=== PATIENT | male | born 1935 | race Caucasian/White ===

== ENCOUNTER 2017-07-26 19:52 | Emergency (ER) | payer OTHER ==
[2017-07-26] MEDS ORDERED: HYDROCODONE/APAP 5/325 MG TAB ONE (21:14)
[2017-07-26] MEDS ORDERED: CEPHALEXIN 250 MG CAP ONE (21:14)
[2017-07-26] MEDS ORDERED: LIDOCAINE 1% W/EPI 1:100,000 MDV 50 ML VIAL ONE (21:15)
[2017-07-26] MEDS ORDERED: TETANUS & DIPHTHERIA TOX,ADULT 0.5 ML VIAL ONE (21:15)
--- NOTE | 2017-07-26 22:57 | EDPHYS ---
Physician Documentation [facility] Name: Cy Bill Age: 81 yrs Sex: Male : 1935 Arrival Date: 07/26/2017 Time: 20:15 Bed 13 Private MD: ED Physician Milton Salgado HPI: 07/26 23:06 This 81 yrs old Male presents to ER via EMS with complaints of Laceration To snw Arm. 23:06 The patient has a laceration related to: falling from a standing position, occurred snw outdoors, and pt struck left upper, posterior arm on ragged fence, sustained a large avulsion, laceration with skin tears and deep fascia lacerations. The laceration(s) is(are) located on the back of left arm. Onset: The symptoms/episode began/occurred suddenly, just prior to arrival. Associated signs and symptoms: The patient has no apparent associated signs or symptoms. The patient has experienced a previous episode. It is unknown whether or not the patient has recently seen a physician. Historical: - Allergies: 20:19 No Known Allergies; lp1 - Home Meds: 20:19 None [Active]; lp1 - PMHx: 20:19 BPH; lp1 - PSHx: 20:19 None; lp1 - Immunization history:: Last tetanus immunization: unknown. - Social history:: Smoking status: Patient/guardian denies using tobacco, the patient reports quitting approximately 32 years ago. ROS: 23:05 Constitutional: Negative for fever, chills, and weight loss, Eyes: Negative for injury, snw pain, redness, and discharge, ENT: Negative for injury, pain, and discharge, Neck: Negative for injury, pain, and swelling, Cardiovascular: Negative for chest pain, palpitations, and edema, Respiratory: Negative for shortness of breath, cough, wheezing, and pleuritic chest pain, Abdomen/GI: Negative for abdominal pain, nausea, vomiting, diarrhea, and constipation, Back: Negative for injury and pain, : Negative for injury, bleeding, discharge, and swelling, MS/Extremity: Negative for injury and deformity, Neuro: Negative for headache, weakness, numbness, tingling, and seizure. 23:05 Skin: Positive for laceration(s), of the back of left arm. Exam: 23:04 Constitutional: This is a well developed, well nourished patient who is awake, alert, snw and in no acute distress. Head/Face: Normocephalic, atraumatic. Eyes: Pupils equal round and reactive to light, extra-ocular motions intact. Lids and lashes normal. Conjunctiva and sclera are non-icteric and not injected. Cornea within normal limits. Periorbital areas with no swelling, redness, or edema. ENT: Nares patent. No nasal discharge, no septal abnormalities noted. Tympanic membranes are normal and external auditory canals are clear. Oropharynx with no redness, swelling, or masses, exudates, or evidence of obstruction, uvula midline. Mucous membranes moist. Neck: Trachea midline, no thyromegaly or masses palpated, and no cervical lymphadenopathy. Supple, full range of motion without nuchal rigidity, or vertebral point tenderness. No Meningismus. Chest/axilla: Normal chest wall appearance and motion. Nontender with no deformity. No lesions are appreciated. Cardiovascular: Regular rate and rhythm with a normal S1 and S2. No gallops, murmurs, or rubs. Normal PMI, no JVD. No pulse deficits. Respiratory: Lungs have equal breath sounds bilaterally, clear to auscultation and percussion. No rales, rhonchi or wheezes noted. No increased work of breathing, no retractions or nasal flaring. Abdomen/GI: Soft, non-tender, with normal bowel sounds. No distension or tympany. No guarding or rebound. No evidence of tenderness throughout. Back: No spinal tenderness. No costovertebral tenderness. Full range of motion. MS/ Extremity: Pulses equal, no cyanosis. Neurovascular intact. Full, normal range of motion. Neuro: Awake and alert, GCS 15, oriented to person, place, time, and situation. Cranial nerves II-XII grossly intact. Motor strength 5/5 in all extremities. Sensory grossly intact. Cerebellar exam normal. Normal gait. 23:04 Skin: Appearance: ecchymosis, that are moderate, of the back of left arm, injury, avulsion(s), A moderate sized laceration(s), the wound is approximately 15 cm(s), with a depth of 5 cm(s), of the back of left arm. Vital Signs: 20:19 BP 152 / 69; Pulse 71; Resp 18; Temp 98.2(O); Pulse Ox 96% on R/A; Weight 90.72 kg; lp1 Height 6 ft. 0 in. (182.88 cm); Pain 1/10; 21:07 BP 137 / 66; Pulse 67; Resp 18; Pulse Ox 95% on R/A; aa1 22:00 BP 128 / 58; Pulse 76; Resp 16; Pulse Ox 96% on R/A; aa1 23:00 BP 119 / 57; Pulse 76; Resp 18; Temp 98.3; Pulse Ox 95% on R/A; Pain 0/10; aa1 20:19 Body Mass Index 27.12 (90.72 kg, 182.88 cm) lp1 Igor Coma Score: 21:07 Eye Response: spontaneous(4). Verbal Response: oriented(5). Motor Response: obeys aa1 commands(6). Total: 15. 22:00 Eye Response: spontaneous(4). Verbal Response: oriented(5). Motor Response: obeys aa1 commands(6). Total: 15. 23:00 Eye Response: spontaneous(4). Verbal Response: oriented(5). Motor Response: obeys aa1 commands(6). Total: 15. Laceration: 23:02 Wound Repair of 15cm ( 5.9in ) full thickness laceration to back of left arm. snw Irregularly shaped.. Skin/tissue flap noted.. Hemostasis noted.. Distal neuro/vascular/tendon intact. Anesthesia: Local anesthetic administered with 10 mls of 1% lidocaine w/ Epi. Wound prep: Extensive cleansing with hibiclenz by me, Wound margin revised extensively, Wound explored. Skin closed with 20 4-0 Prolene using simple sutures and sterile technique. Dressed with tegaderm, gia. Patient tolerated well. MDM: 21:19 Patient medically screened. snw 23:02 Data reviewed: vital signs, nurses notes. Data interpreted: Pulse oximetry: on room air snw is 96 %. Interpretation: acceptable. Counseling: I had a detailed discussion with the patient and/or guardian regarding: the historical points, exam findings, and any diagnostic results supporting the discharge/admit diagnosis, the need for outpatient follow up, to return to the emergency department if symptoms worsen or persist or if there are any questions or concerns that arise at home. Special discussion: I discussed in detail with the patient the higher chance of wound infection based on his presenting history. Based on the history and exam findings, there is no indication for further emergent testing or inpatient evaluation. I discussed with the patient/guardian the need to see the primary care provider for further evaluation of the symptoms. 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 Exp: aa1 09/04/2019. Lot #: [id number]. } Route: IM; Site: right deltoid; 23:26 Follow up: Response: No adverse reaction aa1 21:10 Drug: KeFLEX 500 mg Route: PO; aa1 23:25 Follow up: Response: No adverse reaction aa1 21:10 Drug: Castile 5 mg-325 mg 1 tabs Route: PO; aa1 23:25 Follow up: Response: No adverse reaction; Pain is decreased aa1 21:50 Drug: Lidocaine-Epinephrine -1%: (1:100,000) 1 vials Volume: 20 ml; Route: Infiltration;aa1 Disposition: 07/27 00:19 Co-signature as Attending Physician, Milton Salgado MD. pkl Disposition: 07/26/17 22:56 Discharged to Home. Impression: Laceration without foreign body of upper arm, Contusion of upper arm. - Condition is Stable. - Discharge Instructions: Contusion, Laceration Care, Adult, Sutured Wound Care, Deep Skin Avulsion. - Prescriptions for Keflex 500 mg Oral Capsule - take 1 capsule by ORAL route every 8 hours for 10 days; 30 capsule. Tylenol- Codeine #3 300-30 mg Oral Tablet - take 2 tablets by ORAL route every 6 hours As needed; 15 tablet. - Medication Reconciliation Form, Thank You Letter, Antibiotic Education, Prescription Opioid Use form. - Follow up: Private Physician; When: 1 week; Reason: Wound Recheck, Recheck today's complaints, Re-evaluation by your physician. Follow up: Emergency Department; When: As needed; Reason: Worsening of condition. Signatures: Sneha Sanford RN RN aa1 Milton Salgado MD MD pkl Katelyn Aviles, PHP MYSQL DEVELOPER-C PHP MYSQL DEVELOPER-Csnw Usha Durham, RN RN lp1
--- NOTE | 2017-07-26 22:57 | ER ---
Nurse's Notes [facility] Name: Cy Bill Age: 81 yrs Sex: Male : 1935 Arrival Date: 07/26/2017 Time: 20:15 Bed 13 Private MD: Diagnosis: Laceration without foreign body of upper arm;Contusion of upper arm Presentation: 07/26 20:16 Presenting complaint: EMS states: Patient was walking in backyard, tripped and fell, lp1 left arm caught on chain link fence, evulsion noted to back of left arm; No active bleeding on arrival to ED; Denies hitting head, no LOC. Transition of care: patient was not received from another setting of care. Complicating Factors: There are no complicating factors for this patient. Onset of symptoms was July 26, 2017 at 19:30. Care prior to arrival: Injury dressed. 20:16 Method Of Arrival: EMS: [facility] lp1 20:16 Acuity: AMALIA 3 lp1 Historical: - Allergies: 20:19 No Known Allergies; lp1 - Home Meds: 20:19 None [Active]; lp1 - PMHx: 20:19 BPH; lp1 - PSHx: 20:19 None; lp1 - Immunization history:: Last tetanus immunization: unknown. - Social history:: Smoking status: Patient/guardian denies using tobacco, the patient reports quitting approximately 32 years ago. Screenin:20 Abuse screen: Denies threats or abuse. Denies injuries from another. Nutritional lp1 screening: No deficits noted. 20:20 Tuberculosis screening: No symptoms or risk factors identified. Fall Risk None aa1 identified. Assessment: 20:20 General: Appears in no apparent distress. comfortable, Behavior is calm, cooperative, aa1 appropriate for age. Pain: Complains of pain in left arm. Neuro: Level of Consciousness is awake, alert, obeys commands, Oriented to person, place, time, situation, Facial Operator are equal bilaterally Moves all extremities. Full function Gait is steady, Speech is normal. Respiratory: Airway is patent Respiratory effort is even, unlabored, Respiratory pattern is regular, symmetrical. GI: : EENT: No signs and/or symptoms were reported regarding the EENT system. Derm: Skin is thin, has skin tears on back of left upper arm Skin is pink, warm \T\ dry. Musculoskeletal: Circulation, motion, and sensation intact. Capillary refill < 3 seconds, Range of motion: intact in all extremities. Injury Description: Laceration sustained to back of left arm is jagged, 7.6 to 20 cm long, not bleeding. 21:00 Reassessment: Patient appears in no apparent distress at this time. Patient and/or aa1 family updated on plan of care and expected duration. Pain level reassessed. Patient is alert, oriented x 3, equal unlabored respirations, skin warm/dry/pink. Awaiting lac repair. 21:50 Reassessment: Patient appears in no apparent distress at this time. Patient and/or aa1 family updated on plan of care and expected duration. Pain level reassessed. Patient is alert, oriented x 3, equal unlabored respirations, skin warm/dry/pink. DELI CLERK at bedside for lac repair. 22:50 Reassessment: Patient appears in no apparent distress at this time. Patient and/or aa1 family updated on plan of care and expected duration. Pain level reassessed. Patient is alert, oriented x 3, equal unlabored respirations, skin warm/dry/pink. Lac repair complete. Pt pending discharge. 23:30 Reassessment: Patient appears in no apparent distress at this time. Patient is alert, aa1 oriented x 3, equal unlabored respirations, skin warm/dry/pink. Discussed d/c \T\ f/u instructions with pt \T\ family; denies questions or concerns at this time. Vital Signs: 20:19 BP 152 / 69; Pulse 71; Resp 18; Temp 98.2(O); Pulse Ox 96% on R/A; Weight 90.72 kg; lp1 Height 6 ft. 0 in. (182.88 cm); Pain 1/10; 21:07 BP 137 / 66; Pulse 67; Resp 18; Pulse Ox 95% on R/A; aa1 22:00 BP 128 / 58; Pulse 76; Resp 16; Pulse Ox 96% on R/A; aa1 23:00 BP 119 / 57; Pulse 76; Resp 18; Temp 98.3; Pulse Ox 95% on R/A; Pain 0/10; aa1 20:19 Body Mass Index 27.12 (90.72 kg, 182.88 cm) lp1 Oxford Coma Score: 21:07 Eye Response: spontaneous(4). Verbal Response: oriented(5). Motor Response: obeys aa1 commands(6). Total: 15. 22:00 Eye Response: spontaneous(4). Verbal Response: oriented(5). Motor Response: obeys aa1 commands(6). Total: 15. 23:00 Eye Response: spontaneous(4). Verbal Response: oriented(5). Motor Response: obeys aa1 commands(6). Total: 15. ED Course: 20:15 Patient arrived in ED. lp1 20:18 Triage completed. lp1 20:19 Arm band placed on right wrist. lp1 20:20 Patient has correct armband on for positive identification. Placed in gown. Bed in low aa1 position. Call light in reach. Side rails up X2. Pulse ox on. NIBP on. Warm blanket given. 20:39 Katelyn Aviles FNP-C is PHCP. snw 20:39 Milton Salgado MD is Attending Physician. snw 20:52 Sneha Sanford RN is Primary Nurse. aa1 22:00 Assist provider with laceration repair on back of left arm that was between 7.6 to 12.5 aa1 cm using sutures. Set up tray. Performed by Katelyn EUBANKS Dressed with Niurka, Neosporin, non-adherent dressing Patient tolerated well. 23:27 Patient did not have IV access during this emergency room visit. 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 Exp: aa1 09/04/2019. Lot #: [id number]. } Route: IM; Site: right deltoid; 23:26 Follow up: Response: No adverse reaction aa1 21:10 Drug: KeFLEX 500 mg Route: PO; aa1 23:25 Follow up: Response: No adverse reaction aa1 21:10 Drug: [place]elphi 5 mg-325 mg 1 tabs Route: PO; aa1 23:25 Follow up: Response: No adverse reaction; Pain is decreased aa1 21:50 Drug: Lidocaine-Epinephrine -1%: (1:100,000) 1 vials Volume: 20 ml; Route: Infiltration;aa1 Outcome: 22:56 Discharge ordered by . snw 23:27 Discharged to home with family. aa1 23:27 Condition: good 23:27 Discharge instructions given to patient, family, Instructed on discharge instructions, follow up and referral plans. medication usage, Demonstrated understanding of instructions, follow-up care, medications, Prescriptions given X 2. 23:27 Patient left the ED. aa1 Signatures: Sneha Sanford RN RN aa1 Katelyn Aviles, MATH TUTOR-C MATH TUTOR-Csnw Usha Durham RN RN lp1
[2017-07-26 23:34] VITALS: BP 119/57; TEMP 98.3; O2SAT 95
== END 2017-07-26 23:27 | disposition home or self-care (01) ==
LOC: ER 19:52
PROC: 0JQF0ZZ Repair Left Upper Arm Subcutaneous Tissue and Fascia, Open Approach (ICD-10-PCS; principal; 2017-07-26)
DX: S41.112A Laceration without foreign body of left upper arm, initial encounter (principal); S40.022A Contusion of left upper arm, initial encounter; W01.0XXA Fall on same level from slipping, tripping and stumbling without subsequent striking against object, initial encounter; Y93.9 Activity, unspecified; Y92.007 Garden or yard of unspecified non-institutional (private) residence as the place of occurrence of the external cause
CPT/HCPCS: 90714; 99284

== ENCOUNTER 2019-01-20 10:07 | Emergency (ER) | payer OTHER ==
[2019-01-20] MEDS ORDERED: TETANUS & DIPHTHERIA TOX,ADULT 0.5 ML VIAL ONE (10:41)
[2019-01-20] MEDS ORDERED: LIDOCAINE 1% MPF 5 ML VIAL ONE (10:41)
[2019-01-20] MEDS ORDERED: TRAMADOL HCL 50 MG TAB ONE (11:47)
--- NOTE | 2019-01-20 11:55 | RAD REPORT ---
EXAM DESCRIPTION: RAD - Hand Left 3 View - 01/20/2019 11:37 am CLINICAL HISTORY: PAIN COMPARISON: No comparisons FINDINGS: Soft tissue swelling/ laceration is seen along the dorsal aspect of the hand. No acute fra cture or dislocation evident. First carpometacarpal joint arthritic changes are present. Scapholunate articulation widening is present suggesting underlying tear.
--- NOTE | 2019-01-20 11:56 | RAD REPORT ---
EXAM DESCRIPTION: RAD - Femur Left - 01/20/2019 11:37 am CLINICAL HISTORY: PAIN COMPARISON: No comparisons FINDINGS: No acute fracture or dislocation is seen. Vascular calcifications are present.
--- NOTE | 2019-01-20 12:52 | ER ---
Nurse's Notes [facility] Name: Cy Bill Age: 83 yrs Sex: Male : 1935 Arrival Date: 01/20/2019 Time: 10:09 Bed 14 Private MD: Diagnosis: Laceration without foreign body of left hand-skin tear;Contusion of left lower leg-lateral thigh Presentation: 01/20 10:15 Presenting complaint: Patient states: "I fell off the boat today and hurt my left aa5 hand". Large skin tear noted to left hand. Pt also c/o pain to left leg. 10:15 Transition of care: patient was not received from another setting of care. Onset of aa5 symptoms was January 20, 2019. Risk Assessment: Do you want to hurt yourself or someone else? Patient reports no desire to harm self or others. Care prior to arrival: None. 10:15 Acuity: AMALIA 3 aa5 10:15 Method Of Arrival: Ambulatory aa5 10:22 Complicating Factors: open wound. Initial Sepsis Screen: Does the patient meet any 2 rb1 criteria? No. Patient's initial sepsis screen is negative. Does the patient have a suspected source of infection? Yes: Skin breakdown/wound. Historical: - Allergies: 10:22 Aspirin; rb1 - PMHx: 10:16 BPH; aa5 - PSHx: 10:22 None; rb1 - Immunization history:: Adult Immunizations up to date, Last tetanus immunization: unknown. - Ebola Screening: : No symptoms or risks identified at this time. - Social history:: Smoking status: Patient/guardian denies using tobacco. Screenin:22 Abuse screen: Denies threats or abuse. Nutritional screening: No deficits noted. rb1 Tuberculosis screening: No symptoms or risk factors identified. Fall Risk Fall in past 12 months (25 points). No secondary diagnosis (0 pts). No IV (0 pts). Ambulatory Aid- None/Bed Rest/Nurse Assist (0 pts). Gait- Normal/Bed Rest/Wheelchair (0 pts) Mental Status- Oriented to own ability (0 pts). Total Streeter Fall Scale indicates Low Risk Score (25-44 pts). Fall prevention measures have been instituted. Side Rails Up X 2 Placed close to Nursing Station 1:1 attendant Assigned to Pt. Frequent Obs/Assesments occuring Family Present and informed to notify staff if they need to leave bedside As available Patient and Family Educated on Fall Prevention Program and strategies. Assessment: 10:22 General: Appears in no apparent distress. comfortable, Behavior is calm, cooperative. rb1 Pain: Complains of pain in left hand Pain currently is 4 out of 10 on a pain scale. Neuro: Level of Consciousness is awake, alert, obeys commands, Oriented to person, place, time, situation. Cardiovascular: Capillary refill < 3 seconds is brisk in bilateral fingers. Respiratory: Airway is patent Respiratory effort is even, unlabored, Respiratory pattern is regular, symmetrical. GI: No signs and/or symptoms were reported involving the gastrointestinal system. : No signs and/or symptoms were reported regarding the genitourinary system. Derm: Wound noted left hand, left forearm. Musculoskeletal: Range of motion: intact in all extremities. Injury Description: Laceration is contaminated, jagged, minimal bleeding. 11:20 Reassessment: Patient appears in no apparent distress at this time. No changes from rb1 previously documented assessment. Family at patient bedside. 11:55 Reassessment: Patient appears in no apparent distress at this time. Patient and/or rb1 family updated on plan of care and expected duration. Pain level reassessed. Patient is alert, oriented x 3, equal unlabored respirations, skin warm/dry/pink. Pt. refused the Tramadol, he stated, "I'll wait for her to numb up my hand when she puts stitches in it.". 12:27 Reassessment: Provider at bedside suturing the wound on pt. left hand. rb1 13:00 Reassessment: Patient appears in no apparent distress at this time. Patient and/or rb1 family updated on plan of care and expected duration. Pain level reassessed. Patient is alert, oriented x 3, equal unlabored respirations, skin warm/dry/pink. Vital Signs: 10:15 BP 137 / 73; Pulse 81; Resp 16 S; Temp 98.1(O); Pulse Ox 98% on R/A; aa5 11:16 BP 135 / 57; Pulse 71; Resp 16; Pulse Ox 98% on R/A; dh3 12:09 BP 134 / 55; Pulse 61; Resp 16; Pulse Ox 99% on R/A; rb1 13:07 BP 135 / 59; Pulse 67; Resp 17; Temp 98.4(O); Pulse Ox 97% on R/A; Pain 4/10; rb1 ED Course: 10:09 Patient arrived in ED. as 10:14 Gwendolyn Burgess FNP-C is [facility]. kb 10:14 Qasim Ward MD is Attending Physician. kb 10:15 Arm band placed on Patient placed in an exam room, on a stretcher. aa5 10:19 Triage completed. aa5 10:22 Patient has correct armband on for positive identification. Placed in gown. Bed in low rb1 position. Call light in reach. Side rails up X 1. Pulse ox on. NIBP on. 10:35 Sharon Diaz, RN is Primary Nurse. rb1 11:48 Femur Left XRAY In Process Unspecified. EDMS 11:48 Hand Left 3 View XRAY In Process Unspecified. EDMS 13:09 No provider procedures requiring assistance completed. Patient did not have IV access rb1 during this emergency room visit. Administered Medications: 10:46 Drug: Tetanus-Diphtheria Toxoid Adult 0.5 ml {Finance Associate: [employer]. Exp: rb1 09/07/2020. Lot #: [id number]. } Route: IM; Site: right deltoid; 11:00 Follow up: Response: No adverse reaction rb1 13:00 Drug: traMADol 50 mg Route: PO; rb1 13:06 Follow up: Response: Medication administered at discharge. rb1 13:05 Drug: Doxycycline 100 mg Route: PO; rb1 13:06 Follow up: Response: No adverse reaction rb1 Outcome: 12:50 Discharge ordered by . kb 13:09 Discharged to home via wheelchair, with family. rb1 13:09 Condition: stable 13:09 Discharge instructions given to patient, Instructed on discharge instructions, follow up and referral plans. medication usage, Demonstrated understanding of instructions, follow-up care, medications, Prescriptions given X 2. 13:10 Patient left the ED. rb1 Signatures: Dispatcher [employer] EDMS Gwendolyn Burgess FNP-C FNP-Ckb Martinez, Amelia as Calderon, Audri RN RN aa5 Sharon Diaz, RN RN rb1 Elsie Rivera 3 Corrections: (The following items were deleted from the chart) 11:51 10:16 Allergies: No Known Allergies; aa5 rb1
--- NOTE | 2019-01-20 12:52 | EDPHYS ---
Physician Documentation [facility] Name: Cy Bill Age: 83 yrs Sex: Male : 1935 Arrival Date: 01/20/2019 Time: 10:09 Bed 14 Private MD: ED Physician Qasim Ward HPI: 01/20 10:21 This 83 yrs old Male presents to ER via Ambulatory with complaints of kb Laceration To Leg. 10:21 The patient has a laceration related to: falling from a standing position, occurred kb outdoors, and there are no complicating factors. The injury was accidental. The laceration(s) is(are) located on the dorsum of left hand and palmar aspect of left forearm. Onset: The symptoms/episode began/occurred just prior to arrival. Associated signs and symptoms: The patient has no apparent associated signs or symptoms. The patient has not experienced similar symptoms in the past. The patient has not recently seen a physician. Pt fell on a boat and sustained skin tears to left hand and left forearm. Full ROM of arm and hand. Daughter wants left hip x-rayed because he hit that as well. Pt reports he hit his femur, not his hip. Full ROM, ambulates with steady gait. . Historical: - Allergies: 10:22 Aspirin; rb1 - PMHx: 10:16 BPH; aa5 - PSHx: 10:22 None; rb1 - Immunization history:: Adult Immunizations up to date, Last tetanus immunization: unknown. - Ebola Screening: : No symptoms or risks identified at this time. - Social history:: Smoking status: Patient/guardian denies using tobacco. ROS: 10:25 Constitutional: Negative for fever, chills, and weight loss, ENT: Negative for injury, kb pain, and discharge, Neck: Negative for injury, pain, and swelling, Cardiovascular: Negative for chest pain, palpitations, and edema, Respiratory: Negative for shortness of breath, cough, wheezing, and pleuritic chest pain, Abdomen/GI: Negative for abdominal pain, nausea, vomiting, diarrhea, and constipation, Neuro: Negative for headache, weakness, numbness, tingling, and seizure. 10:25 MS/extremity: Positive for of the dorsum of left hand and palmar aspect of left forearm, skin tear, soreness to left femur. Exam: 10:30 Constitutional: This is a well developed, well nourished patient who is awake, alert, kb and in no acute distress. Head/Face: Normocephalic, atraumatic. Neck: Trachea midline, no thyromegaly or masses palpated, and no cervical lymphadenopathy. Supple, full range of motion without nuchal rigidity, or vertebral point tenderness. No Meningismus. Chest/axilla: Normal chest wall appearance and motion. Nontender with no deformity. No lesions are appreciated. Cardiovascular: Regular rate and rhythm with a normal S1 and S2. No gallops, murmurs, or rubs. Normal PMI, no JVD. No pulse deficits. Respiratory: Lungs have equal breath sounds bilaterally, clear to auscultation and percussion. No rales, rhonchi or wheezes noted. No increased work of breathing, no retractions or nasal flaring. Abdomen/GI: Soft, non-tender, with normal bowel sounds. No distension or tympany. No guarding or rebound. No evidence of tenderness throughout. Neuro: Awake and alert, GCS 15, oriented to person, place, time, and situation. Cranial nerves II-XII grossly intact. Motor strength 5/5 in all extremities. Sensory grossly intact. Cerebellar exam normal. Normal gait. 10:30 Skin: injury, large skin tear to top of hand, skin tear to forearm, all bleeding controlled. . 10:42 Musculoskeletal/extremity: Extremities: grossly normal except: noted in the lateral kb aspect of left thigh: contusion. Vital Signs: 10:15 BP 137 / 73; Pulse 81; Resp 16 S; Temp 98.1(O); Pulse Ox 98% on R/A; aa5 11:16 BP 135 / 57; Pulse 71; Resp 16; Pulse Ox 98% on R/A; dh3 12:09 BP 134 / 55; Pulse 61; Resp 16; Pulse Ox 99% on R/A; rb1 13:07 BP 135 / 59; Pulse 67; Resp 17; Temp 98.4(O); Pulse Ox 97% on R/A; Pain 4/10; rb1 Laceration: 12:46 Wound Repair of 8cm ( 3.1in ) subcutaneous laceration to dorsum of left hand. kb Irregularly shaped.. Skin/tissue flap noted.. Distal neuro/vascular/tendon intact. Anesthesia: Wound infiltrated with 5 mls of 1% lidocaine. Wound prep: Extensive cleansing, Wound irrigation. Skin closed with 6 6-0 Prolene using interrupted sutures and sterile technique. Dressed with non-adherent dressing. Patient tolerated well. MDM: 10:14 Patient medically screened. kb 10:24 Data reviewed: vital signs, nurses notes. Data interpreted: Pulse oximetry: on room air kb is 98 %. Interpretation: normal. 12:47 Counseling: I had a detailed discussion with the patient and/or guardian regarding: the kb historical points, exam findings, and any diagnostic results supporting the discharge/admit diagnosis, radiology results, the need for outpatient follow up, a family practitioner, to return to the emergency department if symptoms worsen or persist or if there are any questions or concerns that arise at home. ED course: Attempted to approximate skin tear due to extent. 6 sutures placed, along with steri-strips. . 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 Exp: rb1 09/07/2020. Lot #: [id number]. } Route: IM; Site: right deltoid; 11:00 Follow up: Response: No adverse reaction rb1 13:00 Drug: traMADol 50 mg Route: PO; rb1 13:06 Follow up: Response: Medication administered at discharge. rb1 13:05 Drug: Doxycycline 100 mg Route: PO; rb1 13:06 Follow up: Response: No adverse reaction rb1 Disposition: 01/20/19 12:50 Discharged to Home. Impression: Laceration without foreign body of left hand - skin tear, Contusion of left lower leg - lateral thigh. - Condition is Stable. - Discharge Instructions: Laceration Care, Adult, [facility]. - Prescriptions for Doxycycline Hyclate 100 mg Oral Tablet - take 1 tablet by ORAL route every 12 hours; 20 tablet. Tramadol 50 mg Oral Tablet - take 1 tablet by ORAL route every 8 hours as needed; 12 tablet. - Medication Reconciliation Form, Thank You Letter, Antibiotic Education, Prescription Opioid Use form. - Follow up: Emergency Department; When: As needed; Reason: Worsening of condition. Follow up: Private Physician; When: 2 - 3 days; Reason: Recheck today's complaints, Continuance of care, Re-evaluation by your physician. Signatures: Dispatcher [employer] EDMS Gwendolyn Burgess, Leida Hernandez RN RN aa5 Sharon Diaz, AIRAM RN rb1 Corrections: (The following items were deleted from the chart) 10:42 10:30 Constitutional: This is a well developed, well nourished patient who is awake, kb alert, and in no acute distress. Head/Face: Normocephalic, atraumatic. Neck: Trachea midline, no thyromegaly or masses palpated, and no cervical lymphadenopathy. Supple, full range of motion without nuchal rigidity, or vertebral point tenderness. No Meningismus. Chest/axilla: Normal chest wall appearance and motion. Nontender with no deformity. No lesions are appreciated. Cardiovascular: Regular rate and rhythm with a normal S1 and S2. No gallops, murmurs, or rubs. Normal PMI, no JVD. No pulse deficits. Respiratory: Lungs have equal breath sounds bilaterally, clear to auscultation and percussion. No rales, rhonchi or wheezes noted. No increased work of breathing, no retractions or nasal flaring. Abdomen/GI: Soft, non-tender, with normal bowel sounds. No distension or tympany. No guarding or rebound. No evidence of tenderness throughout. MS/ Extremity: Pulses equal, no cyanosis. Neurovascular intact. Full, normal range of motion. Neuro: Awake and alert, GCS 15, oriented to person, place, time, and situation. Cranial nerves II-XII grossly intact. Motor strength 5/5 in all extremities. Sensory grossly intact. Cerebellar exam normal. Normal gait. kb 11:51 10:16 Allergies: No Known Allergies; aa5 rb1 13:10 12:50 01/20/2019 12:50 Discharged to Home. Impression: Laceration without foreign body rb1 of left hand - skin tear; Contusion of left lower leg - lateral thigh. Condition is Stable. Forms are Medication Reconciliation Form, Thank You Letter, Antibiotic Education, Prescription Opioid Use. Follow up: Emergency Department; When: As needed; Reason: Worsening of condition. Follow up: Private Physician; When: 2 - 3 days; Reason: Recheck today's complaints, Continuance of care, Re-evaluation by your physician. kb
[2019-01-20] MEDS ORDERED: DOXYCYCLINE 100 MG CAP PO ONE (13:07)
[2019-01-20 13:19] VITALS: BP 135/59; TEMP 98.4; O2SAT 97
== END 2019-01-20 13:10 | disposition home or self-care (01) ==
LOC: ER 10:07
PROC: 0JQK0ZZ Repair Left Hand Subcutaneous Tissue and Fascia, Open Approach (ICD-10-PCS; principal; 2019-01-20)
DX: S70.12XA Contusion of left thigh, initial encounter (principal); W17.89XA Other fall from one level to another, initial encounter; Y93.89 Activity, other specified; Y92.9 Unspecified place or not applicable; Z23 Encounter for immunization; Z88.6 Allergy status to analgesic agent
CPT/HCPCS: 90471; 90714; 99284

== ENCOUNTER 2020-07-27 16:05 | Emergency (ER) | payer OTHER ==
[2020-07-27] MEDS ORDERED: LIDOCAINE 1% MPF 30 ML VIAL ONE (18:09)
[2020-07-27] MEDS ORDERED: TETANUS & DIPHTHERIA TOX,ADULT 0.5 ML VIAL ONE (18:17)
--- NOTE | 2020-07-27 18:41 | EDPHYS ---
Physician Documentation [facility] Name: Cy Bill Age: 84 yrs Sex: Male : 1935 Arrival Date: 07/27/2020 Time: 16:07 Bed 30 Private MD: ED Physician Fifi Mueller HPI: 07/27 18:34 This 84 yrs old Male presents to ER via Ambulatory with complaints of jr8 Laceration To Arm. 18:34 Pt reports hitting arm on a nail in a board. He also wants a tetanus shot. Bleeding jr8 controlled. . 18:38 Onset: The symptoms/episode began/occurred acutely, today. Associated signs and jr8 symptoms: The patient has no apparent associated signs or symptoms. The patient has not experienced similar symptoms in the past. The patient has not recently seen a physician. Historical: - Allergies: 16:30 Aspirin; ca1 - PMHx: 16:30 BPH; ca1 - PSHx: 16:30 None; ca1 - Immunization history:: Client reports having NOT received the Covid vaccine. Last tetanus immunization: unknown, Pneumococcal vaccine is not up to date, Flu vaccine is not up to date. - Social history:: Smoking status: Patient/guardian denies using tobacco, the patient reports quitting approximately 37 years ago. ROS: 18:35 Cardiovascular: Negative for chest pain, palpitations, and edema, Respiratory: Negative jr8 for shortness of breath, cough, wheezing, and pleuritic chest pain, Abdomen/GI: Negative for abdominal pain, nausea, vomiting, diarrhea, and constipation, Neuro: Negative for headache, weakness, numbness, tingling, and seizure. 18:35 MS/extremity: Positive for laceration, of the left arm. 18:35 Skin: Positive for laceration(s), of the left arm. 18:38 All other systems are negative. jr8 Exam: 18:35 Chest/axilla: Normal chest wall appearance and motion. Nontender with no deformity. jr8 No lesions are appreciated. Cardiovascular: Regular rate and rhythm with a normal S1 and S2. No gallops, murmurs, or rubs. Normal PMI, no JVD. No pulse deficits. Respiratory: Lungs have equal breath sounds bilaterally, clear to auscultation and percussion. No rales, rhonchi or wheezes noted. No increased work of breathing, no retractions or nasal flaring. Abdomen/GI: Soft, non-tender, with normal bowel sounds. No distension or tympany. No guarding or rebound. No evidence of tenderness throughout. Neuro: Awake and alert, GCS 15, oriented to person, place, time, and situation. Cranial nerves II-XII grossly intact. Motor strength 5/5 in all extremities. Sensory grossly intact. Cerebellar exam normal. Normal gait. 18:35 Musculoskeletal/extremity: Extremities: grossly normal except: noted in the Mid dorsal region of L forearm: laceration, ROM: no acute changes, Circulation is intact in all extremities. Sensation intact. Vital Signs: 16:27 BP 130 / 63; Pulse 77; Resp 16 S; Temp 98.2(TE); Pulse Ox 99% on R/A; Weight 96.16 kg ca1 (R); Height 6 ft. 0 in. (182.88 cm) (R); Pain 0/10; 18:50 BP 125 / 80; Pulse 75; Resp 19; Pulse Ox 98% ; rr5 16:27 Body Mass Index 28.75 (96.16 kg, 182.88 cm) ca1 Laceration: 18:36 Wound Repair of 5cm ( 2.0in ) subcutaneous laceration to left arm. Distal jr8 neuro/vascular/tendon intact. Anesthesia: Local anesthetic administered with 1% lidocaine. Wound prep: Extensive cleansing with hibiclenz, Wound irrigation with saline by wi, Copious irrigation. Skin closed with 4-0 Vicryl using interrupted sutures and sterile technique. Skin closed with 6 1-0 Prolene using simple sutures and sterile technique. Dressed with Bacitracin, tube gauze, non-adherent dressing. Patient tolerated well. MDM: 17:15 Patient medically screened. jr8 18:37 Data reviewed: vital signs, nurses notes, and as a result, I will discharge patient. jr8 Data interpreted: Pulse oximetry: on room air is 99 %. Interpretation: normal. Counseling: I had a detailed discussion with the patient and/or guardian regarding: the historical points, exam findings, and any diagnostic results supporting the discharge/admit diagnosis, the need for outpatient follow up, a family practitioner, to return to the emergency department if symptoms worsen or persist or if there are any questions or concerns that arise at home. 07/27 18:24 Order name: Prolene, Sutures; Complete Time: 18:41 rr5 07/27 18:24 Order name: Dressing - Wound; Complete Time: 18:41 rr5 07/27 18:24 Order name: Gloves, Sterile; Complete Time: 18:41 rr5 07/27 18:24 Order name: Setup Suture Tray; Complete Time: 18:41 rr5 Administered Medications: 18:15 Drug: Lidocaine (1 %) 10 ml Volume: 20 ml; Route: Infiltration; rr5 18:55 Follow up: Response: No adverse reaction rr5 18:40 Drug: Tetanus-Diphtheria Toxoid Adult 0.5 ml {[employer]: [employer]. Exp: rr5 08/11/2021. Lot #: [id number]. } Route: IM; Site: left deltoid; 18:55 Follow up: Response: No adverse reaction rr5 Disposition: 07/27/20 18:40 Discharged to Home. Impression: Laceration without foreign body of left forearm. - Condition is Stable. - Discharge Instructions: Laceration Care, Adult. - Medication Reconciliation Form, Thank You Letter, Antibiotic Education, Prescription Opioid Use form. - Follow up: Private Physician; When: 7 - 10 days; Reason: Wound Recheck, Recheck today's complaints, Continuance of care, Staple/Suture removal, Re-evaluation by your physician. - Problem is new. - Symptoms have improved. Addendum: 07/29/2020 18:36 Co-signature as Attending Physician, Fifi Mueller MD. m a2 Signatures: Norma Sosa RN RN iw Roge Lr PA PA 8 Fifi Mueller MD MD ma2 Tlyer Sutton RN RN rr5 Marina Bernard RN RN ca1 Corrections: (The following items were deleted from the chart) 07/27 18:39 18:35 Musculoskeletal/extremity: Extremities: grossly normal except: noted in the left jr8 arm: laceration, ROM: no acute changes, Circulation is intact in all extremities. Sensation intact. jr8 18:41 18:35 Musculoskeletal/extremity: Extremities: grossly normal except: noted in the left jr8 arm: laceration, ROM: no acute changes, Circulation is intact in all extremities. Sensation intact. 8 19:00 18:40 07/27/2020 18:40 Discharged to Home. Impression: Laceration without foreign body iw of left forearm. Condition is Stable. Forms are Medication Reconciliation Form, Thank You Letter, Antibiotic Education, Prescription Opioid Use. Follow up: Private Physician; When: 7 - 10 days; Reason: Wound Recheck, Recheck today's complaints, Continuance of care, Staple/Suture removal, Re-evaluation by your physician. Problem is new. Symptoms have improved. jr8
--- NOTE | 2020-07-27 18:41 | ER ---
Nurse's Notes [facility] Name: Cy Bill Age: 84 yrs Sex: Male : 1935 Arrival Date: 07/27/2020 Time: 16:07 Bed 30 Private MD: Diagnosis: Laceration without foreign body of left forearm Presentation: 07/27 16:27 Chief complaint: Patient states: lac on L forearm 30 mins [employer] WALL [employer]. Got caught on a nail ca1 head. Bleeding controlled. Coronavirus screen: Client denies travel out of the [place] in the last 14 days. At this time, the client does not indicate any symptoms associated with coronavirus-19. Ebola Screen: Patient negative for fever greater than or equal to 101.5 degrees Fahrenheit, and additional compatible Ebola Virus Disease symptoms Patient denies exposure to infectious person. Patient denies travel to an Ebola-affected area in the 21 days before illness onset. No symptoms or risks identified at this time. Complicating Factors: There are no complicating factors for this patient. Initial Sepsis Screen: Does the patient meet any 2 criteria? No. Patient's initial sepsis screen is negative. Does the patient have a suspected source of infection? No. Patient's initial sepsis screen is negative. Risk Assessment: Do you want to hurt yourself or someone else? Patient reports no desire to harm self or others. Onset of symptoms was July 27, 2020. 16:27 Method Of Arrival: Ambulatory ca1 16:27 Acuity: AMALIA 4 ca1 Historical: - Allergies: 16:30 Aspirin; ca1 - PMHx: 16:30 BPH; ca1 - PSHx: 16:30 None; ca1 - Immunization history:: Client reports having NOT received the Covid vaccine. Last tetanus immunization: unknown, Pneumococcal vaccine is not up to date, Flu vaccine is not up to date. - Social history:: Smoking status: Patient/guardian denies using tobacco, the patient reports quitting approximately 37 years ago. Screenin:35 Abuse screen: Denies threats or abuse. Denies injuries from another. Nutritional rr5 screening: No deficits noted. Tuberculosis screening: No symptoms or risk factors identified. Fall Risk None identified. Total Streeter Fall Scale indicates No Risk (0-24 pts). Assessment: 17:35 General: Appears in no apparent distress. comfortable, Behavior is calm, cooperative, rr5 appropriate for age. 17:35 Pain: Complains of pain in dorsal aspect of left forearm Quality of pain is described rr5 as aching, Pain began suddenly, Is intermittent. Neuro: Level of Consciousness is awake, alert, obeys commands, Oriented to person, place, time, situation. Cardiovascular: Capillary refill < 3 seconds Patient's skin is warm and dry. Respiratory: Airway is patent Respiratory effort is even, unlabored, Respiratory pattern is regular, symmetrical. GI: No signs and/or symptoms were reported involving the gastrointestinal system. : No signs and/or symptoms were reported regarding the genitourinary system. EENT: No signs and/or symptoms were reported regarding the EENT system. Derm: Skin temperature is warm Wound noted dorsal aspect of left forearm Wound is lacerated wound. Musculoskeletal: Capillary refill < 3 seconds. 17:35 Injury Description: Laceration sustained to dorsal aspect of left forearm is clean, 0.5 rr5 to 2.5 cm long. 18:51 Reassessment: Patient appears in no apparent distress at this time. Patient is alert, rr5 oriented x 3, equal unlabored respirations, skin warm/dry/pink. discharge instruction given and explained without complaints made Patient states feeling better. Patient states symptoms have improved. Vital Signs: 16:27 BP 130 / 63; Pulse 77; Resp 16 S; Temp 98.2(TE); Pulse Ox 99% on R/A; Weight 96.16 kg ca1 (R); Height 6 ft. 0 in. (182.88 cm) (R); Pain 0/10; 18:50 BP 125 / 80; Pulse 75; Resp 19; Pulse Ox 98% ; rr5 16:27 Body Mass Index 28.75 (96.16 kg, 182.88 cm) ca1 ED Course: 16:07 Patient arrived in ED. ds1 16:28 Triage completed. ca1 16:30 Arm band placed on right wrist. ca1 17:14 Tyler Sutton RN is Primary Nurse. rr5 17:14 Roge Lr PA is PHCP. jr8 17:14 Fifi Mueller MD is Attending Physician. jr8 17:35 Patient has correct armband on for positive identification. Bed in low position. Call rr5 light in reach. 18:40 Assist provider with laceration repair on left arm and dorsal aspect of left forearm rr5 that was 2.5 cm. or less using sutures. Set up tray. Performed by Roge VENTURA Dressed with 4X4s, Kerlix, Neosporin, Patient tolerated well. 18:40 Patient did not have IV access during this emergency room visit. 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 Exp: rr5 08/11/2021. Lot #: [id number]. } Route: IM; Site: left deltoid; 18:55 Follow up: Response: No adverse reaction rr5 Outcome: 18:40 Discharge ordered by . wilbur 18:54 Discharged to home ambulatory. rr5 18:54 Condition: stable rr5 18:54 Discharge instructions given to patient, Instructed on discharge instructions, follow up and referral plans. Demonstrated understanding of instructions, follow-up care. 19:00 Patient left the ED. iw Signatures: Alexia Nicole ds1 Norma Sosa RN RN Roge Gramajo PA PA jr8 Tyler Sutton RN RN rr5 Marina Bernard RN RN ca1
[2020-07-28 09:00] VITALS: BP 125/80; O2SAT 98
== END 2020-07-27 19:00 | disposition home or self-care (01) ==
LOC: ER 16:05
PROC: 0JQH0ZZ Repair Left Lower Arm Subcutaneous Tissue and Fascia, Open Approach (ICD-10-PCS; principal; 2020-07-27)
DX: S51.812A Laceration without foreign body of left forearm, initial encounter (principal); W45.0XXA Nail entering through skin, initial encounter; Y93.9 Activity, unspecified; Y92.9 Unspecified place or not applicable; Z23 Encounter for immunization; Z88.6 Allergy status to analgesic agent
CPT/HCPCS: 90471; 90714; 99283

== ENCOUNTER 2020-11-09 12:23 | Emergency (ER) | payer OTHER ==
--- NOTE | 2020-11-09 13:51 | RAD REPORT ---
EXAM DESCRIPTION: RAD - Chest Single View - 11/09/2020 1:46 pm CLINICAL HISTORY: SOB Chest pain. COMPARISON: Chest Pa And Lat (2 Views) dated 05/04/2017; Chest Single View dated 04/21/2017 FINDINGS: Portable technique limits examination quality. Emphysematous changes are present with mild interstitial pulmonary opacities, greater on the left. Th is may indicate infection/bronchitis. The heart is upper limit of normal in size. No displaced fractu res.
[2020-11-09 14:18] LABS: Absolute Lymphocytes (CBC) 0.7 K/uL (0.7-4.9); Basophils % 0.5 % (0-1.3); Lymphocytes % 8.4 % (15.3-44.8); MPV 8.1 fL (7.6-11.3); RBC Red Blood Cell Count 3.49 M/uL (4.33-5.43)
[2020-11-09 14:28] LABS: Protime INR 1.11
[2020-11-09 14:50] LABS: ALT/SGPT 26 U/L (12-78); AST/SGOT 21 U/L (15-37); Albumin 3.2 g/dL (3.4-5.0); Alkaline Phosphatase 57 U/L (45-117); BUN Blood Urea Nitrogen 35 mg/dL (7-18); Bicarbonate 27 mmol/L (21-32); Bilirubin Direct 0.5 mg/dL (0-0.2); Bilirubin Total 1.5 mg/dL (0.2-1.0); Glucose Level 104 mg/dL (74-106); Magnesium 2.4 mg/dL (1.8-2.4); NT PRO-BNP 1504 pg/mL (<450); Sodium Level 136 mmol/L (136-145); Troponin (Emerg Dept Use Only) < 0.02 ng/mL (0.0-0.045)
--- NOTE | 2020-11-09 15:28 | EDPHYS ---
Physician Documentation [facility] Name: Cy Bill Age: 84 yrs Sex: Male : 1935 Arrival Date: 11/09/2020 Time: 12:43 Bed Treatment Private MD: ED Physician Jorge Lorenzo HPI: 11/09 14:40 This 84 yrs old Male presents to ER via EMS with complaints of Breathing jr8 Difficulty. 14:40 The patient has shortness of breath at rest. Onset: The symptoms/episode began/occurred jr8 gradually, 3 day(s) ago. Duration: The symptoms are continuous. The patient's shortness of breath is aggravated by light activity. Associated signs and symptoms: The patient has no apparent associated signs or symptoms. Severity of symptoms: At their worst the symptoms were moderate in the emergency department the symptoms are unchanged. The patient has not experienced similar symptoms in the past. The patient has not recently seen a physician. Historical: - Allergies: 14:12 Aspirin; iw - PMHx: 14:12 BPH; iw ROS: 14:40 Eyes: Negative for injury, pain, redness, and discharge, ENT: Negative for injury, jr8 pain, and discharge, Neck: Negative for injury, pain, and swelling, Cardiovascular: Negative for chest pain, palpitations, and edema, Abdomen/GI: Negative for abdominal pain, nausea, vomiting, diarrhea, and constipation, Back: Negative for injury and pain, MS/Extremity: Negative for injury and deformity, Skin: Negative for injury, rash, and discoloration, Neuro: Negative for headache, weakness, numbness, tingling, and seizure. 14:40 Respiratory: Positive for shortness of breath, at rest. Exam: 14:40 Constitutional: This is a well developed, well nourished patient who is awake, alert, jr8 and in no acute distress. Eyes: Pupils equal round and reactive to light, extra-ocular motions intact. Lids and lashes normal. Conjunctiva and sclera are non-icteric and not injected. Cornea within normal limits. Periorbital areas with no swelling, redness, or edema. ENT: Nares patent. No nasal discharge, no septal abnormalities noted. Tympanic membranes are normal and external auditory canals are clear. Oropharynx with no redness, swelling, or masses, exudates, or evidence of obstruction, uvula midline. Mucous membranes moist. Neck: Trachea midline, no thyromegaly or masses palpated, and no cervical lymphadenopathy. Supple, full range of motion without nuchal rigidity, or vertebral point tenderness. No Meningismus. Respiratory: Lungs have equal breath sounds bilaterally, clear to auscultation and percussion. No rales, rhonchi or wheezes noted. No increased work of breathing, no retractions or nasal flaring. Abdomen/GI: Soft, non-tender, with normal bowel sounds. No distension or tympany. No guarding or rebound. No evidence of tenderness throughout. Back: No spinal tenderness. No costovertebral tenderness. Full range of motion. Skin: Warm, dry with normal turgor. Normal color with no rashes, no lesions, and no evidence of cellulitis. MS/ Extremity: Pulses equal, no cyanosis. Neurovascular intact. Full, normal range of motion. Neuro: Awake and alert, GCS 15, oriented to person, place, time, and situation. Cranial nerves II-XII grossly intact. Motor strength 5/5 in all extremities. Sensory grossly intact. 14:40 Cardiovascular: Rate: bradycardic, Rhythm: irregularly irregular, Pulses: Pulses are 2+ in right radial artery and left radial artery. Heart sounds: normal, normal S1and S2, no S3 or S4, no murmur, no rub, no gallop, Edema: is not appreciated, JVD: is not appreciated. Vital Signs: 12:44 BP 140 / 51; Pulse 60; Resp 16; Temp 99.6; Pulse Ox 95% on R/A; Weight 98.43 kg; Height dh3 6 ft. 0 in. (182.88 cm); Pain 3/10; 12:44 Body Mass Index 29.43 (98.43 kg, 182.88 cm) dh3 MDM: 12:55 [facility] 15:20 Data reviewed: vital signs, nurses notes, lab test result(s), EKG, radiologic studies, jr8 plain films. Data interpreted: Pulse oximetry: on room air is 95 %. Interpretation: normal. Counseling: I had a detailed discussion with the patient and/or guardian regarding: the historical points, exam findings, and any diagnostic results supporting the discharge/admit diagnosis, lab results, radiology results, the need for outpatient follow up, a rejected items clerk, a family practitioner, to return to the emergency department if symptoms worsen or persist or if there are any questions or concerns that arise at home. 15:26 ED course: Talked to Dr. Franklin about the atrial fib. Will start patient on 2.5 mg BID jr8 of eliquis. Will put on Abx for pulmonary infection. Albuterol for wheezing. If worse to come back. Return precautions given and son is booking appointment with mari . 11/09 12:54 Order name: Basic Metabolic Panel iw 11/09 12:54 Order name: CBC with Diff; Complete Time: 14:29 iw 11/09 12:54 Order name: LFT's; Complete Time: 14:56 iw 11/09 12:54 Order name: Magnesium; Complete Time: 14:56 iw 11/09 12:54 Order name: NT PRO-BNP; Complete Time: 14:56 iw 11/09 12:54 Order name: PT-INR; Complete Time: 14:46 iw 11/09 12:54 Order name: Troponin (emerg Dept Use Only); Complete Time: 14:56 iw 11/09 12:54 Order name: XRAY Chest (1 view); Complete Time: 13:53 iw 11/09 12:54 Order name: EKG; Complete Time: 13:00 iw 11/09 12:54 Order name: Cardiac monitoring; Complete Time: 13:25 iw 11/09 12:54 Order name: EKG - Nurse/Tech; Complete Time: 13:19 iw 11/09 12:54 Order name: IV Saline Lock; Complete Time: 13:19 iw 11/09 13:00 Order name: Basic Metabolic Panel; Complete Time: 14:56 EDMS 11/09 13:18 Order name: COVID-19 : Document "Date of Symptom Onset" if Symptomatic. jr8 11/09 12:54 Order name: Labs collected and sent; Complete Time: 13:19 iw 11/09 12:54 Order name: O2 Per Protocol; Complete Time: 13:19 iw 11/09 12:54 Order name: O2 Sat Monitoring; Complete Time: 13:19 iw Administered Medications: No medications were administered Disposition: 11/10 04:19 Co-signature as Attending Physician, Jorge Lorenzo MD. [email or web address] Disposition Summary: 11/09/20 15:27 Discharge Ordered Location: Home jr8 Problem: new jr8 Symptoms: are unchanged jr8 Condition: Stable jr8 Diagnosis - Pneumonia, unspecified organism jr8 - Unspecified atrial fibrillation jr8 Followup: jr8 - With: Fabián Franklin MD - When: 2 - 3 days - Reason: Recheck today's complaints, Continuance of care, Re-evaluation by your physician Discharge Instructions: - Discharge Summary Sheet jr8 - Atrial Fibrillation jr8 - Community-Acquired Pneumonia, Adult jr8 Forms: - Medication Reconciliation Form jr8 - Thank You Letter jr8 - Antibiotic Education jr8 - Prescription Opioid Use jr8 Prescriptions: - Eliquis 2.5 mg Oral tablet - take 1 tablet by ORAL route 2 times per day; 60 tablet; Refills: 0, Product jr8 Selection Permitted - Zithromax Z-[place] 250 mg Oral Tablet - take 1 tablet by ORAL route as directed for 5 days Day 1 - take two (2) tablets jr8 one time. Day 2, 3, 4 , 5 take one (1) tablet once daily.; 6 tablet; Refills: 0, Product Selection Permitted - albuterol sulfate 90 mcg/actuation Inhalation HFA aerosol inhaler - inhale 2 puff by INHALATION route every 6 hours; 1 Inhaler; Refills: 0, Product jr8 Selection Permitted Signatures: Dispatcher [employer] Norma Ramirez RN RN iw Roszak, Josh, PA PA jr8 Jorge Lorenzo MD MD [email or web address]
--- NOTE | 2020-11-09 15:28 | ER ---
Nurse's Notes [facility] Name: Cy Bill Age: 84 yrs Sex: Male : 1935 Arrival Date: 11/09/2020 Time: 12:43 Bed Treatment Private MD: Diagnosis: Pneumonia, unspecified organism;Unspecified atrial fibrillation Presentation: 11/09 12:51 Chief complaint: EMS states: pt c/o SOB and loss of appetite and feeling gassy. Ebola iw Screen: Patient negative for fever greater than or equal to 101.5 degrees Fahrenheit, and additional compatible Ebola Virus Disease symptoms Patient denies exposure to infectious person. Patient denies travel to an Ebola-affected area in the 21 days before illness onset. No symptoms or risks identified at this time. Initial Sepsis Screen: Does the patient meet any 2 criteria? No. Patient's initial sepsis screen is negative. Does the patient have a suspected source of infection? No. Patient's initial sepsis screen is negative. Risk Assessment: Do you want to hurt yourself or someone else? Patient reports no desire to harm self or others. Onset of symptoms was November 09, 2020. 12:51 Method Of Arrival: EMS: [facility] iw 12:51 Acuity: AMALIA 3 iw Historical: - Allergies: 14:12 Aspirin; iw - PMHx: 14:12 BPH; iw Screenin:45 Abuse screen: Denies threats or abuse. Denies injuries from another. Nutritional iw screening: No deficits noted. Tuberculosis screening: No symptoms or risk factors identified. Fall Risk IV access (20 points). Assessment: 13:42 General: Appears in no apparent distress. Behavior is calm, cooperative. Pain: Denies iw pain. Neuro: Level of Consciousness is awake, alert, obeys commands, Oriented to person, place, time, situation. 13:45 Cardiovascular: Denies chest pain, Rhythm is. Respiratory: Reports shortness of breath iw at rest on exertion Airway is patent Respiratory effort is even, unlabored, 14:12 Reassessment: Patient appears in no apparent distress at this time. Patient and/or iw family updated on plan of care and expected duration. Pain level reassessed. Patient is alert, oriented x 3, equal unlabored respirations, skin warm/dry/pink. pt placed in recliner for comfort. 14:18 Reassessment: Patient appears in no apparent distress at this time. recollect sent to lab. 15:00 Reassessment: Patient appears in no apparent distress at this time. Patient and/or iw family updated on plan of care and expected duration. Pain level reassessed. Patient is alert, oriented x 3, equal unlabored respirations, skin warm/dry/pink. Vital Signs: 12:44 BP 140 / 51; Pulse 60; Resp 16; Temp 99.6; Pulse Ox 95% on R/A; Weight 98.43 kg; Height 3 6 ft. 0 in. (182.88 cm); Pain 3/10; 12:44 Body Mass Index 29.43 (98.43 kg, 182.88 cm) 3 ED Course: 12:43 Patient arrived in ED. iw 12:53 Triage completed. iw 12:54 Roge Lr PA is [facility]. jr8 12:54 Jorge Lorenzo MD is Attending Physician. jr8 13:04 oNrma Sosa, RN is Primary Nurse. iw 13:05 Initial lab(s) drawn, by me, sent to lab. Inserted saline lock: 20 gauge in left [facility] antecubital area, using aseptic technique. Blood collected. 13:18 EKG done, by ED staff, reviewed by Roge VENTURA. 3 13:46 XRAY Chest (1 view) In Process Unspecified. EDMD 14:09 Lab(s) recollected, by me, sent to lab. [facility] 15:27 Fabián Franklin MD is Referral Physician. jr8 Administered Medications: No medications were administered Outcome: 15:27 Discharge ordered by . jr8 16:09 Patient left the ED. Signatures: Dispatcher [employer] EDMS Norma Sosa, RN RN Roge Lr PA PA jr8 Elsie Rivera 3
[2020-11-09 16:50] VITALS: BP 140/51; TEMP 99.6; O2SAT 95
--- NOTE | 2020-11-10 09:03 | EKG ---
Test Date: 2020-11-09 Test Time: 13:11:39 Trim Carpenter: RAMON MEASUREMENT RESULTS: Intervals: Rate: 57 MA: QRSD: 76 QT: 406 QTc: 395 Phelps: P: MA: QRS: 27 T: 75 INTERPRETIVE STATEMENTS: Atrial fibrillation with slow ventricular response Nonspecific ST abnormality Abnormal ECG Compared to ECG 04/21/2017 17:28:06 Sinus rhythm no longer present Sinus arrhythmia no longer present ST (T wave) deviation still present Electronically Signed On 11-10-20 09:02:00 CDT by Fabián Franklin
== END 2020-11-09 16:09 | disposition home or self-care (01) ==
LOC: ER 12:23
DX: J18.9 Pneumonia, unspecified organism (principal); I48.91 Unspecified atrial fibrillation
CPT/HCPCS: 36415; 71045; 80048; 80076; 83735; 83880; 84484; 85025; 85610; 93005; 99284

== ENCOUNTER 2021-03-09 12:01 | Observation (INO) | payer OTHER ==
[2021-03-09 13:16] LABS: Absolute Lymphocytes (CBC) 0.5 K/uL (0.7-4.9); Basophils % 0.3 % (0-1.3); Hematocrit 41.3 % (39.6-49.0); Lymphocytes % 2.4 % (15.3-44.8); MPV 8.8 fL (7.6-11.3)
[2021-03-09 13:19] LABS: Protime INR 1.22
[2021-03-09] MEDS ORDERED: NA CHLORIDE 0.9% 0 ML ONE (13:30)
[2021-03-09 13:35] LABS: ALT/SGPT 40 U/L (12-78); AST/SGOT 34 U/L (15-37); Albumin 2.7 g/dL (3.4-5.0); Alkaline Phosphatase 60 U/L (45-117); BUN Blood Urea Nitrogen 41 mg/dL (7-18); Bicarbonate 31 mmol/L (21-32); Bilirubin Direct 0.6 mg/dL (0-0.2); Bilirubin Total 1.6 mg/dL (0.2-1.0); Glucose Level 155 mg/dL (74-106); Magnesium 2.7 mg/dL (1.8-2.4); NT PRO-BNP 1332 pg/mL (<450); Potassium 3.5 mmol/L (3.5-5.1); Protein, Total 7.8 g/dL (6.4-8.2); Sodium Level 135 mmol/L (136-145); Troponin (Emerg Dept Use Only) < 0.02 ng/mL (0.0-0.045)
--- NOTE | 2021-03-09 13:57 | EDPHYS ---
Physician Documentation [facility] Name: Cy Bill Age: 85 yrs Sex: Male : 1935 Arrival Date: 03/09/2021 Time: 12:01 Bed 14 Private MD: ED Physician Wilton Dong HPI: 03/09 13:00 This 85 yrs old Male presents to ER via EMS with complaints of General radha Weakness. 13:00 This 85 yrs old Male presents to ER via EMS with complaints of General radha Weakness. 13:00 weak, covid positive , cant eat. Onset: The symptoms/episode began/occurred 1 week(s) radha ago. Severity of symptoms: At their worst the symptoms were mild in the emergency department the symptoms are unchanged. The patient has not experienced similar symptoms in the past. Historical: - Allergies: 12:47 Aspirin; iw - Home Meds: 12:49 albuterol sulfate 90 mcg/actuation Nebulizer HFAA twice a day [Active]; mirtazapine 15 iw mg Oral tab 1 tab once daily [Active]; finasteride 5 mg oral tab 1 tab once daily [Active]; potassium chloride 10 mEq Oral cpER 1 cap once daily [Active]; furosemide 20 mg Oral tab 1 tab once daily [Active]; tamsulosin 0.4 mg oral cap 1 cap once daily [Active]; hydrochlorothiazide 25 mg Oral tab 1 tab once daily [Active]; - PMHx: 12:18 BPH; sl2 12:47 Atrial fibrillation; iw - Immunization history:: Adult Immunizations up to date, Client reports having NOT received the Covid vaccine. - Social history:: Smoking status: unknown. ROS: 13:05 Constitutional: Negative for fever, chills, and weight loss, Eyes: Negative for injury, radha pain, redness, and discharge, ENT: Negative for injury, pain, and discharge, Neck: Negative for injury, pain, and swelling, Respiratory: Negative for shortness of breath, cough, wheezing, and pleuritic chest pain, Back: Negative for injury and pain, : Negative for injury, bleeding, discharge, and swelling, Skin: Negative for injury, rash, and discoloration, Neuro: Negative for headache, weakness, numbness, tingling, and seizure, Psych: Negative for depression, anxiety, suicide ideation, homicidal ideation, and hallucinations, Allergy/Immunology: Negative for hives, rash, and allergies, Endocrine: Negative for neck swelling, polydipsia, polyuria, polyphagia, and marked weight changes, Hematologic/Lymphatic: Negative for swollen nodes, abnormal bleeding, and unusual bruising. 13:05 Cardiovascular: Positive for palpitations. 13:05 Abdomen/GI: Positive for nausea and vomiting. 13:05 : Positive for 13:05 MS/extremity: Positive for swelling, of the right leg and left leg. Exam: 13:08 Constitutional: This is a well developed, well nourished patient who is awake, alert, radha and in no acute distress. Head/Face: Normocephalic, atraumatic. Eyes: Pupils equal round and reactive to light, extra-ocular motions intact. Lids and lashes normal. Conjunctiva and sclera are non-icteric and not injected. Cornea within normal limits. Periorbital areas with no swelling, redness, or edema. ENT: Nares patent. No nasal discharge, no septal abnormalities noted. Tympanic membranes are normal and external auditory canals are clear. Oropharynx with no redness, swelling, or masses, exudates, or evidence of obstruction, uvula midline. Mucous membranes moist. Neck: Trachea midline, no thyromegaly or masses palpated, and no cervical lymphadenopathy. Supple, full range of motion without nuchal rigidity, or vertebral point tenderness. No Meningismus. Chest/axilla: Normal chest wall appearance and motion. Nontender with no deformity. No lesions are appreciated. Respiratory: Lungs have equal breath sounds bilaterally, clear to auscultation and percussion. No rales, rhonchi or wheezes noted. No increased work of breathing, no retractions or nasal flaring. Abdomen/GI: Soft, non-tender, with normal bowel sounds. No distension or tympany. No guarding or rebound. No evidence of tenderness throughout. Back: No spinal tenderness. No costovertebral tenderness. Full range of motion. Male : Normal genitalia with no discharge or lesions. Skin: Warm, dry with normal turgor. Normal color with no rashes, no lesions, and no evidence of cellulitis. Neuro: Awake and alert, GCS 15, oriented to person, place, time, and situation. Cranial nerves II-XII grossly intact. Motor strength 5/5 in all extremities. Sensory grossly intact. Cerebellar exam normal. Normal gait. Psych: Awake, alert, with orientation to person, place and time. Behavior, mood, and affect are within normal limits. 13:08 Cardiovascular: Rate: normal, actual rate is 71 bpm, Rhythm: irregularly irregular, Pulses: Pulses are 4+ in bilateral radial, brachial, femoral, popliteal, posterior tibial and and dorsalis pedis arteries.. Heart sounds: normal, Edema: 3+ edema to level of left midcalf, left ankle, right midcalf and right ankle, JVD: is not appreciated. 13:08 ECG was reviewed by the Attending Physician. Vital Signs: 12:00 BP 153 / 56; Pulse 70; Resp 20; Temp 97.8; Pulse Ox 95% on R/A; sl2 12:21 BP 146 / 58; Pulse 71; Resp 18; Temp 97.8; Pulse Ox 95% on R/A; sl2 15:15 BP 153 / 63; Pulse 69; Resp 20; Temp 97.9; Pulse Ox 97% ; sl2 16:00 BP 133 / 56; Pulse 69; Resp 20; Pulse Ox 95% on R/A; sl2 18:00 BP 134 / 65; Pulse 71; Resp 18; Pulse Ox 95% on R/A; sl2 19:00 BP 134 / 45; Pulse 67; Resp 18; Temp 97.8(O); Pulse Ox 95% on R/A; sl2 19:59 BP 134 / 45; Pulse 54; Resp 18; Pulse Ox 95% on R/A; Pain 0/10; df1 MDM: 12:12 Patient medically screened. [facility] 13:05 Differential diagnosis: Nonspecific abd pain, viral gastroenteritis. Data reviewed: [facility] vital signs, nurses notes, lab test result(s), CBC, electrolytes, hepatic panel, EKG, radiologic studies, plain films. Data interpreted: pvc monitor: rate is 71 beats/min, rhythm is atrial fibrillation, Pulse oximetry: on room air is 95 %. Test interpretation: by ED physician or midlevel provider: ECG, plain radiologic studies. Counseling: I had a detailed discussion with the patient and/or guardian regarding: the historical points, exam findings, and any diagnostic results supporting the discharge/admit diagnosis, lab results, radiology results, the need for further work-up and treatment in the hospital. 11/13 12:14 Order name: Basic Metabolic Panel [facility] 03/09 12:14 Order name: CBC with Diff [facility] 03/09 12:14 Order name: LFT's [facility] 03/09 12:14 Order name: Magnesium [facility] 03/09 12:14 Order name: NT PRO-BNP; Complete Time: 13:45 [facility] 03/09 12:14 Order name: PT-INR; Complete Time: 13:45 [facility] 03/09 12:14 Order name: Troponin (emerg Dept Use Only); Complete Time: 13:45 [facility] 03/09 12:14 Order name: Basic Metabolic Panel; Complete Time: 13:45 [facility] 03/09 12:14 Order name: CBC with Automated Diff; Complete Time: 16:02 [facility] 03/09 12:14 Order name: Liver (Hepatic) Function; Complete Time: 13:45 [facility] 03/09 12:14 Order name: Magnesium; Complete Time: 13:45 [facility] 03/09 12:55 Order name: Blood Culture Adult (2) [facility] 03/09 12:55 Order name: Lactate; Complete Time: 16:02 [facility] 03/09 12:55 Order name: SARS-COV-2 RT PCR (Document "Date of Onset" if Symptomatic); Complete Time: [facility] 16:02 03/09 12:14 Order name: XRAY Chest (1 view); Complete Time: 15:13 [facility] 03/09 12:14 Order name: EKG; Complete Time: 12:15 [facility] 03/09 13:00 Order name: Ferritin; Complete Time: 16:02 [facility] 03/09 13:00 Order name: CRP; Complete Time: 16:02 [facility] 03/09 13:46 Order name: CT Chest Abdomen Pelvis W/O Contrast; Complete Time: 15:13 [facility] 03/09 15:13 Order name: CBC Smear Scan; Complete Time: 16:02 [facility] 03/09 17:37 Order name: Procalcitonin; Complete Time: 18:17 [facility] 03/09 20:35 Order name: Lactate Sepsis 2 HR Follow-up; Complete Time: 08:12 [facility] 03/10 05:59 Order name: CBC with Automated Diff; Complete Time: 08:12 [facility] 03/10 08:29 Order name: RAD [facility] 03/09 12:14 Order name: Cardiac monitoring; Complete Time: 12:22 [facility] 03/09 12:14 Order name: EKG - Nurse/Tech; Complete Time: 12:22 [facility] 03/09 12:14 Order name: IV Saline Lock; Complete Time: 14:19 [facility] 03/09 12:14 Order name: Labs collected and sent; Complete Time: 14:19 [facility] 03/09 12:14 Order name: O2 Per Protocol; Complete Time: 12:22 [facility] 03/09 12:14 Order name: O2 Sat Monitoring; Complete Time: 12:22 [facility] 03/09 15:37 Order name: Diet Regular; Complete Time: 15:37 iw EC:08 Rate is 68 beats/min. Rhythm is irregularly irregular. QRS [place] is Normal. [place] interval radha is normal. QRS interval is normal. QT interval is prolonged at 516 msec. No Q waves. T waves are Normal. No ST changes noted. Clinical impression: Atrial Fibrillation. Interpreted by me. Reviewed by me. Administered Medications: 14:19 Drug: Pepcid (famotidine) 20 mg Route: IVP; Site: left antecubital; iw 17:35 Follow up: Response: No adverse reaction sl2 15:18 Drug: NS 0.9% 1000 ml Route: IV; Rate: 125 ml/hr; Site: left antecubital; iw 15:18 Drug: Rocephin (cefTRIAXone) 1 grams Route: IV; Rate: per protocol; Site: left iw antecubital; 17:35 Follow up: Response: No adverse reaction; IV Status: Completed infusion; IV Intake: [id number] 15:41 Drug: Zithromax (azithromycin) 500 mg Route: IVPB; Infused Over: 1 hrs; Site: left iw antecubital; 17:35 Follow up: IV Status: Completed infusion; IV Intake: 250ml sl2 17:53 CANCELLED (Physician Discretion): NS 0.9% 1000 ml IV at 1 bolus Per protocol; 1000 mL iw bolus 18:15 Drug: NS 0.9% 1000 ml Route: IV; Rate: 1 bolus; Site: left antecubital; iw Disposition Summary: 03/09/21 13:56 Hospitalization Ordered Hospitalization Status: Inpatient Admission radha Provider: Lg Stewart cha Condition: Fair radha Problem: new radha Symptoms: have improved radha Bed/Room Type: Standard radha Location: [facility] ER HOLD(03/09/21 19:14) bb Room Assignment: ERHOLD-(03/09/21 19:14) bb Diagnosis - Weakness radha - Coronavirus infection, unspecified radha - Pneumonia due to SARS-associated coronavirus radha - Chronic atrial fibrillation radha - Elevated white blood cell count radha - Vomiting radha - Acute kidney failure, unspecified - on chronic kidney failure radha Forms: - Medication Reconciliation Form radha - SBAR form radha Signatures: Dispatcher [employer] EDWilton Hunt MD MD cha Ballard, Brenda RN RN Norma Villalobos RN RN Arlen Can Sophia, RN RN sl2 Corrections: (The following items were deleted from the chart) 16:23 13:56 Telemetry/MedSurg (Inpatient) radha eb 16:23 13:56 radha eb 17:53 16:03 NS 0.9% 1000 ml IV at 1 bolus Per protocol; 1000 mL bolus ordered. radha iw 19:05 16:23 [facility] ER HOLD eb iw 19:05 16:23 ERHOLD- eb iw 19:14 19:05 Intensive Care Unit iw bb 19:14 19:05 1- iw bb
--- NOTE | 2021-03-09 13:57 | ER ---
Nurse's Notes [facility] Name: Cy Bill Age: 85 yrs Sex: Male : 1935 Arrival Date: 03/09/2021 Time: 12:01 Bed 14 Private MD: Diagnosis: Weakness;Coronavirus infection, unspecified;Pneumonia due to SARS-associated coronavirus;Chronic atrial fibrillation;Elevated white blood cell count;Vomiting;Acute kidney failure, unspecified-on chronic kidney failure Presentation: 03/09 12:00 Chief complaint: EMS states: Presents to ED via [facility]. Patient was diagnosed sl2 with Covid 2 weeks ago, c/o not being able to eat or take his medications due to frequent productive cough and congestion, c/o weakness secondary to not being able to eat and bilateral pedal \\T\\ lower leg edema secondary to not being able to take his medications, denies fever. 12:00 Coronavirus screen: Vaccine status:. Ebola Screen: Patient negative for fever greater sl2 than or equal to 101.5 degrees Fahrenheit, and additional compatible Ebola Virus Disease symptoms. Initial Sepsis Screen: Does the patient meet any 2 criteria? No. Patient's initial sepsis screen is negative. Does the patient have a suspected source of infection? No. Patient's initial sepsis screen is negative. Risk Assessment: Do you want to hurt yourself or someone else? Patient reports no desire to harm self or others. Onset of symptoms is unknown. 12:00 Method Of Arrival: EMS: [facility] sl2 12:00 Acuity: AMALIA 2 sl2 Triage Assessment: 12:18 General: Appears uncomfortable, unkempt, Behavior is calm, cooperative, appropriate for sl2 age. Pain: Denies pain. Historical: - Allergies: 12:47 Aspirin; iw - Home Meds: 12:49 albuterol sulfate 90 mcg/actuation Nebulizer HFAA twice a day [Active]; mirtazapine 15 iw mg Oral tab 1 tab once daily [Active]; finasteride 5 mg oral tab 1 tab once daily [Active]; potassium chloride 10 mEq Oral cpER 1 cap once daily [Active]; furosemide 20 mg Oral tab 1 tab once daily [Active]; tamsulosin 0.4 mg oral cap 1 cap once daily [Active]; hydrochlorothiazide 25 mg Oral tab 1 tab once daily [Active]; - PMHx: 12:18 BPH; sl2 12:47 Atrial fibrillation; iw - Immunization history:: Adult Immunizations up to date, Client reports having NOT received the Covid vaccine. - Social history:: Smoking status: unknown. Screenin:35 Abuse screen: Denies threats or abuse. Nutritional screening: No deficits noted. sl2 Tuberculosis screening: No symptoms or risk factors identified. Fall Risk No fall in past 12 months (0 pts). Secondary diagnosis (15 points) No IV (0 pts). Ambulatory Aid- Crutches/Cane/Walker (15 pts). Gait- Impaired (20 pts.). Mental Status- Oriented to own ability (0 pts). Total Streeter Fall Scale indicates High Risk Score (45 or more points). Fall prevention measures have been instituted. Side Rails Up X 2 Placed Close to Nursing Station Frequent Obs/Assessments Occuring. Assessment: 12:35 General: Appears uncomfortable, unkempt, well developed, Behavior is calm, cooperative, sl2 appropriate for age, Reports poor appetite - unable to eat or take medications secondary to persistent cough, diagnosed with Covid 2 weeks ago. 12:35 Pain: Denies pain. Neuro: No deficits noted. Level of Consciousness is awake, alert, sl2 obeys commands, confused, Oriented to person, place. Cardiovascular: No deficits noted. Respiratory: Reports cough that is Airway is patent Trachea midline Respiratory effort is even, unlabored, Respiratory pattern is regular, Breath sounds are clear Breath sounds are diminished. GI: No deficits noted. No signs and/or symptoms were reported involving the gastrointestinal system. : No deficits noted. No signs and/or symptoms were reported regarding the genitourinary system. EENT: No deficits noted. Derm: No deficits noted. No signs and/or symptoms reported regarding the dermatologic system. Musculoskeletal: Swelling present in right ankle and right midcalf and left ankle and left midcalf and left leg and right leg. 12:53 Reassessment: Portable CXR completed at bedside. sl2 03/10 07:06 Reassessment: Change of shift nursing report received, it was reported that patient was df1 made NPO secondary to an episode persistent coughing last night - at that time patient was not able clear his secretions and his oxygen saturation fell to 88%. Patient was suctioned and subsequently place on O2 2 liters via NC. Report received that patient requested to walk to restroom, was offered a bedside commode, patient became non-compliant with commode use, became irate and attempted to get out of bed - staff tried to assist him to prevent him from falling, patient became physically aggressive and hit and kicked staff. Patient repeatedly removed monitoring leads for cardiac and O2 monitoring and IV lines, thus cardiac monitoring and IV fluids have been put on pause because of patients refusal. Patient demanding to go home - Pending orders from Dr Stewart to have O2 evaluation and swallow study completed to determine if patient can be safely discharged. 07:16 Reassessment: Respiratory therapist present at bedside for O2 evaluation - patient df1 currently 96% on room air at rest. 07:29 Reassessment: Respiratory therapist present at bedside for patient assessment - patient df1 now 93% on room air. 07:56 Reassessment: Per Dr Stewart patient has passed O2 evaluation to be discharged home, df1 however a bedside swallow study needs to be performed to assess patients ability to swallow liquids and clear his secretions. Per Dr Stewart, he has spoken to the Nursing Superviser Derek and notified him of patient status and need for swallow evaluation to clear patient for discharge. ED charge nurse Norma RN notified by this RN of same. Vital Signs: 03/09 12:00 BP 153 / 56; Pulse 70; Resp 20; Temp 97.8; Pulse Ox 95% on R/A; sl2 12:21 BP 146 / 58; Pulse 71; Resp 18; Temp 97.8; Pulse Ox 95% on R/A; sl2 15:15 BP 153 / 63; Pulse 69; Resp 20; Temp 97.9; Pulse Ox 97% ; sl2 16:00 BP 133 / 56; Pulse 69; Resp 20; Pulse Ox 95% on R/A; sl2 18:00 BP 134 / 65; Pulse 71; Resp 18; Pulse Ox 95% on R/A; sl2 19:00 BP 134 / 45; Pulse 67; Resp 18; Temp 97.8(O); Pulse Ox 95% on R/A; sl2 19:59 BP 134 / 45; Pulse 54; Resp 18; Pulse Ox 95% on R/A; Pain 0/10; df1 ED Course: 12:01 Patient arrived in ED. am2 12:12 Rula Jung, RN is Primary Nurse. sl2 12:12 Wilton Dong MD is Attending Physician. radha 12:18 Triage completed. sl2 12:18 Arm band placed on right wrist. sl2 12:20 EKG done, by ED staff, reviewed by Wilton Dong MD. 3 12:35 Patient has correct armband on for positive identification. Bed in low position. Call sl2 light in reach. 13:10 No provider procedures requiring assistance completed. sl2 13:10 Inserted saline lock: 20 gauge in left antecubital area, using aseptic technique. sl2 13:18 XRAY Chest (1 view) In Process Unspecified. EDMS 13:40 SARS-COV-2 RT PCR (Document "Date of Onset" if Symptomatic) Sent. 3 13:54 Lg Stewart DO is Hospitalizing Provider. [facility] 13:56 CT Chest Abdomen Pelvis W/O Contrast In Process Unspecified. EDMS Administered Medications: 14:19 Drug: Pepcid (famotidine) 20 mg Route: IVP; Site: left antecubital; iw 17:35 Follow up: Response: No adverse reaction sl2 15:18 Drug: NS 0.9% 1000 ml Route: IV; Rate: 125 ml/hr; Site: left antecubital; iw 15:18 Drug: Rocephin (cefTRIAXone) 1 grams Route: IV; Rate: per protocol; Site: left iw antecubital; 17:35 Follow up: Response: No adverse reaction; IV Status: Completed infusion; IV Intake: [id number] 15:41 Drug: Zithromax (azithromycin) 500 mg Route: IVPB; Infused Over: 1 hrs; Site: left iw antecubital; 17:35 Follow up: IV Status: Completed infusion; IV Intake: 250ml sl2 17:53 CANCELLED (Physician Discretion): NS 0.9% 1000 ml IV at 1 bolus Per protocol; 1000 mL iw bolus 18:15 Drug: NS 0.9% 1000 ml Route: IV; Rate: 1 bolus; Site: left antecubital; iw Intake: 17:35 IV: 250ml; Total: 250ml. sl2 17:35 IV: 10ml; Total: 260ml. sl2 Outcome: 13:56 Decision to Hospitalize by Provider. radha 03/10 09:43 Patient left the ED. eb Signatures: Dispatcher [employer] Wilton Rangel MD MD cha Williams, Irene, RN Krista Hadley Elsie Meléndez 3 Arlen Can Dawn df1 Rula Jung RN RN sl2
--- NOTE | 2021-03-09 13:58 | RAD REPORT ---
EXAM DESCRIPTION: RAD - Chest Single View - 03/09/2021 1:18 pm CLINICAL HISTORY: COUGH, COVID positive COMPARISON: November 09 TECHNIQUE: AP portable chest image was obtained 03/09/2021 1:18 pm . FINDINGS: Patient has a baseline fibrotic lung pattern accentuated by shallow inspiration. Interstit ial markings are slightly increased in each lung base. There is some minimal patchy airspace opacific ation in the right midlung field. Heart and vasculature are normal. No measurable pleural effusion an d no pneumothorax. No acute bony abnormality seen. No acute aortic findings suspected. IMPRESSION: Minimal patchy airspace opacities. Bibasilar increased interstitial opacification. Findings are not substantially different from comparison but could indicate very early COVID-19 pneum onia given the history provided.
[2021-03-09] MEDS ORDERED: CEFTRIAXONE 1000 MG/VIAL ONE (14:00)
[2021-03-09] MEDS ORDERED: AZITHROMYCIN 500 MG INJ IVPB ONE (14:00)
[2021-03-09] MEDS ORDERED: NA CHLORIDE 0.9% 100 ML ONE (14:01)
[2021-03-09] MEDS ORDERED: NA CHLORIDE 0.9% 1,000 ML ONE ×2 (14:01→18:21)
[2021-03-09] MEDS ORDERED: FAMOTIDINE 20 MG/2 ML VIAL IV ONE (14:01)
[2021-03-09] MEDS ORDERED: NA CHLORIDE 0.9% 250 ML ONE (14:01)
--- NOTE | 2021-03-09 14:26 | RAD REPORT ---
EXAM DESCRIPTION: CT - Chest Abd Pelvis Wo Con - 03/09/2021 1:57 pm CLINICAL HISTORY: Cough;Abdominal distention COMPARISON: Chest Single View dated 03/09/2021 TECHNIQUE: Axial 5 millimeter thick images of the chest, abdomen and pelvis were obtained without IV contrast. Oral contrast was administered. All CT scans are performed using dose optimization technique as appropriate and may include automated exposure control or mA/KV adjustment according to patient size. FINDINGS: Fibrotic stranding changes are present. Patchy airspace opacification is present in the po sterolateral right upper lobe abutting the fissure. There is minimal airspace opacification in the po sterior aspect of the mid right lower lobe. Posterior gutter opacification is most likely fibrotic ch loretta and a minimal amount of atelectasis. No pneumothorax or pleural effusion. No chest wall mass or abnormal axillary lymphadenopathy seen. Mediastinal and hilar regions show no mass or lymphadenopat hy. No significant cardiac finding. The liver, spleen and pancreas show no significant findings for non contrast imaging. Gallbladder an d biliary tree are normal. No hydronephrosis or suspicious renal mass. Isodense masses and pyelonephritis cannot be excluded on non contrast imaging. No adrenal abnormalities. No urinary bladder abnormalities. No dilated bowel loops or focal ball bowel wall thickening. Diverticulosis present without diverticul itis No free air, free fluid or inflammatory stranding. No mass or bulky lymphadenopathy. Small bila teral fat filled inguinal hernias are present larger on the left. No acute component identified. No significant bone or vascular finding. Degenerative changes are present with no pathologic change i dentified. IMPRESSION: Minimal pneumonia changes are present. Presentation is not classic for COVID-19 pneumoni a but would be consistent with that diagnosis. Underlying fibrotic lung change. No worrisome mass or lymphadenopathy. CT abdomen and pelvis imaging shows no significant or suspicious finding.
--- NOTE | 2021-03-09 15:00 | P.HP ---
Certification for Inpatient Patient admitted to: Observation With expected LOS: <2 Midnights Patient will require the following post-hospital care: None Practitioner: I am a practitioner with admitting privileges, knowledge of patient current condition, hospital course, and medical plan of care. Services: Services provided to patient in accordance with Admission requirements found in Title 42 Section 412.3 of the Code of Federal Regulations Patient History Date of Service: 03/09/21 Primary Care Provider: None Reason for admission: Shortness of breath, cough History of Present Illness: 85-year-old male with history of atrial fibrillation not on chronic anticoagulation therapy, hypertension, COPD, prior tobacco use, BPH, and insomnia. Patient presented to the emergency room with increased cough, congestion and shortness of breath. Patient has had poor appetite as well. Patient was diagnosed with COVID-19 2 weeks ago at an outpatient ER facility. He was treated with Regeneron at that time. Since that time he received steroid pack. He has noted increased shortness of breath, fatigue and poor appetite. He really did not want to come into the hospital but his children insisted. In the ER patient was evaluated. Room air saturations within normal range. White count 19, hemoglobin 13. Plate count 244. Sodium 135, potassium 3.5. BUN 41, creatinine 1.53 with a GFR 43. Glucose 145. Magnesium 2.7, total bilirubin 1.6. AST 80 normal. BMP 1300. INR 1.22. Chest x-ray showed patchy airspace opacities bilateral. CT scan showed bilateral pneumonia. Fibrotic changes noted to the lung. Abdominal CT unremarkable. Patient admitted for treatment. Patient admits noncompliant with follow-up. He has not followed with a doctor within quite some time. Allergies No Known Allergies Allergy (Verified 04/22/17 01:26) Home medications list reviewed: Yes Home Medications: Finasteride 5 mg PO DAILY 04/21/17 Tamsulosin [Flomax] 0.4 mg PO BEDTIME 04/21/17 hydroCHLOROthiazide [Hydrochlorothiazide] 25 mg PO DAILY 04/21/17 traMADol HCL [Ultram*] 50 mg PO TIDP PRN 04/21/17 Oseltamivir [Tamiflu] 75 mg PO BID #6 cap 04/24/17 levoFLOXacin [Levaquin] 500 mg PO DAILY #10 tab 04/24/17 - Past Medical/Surgical History Diabetic: No -: BPH -: Hypertension -: Atrial fibrillation -: Not on chronic anticoagulation therapy -: Insomnia -: GERD Past Surgical History: Reviewed- Non-Contributory Psychosocial/ Personal History: Patient lives at home alone - Family History Family History: Reviewed- Non-Contributory - Social History Smoking Status: Former smoker Alcohol use: No CD- Drugs: No Caffeine use: Yes Place of Residence: Home Review of Systems General: Weakness, Malaise, As per HPI Eyes: Unremarkable ENT: Unremarkable Respiratory: Cough, Shortness of Breath, SOB with Excertion, As per HPI Cardiovascular: Unremarkable Gastrointestinal: Unremarkable Genitourinary: Unremarkable Musculoskeletal: Unremarkable Integumentary: Unremarkable Neurological: Unremarkable Lymphatics: Unremarkable Physical Examination - Studies Laboratory Data (last 24 hrs) 03/09/21 13:00: PT 14.1 H, INR 1.22 03/09/21 13:00: WBC 19.90 H, Hgb 13.6, Hct 41.3, Plt Count 244 03/09/21 13:00: Sodium 135 L, Potassium 3.5, BUN 41 H, Creatinine 1.53 H, Glucose 155 H, Magnesium 2.7 H, Total Bilirubin 1.6 H, AST 34, ALT 40, Alkaline Phosphatase 60 Assessment and Plan - Plan COVID: Pending Chest x-ray: COMPARISON: November 09 TECHNIQUE: AP portable chest image was obtained 03/09/2021 1:18 pm . FINDINGS: Patient has a baseline fibrotic lung pattern accentuated by shallow inspiration. Interstitial markings are slightly increased in each lung base. There is some minimal patchy airspace opacification in the right midlung field. Heart and vasculature are normal. No measurable pleural effusion and no pneumothorax. No acute bony abnormality seen. No acute aortic findings suspected. IMPRESSION: Minimal patchy airspace opacities. Bibasilar increased interstitial opacification. Findings are not substantially different from comparison but could indicate very early COVID-19 pneumonia given the history provided. CT scan: COMPARISON: Chest Single View dated 03/09/2021 TECHNIQUE: Axial 5 millimeter thick images of the chest, abdomen and pelvis were obtained without IV contrast. Oral contrast was administered. All CT scans are performed using dose optimization technique as appropriate and may include automated exposure control or mA/KV adjustment according to patient size. FINDINGS: Fibrotic stranding changes are present. Patchy airspace opacification is present in the posterolateral right upper lobe abutting the fissure. There is minimal airspace opacification in the posterior aspect of the mid right lower lobe. Posterior gutter opacification is most likely fibrotic change and a minimal amount of atelectasis. No pneumothorax or pleural effusion. No chest wall mass or abnormal axillary lymphadenopathy seen. Mediastinal and hilar regions show no mass or lymphadenopathy. No significant cardiac finding. The liver, spleen and pancreas show no significant findings for non contrast imaging. Gallbladder and biliary tree are normal. No hydronephrosis or suspicious renal mass. Isodense masses and pyelonephritis cannot be excluded on non contrast imaging. No adrenal abnormalities. No urinary bladder abnormalities. No dilated bowel loops or focal ball bowel wall thickening. Diverticulosis present without diverticulitis No free air, free fluid or inflammatory stranding. No mass or bulky lymphadenopathy. Small bilateral fat filled inguinal hernias are present larger on the left. No acute component identified. No significant bone or vascular finding. Degenerative changes are present with no pathologic change identified. IMPRESSION: Minimal pneumonia changes are present. Presentation is not classic for COVID-19 pneumonia but would be consistent with that diagnosis. Underlying fibrotic lung change. No worrisome mass or lymphadenopathy. CT abdomen and pelvis imaging shows no significant or suspicious finding. Physical Exam: GENERAL: The patient is a well-developed, well-nourished, in no apparent distress. Alert and oriented x3. VITAL SIGNS: Reviewed HEENT: Head is normocephalic and atraumatic. Extraocular muscles are intact. Pupils are equal, round, and reactive to light and accommodation. Nares appeared normal. Mouth is dry. Mucous membranes are moist. NECK: Supple. No carotid bruits. No lymphadenopathy or thyromegaly. LUNGS: Clear to auscultation. No crackles or wheezes are heard. HEART: Regular rate and rhythm, no appreciable gallops, rubs, murmurs or extra heart sounds ABDOMEN: Soft, nontender, and nondistended. Positive bowel sounds. No hepatosplenomegaly was noted. EXTREMITIES: No edema. NEUROLOGIC: The patient is oriented to person, place and time. Strength and sensation are grossly intact. Face is symmetric. SKIN: Normal color, turgor and temperature. No ulcerations or rashes noted. Impression: Weakness, fatigue secondary to bilateral Covid pneumonia, unvaccinated, treated with Regeneron 2 weeks ago Acute on chronic renal disease stage III with dehydration Atrial fibrillation rate controlled Hypertension BPH GERD COPD Plan: Weakness, fatigue secondary to bilateral Covid pneumonia, unvaccinated, treated with Regeneron 2 weeks ago: Patient Will be admitted for further evaluation and treatment. Patient received Regeneron 2 weeks ago when he was diagnosed at an outpatient ER facility. Patient remains on room air. Maintain oxygen above 90%. Will start IV Solu-Medrol, zinc, vitamin C, thiamine, folic acid and cough medication. We will also start Rocephin and Zithromax due to elevated white count. Monitor ferritin and CRP. We will also provide IV fluids. We will continue to monitor closely. Encourage incentive spirometer. Encourage oral intake. Anticipate improvement over the next 24 hours. Acute on chronic renal disease stage III with dehydration: Continue IV fluids. Will monitor electrolytes closely. Atrial fibrillation rate controlled: We will start metoprolol for rate control. Xarelto will be started during this hospital stay. I will recommended no anticoagulation therapy at discharge as patient is high risk for fall and bleeding plus patient with poor compliance. Hypertension: Continue metoprolol BPH: Continue Flomax and finasteride GERD: We will start Pepcid COPD: We will provide COPD medication at this time Code Status: Patient is DNR DVT prophylaxis: Xarelto Advanced Care Planning-30 minutes: Patient desires to go home at discharge. Discharge Plan: Home Plan to discharge in: 48 Hours - Advance Directives Does patient have a Living Will: No Does patient have a Durable POA for Healthcare: No - Code Status/Comfort Care Code Status Assessed: Yes (Patient is DNR) Time Spent Managing Pts Care (In Minutes): 55
[2021-03-09 15:13] LABS: Blood Morphology Comment NOT SEEN (NOT SEEN); Platelet Estimate ADEQ; White Blood Cell Scan OK (OK)
[2021-03-09 15:14] LABS: Toxic Granulation PRESENT
[2021-03-09 15:44] LABS: Ferritin 964.7 ng/mL (26-388)
[2021-03-09] MEDS ORDERED: ONDANSETRON 4 MG/2 ML VIAL IV PRN (16:22)
[2021-03-09] MEDS ORDERED: ACETAMINOPHEN 500 MG TAB PO PRN (16:22)
[2021-03-09] MEDS ORDERED: D5 0.9 NS 1,000 ML IV SCH (16:22)
[2021-03-09] MEDS ORDERED: GUAIFENESIN/CODEINE 5ML UCUP PO PRN (16:22)
[2021-03-09] MEDS ORDERED: MIRTAZAPINE 15 MG TAB PO PRN (16:22)
[2021-03-09 17:20] VITALS: BMI 27.6
[2021-03-09] MEDS ORDERED: METOPROLOL TAR 25 MG TAB PO SCH (18:00)
[2021-03-09] MEDS ORDERED: METOPROLOL TAR 25 MG TAB ONE (18:12)
[2021-03-09] MEDS ORDERED: METHYLPREDNISOLONE 40 MG INJ ONE (18:12)
[2021-03-09] MEDS ORDERED: D5 0.9 NS 1,000 ML IV ONE (18:12)
[2021-03-09] MEDS ORDERED: RIVAROXABAN 15 MG TABLET PO SCH (18:30)
[2021-03-09] MEDS: METHYLPREDNISOLONE 40 MG INJ IV SCH (18:49)
[2021-03-09] MEDS ORDERED: FAMOTIDINE 20 MG TAB PO SCH (21:00)
[2021-03-09] MEDS ORDERED: ASCORBIC ACID 500 MG TABLET PO SCH (21:00)
[2021-03-09] MEDS ORDERED: TAMSULOSIN 0.4 MG SR CAP PO SCH ×2 (21:00)
[2021-03-09] MEDS ORDERED: FINASTERIDE 5 MG TAB PO SCH (21:00)
[2021-03-09] MEDS ORDERED: ENSURE HIGH PROTEIN 237 ML CAN PO SCH (21:00)
[2021-03-09] MEDS ORDERED: TAMSULOSIN 0.4 MG SR CAP ONE (21:26)
[2021-03-09] MEDS ORDERED: ASCORBIC ACID 500 MG TABLET ONE (21:26)
[2021-03-09] MEDS ORDERED: FAMOTIDINE 20 MG TAB ONE (21:26)
[2021-03-09] MEDS ORDERED: FINASTERIDE 5 MG TAB ONE (21:51)
[2021-03-10] MEDS: METHYLPREDNISOLONE 40 MG INJ IV SCH (01:00)
[2021-03-10] MEDS ORDERED: METHYLPREDNISOLONE 40 MG INJ ONE (01:10)
[2021-03-10 04:44] VITALS: BP 136/52
[2021-03-10 05:56] LABS: Absolute Lymphocytes (CBC) 0.3 K/uL (0.7-4.9); Basophils % 0.3 % (0-1.3); Hematocrit 31.5 % (39.6-49.0); Lymphocytes % 2.1 % (15.3-44.8); MPV 10.2 fL (7.6-11.3); RBC Red Blood Cell Count 3.37 M/uL (4.33-5.43)
--- NOTE | 2021-03-10 06:14 | P.PN ---
Subjective Date of Service: 03/10/21 Primary Care Provider: None Chief Complaint: Shortness of breath, cough Subjective: Other (Patient ate food yesterday as per respiratory. Nurses last night reported patient with increased congestion and cough. They kept him n.p.o. for safety. Patient wanting to leave this morning.) Physical Examination - Vital Signs Blood Pressure: 136/52 Pulse: 60 Respirations: 18 Pulse Ox (%): 96 - Studies Laboratory Data (last 24 hrs) 03/09/21 13:00: PT 14.1 H, INR 1.22 03/09/21 13:00: WBC 19.90 H, Hgb 13.6, Hct 41.3, Plt Count 244 03/09/21 13:00: Sodium 135 L, Potassium 3.5, BUN 41 H, Creatinine 1.53 H, Glu cose 155 H, Magnesium 2.7 H, Total Bilirubin 1.6 H, AST 34, ALT 40, Alkaline Phosphatase 60 Assessment & Plan Discharge Plan: Home Plan to discharge in: 24 Hours Physician Review Additional Text: COVID: Negative Chest x-ray: COMPARISON: November 09 TECHNIQUE: AP portable chest image was obtained 03/09/2021 1:18 pm . FINDINGS: Patient has a baseline fibrotic lung pattern accentuated by shallow inspiration. Interstitial markings are slightly increased in each lung base. There is some minimal patchy airspace opacification in the right midlung field. Heart and vasculature are normal. No measurable pleural effusion and no pneumothorax. No acute bony abnormality seen. No acute aortic findings suspected. IMPRESSION: Minimal patchy airspace opacities. Bibasilar increased interstitial opacification. Findings are not substantially different from comparison but could indicate very early COVID-19 pneumonia given the history provided. CT scan: COMPARISON: Chest Single View dated 03/09/2021 TECHNIQUE: Axial 5 millimeter thick images of the chest, abdomen and pelvis were obtained without IV contrast. Oral contrast was administered. All CT scans are performed using dose optimization technique as appropriate and may include automated exposure control or mA/KV adjustment according to patient size. FINDINGS: Fibrotic stranding changes are present. Patchy airspace opacification is present in the posterolateral right upper lobe abutting the fissure. There is minimal airspace opacification in the posterior aspect of the mid right lower lobe. Posterior gutter opacification is most likely fibrotic change and a minimal amount of atelectasis. No pneumothorax or pleural effusion. No chest wall mass or abnormal axillary lymphadenopathy seen. Mediastinal and hilar regions show no mass or lymphadenopathy. No significant cardiac finding. The liver, spleen and pancreas show no significant findings for non contrast imaging. Gallbladder and biliary tree are normal. No hydronephrosis or suspicious renal mass. Isodense masses and pyelonephritis cannot be excluded on non contrast imaging. No adrenal abnormalities. No urinary bladder abnormalities. No dilated bowel loops or focal ball bowel wall thickening. Diverticulosis present without diverticulitis No free air, free fluid or inflammatory stranding. No mass or bulky lymphadenopathy. Small bilateral fat filled inguinal hernias are present larger on the left. No acute component identified. No significant bone or vascular finding. Degenerative changes are present with no pathologic change identified. IMPRESSION: Minimal pneumonia changes are present. Presentation is not classic for COVID-19 pneumonia but would be consistent with that diagnosis. Underlying fibrotic lung change. No worrisome mass or lymphadenopathy. CT abdomen and pelvis imaging shows no significant or suspicious finding. Physical Exam: GENERAL: Patient alert, cooperative. Patient wanting to leave. Patient understands clearly. VITAL SIGNS: Reviewed HEENT: Neck supple. LUNGS: No significant respiratory distress noted. Respiratory to assess oxygen status. HEART: Regular rate and rhythm, no appreciable gallops, rubs, murmurs or extra heart sounds ABDOMEN: Soft, nontender, and nondistended. Positive bowel sounds. No hepatosplenomegaly was noted. EXTREMITIES: No edema. NEUROLOGIC: Patient alert, cooperative. Patient very ornery. SKIN: Normal color, turgor and temperature. No ulcerations or rashes noted. Impression: Weakness, fatigue secondary to bilateral Covid pneumonia, unvaccinated, treated with Regeneron 2 weeks ago Acute on chronic renal disease stage III with dehydration Atrial fibrillation rate controlled Hypertension BPH GERD COPD Insomnia History of noncompliance with follow-up and medication Plan: Weakness, fatigue secondary to bilateral Covid pneumonia, unvaccinated, treated with Regeneron 2 weeks ago: Patient desires to leave. Will have nurses assess swallowing. Patient was eating yesterday without difficulty. Nurses last night were worried and kept the patient n.p.o. We will also have respiratory assess oxygen status. If able to swallow appropriately and off oxygen will consider discharge today with oral prednisone, vitamin C, vitamins D, thiamine and zinc. Patient will also require Augmentin at discharge. Patient received Regeneron 2 weeks ago at ER outpatient facility. Encourage incentive spirometer. Plan of care discussed with daughter who plans to take the patient home today. Advanced directives addressed yesterday. Patient is DO NOT RESUSCITATE. Patient with history of noncompliance with follow-up with doctors and medications. Compliance was addressed in detail. Acute on chronic renal disease stage III with dehydration: Patient received IV fluids. Anticipate improvement. Atrial fibrillation rate controlled: Patient has been noncompliant with medication. Recommend to continue metoprolol 12.5 mg 1 pill twice daily. Patient will not require anticoagulation therapy as an outpatient due to risk of fall, bleeding and poor compliance. Patient may benefit with aspirin only. Hypertension: Continue metoprolol BPH: Continue Flomax and finasteride GERD: Recommend to continue Pepcid COPD: Will provide COPD medication at discharge History of noncompliance with follow-up and medication: Encourage compliance with medication and follow-up Insomnia: Patient may continue with Remeron at discharge Code Status: Patient is DNR DVT prophylaxis: Xarelto Advanced Care Planning-30 minutes: Patient wants to go home today. Time Spent Managing Pts Care (In Minutes): 55
--- NOTE | 2021-03-10 07:37 | P.DS ---
Admission Date: 03/09/21 Discharge Date: 03/10/21 Primary Care Provider: None Disposition: ROUTINE DISCHARGE Discharge Condition: GOOD Reason for Admission: Shortness of breath, cough Consultations: none Procedures: COVID: Negative Chest x-ray: COMPARISON: November 09 TECHNIQUE: AP portable chest image was obtained 03/09/2021 1:18 pm . FINDINGS: Patient has a baseline fibrotic lung pattern accentuated by shallow inspiration. Interstitial markings are slightly increased in each lung base. There is some minimal patchy airspace opacification in the right midlung field. Heart and vasculature are normal. No measurable pleural effusion and no pneumothorax. No acute bony abnormality seen. No acute aortic findings suspected. IMPRESSION: Minimal patchy airspace opacities. Bibasilar increased interstitial opacification. Findings are not substantially different from comparison but could indicate very early COVID-19 pneumonia given the history provided. CT scan: COMPARISON: Chest Single View dated 03/09/2021 TECHNIQUE: Axial 5 millimeter thick images of the chest, abdomen and pelvis were obtained without IV contrast. Oral contrast was administered. All CT scans are performed using dose optimization technique as appropriate and may include automated exposure control or mA/KV adjustment according to patient size. FINDINGS: Fibrotic stranding changes are present. Patchy airspace opacification is present in the posterolateral right upper lobe abutting the fissure. There is minimal airspace opacification in the posterior aspect of the mid right lower lobe. Posterior gutter opacification is most likely fibrotic change and a minimal amount of atelectasis. No pneumothorax or pleural effusion. No chest wall mass or abnormal axillary lymphadenopathy seen. Mediastinal and hilar regions show no mass or lymphadenopathy. No significant cardiac finding. The liver, spleen and pancreas show no significant findings for non contrast imaging. Gallbladder and biliary tree are normal. No hydronephrosis or suspicious renal mass. Isodense masses and pyelonephritis cannot be excluded on non contrast imaging. No adrenal abnormalities. No urinary bladder abnormalities. No dilated bowel loops or focal ball bowel wall thickening. Diverticulosis present without diverticulitis No free air, free fluid or inflammatory stranding. No mass or bulky lymphadenopathy. Small bilateral fat filled inguinal hernias are present larger on the left. No acute component identified. No significant bone or vascular finding. Degenerative changes are present with no pathologic change identified. IMPRESSION: Minimal pneumonia changes are present. Presentation is not classic for COVID-19 pneumonia but would be consistent with that diagnosis. Underlying fibrotic lung change. No worrisome mass or lymphadenopathy. CT abdomen and pelvis imaging shows no significant or suspicious finding. Medical Problem List: Weakness, fatigue secondary to bilateral Covid pneumonia, unvaccinated, treated with Regeneron 2 weeks ago Acute on chronic renal disease stage III with dehydration Atrial fibrillation rate controlled Hypertension BPH GERD COPD Insomnia History of noncompliance with follow-up and medication Brief History of Present Illness: 85-year-old male with history of atrial fibrillation not on chronic anticoagulation therapy, hypertension, COPD, prior tobacco use, BPH, and insomnia. Patient presented to the emergency room with increased cough, congestion and shortness of breath. Patient has had poor appetite as well. Patient was diagnosed with COVID-19 2 weeks ago at an outpatient ER facility. He was treated with Regeneron at that time. Since that time he received steroid pack. He has noted increased shortness of breath, fatigue and poor appetite. He really did not want to come into the hospital but his children insisted. In the ER patient was evaluated. Room air saturations within normal range. White count 19, hemoglobin 13. Plate count 244. Sodium 135, potassium 3.5. BUN 41, creatinine 1.53 with a GFR 43. Glucose 145. Magnesium 2.7, total bilirubin 1.6. AST 80 normal. BMP 1300. INR 1.22. Chest x-ray showed patchy airspace opacities bilateral. CT scan showed bilateral pneumonia. Fibrotic changes noted to the lung. Abdominal CT unremarkable. Patient admitted for treatment. Patient admits noncompliant with follow-up. He has not followed with a doctor within quite some time. Hospital Course: Patient presented with weakness, fatigue secondary to bilateral Covid pneumonia. Patient is unvaccinated. Patient treated around 2 to 3 weeks ago with Regeneron at outpatient ER facility. Patient was having some shortness of breath. Patient was evaluated in the emergency room. CT scan revealed minimal pneumonia changes bilateral with fibrotic lung changes. Patient was admitted for treatment. Patient received IV antibiotic therapy, IV steroids and supplementation. Patient was on room air. Patient did not want to come into the hospital. He was brought in by family. Patient has done well during the course of his stay. There was some question of aspiration but patient was able to eat. Appetite somewhat improved. Patient has history of noncompliance with follow-up and medications. At discharge patient without significant respiratory distress. Patient wanting to leave the hospital. Plan of care discussed in detail with daughter who plans to take care of the patient. Advanced directives also addressed with patient. Patient is DO NOT RESUSCITATE. At discharge room air saturations within normal range and reviewed with respiratory therapist. At discharge patient able to clear secretions appropriately as per respiratory therapist. At discharge patient will continue with Augmentin 500 mg 1 pill twice daily for 7 days. The patient will also continue with prednisone 20 mg 1 pill twice daily for 7 days then 1 pill once daily for 7 days. The patient will continue with vitamin supplementation including vitamin C 500 mg 1 pill twice daily, vitamin D 1000 units twice daily, zinc 220 mg daily, and thiamine 100 mg daily. Recommend to continue incentive spirometer. Recommend to continue proning or lying on his side. Aspiration precaution in place. Encourage oral intake. Recommend Ensure 1 can twice daily. Patient should continue with Covid 19 recommendations including social distancing, handwashing, and mask use. Education on COVID-19 isolation for at least 10 days will be provided. Recommend to follow-up with PCP within 1 week. Patient with underlying COPD with prior tobacco history. At discharge will recommend to start COPD medication. At discharge patient will continue with Symbicort 2 puffs twice daily and albuterol 2 puffs 3 times a day as needed for shortness of breath. Patient with acute on chronic renal disease stage III with dehydration. Patient received IV fluids with improvement. Recommend to recheck labBMP within 1 week. Encourage oral intake. Patient with atrial fibrillation rate controlled. Patient has been noncompliant in the past. At discharge will recommend to continue metoprolol 12.5 mg 1 pill twice daily. At discharge will recommend to also continue with aspirin 81 mg daily. No chronic anticoagulation therapy is recommended due to his risk for fall, bleeding and poor compliance. Recommend follow-up with cardiology to further monitor and address. Patient with hypertension. Patient previously on Lasix and hydrochlorothiazide. Both medications were discontinued. Patient now on metoprolol. At discharge patient may continue with metoprolol 12.5 mg 1 pill twice daily. Recommend to maintain blood pressure less than 130/80. Further adjustment can be done by his PCP. Patient with BPH. At discharge patient will continue with Flomax 0.4 mg daily and finasteride 5 mg daily. Patient with GERD. At discharge patient may continue with Pepcid 20 mg daily. GERD education provided. Aspiration precaution in place. Patient with insomnia. At discharge patient will continue with Remeron 15 mg at bedtime. Patient with history of noncompliance with follow-up and medication. Compliance addressed in detail. Vital Signs/Physical Exam: Temp Pulse Resp BP Pulse Ox 60 18 136/52 L 96 03/10/21 07:29 03/10/21 07:29 03/10/21 07:29 03/10/21 07:29 General: Alert, Cooperative, Other (No respiratory distress noted. Patient is oriented to place and time) HEENT: Atraumatic Neck: Supple Respiratory: Other (No respiratory distress noted. Clear anteriorly) Cardiovascular: Irregular heart rate/rhythm (Atrial fibrillation rate controlled) Gastrointestinal: Normal bowel sounds, No tenderness, No masses, No rebound, No guarding Musculoskeletal: No erythema, No tenderness, No warmth Integumentary: No tenderness/swelling, No erythema, No warmth, No cyanosis Neurological: Normal speech, Normal strength at 5/5 x4 extr, Normal tone, Other (Patient alert, cooperative.) Laboratory Data at Discharge: WBC 13.20 K/uL (4.3-10.9) H D 03/10/21 05:25 Hgb 10.5 g/dL (13.6-17.9) L D 03/10/21 05:25 Hct 31.5 % (39.6-49.0) L D 03/10/21 05:25 Plt Count 236 K/uL (152-406) 03/10/21 05:25 PT 14.1 SECONDS (9.5-12.5) H 03/09/21 13:00 INR 1.22 03/09/21 13:00 Sodium 135 mmol/L (136-145) L 03/09/21 13:00 Potassium 3.5 mmol/L (3.5-5.1) 03/09/21 13:00 BUN 41 mg/dL (7-18) H 03/09/21 13:00 Creatinine 1.53 mg/dL (0.55-1.3) H 03/09/21 13:00 Glucose 155 mg/dL (74-106) H 03/09/21 13:00 Magnesium 2.7 mg/dL (1.8-2.4) H 03/09/21 13:00 Total Bilirubin 1.6 mg/dL (0.2-1.0) H 03/09/21 13:00 AST 34 U/L (15-37) 03/09/21 13:00 ALT 40 U/L (12-78) 03/09/21 13:00 Alkaline Phosphatase 60 U/L (45-117) 03/09/21 13:00 Home Medications: Albuterol Sulfate [Proair Respiclick] 90 mcg IH BID 03/09/21 Mirtazapine [Remeron*] 15 mg PO BEDTIME 03/09/21 Albuterol Inhaler [Ventolin Inhaler*] 2 puff IH Q6H PRN #1 hfa.aer.ad 03/10/21 Amoxicillin/Potassium Clav [Augmentin 500-125 Tablet] 1 each PO BID #14 tablet 03/10/21 Ascorbic Acid [Vitamin C*] 500 mg PO BID #60 tablet 03/10/21 Aspirin [Aspirin EC 81 MG] 81 mg PO DAILY #90 tablet. 03/10/21 Budesonide/Formoterol Fumarate [Symbicort 160-4.5 Mcg Inhaler] 2 puff IH BID #1 hfa.aer.ad 03/10/21 Cholecalciferol (Vitamin D3) [Vitamin D 1000 Iu Tab*] 2,000 unit PO DAILY #60 tab 03/10/21 Ensure High Protein 237 ml PO TID #60 can 03/10/21 Famotidine [Pepcid*] 20 mg PO BEDTIME #30 tab 03/10/21 Finasteride 5 mg PO DAILY #30 03/10/21 Folic Acid 1 mg PO DAILY #90 tablet 03/10/21 Metoprolol Tartrate [Lopressor*] 12.5 mg PO BID 6AM 6PM #60 tab 03/10/21 Tamsulosin [Flomax*] 0.4 mg PO BEDTIME #30 cap 03/10/21 Thiamine HCl [Vitamin B-1*] 100 mg PO DAILY #90 tablet 03/10/21 Zinc Sulfate [Zinc Sulfate*] 220 mg PO DAILY #30 cap 03/10/21 predniSONE [Prednisone*] 20 mg PO SEECOM #21 tab 03/10/21 New Medications: Aspirin [Aspirin EC 81 MG] 81 mg PO DAILY #90 tablet. Amoxicillin/Potassium Clav [Augmentin 500-125 Tablet] 1 each PO BID #14 tablet Ensure High Protein 237 ml PO TID #60 can Finasteride 5 mg PO DAILY #30 Tamsulosin [Flomax*] 0.4 mg PO BEDTIME #30 cap Folic Acid 1 mg PO DAILY #90 tablet Metoprolol Tartrate [Lopressor*] 12.5 mg PO BID 6AM 6PM #60 tab Famotidine [Pepcid*] 20 mg PO BEDTIME #30 tab predniSONE [Prednisone*] 20 mg PO SEECOM #21 tab Budesonide/Formoterol Fumarate [Symbicort 160-4.5 Mcg Inhaler] 2 puff IH BID #1 hfa.aer.ad Albuterol Inhaler [Ventolin Inhaler*] 2 puff IH Q6H PRN #1 hfa.aer.ad PRN Reason: Shortness Of Breath Thiamine HCl [Vitamin B-1*] 100 mg PO DAILY #90 tablet Ascorbic Acid [Vitamin C*] 500 mg PO BID #60 tablet Cholecalciferol (Vitamin D3) [Vitamin D 1000 Iu Tab*] 2,000 unit PO DAILY #60 tab Zinc Sulfate [Zinc Sulfate*] 220 mg PO DAILY #30 cap Physician Discharge Instructions: Patient presented with weakness, fatigue secondary to bilateral Covid pneumonia. Patient is unvaccinated. Patient treated around 2 to 3 weeks ago with Winifred thomas at outpatient ER facility. Patient was having some shortness of breath. Patient was evaluated in the emergency room. CT scan revealed minimal pneumonia changes bilateral with fibrotic lung changes. Patient was admitted for treatment. Patient received IV antibiotic therapy, IV steroids and supplementation. Patient was on room air. Patient did not want to come into the hospital. He was brought in by family. Patient has done well during the course of his stay. There was some question of aspiration but patient was able to eat. Appetite somewhat improved. Patient has history of noncompliance with follow-up and medications. At discharge patient without significant respiratory distress. Patient wanting to leave the hospital. Plan of care discussed in detail with daughter who plans to take care of the patient. Advanced directives also addressed with patient. Patient is DO NOT RESUSCITATE. At discharge room air saturations within normal range and reviewed with respiratory therapist. At discharge patient able to clear secretions appropriately as per respiratory therapist. At discharge patient will continue with Augmentin 500 mg 1 pill twice daily for 7 days. The patient will also continue with prednisone 20 mg 1 pill twice daily for 7 days then 1 pill once daily for 7 days. The patient will continue with vitamin supplementation including vitamin C 500 mg 1 pill twice daily, vitamin D 1000 units twice daily, zinc 220 mg daily, and thiamine 100 mg daily. Recommend to continue incentive spirometer. Recommend to continue proning or lying on his side. Aspiration precaution in place. Encourage oral intake. Recommend Ensure 1 can twice daily. Patient should continue with Covid 19 recommendations including social distancing, handwashing, and mask use. Education on COVID-19 isolation for at least 10 days will be provided. Recommend to follow-up with PCP within 1 week. Patient with underlying COPD with prior tobacco history. At discharge will rec ommend to start COPD medication. At discharge patient will continue with Symbicort 2 puffs twice daily and albuterol 2 puffs 3 times a day as needed for shortness of breath. Patient with acute on chronic renal disease stage III with dehydration. Patient received IV fluids with improvement. Recommend to recheck labBMP within 1 week. Encourage oral intake. Patient with atrial fibrillation rate controlled. Patient has been noncompliant in the past. At discharge will recommend to continue metoprolol 12.5 mg 1 pill twice daily. At discharge will recommend to also continue with aspirin 81 mg daily. No chronic anticoagulation therapy is recommended due to his risk for fall, bleeding and poor compliance. Recommend follow-up with cardiology to further monitor and address. Patient with hypertension. Patient previously on Lasix and hydrochlorothiazide. Both medications were discontinued. Patient now on metoprolol. At discharge patient may continue with metoprolol 12.5 mg 1 pill twice daily. Recommend to maintain blood pressure less than 130/80. Further adjustment can be done by his PCP. Patient with BPH. At discharge patient will continue with Flomax 0.4 mg daily and finasteride 5 mg daily. Patient with GERD. At discharge patient may continue with Pepcid 20 mg daily. GERD education provided. Aspiration precaution in place. Patient with insomnia. At discharge patient will continue with Remeron 15 mg at bedtime. Patient with history of noncompliance with follow-up and medication. Compliance addressed in detail. Diet: AHA Activity: Fall precautions Followup: NONE,NONE [Primary Care Provider] - Time spent managing pt's care (in minutes): 55
[2021-03-10] MEDS ORDERED: INFLUENZA VACCINE (for 6+ mo) 0.5 ML DOSE IMVAC ONE (08:00)
[2021-03-10] MEDS ORDERED: PNEUMOCOCCAL VACCINE 0.5 ML IMVAC ONE (08:00)
[2021-03-10 08:21] VITALS: O2SAT 93
--- NOTE | 2021-03-10 08:29 | RAD REPORT ---
EXAM DESCRIPTION: RAD - Chest Single View - 03/10/2021 5:14 am CLINICAL HISTORY: follow up COVID COMPARISON: Chest Single View dated 03/09/2021; Chest Single View dated 11/09/2020; Chest Pa And Lat (2 Views) dated 05/04/2017; Chest Single View dated 04/21/2017; Chest Abd Pelvis Wo Con dated FINDINGS: Lines: None. Lungs: Mild scattered bilateral ill-defined airspace disease which is somewhat increased in the right upper lobe. Pleural: No significant pleural effusions or pneumothorax. Cardiac: The heart size is within normal limits. Bones: No acute fractures. Other: IMPRESSION: Bilateral airspace disease with increasing right upper lobe opacities concerning for wor sening multifocal pneumonia.
[2021-03-10] MEDS ORDERED: VITAMIN D 1000 UNIT TAB PO SCH (09:00)
[2021-03-10] MEDS ORDERED: FOLIC ACID 1 MG TABLET PO SCH (09:00)
[2021-03-10] MEDS ORDERED: THIAMINE HCL 100 MG TABLET PO SCH (09:00)
[2021-03-10] MEDS ORDERED: ZINC SULFATE 220 MG CAP PO SCH (09:00)
[2021-03-10 10:03] VITALS: TEMP 97.8
[2021-03-10] MEDS ORDERED: CEFTRIAXONE 1,000 MG in NA CHLORIDE 0.9% 50 ML IVPB SCH (13:00)
[2021-03-10] MEDS ORDERED: AZITHROMYCIN IV 500 MG in NA CHLORIDE 0.9% 250 ML IVPB ONE (14:00)
== END 2021-03-10 09:42 | disposition home or self-care (01) ==
LOC: ER 12:01 → ERHOLD 14:38
PROVIDERS: ADMIT Family Medicine; ATTEND Family Medicine
DX: U07.1 COVID-19 (principal); J12.82 Pneumonia due to coronavirus disease 2019; E86.0 Dehydration; I12.9 Hypertensive chronic kidney disease with stage 1 through stage 4 chronic kidney disease, or unspecified chronic kidney disease; N18.30 Chronic kidney disease, stage 3 unspecified; I48.91 Unspecified atrial fibrillation; J44.9 Chronic obstructive pulmonary disease, unspecified; N40.0 Benign prostatic hyperplasia without lower urinary tract symptoms; K21.9 Gastro-esophageal reflux disease without esophagitis; G47.00 Insomnia, unspecified; Z66 Do not resuscitate; Z91.19 Patient's noncompliance with other medical treatment and regimen; Z88.6 Allergy status to analgesic agent; Z87.891 Personal history of nicotine dependence
CPT/HCPCS: 96365; 93005; 87040; 85025 ×2; 80048; 36415; 83735; 87205; 85610; 80076; 83605 ×2; 84484; 82728; 84145; 83880; 86140; 71250; 74176; 71045 ×2; 96375; 99284; U0003; J0456; J7042; J7050; J7030 ×2; J2920 ×2; G0378 ×3

== ENCOUNTER 2021-08-20 10:13 | Inpatient (IN) | payer OTHER ==
--- OUTSIDE RECORDS SUMMARY | 2021-08-20 10:17 | XMS REPORT | Continuity of Care Document ---
:1935 Author Organization [facility] t Address [address] [place] [address] Care Team Providers Name Role Phone PCP, DOES NOT HAVE A Primary Care Physician Unavailable Boyd ALEGRIA, A Attending Clinician Unavailable Cherelle Sosa DO Attending Clinician Conor DIETRICH Attending Clinician Brittany VILLARREAL Attending Clinician BRITTANY Attending Clinician Unavailable Brittany VILLARREAL Admitting Clinician BRITTANY Admitting Clinician Unavailable Payers Payer Name Policy Type Policy Number Effective Date Expiration Date S ource Problems Condition Condition Condition Status Onset Resolution Last Treating Co mments Source Name Details Category Date Date Treatment Clinician Date Acute on Acute on Disease Active Unive rs chronic chronic 2-15 ity of diastolic diastolic 00:00: Anil mccarthy CHF CHF 00 Medical (congestiv (congestiv Br anch e heart e heart failure), failure), NYHA class NYHA class 3 3 Chronic Chronic Disease Active Univers atrial atrial 2-15 [place] of fibr[place] Essential Essential Disease Active Uni vers hypertensi hypertensi 2-15 it y of on on 00:00: [address] Branch Elevated Elevated Disease Active Unive rs troponin troponin 2-14 ity of 00:00: [address] Branch Allergies, Adverse Reactions, Alerts Allergy Allergy Status Severity Reaction(s) Onset Inactive Treating Comm ents Source Name Type Date Date Clinician NO KNOWN Drug Active Univers ALLERGIE Class ity of S [facility] Social History Social Habit Start Date Stop Date Quantity Comments Source Exposure to Not sure [facility] SARS-CoV-2 (event) Medica l Branch Sex Assigned At [birth year] [facility] 00:00:00 00:00:00 Medical Branch Smoking Status Start Date Stop Date Source Unknown if ever smoked [facility] Medications Ordered Filled Start Stop Current Ordering Indication Dosage Frequency Signature Comments Components Source Medication Medication Date Date Medication? Clinician (SIG) Name Name furosemide 2021- Yes [id number] 40mg Take 1 Univers 40 mg 2-25 -28 tablet by ity of tablet 00:00: 04:59 mouth [place] 00 :00 daily for Medical 30 days. Branch furosemide 2021- Yes [id number] 40mg Take 1 Univers 40 mg 2-25 -28 tablet by ity of tablet 00:00: 04:59 mouth [place] 00 :00 daily for Medical 30 days. Branch aspirin 81 2021- Yes [id number] 81mg Take 1 Univers mg chewable 2-19 -22 tablet by it y of tablet 00:00: 04:59 mouth [place] 00 :00 daily for Medical 30 days. Branch aspirin 81 2021- Yes [id number] 81mg Take 1 Univers mg chewable 2-19 -22 tablet by it y of tablet 00:00: 04:59 mouth [place] 00 :00 daily for Medical 30 days. Branch icosapent Yes 4{capsu Take 4 Uni vers ethyL 2-18 le} capsules ity of (VASCEPA) 1 18:29: [place] gram 04 daily. Medical capsule Branch ascorbic Yes 500mg Take 500 Univ ers acid, 2-18 mg by ity of vitamin C, 18:29: [place] (VITAMIN C) 04 (two) Medical 500 mg times Branch tablet daily. finasteride Yes 5mg Take 5 mg U nivers 5 mg tablet 2-18 by mouth ity of 18:29: daily. [place] 04 Medical Branch melatonin Yes 10{caps Take 10 Un carolyne 10 mg Cap 2-18 ule} capsules ity of 18:29: by mouth 04 at Medical bedtime. Branch Cholecalcif Yes 1{capsu Take 1 U nivers cuauhtemoc, 2-18 le} capsule by ity of Vitamin D3, 18:29: mouth [place] (VITAMIN 04 daily. Medical D3) 25 mcg Branch (1,000 unit) capsule tamsulosin Yes .4mg Take 0.4 Uni vers 0.4 mg 24 2-18 mg by ity of hr capsule 18:29: mouth [place] 04 daily. Medical Branch KCL 10 mEq Yes 10meq Take 10 Uni vers tablet 2-18 mEq by ity of 18:29: mouth [place] 04 daily. Medical Branch MIRTAZAPINE Yes 15mg Take 15 mg Univers ORAL 2-18 by mouth ity of 18:29: daily. Medical Branch icosapent Yes 4{capsu Take 4 Uni vers ethyL 2-18 le} capsules ity of (VASCEPA) 1 18:29: [place] gram 04 daily. Medical capsule Branch ascorbic Yes 500mg Take 500 Univ ers acid, 2-18 mg by ity of vitamin C, 18:29: [place] (VITAMIN C) 04 (two) Medical 500 mg times Branch tablet daily. finasteride Yes 5mg Take 5 mg U nivers 5 mg tablet 2-18 by mouth ity of 18:29: daily. [place] Medical Branch melatonin Yes 10{caps Take 10 Un carolyne 10 mg Cap 2-18 ule} capsules ity of 18:29: by mouth 04 at Medical bedtime. Branch Cholecalcif Yes 1{capsu Take 1 U nivers cuauhtemoc, 2-18 le} capsule by ity of Vitamin D3, 18:29: mouth (VITAMIN 04 daily. Medical D3) 25 mcg Branch (1,000 unit) capsule tamsulosin Yes .4mg Take 0.4 Uni vers 0.4 mg 24 2-18 mg by ity of hr capsule 18:29: mouth [place] 04 daily. Medical Branch KCL 10 mEq Yes 10meq Take 10 Uni vers tablet 2-18 mEq by ity of 18:29: mouth [place] 04 daily. Medical Branch MIRTAZAPINE Yes 15mg Take 15 mg Univers ORAL 2-18 by mouth ity of 18:29: daily. [place] [address] Medical Branch furosemide 2021-0 2- No 40mg Take 40 mg Univers 20 mg 2-18 02-18 by mouth ity of tablet 16:37: 00:00 daily. [place] 40 :00 Medical Branch KCL Yes 40meq 40 mEq, Univers (KLOR-CON -18 Oral, ity of M20) tablet 15:00: DAILY, [place] 40 mEq 00 First dose Medical on Thu Branch 06/14/21 at 0900, Until Discontinu ed, Routine magnesium 2021- Yes [id number] 400mg Take 400 Univers oxide 420 -18 03-21 mg by ity of mg Tab 00:00: 04:59 mouth [place] 00 :00 daily for Medical 30 days. Branch apixaban 5 2021- Yes 1358 5mg Take 1 Univ ers mg tablet 06-14- tablet by ity of 00:00: 04:59 mouth 2 [place] 00 :00 (two) Medical times Branch daily for 30 days. Indication s: atrial fibrillati on calcium 2021- Yes [id number] 500mg Take 1 Un carolyne carbonate 06-14- tablet by ity of 500 mg 00:00: 04:59 mouth 2 [place] calcium 00 :00 (two) Medical (1,250 mg) times Branch tablet daily with meals for 30 days. magnesium 2021- Yes [id number] 400mg Take 400 Univers oxide 420 -18 03-21 mg by ity of mg Tab 00:00: 04:59 mouth [place] 00 :00 daily for Medical 30 days. Branch apixaban 5 2021- Yes 1358 5mg Take 1 Univ ers mg tablet 06-14- tablet by ity of 00:00: 04:59 mouth 2 [place] 00 :00 (two) Medical times Branch daily for 30 days. Indication s: atrial fibrillati on calcium 2021- Yes [id number] 500mg Take 1 Un carolyne carbonate 2-18 -21 tablet by ity of 500 mg 00:00: 04:59 mouth 2 [place] calcium 00 :00 (two) Medical (1,250 mg) times Branch tablet daily with meals for 30 days. furosemide 2021- Yes [id number] 40mg Take 1 Univers 40 mg 06-14- tablet by ity of tablet 00:00: 05:59 mouth [place] 00 :00 every Medical morning Branch and evening for 7 days. furosemide 2021-0 2021- Yes [id number] 40mg Take 1 Univers 40 mg 06-14 tablet by ity of tablet 00:00: 05:59 mouth [place] 00 :00 every Medical morning Branch and evening for 7 days. SERTraline 2021- No 25mg 25 mg, Univ ers (ZOLOFT) 06-13 Oral, ity of tablet 25 17:30: 16:44 ONCE, 1 [place] mg 00 :00 dose, On Medical [place] Branch 06/13/21 at 1130, Routine clonazePAM 2021-0 Yes .5mg 0.5 mg, Univ ers (KLONOPIN) 17 Oral, ity of tablet 0.5 16:19: BIDPRN, [place] mg 52 Starting Medical on [place] Branch 06/13/21 at 1019, Until Discontinu ed, Routine, Pain (scale 4-6) furosemide 2021-0 Yes 40mg 40 mg, Unive rs (LASIX) 06-13 Slow IV ity of injection 15:30: Push, [place] 40 mg 00 Q12H, Medical First dose Branch (after last modificati on) on [place] 06/13/21 at 0930, Until Discontinu ed, Routine magnesium 2021-0 Yes 400mg 400 mg, Univ ers oxide 17 Oral, BID, ity of (MAG-OX 14:00: First dose [place] 400) tablet 00 on [facility] Medica l 400 mg 06/13/21 at Branch 0800, Until Discontinu ed, Routine KCL 0 2021- No 40meq 40 mEq, Univers (KLOR-CON 06-13 Oral, ity of M20) tablet 12:30: 12:17 ONCE, 1 [place] 40 mEq 00 :00 dose, On Medical [place] Branch 06/13/21 at 0630, Routine aspirin 2021-0 Yes 81mg 81 mg, Univers chewable -16 Oral, ity of tablet 81 15:00: DAILY, [place] mg 00 First dose Medical on Thu Branch 06/12/21 at 0900, Until Discontinu ed, Routine apixaban 2021-0 Yes 5mg 5 mg, Univers (ELIQUIS) 2-16 Oral, BID, ity of tablet 5 mg 14:15: First dose Thu06/12/21 at Branch 0815, Until Discontinu ed, Routine
Indicatio ns: Non-Valvul ar Atrial Fibrillati on calcium 0 Yes 500mg 500 mg, Univer s carbonate 2-16 Oral, BID ity o f (OSCAL-500) 04:15: MEALS, [place] tablet 500 00 First dose Med ical mg on Thu [place] 06/11/21 at 2215, Until Discontinu ed, Routine melatonin 0 Yes 9mg 9 mg, Univers (MELATIN) 2-16 Oral, QHS, ity of tablet 9 mg 03:00: First dose on Thu [facility] 06/11/21 at Branch 2100, Until Discontinu ed ascorbic 0 Yes 500mg 500 mg, Unive rs acid 2-16 Oral, BID, ity of (vitamin C) 02:00: First dose (VITAMIN C) on [facility] l tablet 500 06/11/21 at [facility] mg 2000, Until Discontinu ed, Routine tamsulosin 0 Yes .4mg 0.4 mg, Univ ers (FLOMAX) 2-15 Oral, ity of capsule 0.4 15:00: DAILY, [place] mg 00 First dose Medical on Thu [place] 06/11/21 at 0900, Until Discontinu ed, Routine mirtazapine 0 Yes 15mg 15 mg, Univ ers (REMERON) 2-15 Oral, ity of tablet 15 15:00: DAILY, [place] mg 00 First dose Medical on Thu [place] 06/11/21 at 0900, Until Discontinu ed finasteride 0 Yes 5mg 5 mg, [facility] 2-15 Oral, ity of tablet 5 mg 15:00: DAILY, [place] 00 First dose Medical on Thu [place] 06/11/21 at 0900, Until Discontinu ed, Routine cholecalcif 0 Yes 1000U 1,000 [facility] ers cuauhtemoc 2-15 Units, ity of (vitamin 15:00: Oral, [place] D3) tablet 00 DAILY, Medical 1,000 Units First dose Br anch on Thu06/11/21 at 0900, Until Discontinu ed furosemide 0 2022- No 40mg 40 mg, Univ ers (LASIX) 06-11 Slow IV ity of injection 15:00: 15:26 Push, [place] 40 mg 00 :24 DAILY, Medical First dose Branch on Thu06/11/21 at 0900, Until Discontinu ed, Routine enoxaparin No 40mg 40 mg, [facility] ers (LOVENOX) 06-11 Subcutaneo ity of injection 15:00: 14:05 us, DAILY, [place] 40 mg 00 :30 First dose Medical on Thu06/11/21 at 0900, Until Discontinu ed, Routine KCL No 40meq 40 mEq, Univers (KLOR-CON 06-11 Oral, ity of M20) tablet 10:30: 09:30 ONCE, 1 [place] 40 mEq 00 :00 dose, On Medical Thu06/11/21 at 0430, Routine potassium No 10meq 10 mEq, IV Univers chloride in 06-11 Piggyback, i ty of water 10 10:00: 11:55 Q1H, 2 [place] mEq/100 mL 00 :00 doses, Medical RTU 10 mEq First dose Bra nch on Thu06/11/21 at 0400, Last dose on Thu06/11/21 at 0500, Administer over 60 Minutes, 100 mL ipratropium Yes 3mL 3 mL, [facility] rs -albuteroL 2-15 Inhalation ity of (DUONEB) 09:50: , QIDPRN, [place] 0.5 mg-3 51 Starting Medical mg(2.5 mg on Thu base)/3 mL 06/11/21 at nebulizer 0350, solution 3 Until mL Discontinu ed, Routine, Wheezing, Shortness of Breath, Bronchospa sm, Chest tightness ondansetron 0 Yes 4mg 4 mg, Slow Univers (ZOFRAN 2-15 IV Push, ity of (PF)) 04:11: Q6HPRN, [place] injection 4 30 Starting Medi harjeet mg on Thu Branch 06/10/21 at 2211, Until Discontinu ed, Routine, Nausea and Vomiting (N/V) acetaminoph 2022-0 Yes 650mg 650 mg, Un carolyne en 06-11 Oral, ity of (TYLENOL) 04:11: Q6HPRN, [place] tablet 650 17 Starting Medic al mg on [facility] Branch 06/10/21 at 2211, Until Discontinu ed, Routine, Pain (scale 1-3) KCL 2021- No 40meq 40 mEq, Univers (KLOR-CON 06-11 Oral, ity of M20) tablet 00:30: 23:26 ONCE, 1 [place] 40 mEq 00 :00 dose, On Medical [facility] Branch 06/10/21 at 1830, NAE magnesium 2021- No 2g 2 g, IV Univ ers sulfate in 06-11 Piggyback, it y of water 2 00:15: 00:26 ONCE, 1 [place] gram/50 mL 00 :00 dose, On Medic al (4 %) [facility] infusion 2 06/10/21 at g 1815, Routine aspirin 2021- No 324mg 324 mg, Unive rs chewable 06-11 Oral, ity of tablet 324 00:15: 23:27 ONCE, 1 Aditya as mg 00 :00 dose, On Medical [facility] 06/10/21 at 1815, Routine Vital Signs Vital Name Observation Time Observation Value Comments Source Body temperature 2021-06-14 22:56:00 36 Becky [facility] Respiratory rate 2021-06-14 22:56:00 18 /min [facility] Oxygen saturation in 2021-06-14 22:56:00 94 /min [facility] Arterial blood by [facility] Pulse oximetry Branch Systolic blood 2021-06-14 22:56:00 126 mm[Hg] Lionel sity of pressure [facility] Diastolic blood 2021-06-14 22:56:00 57 mm[Hg] [facility] of pressure [facility] Heart rate 2021-06-14 22:56:00 62 /min [facility] Body weight 2021-06-14 10:08:00 87.907 kg [facility] BMI 2021-06-14 10:08:00 26.28 kg/m2 [facility] Body height 2021-06-11 14:20:00 182.9 cm [facility] Procedures Procedure Date / Time Performing Clinician Source Performed BASIC METABOLIC PANEL 2021-06-14 11:48:00 Edwar Gomez [facility] (NA, K, CL, CO2, GLUCOSE, Medica l Branch BUN, CREATININE, CA) CBC WITH DIFF 2021-06-14 11:48:00 [facility]MIN[facility] PRO-BNP 2021-06-14 11:48:[address] [facility] XR CHEST 1 VW 2021-06-13 12:21:00 Fam [facility] MAGNESIUM 2021-06-13 10:31:00 [facility] [place] [facility] HEPATIC FUNCTION PANEL 2021-06-13 10:31:00 Fam [facility] ([id number]) (ALB,T.PRO,BILI [facility] T,BU/BC,ALT,AST,ALK PHOS) BASIC METABOLIC PANEL 2021-06-13 10:31:00 [facility] (NA, K, CL, CO2, GLUCOSE, Medica l Branch BUN, CREATININE, CA) CBC WITH DIFF 2021-06-13 10:31:00 [facility] N-TERMINAL PRO-BNP 2021-06-13 10:31:[address] [facility] HB ECG ROUTINE & RHYTHM 2021-06-12 11:27:19 Marlen Fisher [facility] TROPONIN I 2021-06-12 10:06:00 Marlen Fisher [facility] BASIC METABOLIC PANEL 2021-06-12 10:06:00 Ely Casas [facility] (NA, K, CL, CO2, GLUCOSE, Medica l Branch BUN, CREATININE, CA) CBC WITH DIFF 2021-06-12 10:06:00 Ely Casas [facility] N-TERMINAL PRO-BNP 2021-06-12 10:06:00 Ely Casas [facility] DUPLEX VENOUS LEGS 2021-06-11 18:44:00 Marlen Fisher [facility] BILATERAL - BY VASCULAR Medical Branch LAB TRANSTHORACIC ECHO (TTE) 2021-06-11 15:07:00 aMrcus [place] [facility] COMPLETE Medical Branch MAGNESIUM 2021-06-11 14:14:00 Brittany [facility] TROPONIN I 2021-06-11 14:14:00 Marcus [facility] BASIC METABOLIC PANEL 2021-06-11 14:14[facility] ([facility], K, CL, CO2, GLUCOSE, Medica l Branch BUN, CREATININE, CA) CBC WITH DIFF 2021-06-11 08:38:00 Marcus [facility] TROPONIN I 2021-06-11 08:37:00 Marcus [facility] BASIC METABOLIC PANEL 2021-06-11 08:37:00 [facility] (NA, K, CL, CO2, GLUCOSE, Medica l Branch BUN, CREATININE, CA) XR CHEST 1 VW 2021-06-10 22:17:46 Tosha Sosa [facility] HB ECG ROUTINE & RHYTHM 2021-06-10 22:07:12 [facility] Branch MAGNESIUM 2021-06-10 22:05:00 Tosha Sosa [facility] TROPONIN I 2021-06-10 22:05:00 Tosha Sosa [facility] COMP. METABOLIC PANEL 2021-06-10 22:05:00 Tosha Sosa [facility] ([id number]) [facility] Branch CBC WITH DIFF 2021-06-10 22:05:00 Tosha Sosa [facility] N-TERMINAL PRO-BNP 2021-06-10 22:05:00 Tosha Sosa [facility] COVID-19 (ID NOW RAPID 2021-06-10 22:05:00 [facility] Medical Branch LAB ONLY COVID 2021-06-10 22:05:00 Tosha Sosa [facility] INTERPRETATION Medical Branch NOTICE OF PRIVACY 2021-06-10 21:33:24 Doctor Unasscheryl, [facility] PRACTICES [facility] [facility] CONSENT/REFUSAL FOR 2021-06-10 21:33:00 Doctor Unasscheryl [facility] DIAGNOSIS AND TREATMENT [facility] HOSPITAL ADMISSION MISC - 2021-06-10 06:01:00 Doctor Unasscheryl, [facility] MEDICARE PATIENTS RIGHTS [facility] [place] IMPORTANT MESSAGE Encounters Start End Encounter Admission Attending Care Care Encounter Source Date/Time Date/Time Type Type Clinicians Facility Department ID 2021-06-17 2021-06-17 Transition ARIANNE Nix [id number] Univers 00:00:00 00:00:00 of Care Rivas Trudy LAURA [id number] ity of PITAABBY [id number] [facility] [id number] [facility] 403 Branch 2021-06-10 2021-06-14 Hospital Tosha Sosa [facility] [id number] Univers 15:40:00 18:20:00 Encounter Barry Perdomo [id number] ity of Kiara Moreno [id number] [facility] [id number] [facility] 081 Branch 2021-06-10 2021-06-14 Inpatient X BRITTANY [facility] JOCELIN [id number] Univers 15:40:00 18:20:00 KIARA [facility] Results Test Description Test Time Test Comments Results Result Comments Source BASIC METABOLIC PANEL (NA, K, CL, CO2, GLUCOSE, BUN, 2021-05 13:53:53 CREATININE, CA) Test Item Value Reference Range Interpretation Comme nts NA (test code = 0163185784) 134 mmol/L 135-145 L K (test code = 6183546079) 3.5 mmol/L 3.5-5.0 CL (test code = 1669665531) 95 mmol/L 98-108 L CO2 TOTAL (test code = 6256532871) 37 mmol/L 23-31 H AGAP (test code = 6893545120) 2-16 BUN (test code = 8588822208) 14 mg/dL 7-23 GLUCOSE (test code = 9421900737) 106 mg/dL 70-110 CREATININE (test code = 1.10 mg/dL 0.60-1.25 3077899744) CALCIUM (test code = 5006767391) 8.6 mg/dL 8.6-10.6 eGFR (test code = 1895928835) mL/min/1.73m2 JAYE (test code = JAYE) Association of Glomerular Filtration Rate (GFR) and Staging of Kidney Disease* + +-------- + ------+| GFR (mL/min/1.73 m2) ?| With Kidney Damage ?| ?Without Kidney Damage+ +-- + +| ?>90 ?| ?Stage one ?| ? Normal ?+ +------- + -------+| ?60-89 ?| ?Stage two ?| ? Decreased GFR ? + +-------- + ------+| ?30-59 ?| ?Stage three ?| ? Stage three ? + +-------- + ------+| ?15-29 ?| ?Stage four ? | ? Stage four ?+ +------- + -------+| ?<15 (or dialysis) ? ?| ?Stage five ? | ? Stage five ?+ +------- + -------+ *Each stage assumes the associated GFR level has been in effect for at least three months. ?Stages 1 to 5, with or without kidney disease, indicate chronic kidney disease. Notes: Determination of stages one and two (with eGFR >59mL/min/1.73 m2) requires estimation of kidney damage for at least three months as defined by structural or functional abnormalities of the kidney, manifested by either:Pathological abnormalities or Markers of kidney damage (including abnormalities in the composition of the blood or urine or abnormalities in imaging tests). Lab Interpretation (test code = Abnormal 91841-4) [id number] 13:03:52 Test Item Value Reference Range Interpretation Comments NT-proBNP (test code 3200 pg/mL See_Comment H [Autom ated = 3688221247) message] The system which generated this result transmitted reference range : <=450. The reference range was not used to interpret this result as normal/abnormal . JAYE (test code = JAYE) Biotin has been reported to cause a negative bias, interpret results relative to patient's use of biotin. Lab Interpretation Abnormal (test code = 03417-7) [facility] WITH [id number] 12:09:26 Test Item Value Reference Range Interpretation Comments WBC (test code = See_Comment [Automated 6690-2) message] The sy stem which generated this result transmitted reference range : 4.20 - 10.70 10*3/?L. The reference range was not used to interpret this result as normal/abnormal . RBC (test code = See_Comment L [Automated 789-8) message] The sy stem which generated this result transmitted reference range : 4.26 - 5.52 10*6/?L. The reference range was not used to interpret this result as normal/abnormal . HGB (test code = 10.3 g/dL 12.2-16.4 L 718-7) HCT (test code = 31.5 % 38.4-49.3 L 4544-3) MCV (test code = 97.8 fL 81.7-95.6 H 787-2) MCH (test code = 32.0 pg 26.1-32.7 785-6) MCHC (test code = 32.7 g/dL 31.2-35.0 786-4) RDW-SD (test code = 48.3 fL 38.5-51.6 36607-5) RDW-CV (test code = 13.5 % 12.1-15.4 788-0) PLT (test code = See_Comment [Automated 777-3) message] The sy stem which generated this result transmitted reference range : 150 - 328 10*3/ ?L. The reference r loretta was not used to interpret this result as normal/abnormal . MPV (test code = 10.1 fL 9.8-13.0 56057-1) NRBC/100 WBC (test See_Comment [Automat ed code = 1423896766) message] The system which generated this result transmitted reference range : 0.0 - 10.0 /100 WBCs. The refer ence range was not u sed to interpret th is result as normal/abnormal . NRBC x10^3 (test code <0.01 See_Comment [Auto mated = 3272377261) message] The s ystem which generated this result transmitted reference range : 10*3/?L. The reference range was not used to interpret this result as normal/abnormal . GRAN MAT (NEUT) % 62.1 % (test code = 770-8) IMM GRAN % (test code 0.60 % = 3455413098) LYMPH % (test code = 20.9 % 736-9) MONO % (test code = 12.1 % 5905-5) EOS % (test code = 3.9 % 713-8) BASO % (test code = 0.4 % 706-2) GRAN MAT x10^3(ANC) 3.39 10*3/uL 1.99-6.95 (test code = 8539926804) IMM GRAN x10^3 (test 0.03 10*3/uL 0.00-0.06 code = 4274540585) LYMPH x10^3 (test code 1.14 10*3/uL 1.09-3.23 = 731-0) MONO x10^3 (test code 0.66 10*3/uL 0.36-1.02 = 742-7) EOS x10^3 (test code = 0.21 10*3/uL 0.06-0.53 711-2) BASO x10^3 (test code <0.03 0.01-0.09 = 704-7) Lab Interpretation Abnormal (test code = 74555-6) [facility] (ALB,T.PRO,BILI T,BU/BC,ALT,AST,ALK PHOS)2021-06-13 12:48:00 Test Item Value Reference Range Interpretation Comments TOTAL BILI (test code = 7894154968) 1.5 mg/dL 0.1-1.1 H BILI UNCON (test code = 5399513737) 0.7 mg/dL 0.1-1.1 BILI CONJ (test code = 8191688378) 0.0 mg/dL 0.0-0.3 T PROTEIN (test code = 5447004353) 5.8 g/dL 6.3-8.2 L ALBUMIN (test code = 7502585628) 3.1 g/dL 3.5-5.0 L ALK PHOS (test code = 4039629209) 108 U/L 34-122 ALTv (test code = 1742-6) 20 U/L 5-50 AST(SGOT) (test code = 3165595317) 35 U/L 13-40 Lab Interpretation (test code = Abnormal 51300-7) [facility] 12:47:40 Test Item Value Reference Range Interpretation Comments MAGNESIUM (test code = 6574602427) 1.9 mg/dL 1.7-2.4 Lab Interpretation (test code = Normal 01884-3) [facility] [id number] 11:14:43 Test Item Value Reference Range Interpretation Comments NT-proBNP (test code 3140 pg/mL See_Comment H [Autom ated = 1328103721) message] The system which generated this result transmitted reference range : <=450. The reference range was not used to interpret this result as normal/abnormal . JAYE (test code = JAYE) Biotin has been reported to cause a negative bias, interpret results relative to patient's use of biotin. Lab Interpretation Abnormal (test code = 92194-6) [facility] [place] [facility] METABOLIC PANEL (NA, K, CL, CO2, GLUCOSE, BUN, CREATININE, CA)2021-06-13 11:13:22 Test Item Value Reference Range Interpretation Comments NA (test code = 135 mmol/L 135-145 0712896106) K (test code = 3.4 mmol/L 3.5-5.0 L 6952583446) CL (test code = 100 mmol/L 98-108 5061625028) CO2 TOTAL (test code = 35 mmol/L 23-31 H 4112747791) AGAP (test code = <1 2-16 L 8455617142) BUN (test code = 15 mg/dL 7-23 3724463508) GLUCOSE (test code = 96 mg/dL 70-110 4039180559) CREATININE (test code = 1.09 mg/dL 0.60-1.25 5276672814) CALCIUM (test code = 8.7 mg/dL 8.6-10.6 3998618365) eGFR (test code = mL/min/1.73m2 1400638291) JAYE (test code = JAYE) Association of Glomerular Filtration Rate (GFR) and Staging of Kidney Disease* + --+ --+ ------+| GFR (mL/min/1.73 m2) ?| With Kidney Damage ?| ?Without Kidney Damage+ --------+ --------+ +| ?>90 ?| ?Stage one ?| ? Normal ?+ ---+ ---+ -------+| ?60-89 ?| ?Stage two ?| ? Decreased GFR ? + --+ --+ ------+| ?30-59 ?| ?Stage three ?| ? Stage three ? + --+ --+ ------+| ?15-29 ?| ?Stage four ? | ? Stage four ?+ ---+ ---+ -------+| ?<15 (or dialysis) ? ?| ?Stage five ? | ? Stage five ?+ ---+ ---+ -------+ *Each stage assumes the associated GFR level has been in effect for at least three months. ?Stages 1 to 5, with or without kidney disease, indicate chronic kidney disease. Notes: Determination of stages one and two (with eGFR >59mL/min/1.73 m2) requires estimation of kidney damage for at least three months as defined by structural or functional abnormalities of the kidney, manifested by either:Pathological abnormalities or Markers of kidney damage (including abnormalities in the composition of the blood or urine or abnormalities in imaging tests). Lab Interpretation Abnormal (test code = 53805-8) [facility] WITH [id number] 10:55:57 Test Item Value Reference Range Interpretation Comments WBC (test code = See_Comment [Automated 7942-2) message] The sy stem which generated this result transmitted reference range : 4.20 - 10.70 10*3/?L. The reference range was not used to interpret this result as normal/abnormal . RBC (test code = See_Comment L [Automated 628-8) message] The sy stem which generated this result transmitted reference range : 4.26 - 5.52 10*6/?L. The reference range was not used to interpret this result as normal/abnormal . HGB (test code = 9.9 g/dL 12.2-16.4 L 718-7) HCT (test code = 30.7 % 38.4-49.3 L 4544-3) MCV (test code = 99.0 fL 81.7-95.6 H 787-2) MCH (test code = 31.9 pg 26.1-32.7 785-6) MCHC (test code = 32.2 g/dL 31.2-35.0 786-4) RDW-SD (test code = 48.9 fL 38.5-51.6 22557-7) RDW-CV (test code = 13.6 % 12.1-15.4 788-0) PLT (test code = See_Comment [Automated 777-3) message] The sy stem which generated this result transmitted reference range : 150 - 328 10*3/ ?L. The reference r loretta was not used to interpret this result as normal/abnormal . MPV (test code = 10.5 fL 9.8-13.0 99311-4) NRBC/100 WBC (test See_Comment [Automat ed code = 8687046819) message] The system which generated this result transmitted reference range : 0.0 - 10.0 /100 WBCs. The refer ence range was not u sed to interpret th is result as normal/abnormal . NRBC x10^3 (test code <0.01 See_Comment [Auto mated = 9517424949) message] The s ystem which generated this result transmitted reference range : 10*3/?L. The reference range was not used to interpret this result as normal/abnormal . GRAN MAT (NEUT) % 59.7 % (test code = 770-8) IMM GRAN % (test code 0.40 % = 3163048346) LYMPH % (test code = 23.0 % 736-9) MONO % (test code = 10.8 % 5905-5) EOS % (test code = 5.3 % 713-8) BASO % (test code = 0.8 % 706-2) GRAN MAT x10^3(ANC) 3.14 10*3/uL 1.99-6.95 (test code = 4988960968) IMM GRAN x10^3 (test <0.03 0.00-0.06 code = 8126077022) LYMPH x10^3 (test code 1.21 10*3/uL 1.09-3.23 = 731-0) MONO x10^3 (test code 0.57 10*3/uL 0.36-1.02 = 742-7) EOS x10^3 (test code = 0.28 10*3/uL 0.06-0.53 711-2) BASO x10^3 (test code 0.04 10*3/uL 0.01-0.09 = 704-7) Lab Interpretation Abnormal (test code = 34253-4) [id number] 16:03:20 Test Item Value Reference Interpretation Comments Range TROPONIN I (test 0.040 ng/mL See_Comment H [Automated code = 5653341366) message] The system which generated this result transmitted reference range : <=0.034. The reference range was not used to interpret this result as normal/abnormal . JAYE (test code = Reference (Normal) JAYE) Range (defined by the 99th percentile reference limit): <= 0.034 ng/mL Note: Cardiac troponin begins to rise 3-4 hours after the onset of ischemia. Repeat in 4-6 hours if the sample was drawn within 3-4 hours of the onset of the symptom and found normal. Diagnosis of myocardial injury is made with acute changes in cTn concentrations with at least one serial sample above the 99th percentile upper reference limit (URL), taken together with the patient's clinical presentation. Biotin has been reported to cause a negative bias, interpret results relative to patient's use of biotin. Lab Interpretation Abnormal (test code = 37348-8) [facility] [id number] 11:35:29 Test Item Value Reference Range Interpretation Comments NT-proBNP (test code 3700 pg/mL See_Comment H [Autom ated = 3774602118) message] The system which generated this result transmitted reference range : <=450. The reference range was not used to interpret this result as normal/abnormal . JAYE (test code = JAYE) Biotin has been reported to cause a negative bias, interpret results relative to patient's use of biotin. Lab Interpretation Abnormal (test code = 66478-5) [facility] (NA, K, CL, CO2, GLUCOSE, BUN, CREATININE, CA)2021-06-12 11:27:44 Test Item Value Reference Range Interpretation Comments NA (test code = 134 mmol/L 135-145 L 6190518118) K (test code = 3.2 mmol/L 3.5-5.0 L 7665912581) CL (test code = 98 mmol/L 98-108 7143207867) CO2 TOTAL (test code = 35 mmol/L 23-31 H 2062868348) AGAP (test code = 2-16 L 5219595455) BUN (test code = 16 mg/dL 7-23 5563622882) GLUCOSE (test code = 102 mg/dL 70-110 6866765255) CREATININE (test code = 1.10 mg/dL 0.60-1.25 7528319905) CALCIUM (test code = 8.4 mg/dL 8.6-10.6 L 6785787328) eGFR (test code = mL/min/1.73m2 6116842405) JAYE (test code = JAYE) Association of Glomerular Filtration Rate (GFR) and Staging of Kidney Disease* + --+ --+ ------+| GFR (mL/min/1.73 m2) ?| With Kidney Damage ?| ?Without Kidney Damage+ --------+ --------+ +| ?>90 ?| ?Stage one ?| ? Normal ?+ ---+ ---+ -------+| ?60-89 ?| ?Stage two ?| ? Decreased GFR ? + --+ --+ ------+| ?30-59 ?| ?Stage three ?| ? Stage three ? + --+ --+ ------+| ?15-29 ?| ?Stage four ? | ? Stage four ?+ ---+ ---+ -------+| ?<15 (or dialysis) ? ?| ?Stage five ? | ? Stage five ?+ ---+ ---+ -------+ *Each stage assumes the associated GFR level has been in effect for at least three months. ?Stages 1 to 5, with or without kidney disease, indicate chronic kidney disease. Notes: Determination of stages one and two (with eGFR >59mL/min/1.73 m2) requires estimation of kidney damage for at least three months as defined by structural or functional abnormalities of the kidney, manifested by either:Pathological abnormalities or Markers of kidney damage (including abnormalities in the composition of the blood or urine or abnormalities in imaging tests). Lab Interpretation Abnormal (test code = 91810-0) [facility] WITH [id number] 11:13:43 Test Item Value Reference Range Interpretation Comments WBC (test code = See_Comment [Automated 6690-2) message] The sy stem which generated this result transmitted reference range : 4.20 - 10.70 10*3/?L. The reference range was not used to interpret this result as normal/abnormal . RBC (test code = See_Comment L [Automated 789-8) message] The sy stem which generated this result transmitted reference range : 4.26 - 5.52 10*6/?L. The reference range was not used to interpret this result as normal/abnormal . HGB (test code = 9.5 g/dL 12.2-16.4 L 718-7) HCT (test code = 29.0 % 38.4-49.3 L 4544-3) MCV (test code = 98.0 fL 81.7-95.6 H 787-2) MCH (test code = 32.1 pg 26.1-32.7 785-6) MCHC (test code = 32.8 g/dL 31.2-35.0 786-4) RDW-SD (test code = 49.6 fL 38.5-51.6 25452-8) RDW-CV (test code = 13.9 % 12.1-15.4 788-0) PLT (test code = See_Comment [Automated 777-3) message] The sy stem which generated this result transmitted reference range : 150 - 328 10*3/ ?L. The reference r loretta was not used to interpret this result as normal/abnormal . MPV (test code = 10.8 fL 9.8-13.0 44358-2) NRBC/100 WBC (test See_Comment [Automat ed code = 3431089590) message] The system which generated this result transmitted reference range : 0.0 - 10.0 /100 WBCs. The refer ence range was not u sed to interpret th is result as normal/abnormal . NRBC x10^3 (test code <0.01 See_Comment [Auto mated = 1748903922) message] The s ystem which generated this result transmitted reference range : 10*3/?L. The reference range was not used to interpret this result as normal/abnormal . GRAN MAT (NEUT) % 63.4 % (test code = 770-8) IMM GRAN % (test code 0.50 % = 3799615659) LYMPH % (test code = 19.7 % 736-9) MONO % (test code = 11.5 % 5905-5) EOS % (test code = 4.4 % 713-8) BASO % (test code = 0.5 % 706-2) GRAN MAT x10^3(ANC) 3.47 10*3/uL 1.99-6.95 (test code = 6101780345) IMM GRAN x10^3 (test 0.03 10*3/uL 0.00-0.06 code = 5528786671) LYMPH x10^3 (test code 1.08 10*3/uL 1.09-3.23 L = 731-0) MONO x10^3 (test code 0.63 10*3/uL 0.36-1.02 = 742-7) EOS x10^3 (test code = 0.24 10*3/uL 0.06-0.53 711-2) BASO x10^3 (test code 0.03 10*3/uL 0.01-0.09 = 704-7) Lab Interpretation Abnormal (test code = 07871-9) [facility] 19:02:50 Test Item Value Reference Range Interpretation Comments LVOT diameter (test code 2.15 cm = 1839462181) IVS (test code = 1.35 cm 0146528758) Interventricular Septum 1.35 cm Diastolic Thickness by 2D (test code = 5950061) LVIDD (test code = 4.80 cm 1617548812) LVPWD (test code = 1.35 cm 1575350653) PW (test code = 1.35 cm 0.6-1.7 0839053018) EF(Teich) (test code = 63.90 % 1280389087) LVIDS (test code = 3.10 cm 8664953763) FS (test code = 35 % 4227895475) EF - 2D (test code = 63.90 % 96126174) LA size (test code = 4.7 cm 1791262899) Ao root annulus (test 3.3 cm code = 4372628891) Ao root diam (test code = 3.30 cm 1177787719) Aortic root (test code = 3.3 cm 4832559609) TR Peak Jose (test code = 385.0 cm/s 9602068210) Triscuspid Valve mmHg Regurgitation Peak Gradient (test code = 9894834183) LAV(MOD-sp4) (test code = 62.30 mL 0170035648) E wave decelartion time 0.20 s (test code = 2573570628) MV stenosis pressure 1/2 58.0 ms time (test code = 3967399856) MV Peak E Jose (test code 137.9 cm/s = 2100159420) MV Peak A Jose (test code 47.9 cm/s = 2299556770) E/A ratio (test code = ratio 2424406456) MR max PG (test code = 104.70 mm[Hg] 7894983426) MR max jose (test code = 511.50 cm/s 3379691460) Mr max jose (test code = 511.5 m/s 7427545154) MV Prop V (test code = 57.60 cm/s 6964029852) MV E/e' septal (test code 14.2 cm/s = 1003034265) Tapse (test code = 2.07 cm 7660438045) LVOT stroke volume (test 84.20 cm3 code = 4143495301) LVOT peak jose (test code 98.6 cm/s = 1894720742) LVOT mn grad (test code = mmHg 9062160852) AV LVOT peak gradient mmHg (test code = 1199253273) LVOT peak VTI (test code 23.1 cm = 7452064765) LV V1 mean (test code = 69.30 cm/s 1856581248) Aortic valve mean 221.4 cm/s velocity (test code = 5086921126) Ao peak jose (test code = 308.2 cm/s 8064787111) Ao VTI (test code = 66.9 cm 5709785054) AV area by cont VTI (test 1.3 cm2 code = 6865209606) AV area peak jose (test 1.2 cm2 code = 5283681571) Ao max PG (test code = 38.00 mm[Hg] 8956290806) AV peak gradient (test mmHg code = 6479684594) AV valve area (test code 1.26 cm2 = 0987836088) AV mean gradient (test mmHg code = 6600498659) AV regurgitation pressure 527.4 ms 1/2 time (test code = 0650492525) AI dec slope (test code = 221.40 cm/s2 0403556225) AI max jose (test code = 398.70 cm/s 7232138551) AI max PG (test code = 63.60 mm[Hg] 2267036435) LA Volume Index (BP) 43.3 mL/m2 (test code = 3803190498) LA volume (BP) (test code 91.7 mL = 3769012679) LAV(MOD-sp2) (test code = 120.20 mL 1204949543) Radiology Study observation (narrative) (test code = 00513-2) JAYE (test code = JAYE) ?Left?Ventricle: Normal systolic function with a visually estimated EF of greater than 65%. ?Tricuspid?Valve: Right ventricular systolic pressure is greater than 60 mmHg. ?Right?Ventricle: Right ventricle is mildly dilated. Normal systolic function. ?IVC/SVC: The estimated right atrial pressure is elevated (~15 mmHg). VitalsHeight Weight BSA (Calculated - sq m) BP Pulse 6' (1.829 m) 197 lb (89.4 kg) 2.13 sq meters 132/57 64 [facility]20[facility] 15:39:04 Test Item Value Reference Range Interpretation Comments MAGNESIUM (test code = 9537781406) 2.1 mg/dL 1.7-2.4 Lab Interpretation (test code = Normal 01174-6) [facility] (NA, K, CL, CO2, GLUCOSE, BUN, CREATININE, CA)2021-06-11 15:38:03 Test Item Value Reference Range Interpretation Comments NA (test code = 136 mmol/L 135-145 7714688078) K (test code = 3.8 mmol/L 3.5-5.0 1782093973) CL (test code = 100 mmol/L 98-108 1754126677) CO2 TOTAL (test code = 32 mmol/L 23-31 H 5778026004) AGAP (test code = 2-16 4466543009) BUN (test code = 18 mg/dL 7-23 2755405009) GLUCOSE (test code = 118 mg/dL 70-110 H 7181899573) CREATININE (test code = 1.06 mg/dL 0.60-1.25 5037453046) CALCIUM (test code = 8.4 mg/dL 8.6-10.6 L 0643460316) eGFR (test code = mL/min/1.73m2 0379689588) JAYE (test code = JAYE) Association of Glomerular Filtration Rate (GFR) and Staging of Kidney Disease* + --+ --+ ------+| GFR (mL/min/1.73 m2) ?| With Kidney Damage ?| ?Without Kidney Damage+ --------+ --------+ +| ?>90 ?| ?Stage one ?| ? Normal ?+ ---+ ---+ -------+| ?60-89 ?| ?Stage two ?| ? Decreased GFR ? + --+ --+ ------+| ?30-59 ?| ?Stage three ?| ? Stage three ? + --+ --+ ------+| ?15-29 ?| ?Stage four ? | ? Stage four ?+ ---+ ---+ -------+| ?<15 (or dialysis) ? ?| ?Stage five ? | ? Stage five ?+ ---+ ---+ -------+ *Each stage assumes the associated GFR level has been in effect for at least three months. ?Stages 1 to 5, with or without kidney disease, indicate chronic kidney disease. Notes: Determination of stages one and two (with eGFR >59mL/min/1.73 m2) requires estimation of kidney damage for at least three months as defined by structural or functional abnormalities of the kidney, manifested by either:Pathological abnormalities or Markers of kidney damage (including abnormalities in the composition of the blood or urine or abnormalities in imaging tests). Lab Interpretation Abnormal (test code = 91452-8) [facility] CenterNICHOLAS [id number] 15:27:03 Test Item Value Reference Interpretation Comments Range TROPONIN I (test 0.071 ng/mL See_Comment H [Automated code = 4218933786) message] The system which generated this result transmitted reference range : <=0.034. The reference range was not used to interpret this result as normal/abnormal . JAYE (test code = Reference (Normal) JAYE) Range (defined by the 99th percentile reference limit): <= 0.034 ng/mL Note: Cardiac troponin begins to rise 3-4 hours after the onset of ischemia. Repeat in 4-6 hours if the sample was drawn within 3-4 hours of the onset of the symptom and found normal. Diagnosis of myocardial injury is made with acute changes in cTn concentrations with at least one serial sample above the 99th percentile upper reference limit (URL), taken together with the patient's clinical presentation. Biotin has been reported to cause a negative bias, interpret results relative to patient's use of biotin. Lab Interpretation Abnormal (test code = 10567-6) [id number]:25:15 Test Item Value Reference Interpretation Comments Range TROPONIN I (test 0.079 ng/mL See_Comment H [Automated code = 7153934802) message] The system which generated this result transmitted reference range : <=0.034. The reference range was not used to interpret this result as normal/abnormal . JAYE (test code = Reference (Normal) JAYE) Range (defined by the 99th percentile reference limit): <= 0.034 ng/mL Note: Cardiac troponin begins to rise 3-4 hours after the onset of ischemia. Repeat in 4-6 hours if the sample was drawn within 3-4 hours of the onset of the symptom and found normal. Diagnosis of myocardial injury is made with acute changes in cTn concentrations with at least one serial sample above the 99th percentile upper reference limit (URL), taken together with the patient's clinical presentation. Biotin has been reported to cause a negative bias, interpret results relative to patient's use of biotin. Lab Interpretation Abnormal (test code = 66096-0) [facility] (NA, K, CL, CO2, GLUCOSE, BUN, CREATININE, CA)2021-06-11 09:15:32 Test Item Value Reference Range Interpretation Comments NA (test code = 134 mmol/L 135-145 L 8896117203) K (test code = 2.9 mmol/L 3.5-5.0 LL 5927369813) CL (test code = 98 mmol/L 98-108 8680386207) CO2 TOTAL (test code = 34 mmol/L 23-31 H 6146120927) AGAP (test code = 2-16 4618370231) BUN (test code = 19 mg/dL 7-23 2008601392) GLUCOSE (test code = 106 mg/dL 70-110 9580544161) CREATININE (test code = 1.10 mg/dL 0.60-1.25 2408957267) CALCIUM (test code = 8.3 mg/dL 8.6-10.6 L 1298729702) eGFR (test code = mL/min/1.73m2 3770071151) JAYE (test code = JAYE) Association of Glomerular Filtration Rate (GFR) and Staging of Kidney Disease* + --+ --+ ------+| GFR (mL/min/1.73 m2) ?| With Kidney Damage ?| ?Without Kidney Damage+ --------+ --------+ +| ?>90 ?| ?Stage one ?| ? Normal ?+ ---+ ---+ -------+| ?60-89 ?| ?Stage two ?| ? Decreased GFR ? + --+ --+ ------+| ?30-59 ?| ?Stage three ?| ? Stage three ? + --+ --+ ------+| ?15-29 ?| ?Stage four ? | ? Stage four ?+ ---+ ---+ -------+| ?<15 (or dialysis) ? ?| ?Stage five ? | ? Stage five ?+ ---+ ---+ -------+ *Each stage assumes the associated GFR level has been in effect for at least three months. ?Stages 1 to 5, with or without kidney disease, indicate chronic kidney disease. Notes: Determination of stages one and two (with eGFR >59mL/min/1.73 m2) requires estimation of kidney damage for at least three months as defined by structural or functional abnormalities of the kidney, manifested by either:Pathological abnormalities or Markers of kidney damage (including abnormalities in the composition of the blood or urine or abnormalities in imaging tests). Lab Interpretation Abnormal (test code = 84581-5) [facility] with [id number] 08:47:50 Test Item Value Reference Range Interpretation Comments WBC (test code = See_Comment [Automated 6690-2) message] The sy stem which generated this result transmitted reference range : 4.20 - 10.70 10*3/?L. The reference range was not used to interpret this result as normal/abnormal . RBC (test code = See_Comment L [Automated 789-8) message] The sy stem which generated this result transmitted reference range : 4.26 - 5.52 10*6/?L. The reference range was not used to interpret this result as normal/abnormal . HGB (test code = 10.2 g/dL 12.2-16.4 L 718-7) HCT (test code = 30.9 % 38.4-49.3 L 4544-3) MCV (test code = 96.9 fL 81.7-95.6 H 787-2) MCH (test code = 32.0 pg 26.1-32.7 785-6) MCHC (test code = 33.0 g/dL 31.2-35.0 786-4) RDW-SD (test code = 49.8 fL 38.5-51.6 78186-4) RDW-CV (test code = 14.0 % 12.1-15.4 788-0) PLT (test code = See_Comment [Automated 777-3) message] The sy stem which generated this result transmitted reference range : 150 - 328 10*3/ ?L. The reference r loretta was not used to interpret this result as normal/abnormal . MPV (test code = 10.5 fL 9.8-13.0 19981-4) NRBC/100 WBC (test See_Comment [Automat ed code = 9377866667) message] The system which generated this result transmitted reference range : 0.0 - 10.0 /100 WBCs. The refer ence range was not u sed to interpret th is result as normal/abnormal . NRBC x10^3 (test code <0.01 See_Comment [Auto mated = 0988148711) message] The s ystem which generated this result transmitted reference range : 10*3/?L. The reference range was not used to interpret this result as normal/abnormal . GRAN MAT (NEUT) % 57.8 % (test code = 770-8) IMM GRAN % (test code 0.20 % = 3294572291) LYMPH % (test code = 25.0 % 736-9) MONO % (test code = 12.5 % 5905-5) EOS % (test code = 3.9 % 713-8) BASO % (test code = 0.6 % 706-2) GRAN MAT x10^3(ANC) 3.15 10*3/uL 1.99-6.95 (test code = 9314005706) IMM GRAN x10^3 (test <0.03 0.00-0.06 code = 1992052186) LYMPH x10^3 (test code 1.36 10*3/uL 1.09-3.23 = 731-0) MONO x10^3 (test code 0.68 10*3/uL 0.36-1.02 = 742-7) EOS x10^3 (test code = 0.21 10*3/uL 0.06-0.53 711-2) BASO x10^3 (test code 0.03 10*3/uL 0.01-0.09 = 704-7) Lab Interpretation Abnormal (test code = 09706-9) [facility] [id number] 22:54:32 Test Item Value Reference Interpretation Comments Range TROPONIN I (test 0.101 ng/mL See_Comment H [Automated code = 4422187571) message] The system which generated this result transmitted reference range : <=0.034. The reference range was not used to interpret this result as normal/abnormal . JAYE (test code = Reference (Normal) JAYE) Range (defined by the 99th percentile reference limit): <= 0.034 ng/mL Note: Cardiac troponin begins to rise 3-4 hours after the onset of ischemia. Repeat in 4-6 hours if the sample was drawn within 3-4 hours of the onset of the symptom and found normal. Diagnosis of myocardial injury is made with acute changes in cTn concentrations with at least one serial sample above the 99th percentile upper reference limit (URL), taken together with the patient's clinical presentation. Biotin has been reported to cause a negative bias, interpret results relative to patient's use of biotin. Lab Interpretation Abnormal (test code = 28434-1) [facility] [id number] 22:51:31 Test Item Value Reference Range Interpretation Comments NT-proBNP (test code 4460 pg/mL See_Comment H [Autom ated = 9605077436) message] The system which generated this result transmitted reference range : <=450. The reference range was not used to interpret this result as normal/abnormal . JAYE (test code = JAYE) Biotin has been reported to cause a negative bias, interpret results relative to patient's use of biotin. Lab Interpretation Abnormal (test code = 71862-9) [facility] (71928)2021-06-10 22:43:31 Test Item Value Reference Range Interpretation Comments NA (test code = 135 mmol/L 135-145 2473527563) K (test code = 3.0 mmol/L 3.5-5.0 L 4548406308) CL (test code = 96 mmol/L 98-108 L 4816894397) CO2 TOTAL (test code = 33 mmol/L 23-31 H 7283786729) AGAP (test code = 2-16 8522686155) BUN (test code = 20 mg/dL 7-23 8571391256) GLUCOSE (test code = 154 mg/dL 70-110 H 6782992519) CREATININE (test code = 1.14 mg/dL 0.60-1.25 3138409733) TOTAL BILI (test code = 3.7 mg/dL 0.1-1.1 H 7945002375) CALCIUM (test code = 8.7 mg/dL 8.6-10.6 2866894789) T PROTEIN (test code = 7.1 g/dL 6.3-8.2 2991890317) ALBUMIN (test code = 3.9 g/dL 3.5-5.0 8465793064) ALK PHOS (test code = 160 U/L 34-122 H 8609562076) ALTv (test code = 31 U/L 5-50 1742-6) AST(SGOT) (test code = 35 U/L 13-40 5415858911) eGFR (test code = mL/min/1.73m2 0073332551) JAYE (test code = JAYE) Association of Glomerular Filtration Rate (GFR) and Staging of Kidney Disease* + --+ --+ ------+| GFR (mL/min/1.73 m2) ?| With Kidney Damage ?| ?Without Kidney Damage+ --------+ --------+ +| ?>90 ?| ?Stage one ?| ? Normal ?+ ---+ ---+ -------+| ?60-89 ?| ?Stage two ?| ? Decreased GFR ? + --+ --+ ------+| ?30-59 ?| ?Stage three ?| ? Stage three ? + --+ --+ ------+| ?15-29 ?| ?Stage four ? | ? Stage four ?+ ---+ ---+ -------+| ?<15 (or dialysis) ? ?| ?Stage five ? | ? Stage five ?+ ---+ ---+ -------+ *Each stage assumes the associated GFR level has been in effect for at least three months. ?Stages 1 to 5, with or without kidney disease, indicate chronic kidney disease. Notes: Determination of stages one and two (with eGFR >59mL/min/1.73 m2) requires estimation of kidney damage for at least three months as defined by structural or functional abnormalities of the kidney, manifested by either:Pathological abnormalities or Markers of kidney damage (including abnormalities in the composition of the blood or urine or abnormalities in imaging tests). Lab Interpretation Abnormal (test code = 69001-1) [facility] 22:43:31 Test Item Value Reference Range Interpretation Comments MAGNESIUM (test code = 9035884451) 1.6 mg/dL 1.7-2.4 L Lab Interpretation (test code = Abnormal 18460-7) [facility] [id number] 22:29:29 Test Item Value Reference Range Interpretation Comments WBC (test code = See_Comment [Automated 9690-2) message] The sy stem which generated this result transmitted reference range : 4.20 - 10.70 10*3/?L. The reference range was not used to interpret this result as normal/abnormal . RBC (test code = See_Comment L [Automated 619-8) message] The sy stem which generated this result transmitted reference range : 4.26 - 5.52 10*6/?L. The reference range was not used to interpret this result as normal/abnormal . HGB (test code = 11.8 g/dL 12.2-16.4 L 718-7) HCT (test code = 35.6 % 38.4-49.3 L 4544-3) MCV (test code = 96.5 fL 81.7-95.6 H 787-2) MCH (test code = 32.0 pg 26.1-32.7 785-6) MCHC (test code = 33.1 g/dL 31.2-35.0 786-4) RDW-SD (test code = 49.0 fL 38.5-51.6 18898-7) RDW-CV (test code = 13.9 % 12.1-15.4 788-0) PLT (test code = See_Comment [Automated 777-3) message] The sy stem which generated this result transmitted reference range : 150 - 328 10*3/ ?L. The reference r loretta was not used to interpret this result as normal/abnormal . MPV (test code = 10.5 fL 9.8-13.0 21033-2) NRBC/100 WBC (test See_Comment [Automat ed code = [id number]) message] The system which generated this result transmitted reference range : 0.0 - 10.0 /100 WBCs. The refer ence range was not u sed to interpret th is result as normal/abnormal . NRBC x10^3 (test code <0.01 See_Comment [Auto mated = [id number]) message] The s ystem which generated this result transmitted reference range : 10*3/?L. The reference range was not used to interpret this result as normal/abnormal . GRAN MAT (NEUT) % 63.2 % (test code = 770-8) IMM GRAN % (test code 0.30 % = 2798143041) LYMPH % (test code = 24.2 % 736-9) MONO % (test code = 9.8 % 5905-5) EOS % (test code = 1.9 % 713-8) BASO % (test code = 0.6 % 706-2) GRAN MAT x10^3(ANC) 3.94 10*3/uL 1.99-6.95 (test code = 9708733084) IMM GRAN x10^3 (test <0.03 0.00-0.06 code = 7644338007) LYMPH x10^3 (test code 1.51 10*3/uL 1.09-3.23 = 731-0) MONO x10^3 (test code 0.61 10*3/uL 0.36-1.02 = 742-7) EOS x10^3 (test code = 0.12 10*3/uL 0.06-0.53 711-2) BASO x10^3 (test code 0.04 10*3/uL 0.01-0.09 = 704-7) Lab Interpretation Abnormal (test code = 93740-4) [facility]"
[2021-08-20] MEDS ORDERED: FUROSEMIDE 40 MG/4 ML VIAL ONE (10:32)
[2021-08-20] MEDS ORDERED: LEVALBUTEROL 1.25 MG/3 ML NEB ONE (10:32)
[2021-08-20 10:49] LABS: Absolute Lymphocytes (CBC) 0.8 K/uL (0.7-4.9); Hematocrit 32.1 % (39.6-49.0); Lymphocytes % 13.5 % (15.3-44.8); MPV 8.5 fL (7.6-11.3)
[2021-08-20 10:52] LABS: Protime INR 1.12
[2021-08-20 11:08] LABS: AST/SGOT 17 U/L (15-37); Albumin 3.2 g/dL (3.4-5.0); Alkaline Phosphatase 56 U/L (45-117); BUN Blood Urea Nitrogen 23 mg/dL (7-18); Bicarbonate 29 mmol/L (21-32); Bilirubin Total 2.2 mg/dL (0.2-1.0); Glucose Level 98 mg/dL (74-106); Magnesium 2.4 mg/dL (1.8-2.4); NT PRO-BNP 4165 pg/mL (<450); Protein, Total 7.1 g/dL (6.4-8.2); Sodium Level 139 mmol/L (136-145); Troponin High Sensitivity 11.6 pg/mL (<58.9)
--- NOTE | 2021-08-20 11:08 | RAD REPORT ---
EXAM DESCRIPTION: RAD - Chest Single View - 08/20/2021 10:41 am CLINICAL HISTORY: Chest pain COMPARISON: Portable 03/10/2021 TECHNIQUE: AP portable chest image was obtained 08/20/2021 10:41 am . FINDINGS: Lung volumes are low. Small bilateral pleural effusions are present. Chronic interstitial pattern is present. This is not clearly different from comparison studies the low lung volume the bas toño pattern could mask early edema or infiltrate. Heart and vasculature are normal. No pneumothorax. No acute bony abnormality seen. No acute aortic f indings suspected. IMPRESSION: Limited low lung volume examination showing small bilateral pleural effusions. Prominent interstitial markings seen at each lung base believed to be the affects of chronic lung dis ease and atelectasis. Severity of chronic baseline pattern could mask early edema or infiltrate.
[2021-08-20 11:10] LABS: ALT/SGPT < 10 U/L (12-78)
--- NOTE | 2021-08-20 12:54 | ER ---
Nurse's Notes [facility] Name: Cy Bill Age: 85 yrs Sex: Male : 1935 Arrival Date: 08/20/2021 Time: 10:18 Bed 15 Private MD: Diagnosis: Acute on chronic systolic (congestive) heart failure;Chest pain, unspecified Presentation: 08/20 10:19 Chief complaint: EMS states: SOB for the past couple of days that became worse this vg1 morning; pt is on 4 L NC at home and was 97%. Pt c/o Chest pain and appears to have ALMA leg swelling. Ebola Screen: Patient denies exposure to infectious person. Patient denies travel to an Ebola-affected area in the 21 days before illness onset. Initial Sepsis Screen: Does the patient meet any 2 criteria? RR > 20 per min. Does the patient have a suspected source of infection? No. Patient's initial sepsis screen is negative. Risk Assessment: Do you want to hurt yourself or someone else? Patient reports no desire to harm self or others. Onset of symptoms was August 18, 2021. 10:19 Method Of Arrival: EMS: [facility] vg1 10:19 Acuity: AMALIA 3 vg1 10:28 Coronavirus screen: Vaccine status: Patient reports being unvaccinated. Client denies 9 travel out of the [place] in the last 14 days. Triage Assessment: 10:21 General: Appears in no apparent distress. uncomfortable, Behavior is calm, cooperative. vg1 Pain: Complains of pain in chest Pain currently is 8 out of 10 on a pain scale. Respiratory: Reports shortness of breath at rest on exertion cough that is productive, Airway is patent Respiratory effort is even, labored, Respiratory pattern is tachypnea Onset: The symptoms/episode began/occurred x 2 days ago, the patient has moderate shortness of breath. Historical: - Allergies: 12:16 No Known Allergies; jg9 - Home Meds: 10:24 Aspirin Oral [Active]; tamsulosin 0.4 mg Oral cap 1 cap once daily [Active]; furosemide vg1 40 mg oral tab [Active]; finasteride 5 mg Oral tab 1 tab once daily [Active]; Vitamin D Oral [Active]; potassium chloride 10 mEq Oral cpER 1 cap once daily [Active]; magnesium oxide 420 mg Oral tab [Active]; apixaban 5 mg oral tab [Active]; mirtazapine 15 mg Oral tab 1 tab once daily [Active]; Melatonin Oral [Active]; - PMHx: 10:21 Atrial fibrillation; BPH; vg1 - Social history:: Smoking status: Patient/guardian denies using tobacco, the patient reports quitting approximately 38 years ago. Screenin:03 Abuse screen: Denies threats or abuse. Denies injuries from another. Nutritional jg9 screening: No deficits noted. Tuberculosis screening: No symptoms or risk factors identified. Fall Risk None identified. Assessment: 10:30 Cardiovascular: Rhythm is atrial fibrillation. Respiratory: Airway is patent Breath jg9 sounds are clear bilaterally. 10:30 Musculoskeletal: Swelling present in right foot, left foot, right leg and left leg 3+ jg9 pitting edema. Vital Signs: 10:19 BP 138 / 65; Pulse 77; Resp 22; Temp 98.5(O); Pulse Ox 99% on 4 lpm NC; Weight 98.43 vg1 kg; Height 6 ft. 0 in. (182.88 cm); Pain 8/10; 10:30 BP 146 / 62; Pulse 86; Resp 22 S; Pulse Ox 100% on 4 lpm NC; jg9 11:30 BP 123 / 48; Pulse 61; Resp 17; Pulse Ox 99% on 4 lpm NC; jg9 12:00 BP 107 / 44; Pulse 59; Resp 15 S; Pulse Ox 100% on 4 lpm NC; jg9 13:00 BP 125 / 45; Pulse 60; Resp 18 S; Pulse Ox 100% on 4 lpm NC; jg9 14:30 BP 113 / 51; Pulse 58; Resp 17 S; Pulse Ox 99% on 4 lpm NC; jg9 10:19 Body Mass Index 29.43 (98.43 kg, 182.88 cm) vg1 ED Course: 10:18 Patient arrived in ED. ww 10:20 Neo Gomez NP is PHCP. pm1 10:20 Jeferson Yuen MD is Attending Physician. pm1 10:21 Triage completed. vg1 10:21 Arm band placed on. vg1 10:26 Lisa Jett RN is Primary Nurse. jg9 10:30 Inserted saline lock: 18 gauge in left antecubital area, using aseptic technique. Blood jg9 collected. 10:43 XRAY Chest (1 view) In Process Unspecified. EDMS 12:14 Patient has correct armband on for positive identification. Bed in low position. Call jg9 light in reach. 12:53 Jeferson Yuen MD is Hospitalizing Provider. pm1 12:53 Hospitalizing Provider role handed off by Jefersno Yuen MD pm1 12:53 Tyler Yuen MD is Hospitalizing Provider. pm1 12:56 Evonne Casarez MD is Hospitalizing Provider. pm1 15:26 No provider procedures requiring assistance completed. jg9 15:37 Patient admitted, IV remains in place. jg9 Administered Medications: 10:45 Drug: Lasix (furosemide) 40 mg Route: IVP; Site: left antecubital; jg9 14:53 Follow up: Response: No adverse reaction jg9 10:45 Drug: Xopenex (levalbuterol) 2.5 mg Route: Inhalation; jg9 11:30 Follow up: Response: No adverse reaction; Wheezing diminished jg9 Output: 11:30 Urine: 200ml (Voided); Total: 200ml. jg9 13:20 Urine: 600ml (Voided); Total: 800ml. jg9 14:49 Urine: 400ml (Voided); Total: 1200ml. jg9 Outcome: 12:53 Decision to Hospitalize by Provider. pm1 15:36 Admitted to Med/surg accompanied by tech, via wheelchair, room 213, Report called to jg9 Tammy Bowden RN 15:37 Condition: stable jg9 15:38 Patient left the ED. jg9 Signatures: Dispatcher [employer] EDMS Neo Gomez, YEMI SHIFT MGR pm1 Christi Blackwell RN RN vg1 Lisa Jett RN RN jg9 Karen Montgomery, RN RN ww Corrections: (The following items were deleted from the chart) 10:27 10:21 Allergies: Aspirin; vg1 vg1
--- NOTE | 2021-08-20 12:54 | EDPHYS ---
Physician Documentation [facility] Name: Cy Bill Age: 85 yrs Sex: Male : 1935 Arrival Date: 08/20/2021 Time: 10:18 Bed 15 Private MD: ED Physician Jeferson Yuen HPI: 08/20 10:22 This 85 yrs old Male presents to ER via EMS with complaints of Shortness Of Breath. pm1 10:22 The patient has shortness of breath at rest. pm1 10:22 Onset: The symptoms/episode began/occurred 2 day(s) ago. Duration: The symptoms are pm1 continuous. The patient's shortness of breath is aggravated by exertion, is alleviated by application of supplemental oxygen, by EMS. Patient is using a concentrator at home as needed. Associated signs and symptoms: Pertinent positives: chest pain, Pertinent negatives: non-productive cough, productive cough, fever. Severity of symptoms: in the emergency department the symptoms are worse. The patient has not experienced similar symptoms in the past. The patient has been recently seen by a physician: Dr. Mejia. Has scheduled echo and cardiac cath planned for Thursday with Dr. Mejia. Historical: - Allergies: 12:16 No Known Allergies; jg9 - Home Meds: 10:24 Aspirin Oral [Active]; tamsulosin 0.4 mg Oral cap 1 cap once daily [Active]; furosemide vg1 40 mg oral tab [Active]; finasteride 5 mg Oral tab 1 tab once daily [Active]; Vitamin D Oral [Active]; potassium chloride 10 mEq Oral cpER 1 cap once daily [Active]; magnesium oxide 420 mg Oral tab [Active]; apixaban 5 mg oral tab [Active]; mirtazapine 15 mg Oral tab 1 tab once daily [Active]; Melatonin Oral [Active]; - PMHx: 10:21 Atrial fibrillation; BPH; vg1 - Social history:: Smoking status: Patient/guardian denies using tobacco, the patient reports quitting approximately 38 years ago. ROS: 10:22 Constitutional: Negative for fever, chills, and weight loss. pm1 10:22 Abdomen/GI: Negative for abdominal pain, nausea, vomiting, diarrhea, and constipation, Back: Negative for injury and pain, MS/Extremity: Negative for injury and deformity, Skin: Negative for injury, rash, and discoloration, Neuro: Negative for headache, weakness, numbness, tingling, and seizure. 10:22 Cardiovascular: Positive for chest pain, edema. 10:22 Respiratory: Positive for shortness of breath, wheezing, Negative for cough. 10:22 All other systems are negative. Exam: 10:22 Constitutional: This is a well developed, well nourished patient who is awake, alert, pm1 and in no acute distress. Head/Face: Normocephalic, atraumatic. 10:22 Back: No spinal tenderness. No costovertebral tenderness. Full range of motion. Skin: Warm, dry with normal turgor. Normal color with no rashes, no lesions, and no evidence of cellulitis. MS/ Extremity: Pulses equal, no cyanosis. Neurovascular intact. Full, normal range of motion. 10:22 Eyes: Exam is negative for acute changes, Periorbital structures: appear normal, Extraocular movements: intact throughout, Sclera: no acute changes, icterus, is not appreciated. 10:22 ENT: Exam is negative for acute changes, Mouth: no acute changes, Lips: normal, moist, Oral mucosa: normal, pink and intact, moist. 10:22 Chest/axilla: Exam negative for acute changes, Inspection: normal, Palpation: is normal, no crepitus, no tenderness. 10:22 Cardiovascular: Rate: normal, Rhythm: irregular, Pulses: no pulse deficits are appreciated, Edema: 1+ edema to level of left lower thigh, 2+ edema to level of left midcalf and right midcalf. 10:22 Respiratory: mild respiratory distress is noted, Breath sounds: wheezing: is heard diffusely. 10:22 Abdomen/GI: Inspection: abdomen appears normal, Palpation: abdomen is soft and non-tender, in all quadrants. 10:22 Neuro: Exam negative for acute changes, Orientation: is normal, Mentation: is normal, Motor: is normal, moves all fours. Vital Signs: 10:19 BP 138 / 65; Pulse 77; Resp 22; Temp 98.5(O); Pulse Ox 99% on 4 lpm NC; Weight 98.43 vg1 kg; Height 6 ft. 0 in. (182.88 cm); Pain 8/10; 10:30 BP 146 / 62; Pulse 86; Resp 22 S; Pulse Ox 100% on 4 lpm NC; jg9 11:30 BP 123 / 48; Pulse 61; Resp 17; Pulse Ox 99% on 4 lpm NC; jg9 12:00 BP 107 / 44; Pulse 59; Resp 15 S; Pulse Ox 100% on 4 lpm NC; jg9 13:00 BP 125 / 45; Pulse 60; Resp 18 S; Pulse Ox 100% on 4 lpm NC; jg9 14:30 BP 113 / 51; Pulse 58; Resp 17 S; Pulse Ox 99% on 4 lpm NC; jg9 10:19 Body Mass Index 29.43 (98.43 kg, 182.88 cm) vg1 MDM: 10:21 Patient medically screened. pm1 12:51 Data reviewed: vital signs. Data interpreted: Pulse oximetry: on room air is 100 %. pm1 Interpretation: normal. 12:52 Physician consultation: Jayesh Mejia MD was called at 12:52, was contacted at 12:52, pm1 regarding consult, patient's condition, would like admission per Dr. Tyler Yuen MD. 13:18 Physician consultation: Evonne Casarez MD was called at 13:18, was contacted at 13:18, pm1 regarding admission, and will see patient in ED. 08/20 10:22 Order name: Basic Metabolic Panel; Complete Time: 11:24 pm08/20 10:22 Order name: CBC with Diff; Complete Time: 11:24 pm1 08/20 10:22 Order name: LFT's; Complete Time: 11:24 pm08/20 10:22 Order name: Magnesium; Complete Time: 11:24 pm08/20 10:22 Order name: NT PRO-BNP; Complete Time: 11:24 pm08/20 10:22 Order name: PT-INR; Complete Time: 11:24 pm08/20 10:22 Order name: Troponin HS; Complete Time: 11:24 pm08/20 10:22 Order name: XRAY Chest (1 view); Complete Time: 11:24 pm08/20 11:46 Order name: COVID-19 SARS RT PCR (Document "Date of Onset" if Symptomatic); Complete bd Time: 13:14 08/20 14:10 Order name: CBC with Automated Diff EDTN 08/20 14:10 Order name: CBC with Automated Diff EDTN 08/20 14:10 Order name: Comprehensive Metabolic Panel [facility]TN 08/20 14:10 Order name: Comprehensive Metabolic Panel [facility] 08/20 10:22 Order name: EKG; Complete Time: 10:22 pm1 08/20 10:22 Order name: Cardiac monitoring; Complete Time: 10:26 pm1 08/20 10:22 Order name: EKG - Nurse/Tech; Complete Time: 11:02 pm08/20 10:22 Order name: IV Saline Lock; Complete Time: 10: pm08/20 10:22 Order name: Labs collected and sent; Complete Time: 10: pm08/20 10:22 Order name: O2 Per Protocol; Complete Time: 10: pm08/20 10:22 Order name: O2 Sat Monitoring; Complete Time: 10: pm08/20 14:10 Order name: CONS Physician Consult EDTN Administered Medications: 10:45 Drug: Lasix (furosemide) 40 mg Route: IVP; Site: left antecubital; jg9 14:53 Follow up: Response: No adverse reaction jg9 10:45 Drug: Xopenex (levalbuterol) 2.5 mg Route: Inhalation; jg9 11:30 Follow up: Response: No adverse reaction; Wheezing diminished jg9 Disposition: 18:26 Co-signature as Attending Physician, Jeferson Yuen MD. rn Disposition Summary: 08/20/21 12:53 Hospitalization Ordered Hospitalization Status: Observation pm1 Location: Telemetry/[facility] (observation) pm1 Condition: Stable pm1 Problem: new pm1 Symptoms: have improved pm1 Bed/Room Type: Standard pm1 Provider: Evonne Casarez(08/20/21 12:56) pm1 [facility](08/20/21 15:04) bd Diagnosis - Acute on chronic systolic (congestive) heart failure pm1 - Chest pain, unspecified pm1 Forms: - Medication Reconciliation Form pm1 - SBAR form pm1 Signatures: Dispatcher [employer] [facility] Alannah Will Roman, MD MD rn Marinas, Patrick, YEMI MARRIAGE THERAPIST pm1 Christi Blackwell RN RN vg1 Lisa Jett RN RN jg9 Corrections: (The following items were deleted from the chart) 10:27 10:21 Allergies: Aspirin; vg1 vg1 12:56 12:53 Tyler Yuen pm1 pm1 15:04 12:53 pm1 bd
[2021-08-20] MEDS ORDERED: ALBUTEROL 2.5 MG/3 ML NEB SOL NEB PRN (14:03)
[2021-08-20] MEDS ORDERED: ONDANSETRON 4 MG/2 ML VIAL IV PRN (14:03)
[2021-08-20] MEDS ORDERED: MORPHINE 2 MG/ML SYR IV PRN (14:03)
[2021-08-20] MEDS ORDERED: ACETAMINOPHEN 500 MG TAB PO PRN (14:03)
--- NOTE | 2021-08-20 14:03 | P.HP ---
Certification for Inpatient With expected LOS: >2 Midnights Patient will require the following post-hospital care: None Practitioner: I am a practitioner with admitting privileges, knowledge of patient current condition, hospital course, and medical plan of care. Services: Services provided to patient in accordance with Admission requirements found in Title 42 Section 412.3 of the Code of Federal Regulations Patient History Date of Service: 08/20/21 Reason for admission: Shortness of breath History of Present Illness: 85-year-old male with past medical history of hypertension, COPD, atrial fibrillation on chronic anticoagulation with Eliquis, CHF but unsure of EF , recently started on chronic diuretics with lasix , followed with Dr Ann, Scheduled for elective cardiac cath next week; presented because of worsening shortness of breath. Patient admits to associated cough but denies any PND or orthopnea. He admits to chronic lower extremity swelling. He denies any fever or sputum production. On arrival in the ED patient was satting 83% on RA but improved with restart of home 02 2 L nasal cannula. He uses intermittent concentrator at home O2. Chest x-ray shows low lung volumes with interstitial findings worrisome for pulmonary edema versus chronic lung disease. Patient was started on IV diuretics with improvement in his symptoms. He also did receive duo nebs. Patient has been admitted for presumed CHF exacerbation. EKG shows no ST segment changes. BNP was noted elevated at greater than 4000. Initial set of cardiac enzymes were negative Allergies No Known Allergies Allergy (Verified 04/22/17 01:26) Home Medications: Albuterol Sulfate [Proair Respiclick] 90 mcg IH BID 03/09/21 Mirtazapine [Remeron*] 15 mg PO BEDTIME 03/09/21 Albuterol Inhaler [Ventolin Inhaler*] 2 puff IH Q6H PRN #1 hfa.aer.ad 03/10/21 Amoxicillin/Potassium Clav [Augmentin 500-125 Tablet] 1 each PO BID #14 tablet 03/10/21 Ascorbic Acid [Vitamin C*] 500 mg PO BID #60 tablet 03/10/21 Aspirin [Aspirin EC 81 MG] 81 mg PO DAILY #90 tablet. 03/10/21 Budesonide/Formoterol Fumarate [Symbicort 160-4.5 Mcg Inhaler] 2 puff IH BID #1 hfa.aer.ad 03/10/21 Cholecalciferol (Vitamin D3) [Vitamin D 1000 Iu Tab*] 2,000 unit PO DAILY #60 tab 03/10/21 Ensure High Protein 237 ml PO TID #60 can 03/10/21 Famotidine [Pepcid*] 20 mg PO BEDTIME #30 tab 03/10/21 Finasteride 5 mg PO DAILY #30 03/10/21 Folic Acid 1 mg PO DAILY #90 tablet 03/10/21 Metoprolol Tartrate [Lopressor*] 12.5 mg PO BID 6AM 6PM #60 tab 03/10/21 Tamsulosin [Flomax*] 0.4 mg PO BEDTIME #30 cap 03/10/21 Thiamine HCl [Vitamin B-1*] 100 mg PO DAILY #90 tablet 03/10/21 Zinc Sulfate [Zinc Sulfate*] 220 mg PO DAILY #30 cap 03/10/21 predniSONE [Prednisone*] 20 mg PO SEECOM #21 tab 03/10/21 - Past Medical/Surgical History Diabetic: No -: BPH -: Hypertension -: Atrial fibrillation -: Not on chronic anticoagulation therapy -: Insomnia -: GERD Psychosocial/ Personal History: Patient lives at home alone - Social History Smoking Status: Former smoker Alcohol use: No CD- Drugs: No Caffeine use: Yes Place of Residence: Home Review of Systems 10-point ROS is otherwise unremarkable Physical Examination - Physical Exam General: Alert, In no apparent distress, Oriented x3, Cooperative HEENT: Atraumatic, Normocephalic, PERRLA Neck: Supple, 2+ carotid pulse no bruit, JVD not distended Respiratory: Diminished, Crackles/rales, Expiratory wheezes Cardiovascular: Regular rate/rhythm, Normal S1 S2 Gastrointestinal: Normal bowel sounds, Soft and benign, Non-distended, No ascites Musculoskeletal: No clubbing, No swelling Neurological: Normal speech, Normal strength at 5/5 x4 extr, Sensation intact, Cranial nerves 3-12 intact - Studies Laboratory Data (last 24 hrs) 08/20/21 10:30: PT 12.4, INR 1.12 08/20/21 10:30: WBC 5.7, Hgb 10.9 L, Hct 32.1 L, Plt Count 200 08/20/21 10:30: Sodium 139, Potassium 4.0, BUN 23 H, Creatinine 1.23, Glucose 98, Magnesium 2.4, Total Bilirubin 2.2 H, AST 17, ALT < 10 L, Alkaline Phosphatase 56 Assessment and Plan - Advance Directives Does patient have a Living Will: No Does patient have a Durable POA for Healthcare: No - Code Status/Comfort Care Code Status: Do Not Attempt Resuscitat Physician Review: Patient Assessed, Agree with Above Assessment and Plan Physician Review Additional Text: Pression Presumed diastolic CHF with acute CHF exacerbation COPD with mild exacerbation History of coronary artery diseasefollow-up plan for cardiac cath as outpatient Atrial fibrillationon Eliquis Hypertension BPH Plan Will admit patient to inpatient status we will start IV diuretics Lasix 40 mg every 12 Continue Eliquis Serial set of cardiac enzymes Obtain repeat echocardiogram to assess EF Admit to telemetry GI prophylaxis with PPI Continue duo nebs every 6 as needed with although wheezing might be due to CHF Advance directiveDNR as per son Time Spent Managing Pts Care (In Minutes): 65
[2021-08-20] MEDS ORDERED: FUROSEMIDE 40 MG/4 ML VIAL IV SCH (15:00)
[2021-08-20] MEDS: FUROSEMIDE 40 MG/4 ML VIAL IV SCH (16:04)
[2021-08-20] MEDS ORDERED: PNEUMOCOCCAL VACCINE 0.5 ML IMVAC ONE (18:00)
[2021-08-20] MEDS: IPRATROPIUM BROM 0.5MG/2.5ML NEB SCH (20:15)
[2021-08-20] MEDS: APIXABAN 5 MG TABLET PO SCH (21:16)
[2021-08-21] MEDS: IPRATROPIUM BROM 0.5MG/2.5ML NEB SCH ×4 (02:00→19:35)
[2021-08-21 05:58] LABS: Hematocrit 29.5 % (39.6-49.0); Lymphocytes % 17.7 % (15.3-44.8); MPV 8.6 fL (7.6-11.3); RBC Red Blood Cell Count 3.07 M/uL (4.33-5.43)
[2021-08-21 06:25] LABS: BUN Blood Urea Nitrogen 21 mg/dL (7-18); Bicarbonate 31 mmol/L (21-32); Glucose Level 90 mg/dL (74-106); Potassium 3.6 mmol/L (3.5-5.1); Sodium Level 139 mmol/L (136-145)
[2021-08-21 06:26] LABS: ALT/SGPT < 10 U/L (12-78); AST/SGOT 18 U/L (15-37); Albumin 2.8 g/dL (3.4-5.0); Alkaline Phosphatase 51 U/L (45-117); Bilirubin Total 1.7 mg/dL (0.2-1.0); Protein, Total 6.4 g/dL (6.4-8.2)
[2021-08-21] MEDS: ASPIRIN EC 81 MG TAB PO SCH (09:00)
[2021-08-21] MEDS: APIXABAN 5 MG TABLET PO SCH ×2 (09:04→20:33)
[2021-08-21] MEDS: FUROSEMIDE 40 MG/4 ML VIAL IV SCH ×4 (09:04→18:09)
--- NOTE | 2021-08-21 09:42 | P.PN ---
Subjective Date of Service: 08/21/21 Chief Complaint: Shortness of breath Subjective: No new changes, No C/O voiced Physical Examination - Vital Signs Temperature: 97.8 F Blood Pressure: 134/57 Pulse: 57 Respirations: 16 Pulse Ox (%): 97 - Studies Laboratory Data (last 24 hrs) 08/20/21 10:30: PT 12.4, INR 1.12 08/20/21 10:30: WBC 5.7, Hgb 10.9 L, Hct 32.1 L, Plt Count 200 08/20/21 10:30: Sodium 139, Potassium 4.0, BUN 23 H, Creatinine 1.23, Glucose 98, Magnesium 2.4, Total Bilirubin 2.2 H, AST 17, ALT < 10 L, Alkaline Phosphatase 56 Assessment And Plan Physician Review: Patient Assessed, Agree with Above Assessment and Plan Physician Review Additional Text: Physical Exam General: Alert, In no apparent distress, Oriented x3,on NC 02 HEENT: Atraumatic, Normocephalic, PERRLA Neck: Supple, 2+ carotid pulse no bruit, JVD not distended Respiratory: Diminished, Crackles/rales, Expiratory wheezes Cardiovascular: Regular rate/rhythm, Normal S1 S2 Gastrointestinal: Normal bowel sounds, Soft and benign, Non-distended, No ascites Musculoskeletal: No clubbing, No swelling Neurological: Normal speech, Normal strength at 5/5 x4 extr, Sensation intact, Cranial nerves 3-12 intact Assessment and Plan Presumed systolic CHF with acute CHF exacerbation COPD with mild exacerbation History of coronary artery diseasefollow-up plan for cardiac cath as outpatient Atrial fibrillationon Eliquis Hypertension BPH Plan Patient seen, still dyspneic Continue IV steroids and diuretics -Add pulmonary consult Cardiology discussed withDr. Franklin- will obtain records from office of patient previous echocardiogram -Will hold off cardiac cath for now until patient respiratory status more optimized We will increase diuretics to Lasix 40 mg every 8 Continue Eliquis Serial set of cardiac enzymes negative Continue duo nebs GI prophylaxis with PPI Advance directiveDNR
--- NOTE | 2021-08-21 13:18 | ECHO ---
HEIGHT: 6 ft 0 in WEIGHT: 197 lb 12.8 oz DATE OF STUDY: 08/21/[address]: Fabián Franklin MD 2-DIMENSIONAL: YES M.MODE: YES DOPPLER: YES COLOR FLOW: YES TDS: NO PORTABLE: YES DEFINITY: NO BUBBLE STUDY: NO DIAGNOSIS: CONGESTIVE HEART FAILURE CARDIAC HISTORY: CATHERIZATION: SURGERY: PROSTHETIC VALVE: PACEMAKER: MEASUREMENTS (cm) DIASTOLIC (NORMALS) SYSTOLIC (NORMALS) IVSd 0.7 (0.6-1.2) LA Diam 4.3 (1.9-4.0) LVEF 68% LVIDd 4.9 (3.5-5.7) LVIDs 3.1 (2.0-3.5) %FS 38% LVPWd 0.7 (0.6-1.2) Ao Diam 3.1 (2.0-3.7) 2 DIMENSIONAL ASSESSMENT: RIGHT ATRIUM: NORMAL LEFT ATRIUM: DILATED RIGHT VENTRICLE: NORMAL LEFT VENTRICLE: NORMAL TRICUSPID VALVE: NORMAL MITRAL VALVE: NORMAL PULMONIC VALVE: NORMAL AORTIC VALVE: SCLEROSIS PERICARDIAL EFFUSION: NONE AORTIC ROOT: NORMAL LEFT VENTRICULAR WALL MOTION: DIASOTLIC DYSFUNCTION. DOPPLER/COLOR FLOW: MILD-MODERATE AORTIC AND TRICUSPID REGURGITATION. NORMAL RIGHT VENTRICULAR SYSTOLIC PRESSURE. COMMENTS: DECREASED LEFT VENTRICULAR COMPLIANCE - NORMAL EJECTION FRACTION. AORTIC SCLEROSIS. MILD-MODERATE AORTIC AND TRICUSPID REGURGITATION. TECHNOLOGIST: SYLVESTER TINAJERO
[2021-08-21] MEDS: ENSURE ENLIVE 237 ML CAN PO SCH (20:32)
[2021-08-21] MEDS ORDERED: MELATONIN 5 MG TABLET PO SCH (21:00)
[2021-08-21] MEDS ORDERED: MIRTAZAPINE 15 MG TAB PO SCH (21:00)
[2021-08-22] MEDS: FUROSEMIDE 40 MG/4 ML VIAL IV SCH ×2 (00:28→09:11)
--- NOTE | 2021-08-22 00:45 | CON ---
Date of Consultation: 08/21/2021 Reason For Consultation: Congestive heart failure. History Of Present Illness: Mr. Bill is an 85-year-old male who has a history of atrial fibrilla tion and benign prostatic hypertrophy. There is a plan to do a heart catheterization on him by Dr. Marge cardenas on Thursday. He does take Eliquis, Lasix, an inhaler as well as aspirin and potassium. He is a Do Not Resuscitate. He has a history of chronic diastolic congestive heart failure and came in with exacerbation. He denied palpitations or syncope. Denied any fever or chills. Denied any nausea, v omiting, or diaphoresis. He denied any chest pain. He did have pedal edema, PND, and orthopnea. Allergies: NONE. Review of Systems: Negative. Social History: Negative. Family History: Negative. Medications: Listed earlier. Past Medical History: Listed earlier. Physical Examination: General: He appeared to be in mild respiratory distress. Vital Signs: He was in atrial fibrillation at a rate of 63. Afebrile. HEENT: Negative. Neck: Supple with no bruit. Chest: Revealed rales at both bases. Cardiac: Exam revealed irregularly irregular rhythm and rate. No murmurs, gallops, or rubs. Abdomen: Benign. Extremities: Revealed trace edema. Impression And Plan: 1.Chronic atrial fibrillation, on Eliquis. 2.Benign prostatic hypertrophy. 3.[id number] diastolic congestive heart failure. 4.Possible chronic obstructive pulmonary disease. The patient needs to be diuresed. We need to treat his possible chronic obstructive pulmonary diseas e as well. He will need to continue his medical regimen. Hopefully, send him home and have him hold his Eliquis starting Thursday and Thursday and perform the catheterization as an outpatient by Dr. Joy mcdonald as planned. JOSLYN/ALANA Voice ID: [id number] Report ID: [id number]
[2021-08-22 01:06] VITALS: O2SAT 94
[2021-08-22] MEDS: IPRATROPIUM BROM 0.5MG/2.5ML NEB SCH ×3 (01:35→13:40)
[2021-08-22 05:07] VITALS: BMI 27.6
--- NOTE | 2021-08-22 08:16 | P.CNS ---
Date of Consult: 08/22/21 Chief Complaint: Shortness of breath History of Present Illness: Patient is 85 years of age metabolic syndrome hypertension COPD scented to this hospital with worsening dyspnea he seems to have improved history of lower extremity edema patient has home O2 smoking a long time ago Allergies No Known Allergies Allergy (Verified 04/22/17 01:26) Home Medications: Mirtazapine [Remeron*] 15 mg PO BEDTIME 03/09/21 Aspirin [Aspirin EC 81 MG] 81 mg PO DAILY #90 tablet. 03/10/21 Finasteride 5 mg PO DAILY #30 03/10/21 Tamsulosin [Flomax*] 0.4 mg PO BEDTIME #30 cap 03/10/21 Apixaban [Eliquis] 1 tab PO BID 08/20/21 Cholecalciferol (Vitamin D3) [Vitamin D 1000 Iu Tab*] 1,000 unit PO BID 08/20/21 Furosemide 1 tab PO DAILY 08/20/21 Magnesium Oxide 1 tab PO DAILY 08/20/21 Melatonin 1 cap PO BEDTIME 08/20/21 Potassium Chloride 1 tab PO DAILY 08/20/21 - Past Medical/Surgical History Diabetic: No -: BPH -: Hypertension -: Atrial fibrillation -: Not on chronic anticoagulation therapy -: Insomnia -: GERD Psychosocial/ Personal History: Patient lives at home alone - Social History Smoking Status: Unknown if ever smoked Alcohol use: No CD- Drugs: No Caffeine use: Yes Place of Residence: Home Review of Systems 10-point ROS is otherwise unremarkable Physical Examination Temp Pulse Resp BP Pulse Ox 97.2 F 62 19 112/57 L 94 08/22/21 04:00 08/22/21 04:00 08/22/21 04:00 08/22/21 04:00 08/22/21 04:00 General: Alert, In no apparent distress, Oriented x3 Respiratory: Clear to auscultation bilaterally Cardiovascular: No edema, Irregular heart rate/rhythm Gastrointestinal: Normal bowel sounds, Soft and benign - Problems (1) Congestive heart failure Current Visit: Yes Status: Acute Plan: Patient is 85 years of age admitted with progressive dyspnea signs and symptoms are consistent with congestive heart failure presumed diastolic dysfunction quit smoking a long time ago doubt underlying COPD patient has home oxygen labs reviewed changed to p.o. spironolactone add Lasix as needed discharge planning Qualifiers: Heart failure type: diastolic
[2021-08-22] MEDS ORDERED: FINASTERIDE 5 MG TAB PO SCH (09:00)
[2021-08-22] MEDS: APIXABAN 5 MG TABLET PO SCH (09:10)
[2021-08-22] MEDS: ASPIRIN EC 81 MG TAB PO SCH (09:10)
[2021-08-22] MEDS: ENSURE ENLIVE 237 ML CAN PO SCH (09:11)
[2021-08-22 10:58] VITALS: BP 121/74; TEMP 98
[2021-08-22] MEDS ORDERED: PNEUMOCOCCAL VACCINE 0.5 ML IMVAC ONE (12:00)
--- NOTE | 2021-08-22 14:00 | PN ---
Date of Progress Note: 08/22/2021 Mr. Bill has been admitted with COPD exacerbation, diastolic congestive heart failure exacerbatio n, chronic atrial fibrillation, on Eliquis. He has improved drastically. Echocardiogram showed decr eased left ventricular compliance with a normal ejection fraction. He is not having any complaint to day. We will plan for an outpatient heart catheterization on Thursday, which has been already set up leandor Mejia. He will hold his Eliquis 2 days before that. From my standpoint, he can go home whene alee it is okay with admitting physician. JOSLYN/ALANA Voice ID: [id number] Report ID: [id number]
--- NOTE | 2021-08-22 14:13 | P.DS ---
Admission Date: 08/20/21 Discharge Date: 08/22/21 Discharge Condition: FAIR Reason for Admission: Shortness of breath Brief History of Present Illness: 85-year-old male with past medical history of hypertension, COPD, atrial fibrillation on chronic anticoagulation with Eliquis, CHF but unsure of EF , recently started on chronic diuretics with lasix , followed with Dr Ann, Scheduled for elective cardiac cath next week; presented because of worsening shortness of breath. Patient admits to associated cough but denies any PND or orthopnea. He admits to chronic lower extremity swelling. He denies any fever or sputum production. On arrival in the ED patient was satting 83% on RA but improved with restart of home 02 2 L nasal cannula. He uses intermittent concentrator at home O2. Chest x-ray shows low lung volumes with interstitial findings worrisome for pulmonary edema versus chronic lung disease. Patient was started on IV diuretics with improvement in his symptoms. He also did receive duo nebs. Patient has been admitted for presumed CHF exacerbation. EKG shows no ST segment changes. BNP was noted elevated at greater than 4000. Initial set of cardiac enzymes were negative Hospital Course: Hospital course patient with history of chronic atrial fibrillation on anticoagulation, systolic CHF, scheduled for cardiac cath next week presented because of worsening shortness of breath. Although initial evaluation of suspicion was for CHF and combined COPD exacerbation. Patient was started on high-dose diuretic with 40 IV every 8 Lasix. He produces great urine output. His shortness of breath significantly improved. He was evaluated by cardiology and felt to be stable to have his regular scheduled cardiac cath next week electively. He was also evaluated by pulmonary. Need for tobacco cessation was advised. Patient is tolerating room air well now. Will be discharged home today to hold his Eliquis 2 days prior to cardiac medical lab assistant for scheduled cardiac cath on Thursday. Vital Signs/Physical Exam: Temp Pulse Resp BP Pulse Ox 98.0 F 76 16 121/74 92 08/22/21 08:00 08/22/21 08:00 08/22/21 08:00 08/22/21 08:00 08/22/21 08:00 General: Alert, In no apparent distress, Oriented x3 HEENT: Atraumatic, Normocephalic, PERRLA Neck: Supple, 2+ carotid pulse no bruit, No Thyromegaly Respiratory: Clear to auscultation bilaterally, Normal air movement Cardiovascular: Normal pulses, Regular rate/rhythm, Normal S1 S2 Gastrointestinal: Normal bowel sounds, Soft and benign, Non-distended Musculoskeletal: No clubbing, Swelling (improving to trace LE ) Neurological: Normal speech, Normal tone, Sensation intact Laboratory Data at Discharge: WBC 5.6 K/uL (4.3-10.9) 08/21/21 05:26 Hgb 10.0 g/dL (13.6-17.9) L 08/21/21 05:26 Hct 29.5 % (39.6-49.0) L 08/21/21 05:26 Plt Count 179 K/uL (152-406) 08/21/21 05:26 PT 12.4 SECONDS (9.5-12.5) 08/20/21 10:30 INR 1.12 08/20/21 10:30 Sodium 139 mmol/L (136-145) 08/21/21 05:26 Potassium 3.6 mmol/L (3.5-5.1) 08/21/21 05:26 BUN 21 mg/dL (7-18) H 08/21/21 05:26 Creatinine 1.22 mg/dL (0.55-1.3) 08/21/21 05:26 Glucose 90 mg/dL (74-106) 08/21/21 05:26 Magnesium 2.4 mg/dL (1.8-2.4) 08/20/21 10:30 Total Bilirubin 1.7 mg/dL (0.2-1.0) H 08/21/21 05:26 AST 18 U/L (15-37) 08/21/21 05:26 ALT < 10 U/L (12-78) L 08/21/21 05:26 Alkaline Phosphatase 51 U/L (45-117) 08/21/21 05:26 Home Medications: Mirtazapine [Remeron*] 15 mg PO BEDTIME 03/09/21 Aspirin [Aspirin EC 81 MG] 81 mg PO DAILY #90 tablet. 03/10/21 Finasteride 5 mg PO DAILY #30 03/10/21 Tamsulosin [Flomax*] 0.4 mg PO BEDTIME #30 cap 03/10/21 Apixaban [Eliquis] 1 tab PO BID 08/20/21 Cholecalciferol (Vitamin D3) [Vitamin D 1000 Iu Tab*] 1,000 unit PO BID 08/20/21 Magnesium Oxide 1 tab PO DAILY 08/20/21 Melatonin 1 cap PO BEDTIME 08/20/21 Potassium Chloride 1 tab PO DAILY 08/20/21 Albuterol Neb [Proventil 0.083% Neb Soln] 2.5 mg NEB [id number] PRN amp 08/22/21 Apixaban [Eliquis] 5 mg PO BID tablet 08/22/21 Furosemide 1 tab PO BID #60 08/22/21 New Medications: Furosemide 1 tab PO BID #60 Physician Discharge Instructions: Hold Eliquis on thursday and thursday and go for cardiac cath on Thursday Diet: Low sodium Activity: Ad viridiana Followup: Jayesh Mejia MD [ACTIVE - CAN ADMIT] - 2-3 Days Time spent managing pt's care (in minutes): 35
== END 2021-08-22 15:30 | disposition home or self-care (01) | DRG 291 ==
LOC: ER 10:13 → ERHOLD 14:05 → 2ND 15:05
PROVIDERS: ADMIT Internal Medicine; ATTEND Internal Medicine
DX: I11.0 Hypertensive heart disease with heart failure (principal); I50.33 Acute on chronic diastolic (congestive) heart failure; I48.20 Chronic atrial fibrillation, unspecified; J44.1 Chronic obstructive pulmonary disease with (acute) exacerbation; N40.0 Benign prostatic hyperplasia without lower urinary tract symptoms; I25.10 Atherosclerotic heart disease of native coronary artery without angina pectoris; K21.9 Gastro-esophageal reflux disease without esophagitis; Z79.01 Long term (current) use of anticoagulants; Z66 Do not resuscitate; Z79.82 Long term (current) use of aspirin; Z20.822 Contact with and (suspected) exposure to COVID-19; Z99.81 Dependence on supplemental oxygen
CPT/HCPCS: 36415; 71045; 80048; 80053; 80076; 83735; 83880; 84484; 85025; 85610; 93005; 93306; 94640; 96374; 97116; 97161; 99285; J1940; U0003

== ENCOUNTER 2021-08-26 11:44 | Day surgery (SDC) | payer OTHER ==
[2021-08-26] MEDS ORDERED: NA CHLORIDE 0.9% 500 ML ONE (12:33)
[2021-08-26] MEDS ORDERED: LIDOCAINE 1% 20 ML MDV ONE (14:36)
[2021-08-26] MEDS ORDERED: MIDAZOLAM HCL 2 MG/2 ML INJ ONE (14:36)
[2021-08-26] MEDS ORDERED: HEPA 1000U/500MLS 2,000 UNIT/1,000 ML BAG IV ONE (14:36)
[2021-08-26] MEDS ORDERED: FENTANYL CITR 100 MCG/2 ML ONE (14:36)
[2021-08-26] MEDS ORDERED: HEPARIN 5000 UNIT/ML 1 ML VIAL ONE (14:37)
[2021-08-26] MEDS ORDERED: HEPARIN 10,000 UNIT/10 ML VIAL IV ONE (14:38)
[2021-08-26] MEDS ORDERED: NITROGLYCERIN 100 MCG/ML SYR (for cath lab use only) IV ONE (14:38)
[2021-08-26] MEDS ORDERED: ATROPINE SULF 1 MG/10 ML SYR IV ONE (14:38)
[2021-08-26] MEDS ORDERED: NA CHLORIDE 0.9% 100 ML IV ONE (14:44)
[2021-08-26] MEDS ORDERED: ASPIRIN 325 MG TAB ONE (15:31)
[2021-08-26] MEDS ORDERED: CLOPIDOGREL 75 MG TABLET ONE (15:31)
[2021-08-26 19:14] VITALS: BP 124/54; O2SAT 100
--- NOTE | 2021-08-27 03:46 | OP ---
Date of Procedure: 08/26/2021 Surgeon: AIMEE BRIONES Procedure Performed: 1.Selective coronary angiogram. 2.Left heart catheterization. 3.Right heart catheterization. 4.Percutaneous coronary intervention of the proximal right coronary artery stenosis using a 2.75 x 3 2 mm Synergy drug-eluting stent. Access: 1.Radial artery 6-[place] closed with TR band. 2.Right IJ 7-[place] closed with manual pressure. Indications: Unstable angina. Total Sedation Time: 85 minutes. Used fentanyl and Versed in incremental doses to achieve that. Complications: None. Bleeding: Less than 10 mL. Description Of Procedure: After risks, benefits, and alternatives were explained, the patient agreed to the procedure and signed a formal consent. The patient was brought into cardiac catheterization laboratory, prepped and draped in usual sterile fashion. Then, I accessed the right radial artery us ing pediatric micropuncture kit. We placed 6-[place] slender sheath and then accessed right IJ using ultrasound guidance and micropuncture kit to place 7-Cam[place]onian [place] sheath. Subsequently, I took a 7-[place] balloon-tipped [place] catheter through the right IJ into the RA, RV, PA, and wedge recorder wa veform and pressure and took PA sat and then removed the [place]. Then took a 5-[place]onian [place] 4.0 cathet er into the aortic root, engaged left main, right coronary artery, took standard views, and then gave systemic heparin to assure us the level above 250. Then, I took a 6-[place] JR4 guide into the aorti c root, engaged the RCA, and took a short run-through throughout the RCA and the lesion was pre-dilat ed and then placed 2.75 x 32 mm Synergy drug-eluting stent with good results and then removed the wir e and the catheter and then I exchanged for a 6-[place] XB 3.5 guide, engaged left main, and tried wit h the run-through to cross the mid LAD stenosis. However, this appears to be a near subtotal occlusi on that is chronic, that is heavily calcified, could not pass a wire through. At this point, decided to abort this and plan for planned atherectomy and staged PCI of the LAD. I then removed the sheath s and a TR band used for the radial access with good hemostasis and minimal pressure of the right IJ with good hemostasis. Findings: 1.Left main is large with diffuse 10% to 20% stenosis. 2.LAD, proximal luminal irregularities, and then mid after diagonal 2 takeoff is 99% subtotal occlus ion, heavily calcified, and could not pass a wire through it, diagonal 1 branch is small vessel with proximal 50% and then diagonal 2 branch is a small branch with 70% proximal disease. 3.Left circumflex is very large and dominant and proximal 30% and mid 20%. OMs are normal. 4.RCA, nondominant, but good size vessel. Ostial 80% and proximal 90%, status post successful PCI a s above. Right Heart Catheterization: RA pressure was 4. RV pressure was 44/4, mean of 5. PA pressure was 4 3/90, mean of 30. Pulmonary wedge pressure was 10 and LVEDP was 70 mmHg. 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 Plan: 1.Continue aspirin, Plavix, and high-dose statin. 2.Staged PCI with atherectomy of mid LAD at [place]. SR/MODL Voice ID: [id number] Report ID: [id number]
== END 2021-08-26 20:31 | disposition home or self-care (01) ==
LOC: CCL 11:44
PROVIDERS: ATTEND Internal Medicine
DX: I25.110 Atherosclerotic heart disease of native coronary artery with unstable angina pectoris (principal); I27.20 Pulmonary hypertension, unspecified; I50.33 Acute on chronic diastolic (congestive) heart failure; I48.20 Chronic atrial fibrillation, unspecified; N40.0 Benign prostatic hyperplasia without lower urinary tract symptoms; Z66 Do not resuscitate; Z79.01 Long term (current) use of anticoagulants; Z79.82 Long term (current) use of aspirin; Z79.899 Other long term (current) drug therapy
CPT/HCPCS: 85347 ×2; 93460; C1893; Q9967; C1725; C9600; J1644 ×2; J2250; J3010; J7040

== ENCOUNTER 2021-11-30 14:21 | Inpatient (IN) | payer OTHER ==
--- OUTSIDE RECORDS SUMMARY | 2021-11-30 14:28 | XMS REPORT | Continuity of Care Document ---
:1935 Author Organization [facility] t Address [address] [place] [address] Care Team Providers Name Role Phone [facility] Primary Care Physician Unavailable CATRINA NEWMAN Attending Clinician Unavailable Catrina Newman DO Attending Clinician Doctor Unassigned, [place] Attending Clinician Unavailable Jayesh Mejia Attending Clinician Unavailable Boyd ALEGRIA, Rivas Yates Attending Clinician Unavailable Tosha Sosa DO Attending Clinician Barry Perdomo MD Attending Clinician Kiara Soto DO Attending Clinician KIARA SOTO Attending Clinician Unavailable Jayesh Mejia Admitting Clinician Unavailable Kiara Soto DO Admitting Clinician KIARA SOTO Admitting Clinician Unavailable Payers Payer Name Policy Type Policy Number Effective Date Expiration Date [facility] [id number] 2013 00:00:00 Problems Condition Condition Condition Status Onset Resolution Last Treating Co mments Source Name Details Category Date Date Treatment Clinician Date Acute on Acute on Disease Active Unive rs chronic chronic 2-15 [place] CHF 00 Medical (congestiv (congestiv Br anch e heart e heart failure), failure), NYHA class NYHA class 3 3 Chronic Chronic Disease Active Univers atrial atrial 2-15 [place] of fibr[place] 00 [place] Essential Essential Disease Active Uni vers hypertensi hypertensi 2-15 it y of on on 00:00: [place] 00 Medical Branch Elevated Elevated Disease Active Unive rs troponin troponin 2-14 ity of 00:00: Medical Branch Allergies, Adverse Reactions, Alerts Allergy Allergy Status Severity Reaction(s) Onset Inactive Treating Comm ents Source Name Type Date Date Clinician No Known DA Active U [facility] Allergie 5-04 Clear s 00:00: [place] 00 [facility] NO KNOWN Drug Active Univers ALLERGIE Class ity of S [place] [facility] [place] Social History Social Habit Start Date Stop Date Quantity Comments Source Exposure to 2021-10-30 2021-11-09 Not sure [facility] SARS-CoV-2 (event) 00:00:00 18:57:00 [facility] Sex Assigned At [address] [facility] [place] 00:00:00 00:00:00 Medical Branch Smoking Status Start Date Stop Date Source Tobacco smoking consumption [facility] Medical unknown Branch Medications Ordered Filled Start Stop Current Ordering Indication Dosage Frequency Signature Comments Components Source Medication Medication Date Date Medication? Clinician (SIG) Name Name furosemide 2021- No [id number] 40mg Take 1 Univers 40 mg 2-25 -28 tablet by ity of tablet 00:00: 04:59 mouth [place] 00 :00 daily for Medical 30 days. Branch furosemide 2021- No [id number] 40mg Take 1 Univers 40 mg 2-25 -28 tablet by ity of tablet 00:00: 04:59 mouth [place] 00 :00 daily for Medical 30 days. Branch aspirin 81 2021- No [id number] 81mg Take 1 Univers mg chewable 2-19 -22 tablet by it y of tablet 00:00: 04:59 mouth [place] 00 :00 daily for Medical 30 days. Branch aspirin 81 2021- No [id number] 81mg Take 1 Univers mg chewable 2-19 03-22 tablet by it y of tablet 00:00: [...] mouth ity of 18:29: daily. Medical Branch melatonin Yes 10{caps Take 10 Un carolyne 10 mg Cap 2-18 ule} capsules ity of 18:29: by mouth [place] 04 at Medical bedtime. Branch Cholecalcif Yes [...] 500 mg times Branch tablet daily. finasteride 2022-0 Yes 5mg Take 5 mg U nivers 5 mg tablet 2-18 by mouth ity of 18:29: daily. [place] [address] Medical Branch melatonin Yes 10{caps Take 10 [...] 2-18 by mouth ity of 18:29: daily. [place] [address] Medical Branch icosapent Yes 4{capsu Take 4 [...] 2-18 by mouth ity of 18:29: daily. [place] [address] Medical Branch melatonin Yes 10{caps Take 10 Un carolyne 10 mg Cap 2-18 ule} capsules ity of 18:29: by mouth at Medical bedtime. Branch Cholecalcif Yes 1{capsu [...] 2-18 by mouth ity of 18:29: daily. [place] [address] Medical Branch icosapent Yes 4{capsu Take 4 [...] 2-18 by mouth ity of 18:29: daily. [place] [address] Medical Branch melatonin Yes 10{caps Take 10 Un carolyne 10 mg Cap 2-18 ule} capsules ity of 18:29: by mouth [place] 04 at Medical bedtime. Branch Cholecalcif Yes [...] 2-18 by mouth ity of 18:29: daily. [place] [address] Medical Branch furosemide No 40mg Take 40 mg Univers 20 mg 2-18 02-18 by mouth ity of tablet 16:37: 00:00 daily. [place] 40 :00 Medical Branch KCL Yes 40meq 40 mEq, Univers (KLOR-CON 2-18 Oral, ity of M20) tablet 15:00: DAILY, [place] 40 mEq 00 First dose Medical on Fri Branch 06/14/21 at 0900, Until Discontinu ed, Routine magnesium 2021-2021- No [id number] 400mg Take 400 Univers oxide 420 2-18 03-21 mg by ity of mg Tab 00:00: 04:59 mouth [place] 00 :00 daily for Medical 30 days. Branch apixaban 5 2021- No [id number] 5mg Take 1 Univ ers mg tablet 06-14- tablet by ity of 00:00: 04:59 mouth 2 [place] 00 :00 (two) Medical times Branch daily for 30 days. Indication s: atrial fibrillati on calcium 2021- No [id number] 500mg Take 1 Un carolyne carbonate 06-14- tablet by ity of 500 mg 00:00: 04:59 mouth 2 [place] calcium 00 :00 (two) Medical (1,250 mg) times Branch tablet daily with meals for 30 days. magnesium 2021-2021- No [id number] 400mg Take 400 Univers oxide 420 2-18 03-21 mg by ity of mg Tab 00:00: 04:59 mouth [place] 00 :00 daily for Medical 30 days. Branch apixaban 5 2021- No [id number] 5mg Take 1 Univ ers mg tablet 06-14- tablet by ity of 00:00: 04:59 mouth 2 [place] 00 :00 (two) Medical times Branch daily for 30 days. Indication s: atrial fibrillati on calcium 2021- No [id number] 500mg Take 1 Un carolyne carbonate 06-14- tablet by ity of 500 mg 00:00: 04:59 mouth 2 [place] calcium 00 :00 (two) Medical (1,250 mg) times Branch tablet daily with meals for 30 days. furosemide 2021-2021- No [id number] 40mg Take 1 Univers 40 mg -14 06- tablet by ity of tablet 00:00: 05:59 mouth [place] 00 :00 every Medical morning Branch and evening for 7 days. furosemide 2021-0 2021- No [id number] 40mg Take 1 Univers 40 mg -14 06- tablet by ity of tablet 00:00: 05:59 mouth [place] 00 :00 every Medical morning Branch and evening for 7 days. SERTraline 0 2021- No 25mg 25 mg, Univ ers (ZOLOFT) 06-13 Oral, ity of tablet 25 17:30: 16:44 ONCE, 1 [place] mg 00 :00 dose, On Medical [place] Branch 06/13/21 at 1130, Routine clonazePAM 2021-0 Yes .5mg 0.5 mg, Univ ers (KLONOPIN) 06-13 Oral, ity of tablet 0.5 16:19: BIDPRN, [place] mg 52 Starting Medical on [place] Branch 06/13/21 at 1019, Until Discontinu ed, Routine, Pain (scale 4-6) furosemide 2021-0 Yes 40mg 40 mg, Unive rs (LASIX) 06-13 Slow IV ity of injection 15:30: Push, [place] 40 mg 00 Q12H, Medical First dose Branch (after last modificati on) on [facility] 06/13/21 at 0930, Until Discontinu ed, Routine magnesium 0 Yes 400mg 400 mg, Univ ers oxide 06-13 Oral, BID, ity of (MAG-OX 14:00: First dose [place] 400) tablet 00 on [facility] Medica l 400 mg 06/13/21 at Branch 0800, Until Discontinu ed, Routine KCL 2021-0 2021- No 40meq 40 mEq, Univers (KLOR-CON 06-13 Oral, ity of M20) tablet 12:30: 12:17 ONCE, 1 [place] 40 mEq 00 :00 dose, On Medical [facility] Branch 06/13/21 at 0630, Routine aspirin 2021-0 Yes 81mg 81 mg, Univers chewable 2-16 Oral, ity of tablet 81 15:00: DAILY, [place] mg 00 First dose Medical on Thu Branch 06/12/21 at 0900, Until Discontinu ed, Routine apixaban 2021-0 Yes 5mg 5 mg, Univers (ELIQUIS) 2-16 Oral, BID, ity of tablet 5 mg 14:15: First dose [place] 00 on Thu Medical 06/12/21 at Branch 0815, Until Discontinu ed, Routine
Indicatio ns: Non-Valvul ar Atrial Fibrillati on calcium 2021-0 Yes 500mg 500 mg, Univer s carbonate 2-16 Oral, BID ity o f (OSCAL-500) 04:15: MEALS, [place] tablet 500 00 First dose Med ical mg on [facility] 06/11/21 at 2215, Until Discontinu ed, Routine melatonin 0 Yes 9mg 9 mg, Univers (MELATIN) 2-16 Oral, QHS, ity of tablet 9 mg 03:00: First dose [place] 00 on [facility] 06/11/21 at Branch 2100, Until Discontinu ed ascorbic 0 Yes 500mg 500 mg, Unive rs acid 2-16 Oral, BID, ity of (vitamin C) 02:00: First dose [place] (VITAMIN C) 00 on [facility] l tablet 500 06/11/21 at [facility] mg 2000, Until Discontinu ed, Routine tamsulosin 0 Yes .4mg 0.4 mg, Univ ers (FLOMAX) 2-15 Oral, ity of capsule 0.4 15:00: DAILY, [place] mg 00 First dose Medical on [facility] 06/11/21 at 0900, Until Discontinu ed, Routine mirtazapine Yes 15mg 15 mg, Univ ers (REMERON) 2-15 Oral, ity of tablet 15 15:00: DAILY, [place] mg 00 First dose Medical on [facility] 06/11/21 at 0900, Until Discontinu ed finasteride Yes 5mg 5 mg, Unive rs (PROSCAR) 2-15 Oral, ity of tablet 5 mg 15:00: DAILY, [place] 00 First dose Medical on [facility] 06/11/21 at 0900, Until Discontinu ed, Routine cholecalcif 0 Yes 1000U 1,000 Univ ers cuauhtemoc 2-15 Units, ity of (vitamin 15:00: Oral, [place] D3) tablet 00 DAILY, Medical 1,000 Units First dose Br anch on 06/11/21 at 0900, Until Discontinu ed furosemide 0 2021- No 40mg 40 mg, Univ ers (LASIX) 2-15 02-17 Slow IV ity of injection 15:00: 15:26 Push, [place] 40 mg 00 :24 DAILY, Medical First dose Branch on Thu06/11/21 at 0900, Until Discontinu ed, Routine enoxaparin No 40mg 40 mg, Univ ers (LOVENOX) 06-11 Subcutaneo ity of injection 15:00: 14:05 us, DAILY, [place] 40 mg 00 :30 First dose Medical on 06/11/21 at 0900, Until Discontinu ed, Routine KCL No 40meq 40 mEq, Univers (KLOR-CON 06-11 Oral, ity of M20) tablet 10:30: 09:30 ONCE, 1 [place] 40 mEq 00 :00 dose, On Medical [facility] 06/11/21 at 0430, Routine potassium No 10meq 10 mEq, IV Univers chloride in 06-11 Piggyback, i ty of water 10 10:00: 11:55 Q1H, 2 [place] mEq/100 mL 00 :00 doses, Medical RTU 10 mEq First dose Bra nch on Thu06/11/21 at 0400, Last dose on Thu06/11/21 at 0500, Administer over 60 Minutes, 100 mL ipratropium Yes 3mL 3 mL, [facility] rs -albuteroL 2-15 Inhalation ity of (DUONEB) 09:50: , QIDPRNAdityaa s 0.5 mg-3 51 Starting Medical mg(2.5 mg on [place])/3 mL 06/11/21 at nebulizer 0350, solution 3 Until mL Discontinu ed, Routine, Wheezing, Shortness of Breath, Bronchospa sm, Chest tightness ondansetron Yes 4mg 4 mg, Slow Univers (ZOFRAN 2-15 IV Push, ity of (PF)) 04:11: Q6HPRKathryn Mims injection 4 30 Starting Medi harjeet mg on Thu06/10/21 at 2211, Until Discontinu ed, Routine, Nausea and Vomiting (N/V) acetaminoph 0 Yes 650mg 650 mg, Un carolyne en 2-15 Oral, ity of (TYLENOL) 04:11: Q6HPRKathryn Mims tablet 650 17 Starting Medic al mg on Thu06/10/21 at 2211, Until Discontinu ed, Routine, Pain (scale 1-3) KCL No 40meq 40 mEq, Univers (KLOR-CON 06-11 Oral, ity of M20) tablet 00:30: 23:26 ONCE, 1 [place] 40 mEq 00 :00 dose, On Medical [facility] Branch 06/10/21 at 1830, NAE magnesium No 2g 2 g, IV Univ ers sulfate in 06-11 Piggyback, it y of water 2 00:15: 00:26 ONCE, 1 [place] gram/50 mL 00 :00 dose, On Medic al (4 %) [facility] Branch infusion 2 06/10/21 at g 1815, Routine aspirin No 324mg 324 mg, Unive rs chewable 06-11 Oral, ity of tablet 324 00:15: 23:27 ONCE, 1 Aditya as mg 00 :00 dose, On [facility] 06/10/21 at 1815, Routine Vital Signs Vital Name Observation Time Observation Value Comments Source Systolic blood 2021-11-10 01:53:00 120 mm[Hg] Univer sity of pressure [facility] Diastolic blood 2021-11-10 01:53:00 60 mm[Hg] Unive rsity of pressure [facility] Heart rate 2021-11-10 01:53:00 60 /min [facility] Respiratory rate 2021-11-10 01:53:00 16 /min [facility] Oxygen saturation in 2021-11-10 01:53:00 96 /min [facility] Arterial blood by [facility] Pulse oximetry Branch Body temperature 2021-11-10 00:03:51 36.5 Becky [facility] Body height 2021-11-09 23:59:00 182.9 cm [facility] Body weight 2021-11-09 23:59:00 81.194 kg [facility] BMI 2021-11-09 23:59:00 24.28 kg/m2 [facility] Body temperature 2021-06-14 22:56:00 36 Becky [facility] Respiratory rate 2021-06-14 22:56:00 18 /min [facility] Oxygen saturation in 2021-06-14 22:56:00 94 /min [facility] Arterial blood by [facility] Pulse oximetry Branch Systolic blood 2021-06-14 22:56:00 126 mm[Hg] [facility] Diastolic blood 2021-06-14 22:56:00 57 mm[Hg] [facility] Heart rate 2021-06-14 22:56:00 62 /min [facility] Body weight 2021-06-14 10:08:00 87.907 kg [facility] BMI 2021-06-14 10:08:00 26.28 kg/m2 [facility] Body height 2021-06-11 14:20:00 182.9 cm [facility] Procedures Procedure Date / Time Performing Clinician Source Performed NOTICE OF PRIVACY 2021-11-09 23:50:19 Doctor Unassigned, [facility] PRACTICES [place] [facility] [place] CONSENT/REFUSAL FOR 2021-11-09 23:49:42 Doctor Unassigned, [facility] DIAGNOSIS AND TREATMENT [place] Medical [facility] [id number] 2021-09-04 00:00:00 MAHENDRAA [facility] BASIC METABOLIC PANEL 2021-06-14 11:48:00 Edwar Gomez [facility] (NA, K, CL, CO2, GLUCOSE, Medica l Branch BUN, CREATININE, CA) CBC WITH DIFF 2021-06-14 11:48:00 Edwar Gomez [facility] N-TERMINAL PRO-BNP 2021-06-14 11:48:00 Edwar Gomez [facility] XR CHEST 1 VW 2021-06-13 12:21:00 Long Otto [facility] MAGNESIUM 2021-06-13 10:31:00 Fam [facility] HEPATIC FUNCTION PANEL 2021-06-13 10:31:00 Long Otto [facility] ([id number]) (ALB,T.PRO,BILI Medical Branch T,BU/BC,ALT,AST,ALK PHOS) BASIC METABOLIC PANEL 2021-06-13 10:31:00 Edwar Gomez [facility] (NA, K, CL, CO2, GLUCOSE, Medica l Branch BUN, CREATININE, CA) CBC WITH DIFF 2021-06-13 10:31:00 Edwar Gomez [facility] N-TERMINAL PRO-BNP 2021-06-13 10:31:00 Edwar Gomez [facility] HB ECG ROUTINE & RHYTHM 2021-06-12 11:27:19 Marlen Fisher [facility] TROPONIN I 2021-06-12 10:06:00 Marlen Fisher [facility] BASIC METABOLIC PANEL 2021-06-12 10:06:00 Ely Casas [facility] (NA, K, CL, CO2, GLUCOSE, Medica l Branch BUN, CREATININE, CA) CBC WITH DIFF 2021-06-12 10:06:00 Ely Casas [facility] N-TERMINAL PRO-BNP 2021-06-12 10:06:00 Ely Casas [facility] DUPLEX VENOUS LEGS 2021-06-11 18:44:00 Marlen Fisher [facility] BILATERAL - BY VASCULAR [facility] LAB TRANSTHORACIC ECHO (TTE) 2021-06-11 15:07:00 [facility] MAGNESIUM 2021-06-11 14:14:00 Josh [facility] TROPONIN I 2021-06-11 14:14:00 Marcus [facility] BASIC METABOLIC PANEL 2021-06-11 14:14[facility] ([facility], K, CL, CO2, GLUCOSE, Medica l Branch BUN, CREATININE, CA) CBC WITH DIFF 2021-06-11 08:38:00 Marcus [facility] TROPONIN I 2021-06-11 08:37:00 Marcus [facility] BASIC METABOLIC PANEL 2021-06-11 08:37[facility] (NA, K, CL, CO2, GLUCOSE, Medica l Branch BUN, CREATININE, CA) XR CHEST 1 VW 2021-06-10 22:17:46 Tosha Sosa [facility] HB ECG ROUTINE & RHYTHM 2021-06-10 22:07:12 [facility] Branch MAGNESIUM 2021-06-10 22:05:00 Tosha Sosa [facility] TROPONIN I 2021-06-10 22:05:00 Tosha Sosa [facility] COMP. METABOLIC PANEL 2021-06-10 22:05:00 Tosha Sosa [facility] ([id number]) [facility] CBC WITH DIFF 2021-06-10 22:05:00 Tosha Sosa [facility] N-TERMINAL PRO-BNP 2021-06-10 22:05:00 Tosha Sosa [facility] COVID-19 (ID NOW RAPID 2021-06-10 22:05:00 [facility] Medical Branch LAB ONLY COVID 2021-06-10 22:05:00 Tos[facility] Sosa [facility] INTERPRETATION [facility] NOTICE OF PRIVACY 2021-06-10 21:33:24 Doctor Fernando, [facility] PRACTICES [place] [facility] CONSENT/REFUSAL FOR 2021-06-10 21:33:00 Doctor Fernando, [facility] DIAGNOSIS AND TREATMENT [place] [facility] HOSPITAL ADMISSION MISC - 2021-06-10 06:01:00 Doctor Fernando, [facility] MEDICARE PATIENTS RIGHTS [place] [facility] IMPORTANT MESSAGE Encounters Start End Encounter Admission Attending Care Care Encounter Source Date/Time Date/Time Type Type Clinicians Facility Department ID 2021-11-09 2021-11-09 Emergency X SINGER AZGERALDINE ERT [id number] Univers 19:05:00 20:57:00 CATRINA mcnally [facility] 2021-11-09 2021-11-09 Emergency Singer AZGERALDINE [id number] Univers 19:05:00 20:57:00 Catrina STARK [id number] i ty [facility]OABRAZO [facility] [id number] [facility] [id number] [facility] 084 Branch 2021-11-09 2021-11-09 Orders Doctor GRECIA [id number] Univers 00:00:00 00:00:00 Only Unassigned, KAREN [id number] ity of [place] [facility] [id number] Aditya as [id number] [facility] 009 Branch 2021-09-04 2021-09-04 Inpatient EL Raslan, HCACL INTE.02 [id number] [facility] 11:17:00 15:54:00 Jayesh 21 [facility] 2021-09-04 2021-09-04 Inpatient EL Raslan, HCACL INTE.02 [id number] [facility] 11:17:00 15:54:00 Jayesh [id number] [facility] 2021-08-29 2021-08-29 Outpatient CLEMENCIA Mejia, [facility]ACL 3DAY [id number] [facility] 08:00:00 23:00:00 Jayesh 59 [facility] 2021-08-28 2021-08-28 Outpatient CLEMENCIA Mejia, HCACL [facility] [id number] [facility] 10:09:00 10:09:00 Jayesh [id number] [facility] 2021-08-28 2021-08-28 Outpatient CLEMENCIA Mejia, [facility]ACL OUTD [id number] [facility] 10:09:00 10:09:00 Jayseh 09 [facility] 2021-06-17 2021-06-17 Transition ARIANNE Nix [id number] Univers 00:00:00 00:00:00 of Care Rivas LUARA [id number] ity of [place] [id number] [facility] [id number] [facility] 403 Branch 2021-06-10 2021-06-14 Hospital Tosha Sosa [facility] [id number] Univers 15:40:00 18:20:00 Encounter Barry Perdomo [id number] ity of [place] 4.2.7.2.686 [facility] [id number] [place] [address] Branch 2021-06-10 2021-06-14 Inpatient Nikhil SOTO [facility] [id number] Univers 15:40:00 18:20:00 KIARA mcnally [facility] Results Test Description Test Time Test Comments Results Result Comments Source ACT-ISTAT 2021-09-04 10:18:00 Test Item Value Reference Range Interpretation Comme nts ACT-ISTAT (test code = ACTI) 249 SEC 74-137 H Performed by certified 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 Vania t performance dep ends on theamount of vi michelle (antigen) in th e sample.This vania t has not been FDA cleare d or approved; the t est hasbeen authori zed by FDA under an Em ergency Use Authorizati on(EUA) for use by labo ratories certified under the CLIA thatmeet the requirements to perform moderate, high or waivedcomplexit y tests. - XR CHEST 1 [id number] 00:00:00 [facility] : 1935 Sex: M FAX: Jayesh Adam MD [phone] [place]: St: ADM Name: MARLENY CARLTON [facility] : 1935 Age/S: 85/M [address] [place] [address] Blvd Unit #: [id number] Loc: [place] [address] Phys: Jayesh Mejia MD Acct: [id number] Dis Date: Status: ADM IN PHONE #: [phone] Exam Date: 09/04/20211128 FAX #: [phone] Reason: WATCHMAN EXAMS: CPT CODE: [id number] XR CHEST 1 V 55527 PROCEDURE INFORMATION: Exam: XR Chest Exam date and time: 09/04/2021 10:30 AM Age: 85 years old Clinical indication: Screening exam; Other screening; Additional info: Watchman TECHNIQUE: Imaging protocol: XR of the chest.Views: 1 view. COMPARISON: CR XR CHEST 1V 08/28/2021 9:38 AM FINDINGS: Lungs: Patchy reticular opacityabout both lung bases with prominence of the interstitium about the remainder of the lungs similar to prior study. Small bilateral pleural effusions similar to prior study. No pneumothorax bilaterally.Pleural spaces: See "Lungs" finding. Heart/Mediastinum: Cardiac and mediastinal structures are stable. Bones/joints: Degenerative changes are seen about the thoracic spine. IMPRESSION: Patchy reticular opacity about both lung bases with prominence of the interstitium about the remainder of the lungs similar to prior study. Small bilateral pleural effusions similar to prior study. at 1146 Reported and signed by: Jay Rojas M.D. CC: Jayesh Mejia MD Technologist: Tosha Amin RT(R) Trnscrd Date/Time/By: 09/04/2021(1146) : By: [email or web address] Orig Print D/T: S: 09/04/2021 (9810) PAGE 1 Signed [id number] 14:41:00 Test Item Value Reference Range Interpretation Comments ACT-ISTAT (test code 273 SEC 74-137 H Perform ed by certified = ACTI) meat grading machine operator at [facility] [id number] 14:41:00 Test Item Value Reference Range Interpretation Comments ACT-ISTAT (test code 285 SEC 74-137 H Perform ed by certified = ACTI) meat grading machine operator at [facility] [id number] 14:41:00 Test Item Value Reference Range Interpretation Comments ACT-ISTAT (test code 279 SEC 74-137 H Perform ed by certified = ACTI) meat grading machine operator at [facility] BASIC METABOLIC [id number] 09:53:00 Test Item Value Reference Range Interpretation Comments SODIUM (test code = NA) 144 mEq/L 134-147 N POTASSIUM (test code = 3.2 mEq/L 3.4-5.0 L K) CHLORIDE (test code = 105 mEq/L 100-108 N CL) CARBON DIOXIDE (test 31 mEq/l 21-33 N code = CO2) ANION GAP (test code = 11 0-20 N GAP) GLUCOSE (test code = 103 mg/dL 70-110 N GLU) BLOOD UREA NITROGEN 22 mg/dL 7-18 H (test code = BUN) GLOMERULAR FILTRATION 44.3 70-80 L Units of measure = RATE (test code = GFR) ml/mi n/1.73 m2 CREATININE (test code = 1.5 mg/dL 0.6-1.3 H CREAT) CALCIUM (test code = 8.8 mg/dL 8.0-10.5 N CA) PROTHROMBIN [id number] 09:50:00 Test Item Value Reference Range Interpretation Comments PROTHROMBIN TIME 13.4 SECONDS 9.3-12.9 H PATIENT (test code = PTP) INTERNATIONAL NORMAL 1.2 0.8-1.2 N TARGET INR BY RATIO (test code = INDICATIO N Indication INR) INR1. Prophylax is of venous thrombos is 2.0 - 3.0 (orthoped ic surgery), Proph ylaxis of venous throm bosis (other than hig h-risk surgery), Treat ment of Deep Vein Thrombosis/Pulm onary Embolism, Preve ntion of systemic emb olism - Tissue heart va lves, Acute Myocardia l Infarction (to prevent systemic emboli sm), Valvular heart disease, Atrial Fibrillation, Bileaflet mecha nical valve in aortic position.2. Mec hanical prosthetic valv es (high risk), 2. 5 - 3.5 Presence of Lup us Anticoagulant o r Antiphospholipi d Antibodies, Pre vention of systemic emb olism - Acute Myocardia l Infarction (to prevent recurrent infar ct). CBC W/AUTO [id number] 09:34:00 Test Item Value Reference Range Interpretation Comments WHITE BLOOD CELL (test code = 7.0 x10 3/uL 4.5-11.0 N WBC) RED BLOOD CELL (test code = 3.46 x10 6/uL 4.00-5.60 L RBC) HEMOGLOBIN (test code = HGB) 10.8 g/dL 12.5-16.9 L HEMATOCRIT (test code = HCT) 34.0 % 37.5-50.7 L MEAN CELL VOLUME (test code = 98.3 fL 81.0-99.0 N MCV) MEAN CELL HGB (test code = MCH) 31.2 pg 27.0-33.0 N MEAN CELL HGB CONCETRATION 31.8 g/dL 33.0-37.0 L (test code = MCHC) RED CELL DISTRIBUTION WIDTH CV 13.7 % 11.5-14.5 N (test code = RDW) RED CELL DISTRIBUTION WIDTH SD 49.9 fL 37.0-54.0 N (test code = RDW-SD) PLATELET COUNT (test code = 225 x10 3/uL 150-400 N PLT) MEAN PLATELET VOLUME (test code 10.5 fL 7.0-9.0 H = MPV) NEUTROPHIL % (test code = NT%) 69.9 % 56.0-77.0 N IMMATURE GRANULOCYTE % (test 0.3 % 0.0-2.0 N code = IG%) LYMPHOCYTE % (test code = LY%) 12.8 % 14.0-32.0 L MONOCYTE % (test code = MO%) 10.6 % 4.8-9.0 H EOSINOPHIL % (test code = EO%) 6.0 % 0.3-3.7 H BASOPHIL % (test code = BA%) 0.4 % 0.0-2.0 N NUCLEATED RBC % (test code = 0.0 % 0-0 N NRBC%) NEUTROPHIL # (test code = NT#) 4.90 x10 3/uL 2.0-7.6 N IMMATURE GRANULOCYTE # (test 0.02 x10 3/uL 0.00-0.03 N code = IG#) LYMPHOCYTE # (test code = LY#) 0.90 x10 3/uL 1.0-3.8 L MONOCYTE # (test code = MO#) 0.74 x10 3/uL 0.1-0.8 N EOSINOPHIL # (test code = EO#) 0.42 x10 3/uL 0.0-0.2 H BASOPHIL # (test code = BA#) 0.03 x10 3/uL 0.0-0.2 N NUCLEATED RBC # (test code = 0.00 x10 3/uL 0.0-0.1 N NRBC#) MANUAL DIFF REQUIRED (test code NO = MDIFF) - XR CHEST 1 [id number] 00:00:00 [facility] : 1935 Sex: M FAX: Jayesh Adam MD [phone] [place]: [address]: REG Name: MARLENY CARLTON [facility] : 1935 Age/S: 85/M [address] [place] [address] Bl Unit #: [id number] Loc: [place] [address] Phys: Jayesh Mejia MD Acct: [id number] Dis Date: Status: REG SD PHONE #: [phone] Exam Date: 08/28/2021 09 FAX #: [phone] Reason: PRE PROCEDURE EXAMS: CPT CODE: [id number] XR CHEST 1 V 89070 PROCEDURE INFORMATION: Exam: XR Chest Exam date and time: 08/28/2021 9:38 AM Age: 85 years old Clinical indication: Other: Pre procedure TECHNIQUE: Imaging protocol: XR of the chest. Views: 1 view. COMPARISON: No relevant prior studies available. FINDINGS: There is no abnormal radiopaque foreign body. The cardiac silhouette is normal. There is no pneumothorax visible. There are prominent bilateral interstitial lung markings. There are opacities in the left upper lung. IMPRESSION: 1. There are prominent bilateral interstitial lung markings. This may be due to pulmonary edema or atypical pneumonitis. 2. There are opacit ies in the left upper lung. This is concerning for pneumonia. at 1052 Reported and signed by: Rishi Almaraz M.D. CC: Jayesh Mejia MD Technologist: Carol De Dios RT(R) Trnscrd Date/Time/By: 08/28/2021 (105) : By: [email or web address] Orig Print D/T: S: 08/28/2021 (1052) PAGE 1 Signed ReportBASIC METABOLIC PANEL (NA, K, CL, CO2, GLUCOSE, BUN, CREATININE, CA)2021-06-14 13:53:53 Test Item Value Reference Range Interpretation Comments NA (test code = 134 mmol/L 135-145 L 1916731691) K (test code = 3.5 mmol/L 3.5-5.0 0331935276) CL (test code = 95 mmol/L 98-108 L 1100215247) CO2 TOTAL (test code = 37 mmol/L 23-31 H 5563600350) AGAP (test code = 2-16 4768146308) BUN (test code = 14 mg/dL 7-23 2843454787) GLUCOSE (test code = 106 mg/dL 70-110 1528514989) CREATININE (test code = 1.10 mg/dL 0.60-1.25 7279119267) CALCIUM (test code = 8.6 mg/dL 8.6-10.6 5485537937) eGFR (test code = mL/min/1.73m2 4762872864) JAYE (test code = JAYE) Association of [...] tests). Lab Interpretation Abnormal (test code = 53437-6) [id number] 13:03:52 Test Item Value Reference Range Interpretation Comments NT-proBNP (test code 3200 pg/mL See_Comment H [Autom ated = 5322529959) message] The system which generated this result transmitted reference range : <=450. The reference range was not used to interpret this result as normal/abnormal . JAYE (test code = JAYE) Biotin has been reported to cause a negative bias, interpret results relative to patient's use of biotin. Lab Interpretation Abnormal (test code = 73130-3) [facility] WITH [id number] 12:09:26 Test Item Value Reference Range Interpretation [...] RDW-SD (test code = 48.3 fL 38.5-51.6 61414-0) RDW-CV (test code = 13.5 % 12.1-15.4 788-0) PLT (test code = See_Comment [Automated 777-3) message] The sy stem which generated this result transmitted reference range : 150 - 328 10*3/ ?L. The reference r loretta was not used to interpret this result as normal/abnormal . MPV (test code = 10.1 fL 9.8-13.0 19728-3) NRBC/100 WBC (test See_Comment [Automat ed code = 2097065264) message] The system which generated this result transmitted reference range : 0.0 - 10.0 /100 WBCs. The refer ence range was not u sed to interpret th is result as normal/abnormal . NRBC x10^3 (test code <0.01 See_Comment [Auto mated = 2448338034) message] The s ystem which generated this result transmitted reference range : 10*3/?L. The reference range was not used to interpret this result as normal/abnormal . GRAN MAT (NEUT) % 62.1 % (test code = 770-8) IMM GRAN % (test code 0.60 % = 4275937428) LYMPH % (test code = 20.9 % 736-9) MONO % (test code = 12.1 % 5905-5) EOS % (test code = 3.9 % 713-8) BASO % (test code = 0.4 % 706-2) GRAN MAT x10^3(ANC) 3.39 10*3/uL 1.99-6.95 (test code = 2890880333) IMM GRAN x10^3 (test 0.03 10*3/uL 0.00-0.06 code = 3526547032) LYMPH x10^3 (test code 1.14 10*3/uL 1.09-3.23 = 731-0) MONO x10^3 (test code 0.66 10*3/uL 0.36-1.02 = 742-7) EOS x10^3 (test code = 0.21 10*3/uL 0.06-0.53 711-2) BASO x10^3 (test code <0.03 0.01-0.09 = 704-7) Lab Interpretation Abnormal (test code = 63670-5) [facility]23[facility] (ALB,T.PRO,BILI T,BU/BC,ALT,AST,ALK PHOS)2021-06-13 12:48:00 Test Item Value Reference Range Interpretation Comments TOTAL BILI (test code = 3805523254) 1.5 mg/dL 0.1-1.1 H BILI UNCON (test code = 6566286953) 0.7 mg/dL 0.1-1.1 BILI CONJ (test code = 7904625803) 0.0 mg/dL 0.0-0.3 T PROTEIN (test code = 0654931187) 5.8 g/dL 6.3-8.2 L ALBUMIN (test code = 4564796093) 3.1 g/dL 3.5-5.0 L ALK PHOS (test code = 8218035867) 108 U/L 34-122 ALTv (test code = 1742-6) 20 U/L 5-50 AST(SGOT) (test code = 6391677625) 35 U/L 13-40 Lab Interpretation (test code = Abnormal 34110-0) [facility] 12:47:40 Test Item Value Reference Range Interpretation Comments MAGNESIUM (test code = 0071351952) 1.9 mg/dL 1.7-2.4 Lab Interpretation (test code = Normal 82264-1) [facility] [id number] 11:14:43 Test Item Value Reference Range Interpretation Comments NT-proBNP (test code 3140 pg/mL See_Comment H [Autom ated = 4744981120) message] The system which generated this result transmitted reference range : <=450. The reference range was not used to interpret this result as normal/abnormal . JAYE (test code = JAYE) Biotin has been reported to cause a negative bias, interpret results relative to patient's use of biotin. Lab Interpretation Abnormal (test code = 97786-9) [facility] METABOLIC PANEL (NA, K, CL, CO2, GLUCOSE, BUN, CREATININE, CA)2021-06-13 11:13:22 Test Item Value Reference Range Interpretation Comments NA (test code = 135 mmol/L 135-145 8608107661) K (test code = 3.4 mmol/L 3.5-5.0 L 6081308138) CL (test code = 100 mmol/L 98-108 6081183858) CO2 TOTAL (test code = 35 mmol/L 23-31 H 9014121370) AGAP (test code = <1 2-16 L 6956426395) BUN (test code = 15 mg/dL 7-23 3877057196) GLUCOSE (test code = 96 mg/dL 70-110 8577705658) CREATININE (test code = 1.09 mg/dL 0.60-1.25 1274272868) CALCIUM (test code = 8.7 mg/dL 8.6-10.6 9155305392) eGFR (test code = mL/min/1.73m2 2465725343) JAYE (test code = JAYE) Association of [...] tests). Lab Interpretation Abnormal (test code = 99517-5) [facility] WITH [id number] 10:55:57 Test Item Value Reference Range Interpretation Comments WBC (test code = See_Comment [Automated 7013-2) message] The sy stem which generated this result transmitted reference range : 4.20 - 10.70 10*3/?L. The reference range was not used to interpret this result as normal/abnormal . RBC (test code = See_Comment L [Automated 793-6) message] The sy stem which generated this [...] RDW-SD (test code = 48.9 fL 38.5-51.6 22026-9) RDW-CV (test code = 13.6 % 12.1-15.4 788-0) PLT (test code = See_Comment [Automated 777-3) message] The sy stem which generated this result transmitted reference range : 150 - 328 10*3/ ?L. The reference r loretta was not used to interpret this result as normal/abnormal . MPV (test code = 10.5 fL 9.8-13.0 88478-3) NRBC/100 WBC (test See_Comment [Automat ed code = 7703589950) message] The system which generated this result transmitted reference range : 0.0 - 10.0 /100 WBCs. The refer ence range was not u sed to interpret th is result as normal/abnormal . NRBC x10^3 (test code <0.01 See_Comment [Auto mated = 5242289211) message] The s ystem which generated this result transmitted reference range : 10*3/?L. The reference range was not used to interpret this result as normal/abnormal . GRAN MAT (NEUT) % 59.7 % (test code = 770-8) IMM GRAN % (test code 0.40 % = 4113149399) LYMPH % (test code = 23.0 % 736-9) MONO % (test code = 10.8 % 5905-5) EOS % (test code = 5.3 % 713-8) BASO % (test code = 0.8 % 706-2) GRAN MAT x10^3(ANC) 3.14 10*3/uL 1.99-6.95 (test code = 3784422121) IMM GRAN x10^3 (test <0.03 0.00-0.06 code = 1587427113) LYMPH x10^3 (test code 1.21 10*3/uL 1.09-3.23 = 731-0) MONO x10^3 (test code 0.57 10*3/uL 0.36-1.02 = 742-7) EOS x10^3 (test code = 0.28 10*3/uL 0.06-0.53 711-2) BASO x10^3 (test code 0.04 10*3/uL 0.01-0.09 = 704-7) Lab Interpretation Abnormal (test code = 96778-9) [facility] Center[facility] [id number] 16:03:20 Test Item Value Reference Interpretation Comments Range TROPONIN I (test 0.040 ng/mL See_Comment H [Automated code = 6322461266) message] The system which generated this result [...] biotin. Lab Interpretation Abnormal (test code = 52763-5) [facility] [id number] 11:35:29 Test Item Value Reference Range Interpretation Comments NT-proBNP (test code 3700 pg/mL See_Comment H [Autom ated = 0272378111) message] The system which generated this result transmitted reference range : <=450. The reference range was not used to interpret this result as normal/abnormal . JAYE (test code = JAYE) Biotin has been reported to cause a negative bias, interpret results relative to patient's use of biotin. Lab Interpretation Abnormal (test code = 60960-7) [facility] METABOLIC PANEL (NA, K, CL, CO2, GLUCOSE, BUN, CREATININE, CA)2021-06-12 11:27:44 Test Item Value Reference Range Interpretation Comments NA (test code = 134 mmol/L 135-145 L 4700074180) K (test code = 3.2 mmol/L 3.5-5.0 L 0516494304) CL (test code = 98 mmol/L 98-108 1339402455) CO2 TOTAL (test code = 35 mmol/L 23-31 H 1008137017) AGAP (test code = 2-16 L 4924268800) BUN (test code = 16 mg/dL 7-23 2194157759) GLUCOSE (test code = 102 mg/dL 70-110 3107125516) CREATININE (test code = 1.10 mg/dL 0.60-1.25 7303684702) CALCIUM (test code = 8.4 mg/dL 8.6-10.6 L 6333180130) eGFR (test code = mL/min/1.73m2 7374507299) JAYE (test code = JAYE) Association of [...] tests). Lab Interpretation Abnormal (test code = 83009-4) [facility] WITH [id number] 11:13:43 Test Item Value Reference Range Interpretation [...] RDW-SD (test code = 49.6 fL 38.5-51.6 94124-4) RDW-CV (test code = 13.9 % 12.1-15.4 788-0) PLT (test code = See_Comment [Automated 777-3) message] The sy stem which generated this result transmitted reference range : 150 - 328 10*3/ ?L. The reference r loretta was not used to interpret this result as normal/abnormal . MPV (test code = 10.8 fL 9.8-13.0 92260-1) NRBC/100 WBC (test See_Comment [Automat ed code = 7749098749) message] The system which generated this result transmitted reference range : 0.0 - 10.0 /100 WBCs. The refer ence range was not u sed to interpret th is result as normal/abnormal . NRBC x10^3 (test code <0.01 See_Comment [Auto mated = 4615405154) message] The s ystem which generated this result transmitted reference range : 10*3/?L. The reference range was not used to interpret this result as normal/abnormal . GRAN MAT (NEUT) % 63.4 % (test code = 770-8) IMM GRAN % (test code 0.50 % = 3654045419) LYMPH % (test code = 19.7 % 736-9) MONO % (test code = 11.5 % 5905-5) EOS % (test code = 4.4 % 713-8) BASO % (test code = 0.5 % 706-2) GRAN MAT x10^3(ANC) 3.47 10*3/uL 1.99-6.95 (test code = 6845027361) IMM GRAN x10^3 (test 0.03 10*3/uL 0.00-0.06 code = 3234808153) LYMPH x10^3 (test code 1.08 10*3/uL 1.09-3.23 L = 731-0) MONO x10^3 (test code 0.63 10*3/uL 0.36-1.02 = 742-7) EOS x10^3 (test code = 0.24 10*3/uL 0.06-0.53 711-2) BASO x10^3 (test code 0.03 10*3/uL 0.01-0.09 = 704-7) Lab Interpretation Abnormal (test code = 49618-0) [facility]2021-[facility]-11 19:02:50 Test Item Value Reference Range Interpretation Comments LVOT diameter (test code 2.15 cm = 8587093319) IVS (test code = 1.35 cm 7308573755) Interventricular Septum 1.35 cm Diastolic Thickness by 2D (test code = 7647677) LVIDD (test code = 4.80 cm 3317019080) LVPWD (test code = 1.35 cm 9470346875) PW (test code = 1.35 cm 0.6-1.0 5567015307) EF(Teich) (test code = 63.90 % 6193884550) LVIDS (test code = 3.10 cm 3288809187) FS (test code = 35 % 1040708427) EF - 2D (test code = 63.90 % 64709079) LA size (test code = 4.7 cm 5818404865) Ao root annulus (test 3.3 cm code = 7563486057) Ao root diam (test code = 3.30 cm 5883408471) Aortic root (test code = 3.3 cm 4965796620) TR Peak Jose (test code = 385.0 cm/s 5041636619) Triscuspid Valve mmHg Regurgitation Peak Gradient (test code = 6238243855) LAV(MOD-sp4) (test code = 62.30 mL 4387191642) E wave decelartion time 0.20 s (test code = 5316782770) MV stenosis pressure 1/2 58.0 ms time (test code = 0343314299) MV Peak E Jose (test code 137.9 cm/s = 6471222766) MV Peak A Jose (test code 47.9 cm/s = 7434823636) E/A ratio (test code = ratio 0642614354) MR max PG (test code = 104.70 mm[Hg] 3717379701) MR max jose (test code = 511.50 cm/s 9037431187) Mr max jose (test code = 511.5 m/s 4203945505) MV Prop V (test code = 57.60 cm/s 0363090940) MV E/e' septal (test code 14.2 cm/s = 0361850493) Tapse (test code = 2.07 cm 7981702135) LVOT stroke volume (test 84.20 cm3 code = 2600273992) LVOT peak jose (test code 98.6 cm/s = 8238106994) LVOT mn grad (test code = mmHg 6951973241) AV LVOT peak gradient mmHg (test code = 4279449410) LVOT peak VTI (test code 23.1 cm = 3574033224) LV V1 mean (test code = 69.30 cm/s 7247316301) Aortic valve mean 221.4 cm/s velocity (test code = 5470923391) Ao peak jose (test code = 308.2 cm/s 9205458096) Ao VTI (test code = 66.9 cm 3385288663) AV area by cont VTI (test 1.3 cm2 code = 4766563491) AV area peak jose (test 1.2 cm2 code = 8814665667) Ao max PG (test code = 38.00 mm[Hg] 3933773618) AV peak gradient (test mmHg code = 7986185692) AV valve area (test code 1.26 cm2 = 7854224176) AV mean gradient (test mmHg code = 6024497463) AV regurgitation pressure 527.4 ms 1/2 time (test code = 4836923133) AI dec slope (test code = 221.40 cm/s2 9810590790) AI max jose (test code = 398.70 cm/s 7280432299) AI max PG (test code = 63.60 mm[Hg] 2470291230) LA Volume Index (BP) 43.3 mL/m2 (test code = 5399040539) LA volume (BP) (test code 91.7 mL = 2888890488) LAV(MOD-sp2) (test code = 120.20 mL 3896783435) Radiology Study observation (narrative) (test code = 35645-0) JAYE (test code = JAYE) ?Left?Ventricle: Normal [...] (89.4 kg) 2.13 sq meters 132/57 64 [facility]2022-[facility]-15 15:39:04 Test Item Value Reference Range Interpretation Comments MAGNESIUM (test code = 5404648751) 2.1 mg/dL 1.7-2.4 Lab Interpretation (test code = Normal 41452-7) [facility] (NA, K, CL, CO2, GLUCOSE, BUN, CREATININE, CA)2021-06-11 15:38:03 Test Item Value Reference Range Interpretation Comments NA (test code = 136 mmol/L 135-145 2423327994) K (test code = 3.8 mmol/L 3.5-5.0 2123365261) CL (test code = 100 mmol/L 98-108 4289052624) CO2 TOTAL (test code = 32 mmol/L 23-31 H 7751278911) AGAP (test code = 2-16 5228086996) BUN (test code = 18 mg/dL 7-23 4103169276) GLUCOSE (test code = 118 mg/dL 70-110 H 0376863883) CREATININE (test code = 1.06 mg/dL 0.60-1.25 1489289483) CALCIUM (test code = 8.4 mg/dL 8.6-10.6 L 3484997645) eGFR (test code = mL/min/1.73m2 3831446464) JAYE (test code = JAYE) Association of [...] tests). Lab Interpretation Abnormal (test code = 89583-6) [facility] CenterNICHOLAS [id number] 15:27:03 Test Item Value Reference Interpretation Comments Range TROPONIN I (test 0.071 ng/mL See_Comment H [Automated code = 1253104205) message] The system which generated this result [...] biotin. Lab Interpretation Abnormal (test code = 43530-5) [facility] [id number] 09:25:15 Test Item Value Reference Interpretation Comments Range TROPONIN I (test 0.079 ng/mL See_Comment H [Automated code = 7256364462) message] The system which generated this result [...] biotin. Lab Interpretation Abnormal (test code = 37819-0) [facility] Metabolic Panel (NA, K, CL, CO2, GLUCOSE, BUN, CREATININE, CA)2021-06-11 09:15:32 Test Item Value Reference Range Interpretation Comments NA (test code = 134 mmol/L 135-145 L 6361947953) K (test code = 2.9 mmol/L 3.5-5.0 LL 8848902995) CL (test code = 98 mmol/L 98-108 8379388643) CO2 TOTAL (test code = 34 mmol/L 23-31 H 2555254562) AGAP (test code = 2-16 1952126088) BUN (test code = 19 mg/dL 7-23 7619847469) GLUCOSE (test code = 106 mg/dL 70-110 5595790469) CREATININE (test code = 1.10 mg/dL 0.60-1.25 6172974261) CALCIUM (test code = 8.3 mg/dL 8.6-10.6 L 1576996600) eGFR (test code = mL/min/1.73m2 6997779571) JAYE (test code = JAYE) Association of [...] tests). Lab Interpretation Abnormal (test code = 86931-4) [facility] with [id number] 08:47:50 Test Item Value Reference Range Interpretation [...] RDW-SD (test code = 49.8 fL 38.5-51.6 16788-0) RDW-CV (test code = 14.0 % 12.1-15.4 788-0) PLT (test code = See_Comment [Automated 777-3) message] The sy stem which generated this result transmitted reference range : 150 - 328 10*3/ ?L. The reference r loretta was not used to interpret this result as normal/abnormal . MPV (test code = 10.5 fL 9.8-13.0 12126-7) NRBC/100 WBC (test See_Comment [Automat ed code = 5910264915) message] The system which generated this result transmitted reference range : 0.0 - 10.0 /100 WBCs. The refer ence range was not u sed to interpret th is result as normal/abnormal . NRBC x10^3 (test code <0.01 See_Comment [Auto mated = 6887105881) message] The s ystem which generated this result transmitted reference range : 10*3/?L. The reference range was not used to interpret this result as normal/abnormal . GRAN MAT (NEUT) % 57.8 % (test code = 770-8) IMM GRAN % (test code 0.20 % = 7849363109) LYMPH % (test code = 25.0 % 736-9) MONO % (test code = 12.5 % 5905-5) EOS % (test code = 3.9 % 713-8) BASO % (test code = 0.6 % 706-2) GRAN MAT x10^3(ANC) 3.15 10*3/uL 1.99-6.95 (test code = 5266243444) IMM GRAN x10^3 (test <0.03 0.00-0.06 code = 6165680359) LYMPH x10^3 (test code 1.36 10*3/uL 1.09-3.23 = 731-0) MONO x10^3 (test code 0.68 10*3/uL 0.36-1.02 = 742-7) EOS x10^3 (test code = 0.21 10*3/uL 0.06-0.53 711-2) BASO x10^3 (test code 0.03 10*3/uL 0.01-0.09 = 704-7) Lab Interpretation Abnormal (test code = 56086-2) [facility] [id number] 22:54:32 Test Item Value Reference Interpretation Comments Range TROPONIN I (test 0.101 ng/mL See_Comment H [Automated code = 4096853458) message] The system which generated this result [...] biotin. Lab Interpretation Abnormal (test code = 83196-0) [facility] [id number] 22:51:31 Test Item Value Reference Range Interpretation Comments NT-proBNP (test code 4460 pg/mL See_Comment H [Autom ated = 2785233460) message] The system which generated this result transmitted reference range : <=450. The reference range was not used to interpret this result as normal/abnormal . JAYE (test code = JAYE) Biotin has been reported to cause a negative bias, interpret results relative to patient's use of biotin. Lab Interpretation Abnormal (test code = 27224-4) [facility] Center[facility] MET[facility]OLIC PAN[facility] (32179)2021-06-10 22:43:31 Test Item Value Reference Range Interpretation Comments NA (test code = 135 mmol/L 135-145 0694050614) K (test code = 3.0 mmol/L 3.5-5.0 L 3713198397) CL (test code = 96 mmol/L 98-108 L 9749697012) CO2 TOTAL (test code = 33 mmol/L 23-31 H 6879277945) AGAP (test code = 2-16 1864111521) BUN (test code = 20 mg/dL 7-23 7250996939) GLUCOSE (test code = 154 mg/dL 70-110 H 1011411070) CREATININE (test code = 1.14 mg/dL 0.60-1.25 3631789364) TOTAL BILI (test code = 3.7 mg/dL 0.1-1.1 H 1671172955) CALCIUM (test code = 8.7 mg/dL 8.6-10.6 2779407478) T PROTEIN (test code = 7.1 g/dL 6.3-8.2 9785789167) ALBUMIN (test code = 3.9 g/dL 3.5-5.0 5617678398) ALK PHOS (test code = 160 U/L 34-122 H 1667539551) ALTv (test code = 31 U/L 5-50 1742-6) AST(SGOT) (test code = 35 U/L 13-40 8154016885) eGFR (test code = mL/min/1.73m2 6223224960) JAYE (test code = JAYE) Association of [...] tests). Lab Interpretation Abnormal (test code = 70854-4) [facility]14 22:43:31 Test Item Value Reference Range Interpretation Comments MAGNESIUM (test code = 1033658599) 1.6 mg/dL 1.7-2.4 L Lab Interpretation (test code = Abnormal 05650-2) [facility] WITH [id number] 22:29:29 Test Item Value Reference Range Interpretation Comments WBC (test code = See_Comment [Automated 7576-2) message] The sy stem which generated this result transmitted reference range : 4.20 - 10.70 10*3/?L. The reference range was not used to interpret this result as normal/abnormal . RBC (test code = See_Comment L [Automated 379-8) message] The sy stem which generated this [...] RDW-SD (test code = 49.0 fL 38.5-51.6 51103-3) RDW-CV (test code = 13.9 % 12.1-15.4 788-0) PLT (test code = See_Comment [Automated 777-3) message] The sy stem which generated this result transmitted reference range : 150 - 328 10*3/ ?L. The reference r loretta was not used to interpret this result as normal/abnormal . MPV (test code = 10.5 fL 9.8-13.0 46631-4) NRBC/100 WBC (test See_Comment [Automat ed code = 3123693868) message] The system which generated this result transmitted reference range : 0.0 - 10.0 /100 WBCs. The refer ence range was not u sed to interpret th is result as normal/abnormal . NRBC x10^3 (test code <0.01 See_Comment [Auto mated = [id number]) message] The s ystem which generated this result transmitted reference range : 10*3/?L. The reference range was not used to interpret this result as normal/abnormal . GRAN MAT (NEUT) % 63.2 % (test code = 770-8) IMM GRAN % (test code 0.30 % = [id number]) LYMPH % (test code = 24.2 % 736-9) MONO % (test code = 9.8 % 5905-5) EOS % (test code = 1.9 % 713-8) BASO % (test code = 0.6 % 706-2) GRAN MAT x10^3(ANC) 3.94 10*3/uL 1.99-6.95 (test code = [id number]) IMM GRAN x10^3 (test <0.03 0.00-0.06 code = [id number]) LYMPH x10^3 (test code 1.51 10*3/uL 1.09-3.23 = 731-0) MONO x10^3 (test code 0.61 10*3/uL 0.36-1.02 = 742-7) EOS x10^3 (test code = 0.12 10*3/uL 0.06-0.53 711-2) BASO x10^3 (test code 0.04 10*3/uL 0.01-0.09 = 704-7) Lab Interpretation Abnormal (test code = 85580-3) [facility]
[2021-11-30] MEDS ORDERED: ACETAMINOPHEN 500 MG TAB ONE (14:38)
[2021-11-30 14:55] LABS: Absolute Lymphocytes (CBC) 0.1 K/uL (0.7-4.9); Hematocrit 28.3 % (39.6-49.0); Lymphocytes % 1.3 % (15.3-44.8); MCV 94.6 fL (80-100); MPV 8.5 fL (7.6-11.3)
[2021-11-30 15:07] LABS: Protime INR 1.2
[2021-11-30 15:43] LABS: Albumin 2.9 g/dL (3.4-5.0); Bilirubin Total 2.6 mg/dL (0.2-1.0); Potassium 3.5 mmol/L (3.5-5.1); Protein, Total 6.5 g/dL (6.4-8.2)
--- NOTE | 2021-11-30 15:47 | RAD REPORT ---
EXAM DESCRIPTION: RAD - Chest Single View - 11/30/2021 3:14 pm CLINICAL HISTORY: FEVER Chest pain. COMPARISON: Chest Single View dated 08/20/2021; Chest Single View dated 03/10/2021; Chest Single View dated 03/09/2021; Chest Single View dated 11/09/2020 FINDINGS: Portable technique limits examination quality. Mild infiltrate pattern is suspected in both lung bases with small pleural effusions. The heart is mi ldly prominent size. No displaced fractures. IMPRESSION: Underinflated lungs with mild bibasilar lung infiltrate/ atelectasis.
--- NOTE | 2021-11-30 16:40 | RAD REPORT ---
EXAM DESCRIPTION: CT - Abdomen Pelvis Wo Contrast - 11/30/2021 4:27 pm CLINICAL HISTORY: Abdominal pain. abd pain COMPARISON: No comparisons TECHNIQUE: CT imaging of the abdomen and pelvis was performed without contrast. Solid organ, bowel a nd vascular assessment is limited due to lack of IV and oral contrast. All CT scans are performed using dose optimization technique as appropriate and may include automated exposure control or mA/KV adjustment according to patient size. FINDINGS: Small pleural effusions with mild bibasilar lung opacities present. The liver, spleen, pancreas, adrenal glands and kidneys are within normal limits for a limited non-co ntrast examination.Distended gallbladder noted. No bowel obstruction, free air, free fluid or abscess. Moderate stool is present throughout colon. Si gmoid diverticulosis coli without diverticulitis. The appendix is normal. Prostate gland is mildly pr ominent and projects into the bladder base. Mild lumbar degenerative changes. IMPRESSION: Nonspecific gallbladder distension. Moderate stool throughout the colon with mild sigmoid diverticulosis coli present. Small bilateral pleural effusions. A limited non-contrast examination was performed as detailed.
[2021-11-30] MEDS ORDERED: CEFTRIAXONE 1000 MG/VIAL ONE (17:02)
[2021-11-30] MEDS ORDERED: NA CHLORIDE 0.9% 50 ML ONE (17:02)
[2021-11-30] MEDS ORDERED: LIDOCAINE VISCOUS 2% SOLN 15 ML UDC ONE (17:03)
[2021-11-30 17:11] LABS: Blood Morphology Comment NOT SEEN (NOT SEEN); Platelet Estimate ADEQ; White Blood Cell Scan OK (OK)
--- NOTE | 2021-11-30 17:18 | RAD REPORT ---
EXAM DESCRIPTION: US - Abdomen Exam Limited - 11/30/2021 4:42 pm CLINICAL HISTORY: ABD PAIN COMPARISON: No comparisons FINDINGS: The gallbladder demonstrates gallbladder sludge. Mild bilateral is thickened to 5 mm with mild pericholecystic fluid. The common bile duct is normal measuring 5 mm. The liver demonstrates no findings of intrahepatic biliary dilatation. IMPRESSION: Gallbladder sludge is present. Distention the gallbladder with gallbladder wall thicken ing and mild pericholecystic fluid could indicate early cholecystitis.
[2021-11-30] MEDS ORDERED: Mastisol Adhesive Liq ONE (17:37)
--- NOTE | 2021-11-30 19:31 | ER ---
Nurse's Notes [facility] Name: Cy Bill Age: 86 yrs Sex: Male : 1935 Arrival Date: 11/30/2021 Time: 14:23 Bed 5 Private MD: Diagnosis: Acute cholecystitis;Abnormal results of liver function studies;Severe sepsis without septic shock;Pneumonia, unspecified organism Presentation: 11/30 14:24 Chief complaint: EMS states: weakness and fever today, +cough, , daughter states pt iw fell and she was able to catch him, skin tear elbow , pt also reports vomiting once and having abd pain, pt uses home O2. Coronavirus screen: Client presents with at least one sign or symptom that may indicate coronavirus-19. Ebola Screen: Patient negative for fever greater than or equal to 101.5 degrees Fahrenheit, and additional compatible Ebola Virus Disease symptoms Patient denies exposure to infectious person. Patient denies travel to an Ebola-affected area in the 21 days before illness onset. No symptoms or risks identified at this time. Initial Sepsis Screen: Does the patient meet any 2 criteria? Temp <36.0*C (96.8*F)) or > 38.3*C (100.9*F). HR > 90 bpm. Does the patient have a suspected source of infection? Yes: Productive cough/pneumonia Acute abdominal pain. Risk Assessment: Do you want to hurt yourself or someone else? Patient reports no desire to harm self or others. Onset of symptoms was November 30, 2021. 14:24 Method Of Arrival: EMS: [facility] iw 14:24 Acuity: AMALIA 2 iw Historical: - Allergies: 14:28 No Known Allergies; iw - Home Meds: 14:28 albuterol sulfate 90 mcg/actuation Inhl HFAA twice a day [Active]; apixaban 5 mg Oral iw tab [Active]; Aspirin Oral [Active]; finasteride 5 mg Oral tab 1 tab once daily [Active]; furosemide 40 mg Oral tab [Active]; hydrochlorothiazide 25 mg Oral tab 1 tab once daily [Active]; magnesium oxide 420 mg Oral tab [Active]; Melatonin Oral [Active]; mirtazapine 15 mg Oral tab 1 tab once daily [Active]; potassium chloride 10 mEq Oral cpER 1 cap once daily [Active]; tamsulosin 0.4 mg Oral cap 1 cap once daily [Active]; Vitamin D Oral [Active]; - PMHx: 14:27 Atrial fibrillation; BPH; iw - Immunization history:: Adult Immunizations unknown. - Social history:: Smoking status: unknown. Screenin:30 Abuse screen: Denies threats or abuse. Denies injuries from another. Nutritional jl7 screening: No deficits noted. Tuberculosis screening: No symptoms or risk factors identified. Fall Risk Fall in past 12 months (25 points). No secondary diagnosis (0 pts). IV access (20 points). Gait- Weak (10 pts.). Mental Status- Overestimates/Forgets Limitations (15 pts.). Total Streeter Fall Scale indicates High Risk Score (45 or more points). Fall prevention measures have been instituted. Side Rails Up X 2 Placed Close to Nursing Station Frequent Obs/Assessments Occuring Family Present and informed to notify staff if the need to leave the bedside As available patient and family educated on Fall Prevention Program and Strategies. Assessment: 14:30 General: Appears in no apparent distress. uncomfortable, Behavior is calm, cooperative, jl7 appropriate for age. Pain: Denies pain. Neuro: Level of Consciousness is awake, alert, obeys commands, Oriented to person, place, time. Cardiovascular: Patient's skin is warm and dry. Respiratory: Airway is patent Respiratory effort is even, unlabored, Respiratory pattern is regular, symmetrical. GI: Abdomen is flat, non-distended, Pt reports RUQ abdominal pain that subsided once he vomited Patient currently denies diarrhea, nausea. :. Derm: Skin has skin tears on Left upper arm and elbow Skin is pink, warm \\T\\ dry. 15:30 Reassessment: Patient appears in no apparent distress at this time. No changes from jl7 previously documented assessment. Patient and/or family updated on plan of care and expected duration. Pain level reassessed. Patient is alert, oriented x 3, equal unlabored respirations, skin warm/dry/pink. 16:30 Reassessment: Patient appears in no apparent distress at this time. No changes from jl7 previously documented assessment. Patient and/or family updated on plan of care and expected duration. Pain level reassessed. Patient is alert, oriented x 3, equal unlabored respirations, skin warm/dry/pink. 17:30 Reassessment: Patient appears in no apparent distress at this time. No changes from jl7 previously documented assessment. Patient and/or family updated on plan of care and expected duration. Pain level reassessed. Patient is alert, oriented x 3, equal unlabored respirations, skin warm/dry/pink. 18:27 Reassessment: Patient appears in no apparent distress at this time. No changes from jl7 previously documented assessment. Patient and/or family updated on plan of care and expected duration. Pain level reassessed. Patient is alert, oriented x 3, equal unlabored respirations, skin warm/dry/pink. 19:53 Reassessment: Patient appears in no apparent distress at this time. Tasha busch6 (Daughter) [phone]. Pain: Denies pain. 20:25 General: Reports "i am comfortable". tw5 Vital Signs: 14:24 BP 112 / 46; Pulse 100; Resp 20 S; Temp 103.1(O); Pulse Ox 95% on 4 lpm NC; iw 15:15 BP 112 / 50; Pulse 69; Resp 20; Pulse Ox 96% ; jl7 16:00 BP 103 / 50; Pulse 83; Resp 15; Pulse Ox 95% ; jl7 16:58 BP 104 / 49; Pulse 81; Resp 26; Temp 99.4; Pulse Ox 95% ; mb7 19:06 BP 95 / 42; Pulse 67; Resp 14; Pulse Ox 99% on 3 lpm NC; jl7 19:52 BP 98 / 47; Pulse 67; Resp 17 S; Pulse Ox 99% on 2 lpm NC; as6 20:29 BP 89 / 40; Pulse 75; Resp 13; Pulse Ox 100% ; tw5 20:31 BP 91 / 53; Pulse 62; tw5 20:35 Temp 98.4(O); tw5 20:29 provider notifed of drop in bp tw5 ED Course: 14:23 Patient arrived in ED. iw 14:26 Gwendolyn Burgess FNP-C is [facility]. kb 14:26 Wilton Dong MD is Attending Physician. kb 14:27 Triage completed. iw 14:28 Hermilo Nunez, AIRAM is Primary Nurse. jl7 14:29 Arm band placed on. iw 14:49 Bed in low position. Call light in reach. Side rails up X 1. Door closed. Noise mb7 minimized. 14:49 Inserted saline lock: 20 gauge in right forearm, using aseptic technique. Blood mb7 collected. 14:49 Lactate Sent. mb7 14:49 Ptt, Activated Sent. mb7 14:49 CMP Sent. mb7 14:49 CBC with Diff Sent. mb7 14:49 Protime (+inr) Sent. mb7 14:50 Client placed on continuous cardiac and pulse oximetry monitoring. NIBP monitoring jl7 applied. 15:00 Initial lab(s) drawn, by ED staff, sent to lab. EKG done, by ED staff, reviewed by jl7 Gwendolyn Burgess SHREDDED FILLER CUTTER OPERATOR-C COVID swab sent to lab. Flu and/or RSV swab sent to lab. 15:02 Flu Sent. mb7 15:02 COVID-19 SARS RT PCR (Document "Date of Onset" if Symptomatic) Sent. mb7 15:16 Chest Single View XRAY In Process Unspecified. EDMS 16:29 Abdomen In Process Unspecified. EDMS 16:44 US Abdomen Limited In Process Unspecified. EDMS 17:23 Blood Culture Adult (2) Sent. mb7 18:35 Wound care: to skin tear located on left bicep and left elbow was debrided using jl7 Betadine scrub, irrigated with normal saline, dressed with mastoid with steri-strips. 19:04 Primary Nurse role handed off by Hermilo Nunez RN as6 19:04 Raudel Howard, AIRAM is Primary Nurse. as6 19:29 Tyler Yuen MD is Hospitalizing Provider. kb 19:53 No provider procedures requiring assistance completed. Patient admitted, IV remains in as6 place. Administered Medications: 14:37 Drug: Acetaminophen 1000 mg Route: PO; jl7 16:00 Follow up: Response: No adverse reaction; Temperature is decreased jl7 17:00 Drug: Rocephin (cefTRIAXone) 1 grams Route: IV; Rate: calculated rate; Site: right jl7 forearm; 17:05 Follow up: Response: No adverse reaction; IV Status: Completed infusion jl7 19:13 CANCELLED (Duplicate Order): NS 0.9% 500 ml IV at bolus once kb 19:52 Drug: NS 0.9% 1000 ml Route: IV; Rate: 1000 ml; Site: right forearm; as6 20:25 Drug: Zosyn (piperacillin-tazobactam) 3.375 grams Route: IVPB; Infused Over: 60 mins; tw5 Site: right forearm; Medication: 19:53 VIS not applicable for this client. as6 Outcome: 19:30 Decision to Hospitalize by Provider. kb 19:54 Admitted to ER Hold. Please see [facility] [place] for further documentation. as6 19:54 Condition: stable 19:54 Instructed on the need for admit. 21:38 Admitted to ICU accompanied by nurse, via stretcher, with oxygen, Report called to tw5 renny 21:39 Patient left the ED. tw5 Signatures: Dispatcher [employer] EDMS Gwendolyn Burgess, SHREDDED FILLER CUTTER OPERATOR-C SHREDDED FILLER CUTTER OPERATOR-Ckb Norma Sosa, RN RN iw Hermilo Nunez RN RN jl7 Laverne Montgomery tw5 Raudel Howard RN RN as6 Cristina Sanchez mb7 Corrections: (The following items were deleted from the chart) 14:27 14:24 Chief complaint: EMS states: weakness and fever today, +cough, , daughter states iw pt fell and she was able to catch him, skin tear elbow , pt also reports vomiting once and having abd pain iw 14:28 14:24 Chief complaint: EMS states: weakness and fever today, +cough, , daughter states iw pt fell and she was able to catch him, skin tear elbow , pt also reports vomiting once and having abd pain, pt has hx of COPD and uses home O2 iw
--- NOTE | 2021-11-30 19:31 | EDPHYS ---
Physician Documentation [facility] Name: Cy Bill Age: 86 yrs Sex: Male : 1935 Arrival Date: 11/30/2021 Time: 14:23 Bed 5 Private MD: ED Physician Wilton Dong HPI: 11/30 23:13 This 86 yrs old Male presents to ER via EMS with complaints of Fever, General Weakness, kb Cough. 23:13 The patient presents with generalized weakness. Onset: The symptoms/episode kb began/occurred today. Context: occurred at home, occurred while the patient was standing. Modifying factors: The symptoms are alleviated by nothing, the symptoms are aggravated by nothing. Associated signs and symptoms: Pertinent positives: abdominal pain, chest pain, nausea, vomiting. Severity of symptoms: At their worst the symptoms were moderate in the emergency department the symptoms have improved. Patient's baseline: Neuro: alert and fully oriented, Motor: no deficits, Ambulation: walks without assistance, Speech: normal. The patient has not experienced similar symptoms in the past. The patient has not recently seen a physician. Patient reports he had some chest pain and abdominal pain this morning that resolved after vomiting 1 time. States he has had a cough for few days. States at home he felt weak and fell but daughter was near him and caught him so he did not hit the ground or sustain any injuries. Daughter called 911 patient was brought in. EMS reports fever.. Historical: - Allergies: 14:28 No Known Allergies; iw - Home Meds: 14:28 albuterol sulfate 90 mcg/actuation Inhl HFAA twice a day [Active]; apixaban 5 mg Oral iw tab [Active]; Aspirin Oral [Active]; finasteride 5 mg Oral tab 1 tab once daily [Active]; furosemide 40 mg Oral tab [Active]; hydrochlorothiazide 25 mg Oral tab 1 tab once daily [Active]; magnesium oxide 420 mg Oral tab [Active]; Melatonin Oral [Active]; mirtazapine 15 mg Oral tab 1 tab once daily [Active]; potassium chloride 10 mEq Oral cpER 1 cap once daily [Active]; tamsulosin 0.4 mg Oral cap 1 cap once daily [Active]; Vitamin D Oral [Active]; - PMHx: 14:27 Atrial fibrillation; BPH; iw - Immunization history:: Adult Immunizations unknown. - Social history:: Smoking status: unknown. ROS: 23:13 ENT: Negative for injury, pain, and discharge. kb 23:13 Constitutional: Positive for fever. 23:13 Cardiovascular: Positive for chest pain. 23:13 Respiratory: Positive for cough. 23:13 Abdomen/GI: Positive for abdominal pain, nausea and vomiting. 23:13 Neuro: Positive for weakness. 23:13 All other systems are negative. Exam: 16:40 ECG was reviewed by the Attending Physician. kb 23:13 Constitutional: This is a well developed, well nourished patient who is awake, alert, kb and in no acute distress. Head/Face: Normocephalic, atraumatic. ENT: Moist Mucous membranes Cardiovascular: Regular rate and rhythm with a normal S1 and S2. No gallops, murmurs, or rubs. No pulse deficits. Respiratory: Respirations even and unlabored. No increased work of breathing. Talking in full sentences Abdomen/GI: Soft, non-tender. No distention Skin: Warm, dry with normal turgor. Normal color. MS/ Extremity: Pulses equal, no cyanosis. Neurovascular intact. Full, normal range of motion. Neuro: Awake and alert, GCS 15, oriented to person, place, time, and situation. Moves all extremities. Normal gait. Psych: Awake, alert, with orientation to person, place and time. Behavior, mood, and affect are within normal limits. Vital Signs: 14:24 BP 112 / 46; Pulse 100; Resp 20 S; Temp 103.1(O); Pulse Ox 95% on 4 lpm NC; iw 15:15 BP 112 / 50; Pulse 69; Resp 20; Pulse Ox 96% ; jl7 16:00 BP 103 / 50; Pulse 83; Resp 15; Pulse Ox 95% ; jl7 16:58 BP 104 / 49; Pulse 81; Resp 26; Temp 99.4; Pulse Ox 95% ; mb7 19:06 BP 95 / 42; Pulse 67; Resp 14; Pulse Ox 99% on 3 lpm NC; jl7 19:52 BP 98 / 47; Pulse 67; Resp 17 S; Pulse Ox 99% on 2 lpm NC; as6 20:29 BP 89 / 40; Pulse 75; Resp 13; Pulse Ox 100% ; tw5 20:31 BP 91 / 53; Pulse 62; tw5 20:35 Temp 98.4(O); tw5 20:29 provider notifed of drop in bp tw5 MDM: 14:26 Patient medically screened. kb 15:23 ED course: Severe sepsis criteria met [id number]. Source (A): pneumonia; SIRS criteria (B): kb HR, temp; End organ dysfunction (C): elevated bilirubin, lactate. Sepsis reevaluation complete.. 18:10 Data reviewed: vital signs, nurses notes. Data interpreted: Pulse oximetry: on room air kb is 95 %. Interpretation: normal. Physician consultation: Sung Love MD was called at 17:48, message left, awaiting callback. 18:57 Physician consultation: Sung Love MD was contacted at 18:58, regarding consult, kb patient's condition, and will see patient in inpatient room. 19:52 ED course: Severe sepsis with septic shock criteria met at 1952. MAP <65mmHg x2. Pt kb will be given 1000ml of IVF instead of the 30ml/kg due to concern for fluid overload.. 19:55 ED course: Sepsis reevaluation complete. kb 23:16 Counseling: I had a detailed discussion with the patient and/or guardian regarding: the kb historical points, exam findings, and any diagnostic results supporting the discharge/admit diagnosis, lab results, radiology results, the need for further work-up and treatment in the hospital. 11/30 14:27 Order name: Blood Culture Adult (2) kb 11/30 14:27 Order name: CBC with Diff; Complete Time: 17:30 kb 11/30 14:27 Order name: CMP; Complete Time: 18:16 kb 11/30 14:27 Order name: Lactate; Complete Time: 15:34 kb 11/30 14:27 Order name: Protime (+inr); Complete Time: 15:34 kb 11/30 14:27 Order name: Ptt, Activated; Complete Time: 15:34 kb 11/30 14:27 Order name: Chest Single View XRAY; Complete Time: 15:55 kb 11/30 14:27 Order name: COVID-19 SARS RT PCR (Document "Date of Onset" if Symptomatic); Complete kb Time: 16:01 11/30 14:27 Order name: Flu; Complete Time: 15:34 kb 11/30 14:59 Order name: Glucose, Ancillary Testing; Complete Time: 15:00 EDMS 11/30 17:12 Order name: CBC Smear Scan; Complete Time: 17:30 EDMS 11/30 18:03 Order name: BNP; Complete Time: 18:53 kb 11/30 18:05 Order name: Lactate Sepsis 2 HR Follow-up; Complete Time: 18:09 EDMS 11/30 14:27 Order name: Accucheck; Complete Time: 14:37 kb 11/30 14:27 Order name: Cardiac monitoring; Complete Time: 14:37 kb 11/30 14:27 Order name: EKG - Nurse/Tech; Complete Time: 14:46 kb 11/30 14:27 Order name: IV Saline Lock - Large Bore; Complete Time: 14:37 kb 11/30 14:27 Order name: Labs collected and sent; Complete Time: 14:46 kb 11/30 14:27 Order name: O2 Per Protocol; Complete Time: 14:37 kb 11/30 14:27 Order name: O2 Sat Monitoring; Complete Time: 14:37 kb 11/30 15:57 Order name: US Abdomen Limited; Complete Time: 17:30 kb 11/30 16:07 Order name: Abdomen ; Complete Time: 16:42 EDMS EC:40 Rate is 86 beats/min. Rhythm is irregularly irregular. QRS [place] is Normal. QRS interval kb is normal at 72 msec. QT interval is normal at 414 msec. Administered Medications: 14:37 Drug: Acetaminophen 1000 mg Route: PO; jl7 16:00 Follow up: Response: No adverse reaction; Temperature is decreased jl7 17:00 Drug: Rocephin (cefTRIAXone) 1 grams Route: IV; Rate: calculated rate; Site: right jl7 forearm; 17:05 Follow up: Response: No adverse reaction; IV Status: Completed infusion jl7 19:13 CANCELLED (Duplicate Order): NS 0.9% 500 ml IV at bolus once kb 19:52 Drug: NS 0.9% 1000 ml Route: IV; Rate: 1000 ml; Site: right forearm; as6 20:25 Drug: Zosyn (piperacillin-tazobactam) 3.375 grams Route: IVPB; Infused Over: 60 mins; tw5 Site: right forearm; Disposition Summary: 11/30/21 19:30 Hospitalization Ordered Hospitalization Status: Inpatient Admission kb Provider: Yuen, Tyler kb Condition: Stable kb Problem: new kb Symptoms: are unchanged kb Bed/Room Type: Standard kb Location: Intensive Care Unit(11/30/21 21:11) cg Room Assignment: 3-(11/30/21 21:11) cg Diagnosis - Acute cholecystitis kb - Abnormal results of liver function studies kb - Severe sepsis without septic shock kb - Pneumonia, unspecified organism kb Forms: - Medication Reconciliation Form kb - SBAR form kb Signatures: Dispatcher [employer] EDMS Gwendolyn Burgess, LEAD ATHLETE-C LEAD ATHLETE-CkNorma Andrews, RN RN iw Lakshmi Blackwell, RN RN Hermilo Heredia RN RN jl7 Laverne Montgomery tw5 Raudel Howard RN RN as6 Corrections: (The following items were deleted from the chart) 16:07 15:59 Abdomen Pelvis W Con+CT.RAD.BRZ ordered. EDMS EDMS 18:11 18:05 PROBNP+C.LAB.BRZ ordered. EDMS EDMS 18:15 18:12 NT PRO-BNP ordered. EDMS EDMS 19:13 19:13 NS 0.9% 500 ml IV at bolus once ordered. kb kb 21:11 19:30 Telemetry/MedSurg (Inpatient) kb cg 21:11 19:30 kb cg
[2021-11-30] MEDS ORDERED: NA CHLORIDE 0.9% 1,000 ML ONE (19:54)
[2021-11-30] MEDS ORDERED: NA CHLORIDE 0.9% 100 ML ONE (20:27)
[2021-11-30] MEDS ORDERED: PIPERACIL/TAZO 3.375 GM VIAL IV ONE (20:27)
--- NOTE | 2021-11-30 20:54 | P.HP ---
Certification for Inpatient Patient admitted to: Inpatient With expected LOS: >2 Midnights Patient will require the following post-hospital care: None Practitioner: I am a practitioner with admitting privileges, knowledge of patient current condition, hospital course, and medical plan of care. Services: Services provided to patient in accordance with Admission requirements found in Title 42 Section 412.3 of the Code of Federal Regulations Patient History Date of Service: 11/30/21 Reason for admission: Cholecystitis, Severe Sepsis History of Present Illness: Patient is an 86-year-old male with chronic A. fib on Eliquis, chronic diastolic CHF, and hypertension who presented to the ED via EMS with weakness and fever. Patient's daughter reports that patient started to fall secondary to weakness, but she caught him. She also reports that he has been vomiting and experiencing abdominal pain. Patient does report some RUQ abdominal pain. Initial vital signs with temp of 103.1F, HR 100, and 99% on 4L (patient requires 2L baseline). His labs were significant for Cr 1.67, tbili 2.6, AST 500, ALT 196, alk phos 453, lactic acid 2.7, BNP 3128. COVID and flu negative. Chest x-ray showed underinflated lungs with mild basilar lung infiltrate/atelectasis. Abdominal ultrasound showed gallbladder sludge, distention in the gallbladder with thickening and mild pericholecystic fluid. Abdominal CT showed nonspecific gallbladder distention, moderate stool throughout the colon with mild sigmoid diverticulosis coli present, and small bilateral pleural effusions. He was initially given rocephin for suspected pneumonia then given a dose of zosyn for cholecystitis. 2 hour repeat lactic acid came back at 1.2. General surgery and GI were notified and have agreed to consult. General surgery planning for intraoperative cholangiogram tomorrow. Patient meets criteria for severe sepsis but he does have CHF (with bilateral pleural effusions present) so he was only given 1L fluid bolus. His blood pressure slowly trended down throughout his ER stay, sustaining 90s/40s though that was before receiving any fluids. He is awake, alert, and answering questions appropriately. Patient is admitted for further evaluation and treatment. Allergies No Known Allergies Allergy (Verified 04/22/17 01:26) Home medications list reviewed: Yes Home Medications: Mirtazapine [Remeron*] 15 mg PO BEDTIME 03/09/21 Aspirin [Aspirin EC 81 MG] 81 mg PO DAILY #90 tablet. 03/10/21 Finasteride 5 mg PO DAILY #30 03/10/21 Tamsulosin [Flomax*] 0.4 mg PO BEDTIME #30 cap 03/10/21 Apixaban [Eliquis] 1 tab PO BID 08/20/21 Cholecalciferol (Vitamin D3) [Vitamin D 1000 Iu Tab*] 1,000 unit PO BID 08/20/21 Magnesium Oxide 1 tab PO DAILY 08/20/21 Melatonin 1 cap PO BEDTIME 08/20/21 Potassium Chloride 1 tab PO DAILY 08/20/21 Albuterol Neb [Proventil 0.083% Neb Soln] 2.5 mg NEB [id number] PRN amp 08/22/21 Apixaban [Eliquis] 5 mg PO BID tablet 08/22/21 Furosemide [Lasix] 40 mg PO BID #60 tablet 08/22/21 - Past Medical/Surgical History Diabetic: No -: BPH -: Hypertension -: Atrial fibrillation -: Hypertension -: Diastolic CHF -: Cardiac cath with 2 stents Psychosocial/ Personal History: Patient is a . - Family History Family History: Reviewed- Non-Contributory - Social History Smoking Status: Former smoker Alcohol use: No CD- Drugs: No Caffeine use: Yes Place of Residence: Home Review of Systems General: Fever, Weakness Respiratory: Cough Gastrointestinal: Nausea, Vomiting, Abdominal Pain Physical Examination - Physical Exam General: Alert, In no apparent distress HEENT: Atraumatic, PERRLA, EOMI, Sclerae nonicteric Neck: Supple, 2+ carotid pulse no bruit, No LAD, Without JVD or thyroid abnormality Respiratory: Crackles/rales Cardiovascular: Edema, Irregular heart rate/rhythm Gastrointestinal: Normal bowel sounds, Non-distended, No rebound, No guarding, Tenderness Musculoskeletal: No tenderness Integumentary: No rashes Neurological: Normal speech, Normal strength at 5/5 x4 extr, Normal tone, Normal affect - Studies Laboratory Data (last 24 hrs) 11/30/21 15:11: Sodium 135 L, Potassium 3.5, BUN 30 H, Creatinine 1.67 H, Glucose 115 H, Total Bilirubin 2.6 H, AST 500 H*, ALT 196 H, Alkaline Phosphatase 453 H 11/30/21 14:42: PT 13.2 H, INR 1.20, APTT 26.8 11/30/21 14:42: WBC 7.4, Hgb 9.7 L, Hct 28.3 L, Plt Count 218 Microbiology Data (last 24 hrs): 11/30/21 14:51 Nasopharnyx Influenza Type A Antigen Screen - Final 11/30/21 14:51 Nasopharnyx Influenza Type B Antigen Screen - Final Assessment and Plan - Problems (Diagnosis) (1) Acute cholecystitis without calculus Current Visit: Yes Status: Acute (2) Severe sepsis Current Visit: Yes Status: Acute (3) Atrial fibrillation Current Visit: Yes Status: Chronic Qualifiers: Atrial fibrillation type: paroxysmal Qualified Code(s): I48.0 - Paroxysmal atrial fibrillation (4) Congestive heart failure Current Visit: Yes Status: Chronic Qualifiers: Heart failure type: diastolic Heart failure chronicity: acute on chronic Qualified Code(s): I50.33 - Acute on chronic diastolic (congestive) heart failure - Plan Acute cholecystitis: Continue IV zosyn. Acute cholangitis is in differential given fever and elevated LFTs. Jaundice is not appreciated at this time. No gallstones noted on abdominal US or CT. CBD measuring appropriate size. General surgery planning for intraoperative cholangiogram tomorrow. Patient is NPO. Chronic afib: Patient is prescribed eliquis daily. He states that he doesn't think he has taken it for about a week because he had a nose bleed that took 3-4 hours to stop. Rate is controlled. Severe Sepsis: borderline septic shock. Monitor BP closely. 1L fluid bolus given in ED. 30ml/kg sepsis fluids not given as patient has history of CHF and with bilateral pleural effusions present. Albumin ordered x 1. Discussed possibility of vasopressor therapy via central line with patient if hypotension worsens and he states that he WOULD want that. He is otherwise DNR/DNI. Chronic diastolic CHF: Last echo with EF of 68%. Patient declined chavez catheter in ED. He received 1L fluid. Monitor intake and output closely. He takes lasix daily. Will continue if BP improves. Bilateral pleural effusions present. Code status: DNR DVT prophylaxis: Eliquis Discharge Plan: Home Plan to discharge in: Greater than 2 days - Advance Directives Does patient have a Living Will: No Does patient have a Durable POA for Healthcare: Yes - Code Status/Comfort Care Code Status Assessed: Yes (Full) Critical Care: No Time Spent Managing Pts Care (In Minutes): 50
[2021-11-30] MEDS ORDERED: ACETAMINOPHEN 325 MG TABLET PO PRN (22:10)
[2021-11-30] MEDS ORDERED: ALBUMIN HUMAN 25% 100 ML IV ONE (22:10)
[2021-12-01] MEDS ORDERED: NA CHLORIDE 0.9% 500 ML IV ONE (01:53)
[2021-12-01 04:22] LABS: Urine Blood Negative (Negative); Urine Clarity Clear (Clear); Urine Color Yellow (Yellow); Urine Glucose Negative (Negative); Urine Protein Negative (Negative)
[2021-12-01] MEDS: PIPER TAZO 3.375 GM in NA CHLORIDE 0.9% 100 ML IV SCH ×3 (04:24→20:07)
[2021-12-01 04:45] LABS: Urine Bilirubin 1+ (Negative)
[2021-12-01 05:26] LABS: Absolute Lymphocytes (CBC) 0.4 K/uL (0.7-4.9); Hematocrit 25.4 % (39.6-49.0); Lymphocytes % 3.6 % (15.3-44.8); MCV 95.3 fL (80-100); MPV 8.6 fL (7.6-11.3); RBC Red Blood Cell Count 2.67 M/uL (4.33-5.43)
[2021-12-01 05:45] LABS: Albumin 2.9 g/dL (3.4-5.0); Bilirubin Total 3.7 mg/dL (0.2-1.0); CKMB Creatine Kinase MB 1.4 ng/mL (1.0-3.6); Magnesium 2.4 mg/dL (1.8-2.4); Phosphorus 4.7 mg/dL (2.5-4.9); Potassium 3.6 mmol/L (3.5-5.1); Protein, Total 6.2 g/dL (6.4-8.2)
[2021-12-01 05:47] LABS: Troponin High Sensitivity 77.5 pg/mL (<58.9)
--- NOTE | 2021-12-01 05:53 | P.PN ---
Date of Service: 12/01/21 Subjective: Reports feeling better than yesterday Pain much improved Denies dizziness/lightheadedness, while laying in bed Alert/oriented ROS: 10 point ROS as noted above, otherwise negative Physical exam GEN: Alert, oriented, NAD HEENT: mild sclera icterus CV: Irregularly irregular rhythm, trace b/l pedal edema Pulm: Nonlabored respirations on 2L NC, diminished at bases bilaterally ABD: Soft, mild tenderness in RUQ, nondistended Neuro: Normal speech, normal affect Problem List Acute cholecystitis vs cholangitis Severe sepsis chronic afib chronic diastolic CHF RUQ Pain, mild jaundice, elevated Tbili, elevated LFTs, sludge on imaging, no obvious stone / bile duct distention; concern for acute cholangitis Continue Iv zosyn, f/u cultures did not receive full sepsis bolus due to h/o diastolic CHF, on chronic o2, with mild b/l pleural effusions, avoid overload start IVF @ 75ml/hr this morning monitor i/o, pt refused chavez GI and General surgery were consulted in ED patient may need MRCP/ERCP, possible intra-op cholangiogram BP is borderline, with MAPS 60-65. Son brought in paperwork that notes he is chronically around 100/50s. Pt without lethargy/somnolence. does appear fatigued pain improved currently not requiring pressors strict I/Os Code: DNR VTE: SCDs for possible surgery Dispo: possibly home, ~4 days; may need SNF Time Spent Managing Pts Care (In Minutes): 35
[2021-12-01] MEDS: ENOXAPARIN 40 MG/0.4 ML SQ SCH (08:07)
[2021-12-01] MEDS ORDERED: NA CHLORIDE 0.9% 250 ML IV ONE (08:11)
[2021-12-01] MEDS: Ringers Lactate 1,000 ML IV SCH ×2 (09:33→22:36)
[2021-12-01] MEDS: Levofloxacin500mg IV 500 MG/100 ML BAG IV SCH (11:31)
--- NOTE | 2021-12-01 14:48 | CON ---
Date of Consultation: 12/01/2021 Reason For Consultation: Acute cholecystitis with midepigastric pain with nausea, vomiting. History Of Present Illness: The patient is an 86-year-old white male with history of chronic atrial fibrillation on Eliquis, status post Watchman procedure with diastolic congestive heart failure, hype rtension. The patient presented to the hospital due to midepigastric pain, nausea, vomiting with diz ziness. Son present states the patient never goes to hospital or see physicians, is very hard to get him to come but actually he decided to come after the severity of his pain, nausea, and vomiting. T he patient states that he ate breakfast. The patient yesterday ate sausage and grits and then subseq uent to that, he started having nausea, vomiting, and some midepigastric pain, became dizzy as well. Son states that he has been having cold intolerance and chills over the past week. CT scan reveals nonspecific gallbladder wall thickening and some moderate stool throughout the colon and sigmoid dive rticulosis with small bilateral pleural effusions. Ultrasound revealed sludge in gallbladder with ga llbladder distention, mild gallbladder wall thickening, and mild pericholecystic fluid. The patient' s liver chemistries are elevated consistent with cholecystitis as well. The patient denies any melen a, hematochezia, hematemesis, coffee-ground emesis, hematuria, dysuria, polydipsia, chest pain, short ness of breath. He has had dizziness. Past Medical History: Significant for atrial fibrillation on Eliquis, chronic diastolic congestive h eart failure, hypertension, benign prostatic hypertrophy. He has had cardiac cath with [address] Allergies: NKDA. Home Medicines: Remeron, aspirin, finasteride, Flomax, Eliquis, vitamin D3, magnesium oxide, melaton in, potassium, Proventil, Eliquis, Lasix. Social History: The patient is a with 3 children. Son present at bedside. No tobacco. No alcohol. Family History: Father at 75. Mother at 93. Does not know other causes of . The mariano lyn states he was born in [place]. Review of Systems: The patient has midepigastric pain, nausea, vomiting, breakfast with dizziness. He has sellers d cold intolerance and chills over the past week. He denies any hematemesis, coffee-ground emesis, m wan, hematochezia, hematuria, dysuria, polydipsia, hemoptysis, epistaxis, or other bleeding. He sellers s had some presyncope, but has not passed out with loss of consciousness, though he felt like falling down he reports. The patient states he has lost significant weight, 30 pounds with COVID and by son 's report 100 pounds over the past few years altogether. Physical Examination: Vital Signs: The patient is 6 feet 4 inches, 174 pounds, BMI 23.4 kg/m2. He has a temperature of 96 .8 degrees Fahrenheit, pulse 51, respirations 14, blood pressure 103/43, O2 saturation 99% to 100%. General: He is an elderly male, lying in bed, in no acute distress. Somewhat chills and he has had some mild midepigastric pain he reports. HEENT: Normocephalic, atraumatic. Pupils equal, round, and reactive to light. Slightly icteric. M ild jaundice. Slightly icteric conjunctivae. Pupils are equal, round, and reactive to light. Extra ocular movements are intact. Oropharynx is clear. Neck: Supple. No masses. Respirations: Clear to auscultation bilaterally. Cardiac: Regular rate and rhythm. Gastrointestinal: Positive bowel sounds. They are hypoactive. Soft, nondistended. Pain in the mid epigastric and left upper quadrant greater than right upper quadrant with a positive Zheng sign. Extremities: No clubbing, cyanosis with some trace edema in the lower extremities. Neuro: The patient is alert and oriented x3. Able to move all extremities well. Data: The patient has a white count up from yesterday, 7.4 yesterday, today is 12.5; hemoglobin 9.0, down from 9.7 yesterday; hematocrit 25.4; MCV of 95; platelet count 151; polys of 90%; lymphocytes 4 %; monocytes 6%. PT of 13.2, INR of 1.2, PTT of 26.8. Sodium 136, potassium 3.6, chloride 102, bica rb 27, BUN of 32, creatinine of 1.79, glucose 97, calcium 8.5, phosphorus 4.7, magnesium 2.4, total b ilirubin 3.7, AST of 370, ALT of 202, alkaline phosphatase 359, creatine kinase 134, CK of 1.4. Trop onin I of 77.5, down from 94.2 yesterday. B-type natriuretic peptide of 3128. Total protein 6.2, al bumin 2.9. UA: Trace ketones, 1+ bilirubin, otherwise negative. COVID-[address] abdomen and pelvis revealed distended gallbladder, moderate amount of stool throughout colon. Ultra sound revealed sludge in gallbladder, distended gallbladder, gallbladder wall thickening, and mild pe richolecystic fluid. Common bile duct is normal at 5 mm. Impression: 1.Acute cholecystitis with elevated liver chemistries. CT scan revealed a distended gallbladder. U ltrasound revealed distended gallbladder, but also gallbladder sludge, gallbladder wall thickening __ , pericholecystic fluid, and normal 5 mm common bile duct. The patient states pain began aft er eating breakfast yesterday of egg, sausage, and grits with nausea, vomiting, epigastric pain, dizz iness, and mild jaundice it appears. 2.The patient also had cold intolerance and chills over the past week. 3.The patient has a recent history of COVID-19 pneumonia, lost 30 pounds with diet, but has lost shravan roximately 100 pounds over the past 4-5 years. Recommendations: 1.Continue IV fluids, IV antibiotics. We would add Levaquin to Zosyn in this patient with possible biliary tract infection and gallbladder infection. 2.Keep the patient n.p.o. 3.Agree with surgical consultation. 4.Monitor labs. FEDERICO/ALANA Voice ID: [id number] Report ID: [id number]
--- NOTE | 2021-12-01 17:48 | P.CNS ---
Date of Consult: 12/01/21 PC: This 86-year-old male presented to the emergency room after having an episode of weakness at the house. HPC: Patient apparently was feeling weak, and was not feeling well at home. Was brought to the emergency room. He is describes his pain as being severe last night in his upper part of his abdomen. Today he states the pain has lessened to a greater degree, but just is thirsty at the moment. PSHx: Cardiac cath with stents x2 PMHx: Coronary artery disease, atrial fibrillation, CHF Social Hx: No known allergies Sys R: Says he has been fatigued for the last couple of days. Mild shortness of breath. Has not noticed any heart racing. Just has not felt well. O/E: Awake alert stable at the moment HEENT: Not clinically jaundiced Chest: Chest movement equal bilaterally Abd: Abdomen is soft, no positive Zheng sign [place]: Intact Data: Elevated white cell count, bilirubin has slightly elevated today Impression: Patient presented with sepsis, possible cholangitis. Has been started on IV antibiotics with some clinical improvement. Plan: I had intended on taking the patient to the operating room today for a lap aman with an IOC. Patient clinically is improved despite the fact he has an elevation of his bilirubin today. He still is, I believe, behind on fluids. We will continue with IV fluids today. Make n.p.o. tonight. And depending on his clinical condition decide tomorrow whether a surgery is indicated. However responding well to nonsurgical management. May require an MRCP if does not go to surgery. Labs have been ordered for the a.m.
[2021-12-02] MEDS: PIPER TAZO 3.375 GM in NA CHLORIDE 0.9% 100 ML IV SCH ×3 (05:04→20:15)
[2021-12-02 05:09] LABS: Absolute Lymphocytes (CBC) 0.5 K/uL (0.7-4.9); Lymphocytes % 7.8 % (15.3-44.8); MCV 92.4 fL (80-100); MPV 8.7 fL (7.6-11.3)
[2021-12-02 05:32] LABS: Albumin 2.4 g/dL (3.4-5.0); Bilirubin Total 2.7 mg/dL (0.2-1.0); Magnesium 2.5 mg/dL (1.8-2.4); Potassium 3.5 mmol/L (3.5-5.1); Protein, Total 5.7 g/dL (6.4-8.2)
[2021-12-02] MEDS ORDERED: POTASSIUM CL SA 10 MEQ TAB PO ONE (09:00)
[2021-12-02] MEDS: ENOXAPARIN 40 MG/0.4 ML SQ SCH (09:28)
[2021-12-02] MEDS: Levofloxacin500mg IV 500 MG/100 ML BAG IV SCH (11:02)
[2021-12-02] MEDS: ONDANSETRON 4 MG/2 ML VIAL IV PRN ×2 (11:20→20:17)
--- NOTE | 2021-12-02 13:48 | EKG ---
Test Date: 2021-11-30 Test Time: 14:46:07 Maintenance Job Titles: CHRISTOPH MEASUREMENT RESULTS: Intervals: Rate: 86 ME: QRSD: 72 QT: 346 QTc: 414 [place]: P: ME: QRS: 19 T: -89 INTERPRETIVE STATEMENTS: Atrial fibrillation ST & T wave abnormality, consider inferior ischemia or digitalis effect Abnormal ECG Compared to ECG 08/20/2021 10:46:07 Possible ischemia now present Right-axis deviation no longer present ST (T wave) deviation still present Electronically Signed On 12-02-21 13:44:31 CDT by Jayesh Mejia
--- NOTE | 2021-12-02 17:45 | P.PN ---
Date of Service: 12/02/21 S: Patient states he feels little better, no abdominal pain today. O: Labs are slightly improved, abdomen is softer, white cell count has improved. Bilirubin has gone from 3.7 down to 2.7 A: Clinically the patient appears to be improving P: Continue current therapy, will follow along with serial exams and lab work. Discussed this with patient and family. They are comfortable without it for the moment.
[2021-12-02] MEDS: TAMSULOSIN 0.4 MG SR CAP PO SCH (20:17)
[2021-12-02] MEDS: MIRTAZAPINE 15 MG TAB PO SCH (20:17)
[2021-12-02] MEDS: FENTANYL CITR 100 MCG/2 ML IV PRN (20:18)
--- NOTE | 2021-12-02 22:22 | P.PN ---
Date of Service: 12/02/21 Subjective: feeling slightly better reports feeling some dizziness denies difficulty urinating no acute events overnight ROS: 10 point ROS as noted above, otherwise negative Physical exam GEN: Alert, oriented, NAD HEENT: normal conjunctiva, sclera anicteric CV: Irregularly irregular rhythm, 1+ pitting edema to knees bilaterally Pulm: Nonlabored respirations on 2L NC, diminished at bases bilaterally ABD: Soft, mild tenderness in RUQ, nondistended Neuro: Normal speech, normal affect Problem List Acute cholecystitis vs cholangitis Severe sepsis chronic afib chronic diastolic CHF RUQ Pain, mild jaundice, elevated Tbili, elevated LFTs, sludge on imaging, no obvious stone / bile duct distention; concern for acute cholangitis Continue IV zosyn, f/u cultures - Blood: GNR+ did not receive full sepsis bolus due to h/o diastolic CHF, on chronic o2, with mild b/l pleural effusions, avoid overload started IVF @ 75ml/hr 8/, with increased edema in lower extremities, BP stable/normal, resume CLD, dc IVF monitor i/o, pt refused chavez GI and General surgery were consulted in ED no MRCP given renal function, discussed with surgery, continue current treatment, repeat labs in AM BP was borderline on admission, with MAPS 60-65. Son brought in paperwork that notes he is chronically around 100/50s. Pt without lethargy/somnolence. does appear fatigued, some dizziness this morning pain improved strict I/Os Code: DNR VTE: SCDs for possible surgery Dispo: possibly home vs SNF, ~2-3 days Time Spent Managing Pts Care (In Minutes): 35
[2021-12-03] MEDS: PIPER TAZO 3.375 GM in NA CHLORIDE 0.9% 100 ML IV SCH ×2 (04:28→11:55)
[2021-12-03 05:03] LABS: Absolute Lymphocytes (CBC) 0.6 K/uL (0.7-4.9); Hematocrit 25.6 % (39.6-49.0); Lymphocytes % 11.8 % (15.3-44.8); MCV 95.9 fL (80-100); MPV 9.2 fL (7.6-11.3); RBC Red Blood Cell Count 2.67 M/uL (4.33-5.43)
[2021-12-03 05:22] LABS: Albumin 2.4 g/dL (3.4-5.0); Bilirubin Total 1.5 mg/dL (0.2-1.0); Magnesium 2.3 mg/dL (1.8-2.4); Phosphorus 2.8 mg/dL (2.5-4.9); Potassium 4.1 mmol/L (3.5-5.1); Protein, Total 5.9 g/dL (6.4-8.2)
[2021-12-03] MEDS: FINASTERIDE 5 MG TAB PO SCH (08:16)
[2021-12-03] MEDS: ENOXAPARIN 40 MG/0.4 ML SQ SCH (08:16)
[2021-12-03] MEDS: Meropenem 1,000 MG in NA CHLORIDE 0.9% 100 ML IV SCH ×2 (08:16→20:23)
--- NOTE | 2021-12-03 11:41 | P.PN ---
Subjective Date of Service: 12/03/21 Chief Complaint: Cholecystitis, Severe Sepsis Patient is complaining of dysuria. She denies any abdominal pain. Physical Examination - Vital Signs Temperature: 97.4 F Blood Pressure: 115/75 Pulse: 57 Respirations: 16 Pulse Ox (%): 100 - Studies Microbiology Data (last 24 hrs): 11/30/21 14:41 Blood - Blood Aerobic Blood Culture - Final Gram Neg Ori Escherichia Coli Esbl 11/30/21 14:41 Blood - Blood Blood Culture Gram Stain - Final 11/30/21 14:41 Blood - Blood Anaerobic Blood Culture - Final Escherichia Coli Esbl 11/30/21 14:41 Blood - Blood Gram Stain - Final 11/30/21 17:20 Blood - Blood Blood Culture Gram Stain - Final 11/30/21 17:20 Blood - Blood Anaerobic Blood Culture - Final Escherichia Coli Esbl 11/30/21 17:20 Blood - Blood Gram Stain - Final Assessment And Plan - Plan Physical exam GEN: Alert, oriented, NAD HEENT: normal conjunctiva, sclera anicteric CV: Irregularly irregular rhythm, 1+ pitting lower extremity edema. Pulm: Clear to auscultation bilaterally. ABD: Soft, nontender, nondistended Neuro: Normal speech, normal affect Problem List Acute cholecystitis vs cholangitis Severe sepsis chronic afib chronic diastolic CHF RUQ Pain, mild jaundice, elevated Tbili, elevated LFTs, sludge on imaging, no obvious stone / bile duct distention; concern for acute cholangitis Blood culture growing ESBL E. coli. Antibiotics switched to IV meropenem. IV fluid discontinued. Patient is tolerating clear liquid diet. monitor i/o, pt with BPH, refused chavez GI and General surgery are following. OLIVIER resolved. Will get MRCP BP was borderline on admission, with MAPS 60-65. Son brought in paperwork that notes he is chronically around 100/50s. pain improved PT to evaluate Code: DNR VTE: SCD Dispo: possibly home vs SNF, ~2-3 days
[2021-12-03] MEDS: FENTANYL CITR 100 MCG/2 ML IV PRN ×2 (12:41→18:32)
--- NOTE | 2021-12-03 14:46 | CON ---
History Of Present Illness: The patient is an 86-year-old male. Has been diagnosed with E coli bact eremia, which is ESBL. The patient has been switched to meropenem. Not a good historian, most of th e history was obtained through medical records and staff. The patient has enlarged prostate, on Flom ax. Denies any headache, nausea, vomiting, chest pain, abdominal pain, constipation, or diarrhea. Past Medical History: As per HPI. Social History: Nonsmoker, nondrinker. Family History: Noncontributory. Medications: Meropenem. See MAR for other medications. Allergies: NO KNOWN DRUG ALLERGIES. Review of Systems: A 10-point review was performed. Physical Examination: General: This is an 86-year-old male, lying in bed, not in any acute cardiopulmonary distress. Vital Signs: Temperature 97, pulse 57, respirations 16, blood pressure 115/75. HEENT: Unremarkable. Neck: Supple. Lungs: Basal crackles. Heart: S1, S2. Regular. Abdomen: Soft, nontender. Bowel sounds present. Extremity: No edema. Laboratory Data: Reviewed. Leukocytosis improving. Hemoglobin 8.6, platelets 129. Chemistry shows creatinine improved from 1.79 to 1.26. Albumin level is 2.4. Micro data shows blood cultures are p ositive for E coli ESBL. Urine is pending. Mild bibasilar infiltrate. Assessment And Plan: Escherichia coli ESBL bacteremia secondary to urinary tract infection with dysu jerome and increased frequency. Leukocytosis is improving. Continue meropenem for 14 days. Repeat blo od cultures in 48 hours. Pending urine cultures, we will follow the patient closely. Most likely so urce of infection is urinary tract infection. Continue antibiotic and supportive care. Thank you Dr. Kelly for consult. NF/MODL Voice ID: [id number] Report ID: [id number]
--- NOTE | 2021-12-03 19:35 | RAD REPORT ---
EXAM DESCRIPTION: MRI - Cholangiogram - 12/03/2021 7:04 pm CLINICAL HISTORY: Elevated LFT and bilirubin Abdominal pain COMPARISON: Abdomen Pelvis Wo Contrast dated 11/30/2021; Abdomen Exam Limited dated 11/30/2021 FINDINGS: Three-dimensional MRCP was performed using maximum intensity projection reconstruction on the same work station. No intrahepatic biliary tree dilatation is seen. Abrupt caliber change is seen involving the distal c ommon bile duct suspicious for distal common bile duct stone. The pancreatic duct is not pathological ly dilated. Gallbladder mildly distended surrounding pericholecystic fluid. Intraluminal rounded structure in the gallbladder could be a stone or sludge. Limited T2 sequences through the abdomen demonstrates no bulky adenopathy, significant free fluid or abscess. Small bilateral pleural effusions are seen. IMPRESSION: Findings suspicious for a distal common bile duct stone are present. ERCP could be obtai juan miguel for confirmation. Distended gallbladder is noted with mild pericholecystic fluid and suspicion for cholelithiasis/ gall bladder sludge.
[2021-12-03] MEDS: TAMSULOSIN 0.4 MG SR CAP PO SCH (20:23)
[2021-12-03] MEDS: MIRTAZAPINE 15 MG TAB PO SCH (20:25)
[2021-12-04 05:50] LABS: Absolute Lymphocytes (CBC) 0.8 K/uL (0.7-4.9); Lymphocytes % 14.3 % (15.3-44.8); MCV 96.4 fL (80-100); MPV 9.1 fL (7.6-11.3)
[2021-12-04 05:59] LABS: Albumin 2.3 g/dL (3.4-5.0); Bilirubin Total 1.1 mg/dL (0.2-1.0); Potassium 4.1 mmol/L (3.5-5.1); Protein, Total 5.7 g/dL (6.4-8.2)
[2021-12-04] MEDS: FINASTERIDE 5 MG TAB PO SCH (08:59)
[2021-12-04] MEDS: ENOXAPARIN 40 MG/0.4 ML SQ SCH (08:59)
[2021-12-04] MEDS: Meropenem 1,000 MG in NA CHLORIDE 0.9% 100 ML IV SCH ×2 (08:59→17:40)
--- NOTE | 2021-12-04 17:04 | PN ---
Subjective: Patient lying in bed. Daughter by the bedside. Patient denies any headache, nausea, vo miting, chest pain, abdominal pain, constipation, or diarrhea. Objective: Vital Signs: Temperature 97, pulse 88, respirations 18, blood pressure 111/46. Lungs: Basal crackles. Heart: S1, S2. Regular. Abdomen: Soft, nontender. Bowel sounds present. Extremities: No edema. Multiple areas of ecchymosis noted. : Salvador catheter bloody urine discoloration. Laboratory Data: WBC 5.9, hemoglobin 8.5, platelets 125. Assessment And Plan: Urosepsis with Escherichia coli extended spectrum beta-lactamase bacteremia sec ondary to Escherichia coli extended spectrum beta-lactamase, currently on meropenem. Hematuria, thro mbocytopenia. Continue IV antibiotic for a total of 2 weeks after the negative blood cultures. We w ill follow patient closely. Consider fci for patient. NF/MODL Voice ID: [id number] Report ID: [id number]
--- NOTE | 2021-12-04 17:33 | P.PN ---
Subjective Date of Service: 12/04/21 Chief Complaint: Cholecystitis, Severe Sepsis Patient states he feels much better today. He had trouble voiding last night. Salvador catheter inserted which drained dark-colored urine. He denies any abdominal pain. No recorded fever. Physical Examination - Vital Signs Temperature: 97.4 F Blood Pressure: 115/75 Pulse: 57 Respirations: 16 Pulse Ox (%): 100 Assessment And Plan - Plan Physical exam GEN: Alert, oriented, NAD HEENT: normal conjunctiva, sclera anicteric CV: Irregularly irregular rhythm, 1+ pitting lower extremity edema. Pulm: Clear to auscultation bilaterally. ABD: Soft, nontender, nondistended Neuro: Normal speech, normal affect. Urogenital: Salvador catheter Problem List Acute cholecystitis vs cholangitis Severe sepsis chronic afib chronic diastolic CHF RUQ Pain, mild jaundice, elevated Tbili, elevated LFTs, sludge on imaging, no obvious stone / bile duct distention; concern for acute cholangitis Blood culture grew ESBL E. coli. Repeat blood culture shows no growth. Antibiotics switched to IV meropenem. IV fluid discontinued. Patient is tolerating clear liquid diet. monitor i/o, pt with BPH. He had trouble urinating. Now has Salvador catheter in place. Continue Flomax. Urine culture is pending. Infectious disease recommend 2 weeks of IV meropenem after negative blood culture. GI and General surgery are following. MRCP results reviewed and reporting possible CBD stone. GI-Dr. Gonzalez informed to follow-up with patient. Liver enzymes have trended down significantly. ALT has normalized, AST and total bilirubin almost down to normal. Alkaline phosphatase remains elevated OLIVIER resolved. BP was borderline on admission, with MAPS 60-65. Son brought in paperwork that notes he is chronically around 100/50s. pain improved PT Code: DNR VTE: SCD Dispo: Possibly residential for prolonged IV antibiotic therapy.
[2021-12-04] MEDS: MIRTAZAPINE 15 MG TAB PO SCH (20:35)
[2021-12-04] MEDS: TAMSULOSIN 0.4 MG SR CAP PO SCH (20:35)
[2021-12-05] MEDS: Meropenem 1,000 MG in NA CHLORIDE 0.9% 100 ML IV SCH ×4 (01:49→23:59)
[2021-12-05 06:06] LABS: Absolute Lymphocytes (CBC) 0.9 K/uL (0.7-4.9); Hematocrit 26.1 % (39.6-49.0); Lymphocytes % 16.6 % (15.3-44.8); MCV 94.4 fL (80-100); MPV 8.5 fL (7.6-11.3); RBC Red Blood Cell Count 2.76 M/uL (4.33-5.43)
[2021-12-05 06:20] LABS: Albumin 2.3 g/dL (3.4-5.0); Potassium 4.3 mmol/L (3.5-5.1); Protein, Total 5.9 g/dL (6.4-8.2)
[2021-12-05] MEDS: FINASTERIDE 5 MG TAB PO SCH (09:26)
--- NOTE | 2021-12-05 14:48 | P.PN ---
Subjective Date of Service: 12/05/21 Chief Complaint: Cholecystitis, Severe Sepsis Patient has no new complaint today. Urine color has improved, more straw-colored. He denies any abdominal pain. No recorded fever. Physical Examination - Vital Signs Temperature: 98.0 F Blood Pressure: 115/58 Pulse: 80 Respirations: 16 Pulse Ox (%): 97 Assessment And Plan - Plan Physical exam GEN: Alert, oriented, NAD HEENT: normal conjunctiva, sclera anicteric CV: Irregularly irregular rhythm, 1+ pitting lower extremity edema. Pulm: Clear to auscultation bilaterally. ABD: Soft, nontender, nondistended Neuro: Normal speech, normal affect. Urogenital: Salvador catheter Problem List Acute cholecystitis vs cholangitis Severe sepsis chronic afib chronic diastolic CHF RUQ Pain, mild jaundice, elevated Tbili, elevated LFTs, sludge on imaging, no obvious stone / bile duct distention; concern for acute cholangitis Blood culture grew ESBL E. coli. Repeat blood culture shows no growth. Antibiotics switched to IV meropenem. IV fluid discontinued. Patient is tolerating clear liquid diet. monitor i/o, pt with BPH. He had trouble urinating. Now has Salvador catheter in place. Continue Flomax. Urine culture: No growth. Infectious disease recommend 2 weeks of IV meropenem after negative blood culture. PICC line requested for outpatient IV antibiotics. GI and General surgery are following. MRCP results reviewed and reporting possible CBD stone. GI-Dr. Gonzalez informed and he is planning ERCP tomorrow. Liver enzymes have trended down significantly. OLIVIER resolved. Patient with chronic soft blood pressure. PT Code: DNR VTE: SCD Dispo: Possibly detention for prolonged IV antibiotic therapy.
--- NOTE | 2021-12-05 16:05 | RAD REPORT ---
EXAM DESCRIPTION: RAD - Chest Single View - 12/05/2021 3:51 pm CLINICAL HISTORY: PICC line placement COMPARISON: Chest Single View dated 11/30/2021; Chest Single View dated 08/20/2021; Chest Single View d ated 03/10/2021; Chest Single View dated 03/09/2021 FINDINGS: Portable chest was obtained following placement of a right upper extremity PICC line. The catheter tip projects over the SVC.
[2021-12-05] MEDS: TAMSULOSIN 0.4 MG SR CAP PO SCH (20:49)
[2021-12-05] MEDS: MIRTAZAPINE 15 MG TAB PO SCH (20:49)
[2021-12-06 03:58] LABS: Hematocrit 26.6 % (39.6-49.0); Lymphocytes % 19.5 % (15.3-44.8); MCV 94.8 fL (80-100); MPV 8.7 fL (7.6-11.3); RBC Red Blood Cell Count 2.81 M/uL (4.33-5.43)
[2021-12-06 04:17] LABS: Albumin 2.2 g/dL (3.4-5.0); Bilirubin Total 0.9 mg/dL (0.2-1.0); Potassium 4.3 mmol/L (3.5-5.1); Protein, Total 5.8 g/dL (6.4-8.2)
[2021-12-06] MEDS: FINASTERIDE 5 MG TAB PO SCH (07:57)
[2021-12-06] MEDS: Meropenem 1,000 MG in NA CHLORIDE 0.9% 100 ML IV SCH ×2 (07:57→18:27)
[2021-12-06] MEDS: ENOXAPARIN 40 MG/0.4 ML SQ SCH (07:57)
[2021-12-06] MEDS: D5 0.9 NS 1,000 ML IV SCH (11:50)
[2021-12-06] MEDS ORDERED: Ringers Lactate 1,000 ML IV ONE (14:44)
--- NOTE | 2021-12-06 15:06 | P.PN ---
Subjective Date of Service: 12/06/21 Chief Complaint: Cholecystitis, Severe Sepsis Patient appears to be more drowsy today. He states that he did not sleep well last night. Urine color is clear He denies any abdominal pain. No recorded fever. He is n.p.o. for possible ERCP today. Physical Examination - Vital Signs Temperature: 98.0 F Blood Pressure: 116/59 Pulse: 78 Respirations: 18 Pulse Ox (%): 100 Assessment And Plan - Plan Physical exam GEN: Alert, oriented, NAD HEENT: normal conjunctiva, sclera anicteric CV: Irregularly irregular rhythm, 1+ pitting lower extremity edema. Pulm: Clear to auscultation bilaterally. ABD: Soft, nontender, nondistended Neuro: Normal speech, normal affect. Urogenital: Salvador catheter Problem List Acute cholecystitis vs cholangitis Severe sepsis chronic afib chronic diastolic CHF RUQ Pain, mild jaundice, elevated Tbili, elevated LFTs, sludge on imaging, no obvious stone / bile duct distention; concern for acute cholangitis Blood culture grew ESBL E. coli. Repeat blood culture shows no growth. Antibiotics switched to IV meropenem. Pt with BPH. He had trouble urinating. Now has Salvador catheter in place. Urine is clear. Continue Flomax. Urine culture: No growth. Infectious disease recommend 2 weeks of IV meropenem after negative blood culture. PICC line placed for outpatient IV antibiotics. GI and General surgery are following. MRCP results reviewed and reporting possible CBD stone. GI-Dr. Gonzalez evaluated patient. Possible ERCP today. Patient is n.p.o.. Start IV fluid Liver enzymes continue to trend down. AST ALT and bilirubin levels have normalized. Alkaline phosphatase is mildly elevated. OLIVIER resolved. Patient with chronic soft blood pressure. Continue PT. Code: DNR VTE: SCD Dispo: [facility]
[2021-12-06] MEDS ORDERED: propofoL 200 MG/20 ML VIAL IV ONE ×2 (15:24)
[2021-12-06] MEDS ORDERED: LIDOCAINE 1% MPF 5 ML VIAL ONE (15:24)
[2021-12-06] MEDS ORDERED: GLUCAGON 1 MG/VIAL ONE (15:28)
[2021-12-06] MEDS ORDERED: GENTAMICIN SULF 80 MG/2ML INJ ONE (15:28)
--- NOTE | 2021-12-06 16:21 | PN ---
Subjective: The patient is lying in bed. Family by the bedside, awaiting ERCP procedure. Denies an y discomfort except nasal dryness secondary to nasal cannula. Objective: Vital Signs: Temperature 97.8, pulse 67, respirations 14, blood pressure 127/53. Lungs: Basal crackles. Heart: S1, S2. Regular. Abdomen: Soft, nontender. Bowel sounds present. Extremities: No edema. Laboratory Data: Shows WBC 5.3, hemoglobin 9, platelets 153. Chemistry shows BUN is 9, creatinine 0 .8, glucose 85. Albumin level is 2.2. Blood cultures from 12/03 are negative. Assessment And Plan: ESBL E. coli bacteremia and PICC line in place. Awaiting ERCP for acute cholec ystitis versus cholangitis. Sepsis improving. Consider starting IV fluids. We will follow the reagan ent as needed. NF/MODL Voice ID: [id number] Report ID: [id number]
[2021-12-06] MEDS ORDERED: ALBUTEROL 2.5 MG/3 ML NEB SOL ONE (16:46)
--- NOTE | 2021-12-06 16:48 | ENDO RPT ---
[address], [address] ERCP PROCEDURE REPORT EXAM DATE: 12/06/2021 PATIENT NAME: Cy Bill MR #: [id number] BIRTHDATE: 1935 ATTENDING: Rishi Gonzalez Dr STATUS: inpatient - 7 PAPER TESTER: Jaylyn Park RN INDICATIONS: The patient is a 86 yr old Male here for an ERCP due to suspected stone, abnormal imaging, abdominal pain, abnormal Liver Function Tests, and jaundice PROCEDURE PERFORMED: ERCP with sphincterotomy MEDICATIONS: Per Anesthesia. CONSENT: The patient understands the risks and benefits of the procedure and understands that these risks include, but are not limited to: sedation, allergic reaction, infection, perforation and/or bleeding. Alternative means of evaluation and treatment include, among others: physical exam, x-rays, and/or surgical intervention. The patient elects to proceed with this endoscopic procedure. DESCRIPTION OF PROCEDURE: During intra-op preparation period all mechanical medical equipment was checked for proper function. Hand hygiene and appropriate measures for infection prevention was taken. Procedure, possible complications, and alternatives including but not limited to the possibility of bleeding, perforation, tear, infection, sepsis, need for surgery, need for blood transfusion, and anesthesia related complications were explained to the patient. In addition, 5-30% incidence of acute pancreatitis as a result of ERCP were explained. After the risks, benefits and alternatives of the procedure were thoroughly explained, Informed was verified, confirmed and timeout was successfully executed by the treatment team. With the patient in left semi-prone position, medications were administered intravenously.The [id number] ([id number]) was passed from the mouth into the esophagus and further advanced from the esophagus into the stomach. From stomach scope was directed to the second portion of the duodenum. Major papilla was aligned with the duodenoscope. The scope position was confirmed fluoroscopically. Rest of the findings/therapeutics are given below. The scope was then completely withdrawn from the patient and the procedure completed. The pulse, BP, and O2 saturation were monitored and documented by the physician and the nursing staff throughout the entire procedure. The patient was cared for as planned according to standard protocol. The patient was then discharged to recovery in stable condition and with appropriate post procedure care. cannulaton, patient acutely experienced desaturation to 60% with history of severe COPD; anesthesia decided to terminate procedure and start use of Ambu-bag use, but sphincterotomy performed before termination. Sphincterotomy was performed with a regular 20 mm papillotome. Mild dilatation (6 mm) was found in the head of the pancreatic duct (proximal 1.5 cm). ADVERSE EVENT: acute desaturation to 60% O2 saturation when bile duct cannulated (history of severe COPD). Ambu-bag resusciation started by anesthesia and case terminated. But sphincterotomy performed just before termination. cannulaton, patient acutely experienced desaturation to 60% with history of severe COPD; anesthesia decided to terminate procedure and start use of Ambu-bag use, but sphincterotomy performed before termination. Sphincterotomy was performed with a regular 20 mm papillotome 2. Mild dilatation (6 mm) in the head of the pancreatic duct (proximal 1.5 cm) RECOMMENDATIONS: 1. continue IV antibiotics 2. monitor labs REPEAT EXAM: Rishi Gonzalez Dr eSigned: Rishi Gonzalez Dr 12/06/2021 4:47 PM cc: CPT CODES: ICD9 CODES: PATIENT NAME: Cy Bill MR#: [id number]
--- NOTE | 2021-12-06 17:11 | RAD REPORT ---
EXAM DESCRIPTION: RAD - Fluoroscopy ERCP - 12/06/2021 4:46 pm FINDINGS: There were 3 portable C-arm views submitted from fluoroscopic assisted ERCP. No suspicious or unexpected finding seen. Assessment is limited when only selected images are availab le. Fluoro time was 3 minutes 53 seconds
[2021-12-06] MEDS: TAMSULOSIN 0.4 MG SR CAP PO SCH (21:26)
[2021-12-06] MEDS: MIRTAZAPINE 15 MG TAB PO SCH (21:26)
[2021-12-07] MEDS: Meropenem 1,000 MG in NA CHLORIDE 0.9% 100 ML IV SCH ×3 (01:04→16:20)
[2021-12-07] MEDS: D5 0.9 NS 1,000 ML IV SCH ×2 (05:40→13:58)
[2021-12-07] MEDS: FINASTERIDE 5 MG TAB PO SCH (07:49)
--- NOTE | 2021-12-07 13:56 | P.PN ---
Subjective Date of Service: 12/07/21 Chief Complaint: Cholecystitis, Severe Sepsis Patient is awake and alert and states he is hungry and wants to eat. He walked with physical therapy yesterday. Per report, patient was hypoxic during the ERCP yesterday and the procedure was terminated. Sphincterotomy was done Physical Examination - Vital Signs Temperature: 97.4 F Blood Pressure: 141/52 Pulse: 58 Respirations: 14 Pulse Ox (%): 97 Assessment And Plan - Plan Physical exam GEN: Alert, oriented, NAD HEENT: normal conjunctiva, sclera anicteric CV: Irregularly irregular rhythm, 1+ pitting lower extremity edema. Pulm: Clear to auscultation bilaterally. ABD: Soft, nontender, nondistended Neuro: Normal speech, normal affect. Urogenital: Salvador catheter Problem List Acute cholecystitis vs cholangitis Severe sepsis chronic afib chronic diastolic CHF Acute on chronic respiratory failure with hypoxia. RUQ Pain, mild jaundice, elevated Tbili, elevated LFTs, sludge on imaging, no obvious stone / bile duct distention; concern for acute cholangitis Blood culture grew ESBL E. coli. Repeat blood culture shows no growth. Antibiotics switched to IV meropenem. Pt with BPH. He had trouble urinating. Now has Salvador catheter in place. Urine is clear. Continue Flomax. Urine culture: No growth. Infectious disease recommend 2 weeks of IV meropenem after negative blood culture. PICC line placed for outpatient IV antibiotics. GI and General surgery are following. MRCP results reviewed and reporting possible CBD stone. GI-Dr. Gonzalez input appreciated. ERCP attempted yesterday and sphincterotomy done. May need repeat exam. Start clear liquid diet and advance as tolerated. Liver enzymes continue to trend down. AST ALT and bilirubin levels have normalized. Alkaline phosphatase is mildly elevated. Continue to trend LFT. OLIVIER resolved. Patient with chronic soft blood pressure. Continue PT. Code: DNR VTE: SCD Dispo: SNF
[2021-12-07] MEDS: TAMSULOSIN 0.4 MG SR CAP PO SCH (20:37)
[2021-12-07] MEDS: MIRTAZAPINE 15 MG TAB PO SCH (20:38)
[2021-12-08] MEDS: Meropenem 1,000 MG in NA CHLORIDE 0.9% 100 ML IV SCH ×3 (00:27→17:56)
[2021-12-08] MEDS: D5 0.9 NS 1,000 ML IV SCH (02:58)
[2021-12-08] MEDS: GUAIFENESIN 600 MG SA TAB PO PRN ×2 (05:22→20:21)
[2021-12-08 06:36] LABS: Absolute Lymphocytes (CBC) 0.9 K/uL (0.7-4.9); Hematocrit 25.9 % (39.6-49.0); Lymphocytes % 19.3 % (15.3-44.8); MCV 96.2 fL (80-100); MPV 8.6 fL (7.6-11.3); RBC Red Blood Cell Count 2.69 M/uL (4.33-5.43)
[2021-12-08 06:49] LABS: Albumin 2.2 g/dL (3.4-5.0); Bilirubin Direct 0.4 mg/dL (0-0.2); Bilirubin Total 0.9 mg/dL (0.2-1.0); Potassium 4.3 mmol/L (3.5-5.1); Protein, Total 5.6 g/dL (6.4-8.2)
[2021-12-08] MEDS: FINASTERIDE 5 MG TAB PO SCH (09:02)
--- NOTE | 2021-12-08 14:12 | P.PN ---
Subjective Date of Service: 12/08/21 Chief Complaint: Cholecystitis, Severe Sepsis Patient has no complaint. He wants his diet advised. He is ambulating with physical therapy. Physical Examination - Vital Signs Temperature: 98.2 F Blood Pressure: 131/56 Pulse: 66 Respirations: 14 Pulse Ox (%): 98 Assessment And Plan - Plan Physical exam GEN: Alert, oriented, NAD HEENT: normal conjunctiva, sclera anicteric CV: Irregularly irregular rhythm, 1+ pitting lower extremity edema. Pulm: Clear to auscultation bilaterally. ABD: Soft, nontender, nondistended Neuro: Normal speech, normal affect. Urogenital: Salvador catheter Problem List Acute cholecystitis vs cholangitis Severe sepsis chronic afib chronic diastolic CHF Acute on chronic respiratory failure with hypoxia. Gallbladder sludge. No obvious stone / bile duct distention; there was concern for acute cholangitis given fever. Blood culture grew ESBL E. coli. Repeat blood culture shows no growth. Patient initially on Zosyn and Levaquin. Antibiotics changed to IV meropenem for ESBL E. coli. Pt with BPH. He had trouble urinating. Now has Salvador catheter in place. Urine is clear. Continue Flomax. Voiding trial in 2 weeks. Follow-up with urology as outpatient. Urine culture: No growth. Infectious disease recommend 2 weeks of IV meropenem after negative blood culture. PICC line placed for outpatient IV antibiotics. GI and General surgery are following. MRCP results reviewed and it reported possible CBD stone. Seen by GI-Dr. Gonzalez.. ERCP attempted and sphincterotomy done. Procedure was terminated because patient became hypoxic and had to be bagged. May need repeat exam per Dr. Gonzalez. Patient tolerated clear liquid diet. Advance diet as tolerated AST ALT and bilirubin levels have normalized. Alkaline phosphatase is mildly elevated. Continue to trend LFT. OLIVIER resolved. Patient with chronic soft blood pressure. Continue PT. Code: DNR VTE: SCD Dispo: Patient is weighing the option of going home with home health rather than skilled rehab placement. Social service to follow and assist with disposition.
--- NOTE | 2021-12-08 15:38 | P.PN ---
Subjective Date of Service: 12/08/21 Chief Complaint: Cholecystitis, Severe Sepsis, jaundice, JOCELIN pain, N/V Subjective: Improving (No complaints today. Ate solid food and enjoyed it, he and daughter report. S/p ERCP 2 days ago with acute desat to 60% and call by anesthesia to start Ambu-bag ventilation with termination of procedure, but cannulation of CBD just achieved with desat and urgent sphincterotomy performed before ter) Review of Systems 10-point ROS is otherwise unremarkable General: Weakness (Improved.) Physical Examination - Vital Signs Temperature: 98.2 F Blood Pressure: 131/56 Pulse: 66 Respirations: 14 Pulse Ox (%): 98 - Physical Exam General: Alert, In no apparent distress, Oriented x3, Cooperative HEENT: Atraumatic, Normocephalic, PERRLA, EOMI Neck: Supple Respiratory: Diminished Cardiovascular: Normal pulses, Regular rate/rhythm Gastrointestinal: Soft and benign, No tenderness, No rebound, No guarding Neurological: Normal speech Assessment And Plan - Current Problems (Diagnosis) (1) Jaundice Current Visit: Yes Status: Acute (2) Epigastric abdominal pain Current Visit: Yes Status: Acute (3) Nausea & vomiting Current Visit: Yes Status: Acute (4) COPD (chronic obstructive pulmonary disease) Current Visit: Yes Status: Acute (5) Cholelithiasis and acute cholecystitis with obstruction Current Visit: Yes Status: Acute Comment: patient deemed to weak with pneumonia, severe COPD, CHF, to undergo surgery. (6) Choledocholithiasis with acute cholecystitis Current Visit: Yes Status: Acute Comment: s/p ERCP with ERS (just as desat to 60% with Ambu-bag ventilation started) (7) Severe sepsis Current Visit: Yes Status: Acute (8) Congestive heart failure Current Visit: Yes Status: Chronic Qualifiers: Heart failure type: diastolic Heart failure chronicity: acute on chronic Qualified Code(s): I50.33 - Acute on chronic diastolic (congestive) heart failure - Plan REC: 1) monitor labs 2) okay to discharge from GI standpoint 3) GI clinic f/u in 2-3 weeks
[2021-12-08] MEDS: TAMSULOSIN 0.4 MG SR CAP PO SCH (20:21)
[2021-12-08] MEDS: MELATONIN 5 MG TABLET PO SCH (20:21)
[2021-12-08] MEDS: VITAMIN D 1000 UNIT TAB PO SCH (20:21)
[2021-12-08] MEDS: MIRTAZAPINE 15 MG TAB PO SCH (20:21)
[2021-12-08] MEDS ORDERED: HOME MED 1 EA UNK (Melatonin [Melatonin] 10 MG Capsule) PO SCH (21:00)
[2021-12-09] MEDS: D5 0.9 NS 1,000 ML IV SCH (01:16)
[2021-12-09] MEDS: Meropenem 1,000 MG in NA CHLORIDE 0.9% 100 ML IV SCH ×3 (01:16→16:03)
[2021-12-09 05:27] VITALS: BMI 25.2
[2021-12-09 06:31] LABS: Absolute Lymphocytes (CBC) 0.8 K/uL (0.7-4.9); Hematocrit 25.9 % (39.6-49.0); Lymphocytes % 13.9 % (15.3-44.8); MCV 96.3 fL (80-100); MPV 7.7 fL (7.6-11.3); RBC Red Blood Cell Count 2.69 M/uL (4.33-5.43)
[2021-12-09 06:59] LABS: Albumin 2.1 g/dL (3.4-5.0); Bilirubin Total 0.8 mg/dL (0.2-1.0); Potassium 4.2 mmol/L (3.5-5.1); Protein, Total 5.4 g/dL (6.4-8.2)
[2021-12-09] MEDS ORDERED: MAGNESIUM OXIDE 420 MG PO SCH (09:00)
[2021-12-09] MEDS: ASPIRIN EC 81 MG TAB PO SCH (09:29)
[2021-12-09] MEDS: VITAMIN D 1000 UNIT TAB PO SCH ×2 (09:30→20:26)
[2021-12-09] MEDS: MAGNESIUM OXIDE 400 MG TAB PO SCH (09:30)
[2021-12-09] MEDS: FINASTERIDE 5 MG TAB PO SCH (09:30)
[2021-12-09] MEDS ORDERED: ALBUTEROL 2.5 MG/3 ML NEB SOL ONE (10:14)
[2021-12-09] MEDS ORDERED: ALBUTEROL 2.5 MG/3 ML NEB SOL NEB PRN (14:35)
--- NOTE | 2021-12-09 14:56 | P.DS ---
Admission Date: 11/30/21 Discharge Date: 12/09/21 Disposition: TRANSFER TO SNF - REHAB Discharge Condition: FAIR Reason for Admission: Cholecystitis, Severe Sepsis, jaundice, JOCELIN pain, N/V Brief History of Present Illness: Patient is an 86-year-old male with chronic A. fib on Eliquis, chronic diastolic CHF, and hypertension who presented to the ED via EMS with weakness and fever. Patient's daughter reported that patient developed weakness to the point that he almost fell. She also reported that he was vomiting and experiencing abdominal pain. Initial vital signs with temp of 103.1F, HR 100, and 99% on 4L (patient requires 2L baseline). His labs were significant for Cr 1.67, tbili 2.6, AST 500, ALT 196, alk phos 453, lactic acid 2.7, BNP 3128. COVID and flu negative. Chest x-ray showed underinflated lungs with mild basilar lung infiltrate/atelectasis. Abdominal ultrasound showed gallbladder sludge, distention in the gallbladder with thickening and mild pericholecystic fluid. Abdominal CT showed nonspecific gallbladder distention, moderate stool throughout the colon with mild sigmoid diverticulosis coli present, and small bilateral pleural effusions. He was initially given rocephin for suspected pneumonia then given a dose of zosyn for cholecystitis. 2 hour repeat lactic acid came back at 1.2. General surgery and GI were notified and agreed to consult. Patient meets criteria for severe sepsis but he does have CHF (with bilateral pleural effusions present) so he was only given 1L fluid bolus. His blood pressure slowly trended down throughout his ER stay, sustaining 90s/40s. Patient was admitted for further management. Hospital Course: Problem List Acute cholecystitis vs cholangitis Severe sepsis chronic afib chronic diastolic CHF Acute on chronic respiratory failure with hypoxia. COPD exacerbation Patient admitted admitted to the ICU and treated aggressively with IV antibiotics for severe sepsis RUQ Pain, mild jaundice, elevated Tbili, elevated LFTs, sludge on imaging, no obvious stone / bile duct distention; concern for acute cholangitis Blood culture grew ESBL E. coli. Repeat blood culture shows no growth. Antibiotics switched to IV meropenem to treat ESBL E. coli. Patient seen by general surgery-Dr. Love and GI-Dr. Gonzalez who recommended medical management and aggressive treatment for the sepsis and MRCP. MRCP was delayed due to acute renal failure. Pt with BPH. He had trouble urinating. He initially declined Chavez catheter placement but later agreed to it. Chavez catheter was placed, urine was initially dark-colored but later cleared to cassidy color. Continued Flomax and finasteride. Urine culture: No growth. Infectious disease recommend 2 weeks of IV meropenem after negative blood culture. PICC line placed for outpatient IV antibiotics. MRCP was done after OLIVIER resolved and it reported abrupt caliber change in the distal common bile duct suspicious for distal common bile duct stone. Patient reevaluated by Dr. Gonzalez, ERCP done and sphincterotomy done. ERCP was incomplete because patient became hypoxic during the procedure and it was terminated. Liver enzymes continue to trend down. AST ALT and bilirubin levels have normalized. Alkaline phosphatase is mildly elevated. Patient tolerated diet, now eating soft diet. OLIVIER resolved. Patient with chronic soft blood pressure. He experienced COPD exacerbation with wheezing. He was also requiring 1 to 2 L oxygen by nasal cannula. Patient was treated with inhalers and nebulizers Patient clinically improved. Deemed stable for discharge to skilled rehab. Vital Signs/Physical Exam: Temp Pulse Resp BP Pulse Ox 98 F 56 16 134/51 L 99 12/09/21 11:46 12/09/21 11:46 12/09/21 11:46 12/09/21 11:46 12/09/21 11:46 General: Alert, In no apparent distress, Oriented x3 HEENT: Mucous membr. moist/pink Neck: JVD not distended Respiratory: Clear to auscultation bilaterally, Normal air movement Cardiovascular: No edema, Regular rate/rhythm, Normal S1 S2 Gastrointestinal: Normal bowel sounds, Soft and benign, Non-distended Musculoskeletal: No swelling Neurological: Normal strength at 5/5 x4 extr Laboratory Data at Discharge: WBC 5.4 K/uL (4.3-10.9) 12/09/21 06:05 Hgb 8.7 g/dL (13.6-17.9) L 12/09/21 06:05 Hct 25.9 % (39.6-49.0) L 12/09/21 06:05 Plt Count 186 K/uL (152-406) D 12/09/21 06:05 PT 13.2 SECONDS (9.5-12.5) H 11/30/21 14:42 INR 1.20 11/30/21 14:42 APTT 26.8 SECONDS (24.3-36.9) 11/30/21 14:42 Sodium 140 mmol/L (136-145) 12/09/21 06:05 Potassium 4.2 mmol/L (3.5-5.1) 12/09/21 06:05 BUN 7 mg/dL (7-18) 12/09/21 06:05 Creatinine 0.69 mg/dL (0.55-1.3) 12/09/21 06:05 Glucose 106 mg/dL (74-106) 12/09/21 06:05 Phosphorus 2.8 mg/dL (2.5-4.9) 12/03/21 04:37 Magnesium 2.3 mg/dL (1.8-2.4) 12/03/21 04:37 Total Bilirubin 0.8 mg/dL (0.2-1.0) 12/09/21 06:05 AST 47 U/L (15-37) H 12/09/21 06:05 ALT 37 U/L (12-78) 12/09/21 06:05 Alkaline Phosphatase 295 U/L (45-117) H 12/09/21 06:05 Lipase 49 U/L (73-393) L 12/08/21 06:09 Home Medications: Mirtazapine [Remeron*] 15 mg PO BEDTIME 03/09/21 Aspirin [Aspirin EC 81 MG] 81 mg PO DAILY #90 tablet. 03/10/21 Finasteride 5 mg PO DAILY #30 03/10/21 Tamsulosin [Flomax*] 0.4 mg PO BEDTIME #30 cap 03/10/21 Cholecalciferol (Vitamin D3) [Vitamin D 1000 Iu Tab*] 1,000 unit PO BID 08/20/21 Magnesium Oxide 1 tab PO DAILY 08/20/21 Melatonin 1 cap PO BEDTIME 08/20/21 Albuterol Neb [Proventil 0.083% Neb Soln] 2.5 mg NEB [id number] PRN amp 08/22/21 Meropenem [Merrem*] 1 gm IV Q8H 7 Days #21 ml 12/09/21 New Medications: Meropenem [Merrem*] 1 gm IV Q8H 7 Days #21 ml Physician Discharge Instructions: Please discontinue chavez catheter for voiding trial within 1 week. Diet: AHA Activity: Fall precautions Followup: Sung Love MD [ACTIVE - CAN ADMIT] - (Within 2 weeks.) NONE,NONE [Primary Care Provider] - Ronnie Goff [ACTIVE - CAN ADMIT] - (within 2 weeks.)
--- NOTE | 2021-12-09 15:19 | P.PN ---
Subjective Date of Service: 12/09/21 Chief Complaint: Cholecystitis, Severe Sepsis, jaundice, JOCELIN pain, N/V Patient complaining of shortness of breath He is tolerating soft diet He is also tolerating physical therapy. Physical Examination - Vital Signs Temperature: 98 F Blood Pressure: 134/51 Pulse: 56 Respirations: 16 Pulse Ox (%): 99 Assessment And Plan - Plan Physical exam GEN: Alert, oriented, NAD HEENT: normal conjunctiva, sclera anicteric CV: Irregularly irregular rhythm, 1+ pitting lower extremity edema. Pulm: Clear to auscultation bilaterally. ABD: Soft, nontender, nondistended Neuro: Normal speech, normal affect. Urogenital: Salvador catheter Problem List Acute cholecystitis vs cholangitis Severe sepsis chronic afib chronic diastolic CHF Acute on chronic respiratory failure with hypoxia. Gallbladder sludge. COPD exacerbation. No obvious stone / bile duct distention; there was initial concern for acute cholangitis given fever. Blood culture grew ESBL E. coli. Repeat blood culture shows no growth. Patient initially on Zosyn and Levaquin. Antibiotics changed to IV meropenem for ESBL E. coli. Pt with BPH. He had trouble urinating. Now has Salvador catheter in place. Urine is clear. Continue Flomax. Voiding trial in 2 weeks. Follow-up with urology as outpatient. Urine culture: No growth. Infectious disease recommend 2 weeks of IV meropenem after negative blood culture. PICC line placed for outpatient IV antibiotics. GI and General surgery are following. MRCP results reviewed and it reported possible CBD stone. Seen by GI-Dr. Gonzalez.. ERCP attempted and sphincterotomy done. Procedure was terminated because patient became hypoxic and had to be bagged. Diet resumed patient is currently tolerating soft diet. AST ALT and bilirubin levels have normalized. Alkaline phosphatase is mildly elevated. Continue to trend LFT. OLIVIER resolved. Patient with chronic soft blood pressure. Continue PT. Treat COPD exacerbation with inhalers and nebulizers. He is currently maintained on 2 L oxygen by nasal cannula. Code: DNR VTE: SCD Dispo: Patient walked only 50 feet with PT today. Planned for skilled rehab placement. Awaiting acceptance.
--- NOTE | 2021-12-09 19:18 | PN ---
Subjective: Patient is feeling much better today as per daughter. Able to eat little bit of food. Denies any headache, nausea, vomiting, chest pain, or abdominal pain. Continue to have problems with constipation. Objective: Vital Signs: Temperature 98, pulse 56, respirations 16, blood pressure 134/51. Lungs: Basal crackles. Heart: S1, S2. Regular. Abdomen: Soft, nontender. Bowel sounds present. Extremities: No edema. Laboratory Data: WBC 5.4, hemoglobin 8.7, platelets 186. Chemistry shows sodium 140, potassium 4.2, chloride 107, bicarb 32, BUN 7, creatinine 0.6, glucose 106. Albumin level is 2.1. Blood cultures, no growth from 12/03. Assessment And Plan: Bacteremia secondary to extended-spectrum beta-lactamase Escherichia coli and status post endoscopic retrograde cholangiopancreatography. Patient's oxygen sats went down signific antly and he needed resuscitation through Ambu bag. We will continue antibiotic and supportive care. Cholelithiasis and acute cholecystitis, status post endoscopic retrograde cholangiopancreatography, status post procedure. Patient is doing well. We will continue to monitor. NF/MODL Voice ID: [id number] Report ID: [id number]
[2021-12-09] MEDS: MIRTAZAPINE 15 MG TAB PO SCH (20:26)
[2021-12-09] MEDS: MELATONIN 5 MG TABLET PO SCH (20:26)
[2021-12-09] MEDS: GUAIFENESIN 600 MG SA TAB PO PRN (20:26)
[2021-12-09] MEDS: TAMSULOSIN 0.4 MG SR CAP PO SCH (20:26)
[2021-12-09] MEDS: DULERA 100/5 (MOMETASONE/FORMOTEROL) INHALER IH SCH (20:28)
[2021-12-10] MEDS: D5 0.9 NS 1,000 ML IV SCH ×2 (00:39→20:07)
[2021-12-10] MEDS: Meropenem 1,000 MG in NA CHLORIDE 0.9% 100 ML IV SCH ×3 (00:39→17:08)
[2021-12-10 06:11] LABS: Albumin 2.1 g/dL (3.4-5.0); Bilirubin Total 0.8 mg/dL (0.2-1.0); Potassium 4.3 mmol/L (3.5-5.1); Protein, Total 5.3 g/dL (6.4-8.2)
--- NOTE | 2021-12-10 06:25 | P.PN ---
Date of Service: 12/10/21 Subjective: no BM in ~1 week, +flatus minimal PO intake / appetite no nausea/vomiting some discomfort of chavez catheter ROS: 10 point ROS as noted above, otherwise negative Physical exam GEN: Alert, oriented, NAD HEENT: normal conjunctiva, sclera anicteric CV: Irregularly irregular rhythm, 1+ edema to knees bilaterally Pulm: Nonlabored respirations on 2L NC, diminished at bases bilaterally ABD: Soft, nontender, nondistended Neuro: Normal speech, normal affect Problem List Acute cholecystitis Severe sepsis chronic afib chronic diastolic CHF Acute on chronic respiratory failure with hypoxia. Gallbladder sludge s/p sphincterotomy acute on chronic COPD exacerbation; on 2L home O2 constipation No obvious stone / bile duct distention; there was initial concern for acute cholangitis given fever/symptoms Blood culture grew ESBL E. coli. Repeat blood culture shows no growth. Patient initially on Zosyn and Levaquin. Antibiotics changed to IV meropenem for ESBL E. coli. ID recommends 2 weeks IV merrem after negative blood culture PICC line placed Pt with BPH. He had trouble urinating. Now has Chavez catheter in place. Continue Flomax. voiding trial tomorrow morning Urine culture: No growth. GI and general surgery following MRCP results reviewed and it reported possible CBD stone. Seen by GI-Dr. Gonzalez.. ERCP attempted and sphincterotomy done. Procedure was terminated because patient became hypoxic and had to be bagged. AST ALT and bilirubin levels have normalized. Alkaline phosphatase is mildly elevated. Continue to trend LFT. OLIVIER resolved. Patient with chronic soft blood pressure. Continue PT. Treat COPD exacerbation with inhalers and nebulizers. He is currently maintained on 2 L oxygen by nasal cannula. constipation, secondary to pain meds, immobility milk of mg ordered +flatus, will check KUB to eval stool burden pt wants to avoid enema at this time Code: DNR VTE: SCD Dispo: Patient walked ~ 50 feet with PT Planned for skilled rehab placement. Awaiting acceptance. Time Spent Managing Pts Care (In Minutes): 35
[2021-12-10] MEDS: DULERA 100/5 (MOMETASONE/FORMOTEROL) INHALER IH SCH ×2 (08:02→20:04)
[2021-12-10] MEDS: FINASTERIDE 5 MG TAB PO SCH (08:03)
[2021-12-10] MEDS: MAGNESIUM OXIDE 400 MG TAB PO SCH (08:03)
[2021-12-10] MEDS: VITAMIN D 1000 UNIT TAB PO SCH ×2 (08:03→20:05)
[2021-12-10] MEDS: ASPIRIN EC 81 MG TAB PO SCH (08:03)
[2021-12-10] MEDS ORDERED: MAGNESIUM HYDROXIDE 8% 30 ML PO ONE (12:49)
[2021-12-10] MEDS: ENSURE HIGH PROTEIN 237 ML CAN PO SCH ×2 (14:10→20:06)
--- NOTE | 2021-12-10 14:15 | RAD REPORT ---
EXAM DESCRIPTION: Teo Pepe View12/10/2021 1:56 pm CLINICAL HISTORY: Shortness of breath COMPARISON: December 05 FINDINGS: Small to moderate right and small left pleural effusions. Mild bilateral interstitial lung opacities. Cardiomegaly IMPRESSION: These findings probably indicate mild CHF
--- NOTE | 2021-12-10 14:17 | RAD REPORT ---
EXAM DESCRIPTION: RAD - Abdomen 1 View (KUB) - 12/10/2021 1:56 pm CLINICAL HISTORY: Abdomen pain/constipation FINDINGS: The bowel gas pattern is unremarkable. A moderate to large amount of stool is present throughout colon. Phleboliths within pelvis
--- NOTE | 2021-12-10 15:00 | PN ---
Subjective: The patient is lying in bed. Continuing to not eat well. Denies any other problems. D aughter by the bedside. Denies any headache, nausea, vomiting, chest pain, abdominal pain, constipat ion, or diarrhea. Does not like the food. Also not drinking fluids either. Objective: Vital Signs: Temperature 98, pulse 60, respirations 18, blood pressure 134/49. Lungs: Basal crackles. Heart: S1, S2. Regular. Abdomen: Soft, nontender. Bowel sounds present. Extremity: No edema. Laboratory Data: Reviewed. Assessment And Plan: Escherichia coli ESBL bacteremia, currently on IV antibiotic. The patient's ur ine is dark. We will recommend to repeat urinalysis and also start the patient on Lactinex. Conside r starting IV fluids. Continue IV antibiotic. We will follow the patient as needed. NF/MODL Voice ID: [id number] Report ID: [id number]
[2021-12-10 18:02] LABS: Specific Gravity >= 1.030 (1.005-1.030); Urine Blood 3+ (Negative); Urine Clarity Turbid (Clear); Urine Color Yellow (Yellow); Urine Glucose Negative (Negative); Urine Protein 2+ (Negative); Urine Urobilinogen 0.2 mg/dL (0.2-1.0); Urine pH 5.5 (5.0-7.0)
[2021-12-10 18:26] LABS: Urine Bilirubin 1+ (Negative)
[2021-12-10 18:27] LABS: Urine Bacteria <20 /HPF (<20); Urine Mucus 1+ /HPF (None Seen); Urine RBC 21-50 /HPF (None Seen)
[2021-12-10] MEDS: MIRTAZAPINE 15 MG TAB PO SCH (20:05)
[2021-12-10] MEDS: TAMSULOSIN 0.4 MG SR CAP PO SCH (20:06)
[2021-12-10] MEDS: LACTOBACILLUS/ACIDOPHILUS TAB PO SCH (20:06)
[2021-12-10] MEDS: MELATONIN 5 MG TABLET PO SCH (20:06)
[2021-12-11] MEDS: Meropenem 1,000 MG in NA CHLORIDE 0.9% 100 ML IV SCH ×3 (00:25→16:17)
[2021-12-11 05:43] LABS: MCV 97.1 fL (80-100); MPV 8.6 fL (7.6-11.3); RBC Red Blood Cell Count 2.47 M/uL (4.33-5.43)
[2021-12-11 05:47] LABS: Albumin 2.1 g/dL (3.4-5.0); Bilirubin Total 0.6 mg/dL (0.2-1.0); Magnesium 2.2 mg/dL (1.8-2.4); Potassium 4.6 mmol/L (3.5-5.1); Protein, Total 5.1 g/dL (6.4-8.2)
--- NOTE | 2021-12-11 06:26 | P.PN ---
Date of Service: 12/11/21 Subjective: no BM last night, chavez removed this morning voided without issue and +BM later this morning ROS: 10 point ROS as noted above, otherwise negative Physical exam GEN: Alert, oriented, NAD HEENT: normal conjunctiva, sclera anicteric CV: Irregularly irregular rhythm, 1+ edema to knees bilaterally Pulm: Nonlabored respirations on 2L NC, diminished at bases bilaterally ABD: Soft, nontender, nondistended Neuro: Normal speech, normal affect Problem List Acute cholecystitis Severe sepsis chronic afib chronic diastolic CHF Acute on chronic respiratory failure with hypoxia. Gallbladder sludge s/p sphincterotomy acute on chronic COPD exacerbation; on 2L home O2 constipation No obvious stone / bile duct distention; there was initial concern for acute cholangitis given fever/symptoms Blood culture grew ESBL E. coli. Repeat blood culture shows no growth. Patient initially on Zosyn and Levaquin. Antibiotics changed to IV meropenem for ESBL E. coli. ID recommends 2 weeks IV merrem after negative blood culture PICC line placed Pt with BPH. He had trouble urinating. chavez was placed, now removed this morniing Continue Flomax. voided without issue, minimal PVR Urine culture: No growth. GI and general surgery following MRCP results reviewed and it reported possible CBD stone. Seen by GI-Dr. Gonzalez.. ERCP attempted and sphincterotomy done. Procedure was terminated because patient became hypoxic and had to be bagged. AST ALT and bilirubin levels have normalized. Alkaline phosphatase is mildly elevated. Continue to trend LFT. OLIVIER resolved. Patient with chronic soft blood pressure. Continue PT. COPD exacerbation treated with inhalers and nebulizers. He is currently maintained on 2 L oxygen by nasal cannula. constipation, secondary to pain meds, immobility KUB with moderate stool burden no BM with milk of mg dulcolax helped today Code: DNR VTE: SCD Dispo: Planned for skilled rehab placement. Awaiting acceptance. Time Spent Managing Pts Care (In Minutes): 35
[2021-12-11] MEDS ORDERED: BISACODYL 10 MG RECTAL SUPP PR ONE (08:11)
[2021-12-11] MEDS: MAGNESIUM OXIDE 400 MG TAB PO SCH (09:00)
[2021-12-11] MEDS: ENSURE HIGH PROTEIN 237 ML CAN PO SCH ×3 (09:00→19:58)
[2021-12-11] MEDS: LACTOBACILLUS/ACIDOPHILUS TAB PO SCH ×2 (09:11→19:57)
[2021-12-11] MEDS: ASPIRIN EC 81 MG TAB PO SCH (09:11)
[2021-12-11] MEDS: VITAMIN D 1000 UNIT TAB PO SCH ×2 (09:11→19:57)
[2021-12-11] MEDS: FINASTERIDE 5 MG TAB PO SCH (09:11)
[2021-12-11] MEDS: DULERA 100/5 (MOMETASONE/FORMOTEROL) INHALER IH SCH ×2 (09:12→19:58)
--- NOTE | 2021-12-11 13:16 | PN ---
Subjective: The patient lying in bed. No new acute event. Chart reviewed. As per staff, the patie nt's Salvador has been taken out and he has been drinking Ensure. Objective: Vital Signs: Temperature 97, pulse 63, respirations 16, blood pressure 124/56. Lungs: Clear to auscultation. Heart: S1, S2. Regular. Abdomen: Soft, nontender. Bowel sounds present. Extremity: No edema. Laboratory Data: Reviewed. Assessment And Plan: 1.Escherichia coli ESBL bacteremia. The patient is on meropenem. Monitor for signs of dehydration and continue IV hydration and fluids. 2.Moderate protein-calorie malnourishment. Continue supportive care and monitor for signs of infect ion with WBC and fever trends. No other recommendation at this time. NF/MODL Voice ID: [id number] Report ID: [id number]
[2021-12-11] MEDS: D5 0.9 NS 1,000 ML IV SCH ×2 (16:17→16:59)
--- NOTE | 2021-12-11 18:04 | P.DS ---
Admission Date: 11/30/21 Discharge Date: 12/11/21 Disposition: TRANSFER TO SNF - REHAB Discharge Condition: FAIR Reason for Admission: Cholecystitis, Severe Sepsis, jaundice, JOCELIN pain, N/V Brief History of Present Illness: 86-year-old male with chronic A. fib on Eliquis, chronic diastolic CHF, and hypertension who presented to the ED via EMS with weakness and fever. Patient's daughter reported that patient developed weakness to the point that he almost fell. She also reported that he was vomiting and experiencing abdominal pain. Initial vital signs with temp of 103.1F, HR 100, and 99% on 4L (patient requires 2L baseline). His labs were significant for Cr 1.67, tbili 2.6, AST 500, ALT 196, alk phos 453, lactic acid 2.7, BNP 3128. COVID and flu negative. Chest x- ray showed underinflated lungs with mild basilar lung infiltrate/atelectasis. Abdominal ultrasound showed gallbladder sludge, distention in the gallbladder with thickening and mild pericholecystic fluid. Abdominal CT showed nonspecific gallbladder distention, moderate stool throughout the colon with mild sigmoid diverticulosis coli present, and small bilateral pleural effusions. He was initially given rocephin for suspected pneumonia then given a dose of zosyn for cholecystitis. 2 hour repeat lactic acid came back at 1.2. General surgery and GI were notified and agreed to consult. Patient meets criteria for severe sepsis but he does have CHF (with bilateral pleural effusions present) so he was only given 1L fluid bolus. His blood pressure slowly trended down throughout his ER stay, sustaining 90s/40s. Patient was admitted for further management. Hospital Course: Problem List Acute cholecystitis Severe sepsis secondary to acute cholecystitis chronic afib chronic diastolic CHF Acute on chronic respiratory failure with hypoxia. Gallbladder sludge s/p sphincterotomy chronic COPD; on 2L home O2 constipation urinary retention Patient admitted to the ICU and treated aggressively with IV antibiotics for severe sepsis. No obvious stone / bile duct distention; there was initial concern for acute cholangitis given fever, RUQ pain, mild jaundice, elevated tbili / LFTs, with sludge on imaging GI and general surgery were consulted. MRCP was delayed due to acute renal failure MRCP was done after OLIVIER resolved and it reported abrupt caliber change in the distal common bile duct suspicious for distal common bile duct stone. Patient reevaluated by Dr. Gonzalez, ERCP done and sphincterotomy done. ERCP was incomplete because patient became hypoxic during the procedure and it was terminated. A sphincterotomy was able to be performed General surgery recommended to follow up in office for elective cholecystectomy Blood culture grew ESBL E. coli. Repeat blood culture shows no growth. Patient initially on Zosyn and Levaquin. Antibiotics changed to IV meropenem for ESBL E. coli on 12/04/21 ID recommends 2 weeks total IV merrem after negative blood culture PICC line placed Pt with BPH. He had trouble urinating and chavez was placed. started flomax, chavez removed 12/11 early AM, voided without issue, PVR checked and minimal urine remained in bladder after void Urine culture: No growth. Constipation resolved after stool softener and laxative. continue to monitor. secondary to pain medication and immobility OLIVIER resolved with IV hydration Mild CHF/COPD exacerbation, patient with low oral intake, which has now improved - tolerating Ensures He is currently maintained on 2 L oxygen by nasal cannula. Follow up with PCP within 1 week Follow up with GI / General surgery Vital Signs/Physical Exam: Temp Pulse Resp BP Pulse Ox 98.0 F 63 16 123/44 L 99 12/11/21 16:00 12/11/21 16:00 12/11/21 16:00 12/11/21 16:00 12/11/21 16:00 General: Alert, In no apparent distress HEENT: Sclerae nonicteric Respiratory: Diminished (at bases bilaterally), Other (non-labored respirations on 2L NC) Cardiovascular: No edema, Regular rate/rhythm Gastrointestinal: Soft and benign, Non-distended, No tenderness Musculoskeletal: No contractures Integumentary: No rashes, No significant lesion Neurological: Normal speech, Normal affect Laboratory Data at Discharge: WBC 5.50 K/uL (4.3-10.9) 12/11/21 05:15 Hgb 8.1 g/dL (13.6-17.9) L 12/11/21 05:15 Hct 24.0 % (39.6-49.0) L 12/11/21 05:15 Plt Count 206 K/uL (152-406) 12/11/21 05:15 PT 13.2 SECONDS (9.5-12.5) H 11/30/21 14:42 INR 1.20 11/30/21 14:42 APTT 26.8 SECONDS (24.3-36.9) 11/30/21 14:42 Sodium 143 mmol/L (136-145) 12/11/21 05:15 Potassium 4.6 mmol/L (3.5-5.1) 12/11/21 05:15 BUN 12 mg/dL (7-18) 12/11/21 05:15 Creatinine 0.69 mg/dL (0.55-1.3) 12/11/21 05:15 Glucose 109 mg/dL (74-106) H 12/11/21 05:15 Phosphorus 2.8 mg/dL (2.5-4.9) 12/03/21 04:37 Magnesium 2.2 mg/dL (1.8-2.4) 12/11/21 05:15 Total Bilirubin 0.6 mg/dL (0.2-1.0) 12/11/21 05:15 AST 45 U/L (15-37) H 12/11/21 05:15 ALT 37 U/L (12-78) 12/11/21 05:15 Alkaline Phosphatase 308 U/L (45-117) H 12/11/21 05:15 Lipase 49 U/L (73-393) L 12/08/21 06:09 Home Medications: Mirtazapine [Remeron*] 15 mg PO BEDTIME 03/09/21 Aspirin [Aspirin EC 81 MG] 81 mg PO DAILY #90 tablet. 03/10/21 Finasteride 5 mg PO DAILY #30 03/10/21 Tamsulosin [Flomax*] 0.4 mg PO BEDTIME #30 cap 03/10/21 Cholecalciferol (Vitamin D3) [Vitamin D 1000 Iu Tab*] 1,000 unit PO BID 08/20/21 Magnesium Oxide 1 tab PO DAILY 08/20/21 Melatonin 1 cap PO BEDTIME 08/20/21 Albuterol Neb [Proventil 0.083% Neb Soln] 2.5 mg NEB [id number] PRN amp 08/22/21 Meropenem [Merrem*] 1 gm IV Q8H 7 Days #21 ml 12/09/21 New Medications: Meropenem [Merrem*] 1 gm IV Q8H 7 Days #21 ml Physician Discharge Instructions: Problem List Acute cholecystitis Severe sepsis secondary to acute cholecystitis chronic afib chronic diastolic CHF Acute on chronic respiratory failure with hypoxia. Gallbladder sludge s/p sphincterotomy chronic COPD; on 2L home O2 constipation urinary retention Patient admitted to the ICU and treated aggressively with IV antibiotics for severe sepsis. No obvious stone / bile duct distention; there was initial concern for acute cholangitis given fever, RUQ pain, mild jaundice, elevated tbili / LFTs, with sludge on imaging GI and general surgery were consulted. MRCP was delayed due to acute renal failure MRCP was done after OLIVIER resolved and it reported abrupt caliber change in the distal common bile duct suspicious for distal common bile duct stone. Patient reevaluated by Dr. Gonzalez, ERCP done and sphincterotomy done. ERCP was incomplete because patient became hypoxic during the procedure and it was terminated. A sphincterotomy was able to be performed General surgery recommended to follow up in office for elective cholecystectomy Blood culture grew ESBL E. coli. Repeat blood culture shows no growth. Patient initially on Zosyn and Levaquin. Antibiotics changed to IV meropenem for ESBL E. coli on 12/04/21 ID recommends 2 weeks total IV merrem after negative blood culture PICC line placed Pt with BPH. He had trouble urinating and chavez was placed. started flomax, chavez removed 8 early AM, voided without issue, PVR checked and minimal urine remained in bladder after void Urine culture: No growth. Constipation resolved after stool softener and laxative. continue to monitor. secondary to pain medication and immobility OLIVIER resolved with IV hydration Mild CHF/COPD exacerbation, patient with low oral intake, which has now improved - tolerating Ensures He is currently maintained on 2 L oxygen by nasal cannula. Follow up with PCP within 1 week Follow up with GI / General surgery Diet: AHA Activity: Fall precautions Followup: Sung Love MD [ACTIVE - CAN ADMIT] - (Within 2 weeks.) NONE,NONE [Primary Care Provider] - Ronnie Goff [ACTIVE - CAN ADMIT] - (within 2 weeks.) Time spent managing pt's care (in minutes): 45
[2021-12-11] MEDS: TAMSULOSIN 0.4 MG SR CAP PO SCH (19:57)
[2021-12-11] MEDS: MIRTAZAPINE 15 MG TAB PO SCH (19:58)
[2021-12-11] MEDS: MELATONIN 5 MG TABLET PO SCH ×2 (20:26→20:30)
[2021-12-12] MEDS: Meropenem 1,000 MG in NA CHLORIDE 0.9% 100 ML IV SCH ×2 (00:16→08:26)
[2021-12-12 05:54] LABS: Albumin 2.1 g/dL (3.4-5.0); Bilirubin Total 0.8 mg/dL (0.2-1.0); Potassium 4.4 mmol/L (3.5-5.1); Protein, Total 5.1 g/dL (6.4-8.2)
[2021-12-12] MEDS: MAGNESIUM OXIDE 400 MG TAB PO SCH (08:26)
[2021-12-12] MEDS: ASPIRIN EC 81 MG TAB PO SCH (08:26)
[2021-12-12] MEDS: FINASTERIDE 5 MG TAB PO SCH (08:26)
[2021-12-12] MEDS: LACTOBACILLUS/ACIDOPHILUS TAB PO SCH (08:26)
[2021-12-12] MEDS: VITAMIN D 1000 UNIT TAB PO SCH (08:26)
[2021-12-12] MEDS: DULERA 100/5 (MOMETASONE/FORMOTEROL) INHALER IH SCH (08:27)
[2021-12-12] MEDS: ENSURE HIGH PROTEIN 237 ML CAN PO SCH ×2 (08:27→14:00)
[2021-12-12 09:40] VITALS: O2SAT 94
[2021-12-12] MEDS: D5 0.9 NS 1,000 ML IV SCH (13:58)
--- NOTE | 2021-12-12 15:05 | PN ---
Subjective: [facility] No new complaints. Able to drink pro tein shakes. Objective: Vital Signs: Reviewed. Lungs: Basal crackles. Heart: S1, S2. Regular. Abdomen: Soft, nontender. Bowel sounds present. Extremity: No edema. Laboratory Data: Reviewed. Assessment And Plan: Bacteremia secondary to ESBL Escherichia coli. The patient to complete a 14-da y course of antibiotic from 12/03 to 12/17. We will continue to monitor the patient closely while th e patient is here. No other recommendation at this time. NF/MODL Voice ID: [id number] Report ID: [id number]
[2021-12-12 15:32] VITALS: BP 117/48; TEMP 98.7
== END 2021-12-12 15:51 | DRG 871 ==
LOC: ER 14:21 → ERHOLD 20:49 → 3RD-ICU 21:19 → 4TH 12-03 15:12
PROVIDERS: ADMIT Hospitalist; ATTEND Hospitalist
PROC: 02HV33Z Insertion of Infusion Device into Superior Vena Cava, Percutaneous Approach (ICD-10-PCS; 2021-12-05)
PROC: 0FC98ZZ Extirpation of Matter from Common Bile Duct, Via Natural or Artificial Opening Endoscopic (ICD-10-PCS; principal; 2021-12-06 14:45)
DX: A41.51 Sepsis due to Escherichia coli [E. coli] (principal); I50.33 Acute on chronic diastolic (congestive) heart failure; J96.21 Acute and chronic respiratory failure with hypoxia; Z16.12 Extended spectrum beta lactamase (ESBL) resistance; N17.9 Acute kidney failure, unspecified; N39.0 Urinary tract infection, site not specified; K80.43 Calculus of bile duct with acute cholecystitis with obstruction; J44.1 Chronic obstructive pulmonary disease with (acute) exacerbation; E44.0 Moderate protein-calorie malnutrition; I11.0 Hypertensive heart disease with heart failure; R65.20 Severe sepsis without septic shock; K59.00 Constipation, unspecified; I48.0 Paroxysmal atrial fibrillation; D69.6 Thrombocytopenia, unspecified; I25.10 Atherosclerotic heart disease of native coronary artery without angina pectoris; K86.89 Other specified diseases of pancreas; N40.1 Benign prostatic hyperplasia with lower urinary tract symptoms; R33.8 Other retention of urine; R33.9 Retention of urine, unspecified; R94.5 Abnormal results of liver function studies; R31.9 Hematuria, unspecified; Z66 Do not resuscitate; Z79.82 Long term (current) use of aspirin; Z68.25 Body mass index [BMI] 25.0-25.9, adult; Z79.899 Other long term (current) drug therapy; Z95.5 Presence of coronary angioplasty implant and graft; Z79.01 Long term (current) use of anticoagulants; Z87.891 Personal history of nicotine dependence; Z20.822 Contact with and (suspected) exposure to COVID-19
CPT/HCPCS: 36415; 36569; 71045; 74018; 74176; 74181; 76705; 80048; 80053; 80076; 81001; 81003; 82140; 82248; 82550; 82553; 82947; 83605; 83690; 83735; 83880; 84100; 84484; 85025; 85027; 85610; 85730; 87040; 87077; 87086; 87088; 87186; 87205; 87804; 93005; 94640; 94760; 96374; 96375; 97110; 97112; 97116; 97161; 97530; 99285; C1769; J1580; J1610; J1650; J2185; J2405; J2543; J2704; J3010; J3535; J7030; J7040; J7042; J7050; J7120; P9047; U0003

== ENCOUNTER 2022-03-09 13:24 | Inpatient (IN) | payer OTHER ==
--- OUTSIDE RECORDS SUMMARY | 2022-03-09 14:06 | XMS REPORT | Continuity of Care Document ---
:1935 Author Organization [facility] t Address [address] [place] [address] Care Team Providers Name Role Phone [facility], [facility] ADMIN MED Primary Care Physician Unavailable CATRINA NEWMAN Attending Clinician Unavailable Catrina Newman DO Attending Clinician Doctor Unassigned, [place] Attending Clinician Unavailable Jayesh Mjeia Attending Clinician Unavailable Rivas Nix RN Attending Clinician Unavailable Tosha Sosa DO Attending Clinician Barry Perdomo MD Attending Clinician Kiara Soto DO Attending Clinician KIARA SOTO Attending Clinician Unavailable Jayesh Mejia Admitting Clinician Unavailable Kiara Soto DO Admitting Clinician KIARA SOTO Admitting Clinician Unavailable Payers Payer Name Policy Type Policy Number Effective Date Expiration Date Becka aguilar [facility] [id number] 2013 00:00:00 Problems Condition Condition Condition Status [...] 2-15 it y of on on 00:00: Medical Branch Elevated Elevated Disease Active Unive rs troponin troponin 2-14 ity of 00:00: 00 Medical Branch Allergies, Adverse Reactions, Alerts Allergy Allergy Status Severity Reaction(s) Onset Inactive Treating Comm ents Source Name Type Date Date Clinician No Known DA Active [facility] Allergie 5-04 Clear s 00:00: Love 00 [facility] NO KNOWN Drug Active Univers ALLERGIE Class ity of [facility] Social History Social Habit Start Date Stop Date Quantity Comments Source Exposure to 2021-10-30 2021-11-09 Not sure [facility] SARS-CoV-2 (event) 00:00:00 18:57:00 [facility] Sex Assigned At [address] [facility] [place] 00:00:00 00:00:00 Medical Branch Smoking Status Start Date Stop Date Source Tobacco smoking consumption [facility] Medical unknown Branch Medications Ordered Filled Start Stop Current Ordering Indication Dosage Frequency Signature Comments Components Source Medication Medication Date Date Medication? Clinician (SIG) Name Name furosemide 2021- No [id number] 40mg Take 1 Univers 40 mg 2-25 -28 tablet by ity of tablet 00:00: 04:59 mouth [place] 00 :00 daily for Medical 30 days. Branch furosemide 2021- No [id number] 40mg Take 1 Univers 40 mg 2-25 -28 tablet by ity of tablet 00:00: 04:59 mouth [place] 00 :00 daily for Medical 30 days. Branch aspirin 81 2021- No [id number] 81mg Take 1 Univers mg chewable -19 -22 tablet by it y of tablet 00:00: 04:59 mouth [place] 00 :00 daily for Medical 30 days. Branch aspirin 81 2- No [id number] 81mg Take 1 Univers mg chewable 2-19 [...] 2-18 by mouth ity of 18:29: daily. [place] Medical Branch melatonin Yes 10{caps Take 10 [...] 2-18 by mouth ity of 18:29: daily. [place] [address] Medical Branch icosapent Yes 4{capsu Take 4 [...] 2-18 by mouth ity of 18:29: daily. [place] [address] Medical Branch icosapent Yes 4{capsu Take 4 [...] 2-18 by mouth ity of 18:29: daily. [address] Branch melatonin Yes 10{caps Take 10 Un [...] 2-18 by mouth ity of 18:29: daily. [place] [address] Medical Branch icosapent Yes 4{capsu Take 4 [...] 2-18 by mouth ity of 18:29: daily. [place] [address] Medical Branch melatonin Yes 10{caps Take 10 Un carolyne 10 mg Cap 2-18 ule} capsules ity of 18:29: by mouth [place] 04 at Medical bedtime. Branch Cholecalcif Yes 1{capsu Take 1 U nivers cuauhtemoc, 2-18 le} capsule by ity of Vitamin D3, 18:29: mouth [place] (VITAMIN 04 daily. [facility] D3) 25 mcg Branch (1,000 unit) capsule [...] 2-18 by mouth ity of 18:29: daily. [place] [address] Medical Branch furosemide 2021- No 40mg Take 40 mg Univers 20 mg 2-18 02-18 by mouth ity of tablet 16:37: 00:00 daily. [place] 40 :00 Medical Branch KCL Yes 40meq 40 mEq, Univers (KLOR-CON 2-18 Oral, ity of M20) tablet 15:00: DAILY, [place] 40 mEq 00 First dose Medical on Fri Branch 06/14/21 at 0900, Until Discontinu ed, Routine magnesium 2021-2021- No [id number] 400mg Take 400 Univers oxide 420 2-18 -21 mg by ity of mg Tab 00:00: 04:59 mouth [place] 00 :00 daily for Medical 30 days. Branch apixaban 5 2021- No 1358 5mg Take 1 Univ ers mg tablet 06-14- tablet by ity of 00:00: 04:59 mouth 2 [place] 00 :00 (two) Medical times Branch daily for 30 days. Indication s: atrial fibrillati on calcium 2021- No [id number] 500mg Take 1 Un carolyne carbonate 06-14- tablet by ity of 500 mg 00:00: 04:59 mouth 2 [place] calcium 00 :00 (two) Medical (1,250 mg) times Branch tablet daily with meals for 30 days. magnesium 2021-2021- No [id number] 400mg Take 400 Univers oxide 420 -12 07-21 mg by ity of mg Tab 00:00: 04:59 mouth [place] 00 :00 daily for Medical 30 days. Branch apixaban 5 2021- No 1358 5mg Take 1 Univ ers mg tablet 06-14- tablet by ity of 00:00: 04:59 mouth 2 [place] 00 :00 (two) Medical times Branch daily for 30 days. Indication s: atrial fibrillati on calcium 2021- No [id number] 500mg Take 1 Un carolyne carbonate 06-14- tablet by ity of 500 mg 00:00: 04:59 mouth 2 [place] calcium 00 :00 (two) Medical (1,250 mg) times Branch tablet daily with meals for 30 days. furosemide 2021- No [id number] 40mg Take 1 Univers 40 mg -14 06- tablet by ity of tablet 00:00: 05:59 mouth [place] 00 :00 every Medical morning Branch and evening for 7 days. furosemide 2021-2021- No [id number] 40mg Take 1 Univers 40 mg -14 [...] Discontinu ed, Routine, Pain (scale 4-6) furosemide 0 Yes 40mg 40 mg, Unive rs (LASIX) 06-13 Slow IV ity of injection 15:30: Push, [place] 40 mg 00 Q12H, Medical First dose Branch (after last modificati on) on [place] 06/13/21 at 0930, Until Discontinu ed, Routine magnesium Yes 400mg 400 mg, Univ ers oxide 06-13 Oral, BID, ity of (MAG-OX 14:00: First dose [place] 400) tablet 00 on [facility] Medica l 400 mg 06/13/21 at Branch 0800, Until Discontinu ed, Routine KCL 2021-0 2021- No 40meq 40 mEq, Univers (KLOR-CON 06-13 Oral, ity of M20) tablet 12:30: 12:17 [place]CE[place] 1 [place] 40 mEq 00 :00 dose, On Medical [facility] Branch 06/13/21 at 0630, Routine aspirin 2021-0 [...] 00 First dose Med ical mg on [facility] 06/11/21 at 2215, Until Discontinu ed, Routine melatonin 0 Yes 9mg 9 mg, Univers (MELATIN) 2-16 Oral, QHS, ity of tablet 9 mg 03:00: First dose [place] 00 on [facility] 06/11/21 at Branch 2100, Until Discontinu ed ascorbic 2021-0 Yes 500mg 500 mg, Unive rs acid 2-16 Oral, BID, ity of (vitamin C) 02:00: First dose [place] (VITAMIN C) 00 on [facility] 500 06/11/21 at [facility] mg 2000, Until Discontinu ed, Routine tamsulosin 0 Yes .4mg 0.4 mg, Univ ers (FLOMAX) 2-15 Oral, ity of capsule 0.4 15:00: DAILY, [place] mg 00 First dose Medical on [facility] 06/11/21 at 0900, Until Discontinu ed, Routine mirtazapine 0 Yes 15mg 15 mg, Univ ers (REMERON) 2-15 Oral, ity of tablet 15 15:00: DAILY, [place] mg 00 First dose Medical on [facility] 06/11/21 at 0900, Until Discontinu ed finasteride 0 Yes 5mg 5 mg, Unive rs (PROSCAR) 2-15 Oral, ity of tablet 5 mg 15:00: DAILY, [place] 00 First dose Medical on [facility] 06/11/21 at 0900, Until Discontinu ed, Routine cholecalcif 0 Yes 1000U 1,000 Univ ers cuauhtemoc 2-15 Units, ity of (vitamin 15:00: Oral, [place] D3) tablet 00 DAILY, Medical 1,000 Units First dose Br anch on 06/11/21 at 0900, Until Discontinu ed furosemide 0 2021- No 40mg 40 mg, Univ ers (LASIX) 2-15 -17 Slow IV ity of injection 15:00: 15:26 Push, [place] 40 mg 00 :24 DAILY, Medical First dose Branch on 06/11/21 at 0900, Until Discontinu ed, Routine enoxaparin [...] 40 mEq 00 :00 dose, On Medical 06/11/21 at 0430, Routine potassium No 10meq 10 mEq, IV Univers chloride in 06-11 Piggyback, i ty of water 10 10:00: 11:55 Q1H, 2 [place] mEq/100 mL 00 :00 doses, Medical RTU 10 mEq First dose Bra nch on Thu06/11/21 at 0400, Last dose on Thu06/11/21 at 0500, Administer over 60 Minutes, 100 mL ipratropium Yes 3mL 3 mL, [place] [facility] rs -albuteroL 2-15 Inhalation ity of (DUONEB) 09:50: , QIDPRN, Adityaa s 0.5 mg-3 51 Starting Medical mg(2.5 mg on Thu [place] base)/3 mL 06/11/21 at nebulizer 0350, solution 3 Until mL Discontinu ed, Routine, Wheezing, Shortness of Breath, Bronchospa sm, Chest tightness ondansetron Yes 4mg 4 mg, Slow Univers (ZOFRAN 2-15 IV Push, ity of (PF)) 04:11: [facility] [place] injection 4 30 Starting Medi harjeet mg on Thu06/10/21 at 2211, Until Discontinu ed, Routine, Nausea and Vomiting (N/V) acetaminoph 0 Yes 650mg 650 mg, Un carolyne en 215 Oral, ity of (TYLENOL) 04:11: Q6HPRStar, [place] tablet 650 17 Starting Medic al mg on Thu06/10/21 at 2211, Until Discontinu ed, Routine, Pain (scale 1-3) KCL No 40meq 40 mEq, Univers (KLOR-CON 06-11 Oral, ity of M20) tablet 00:30: 23:26 ONCE, 1 [place] 40 mEq 00 :00 dose, On Medical [facility] Branch 06/10/21 at 1830, NAE magnesium No 2g 2 g, IV Univ ers sulfate in 06-11 Piggyback, it y of water 2 00:15: 00:26 ONCE, 1 [place] gram/50 mL 00 :00 dose, On Medic al (4 %) [facility] Branch infusion 2 06/10/21 at g 1815, Routine aspirin No 324mg 324 mg, Unive rs chewable 06-11 Oral, ity of tablet 324 00:15: 23:27 ONCE, 1 Aditya as mg 00 :00 dose, On Medical [facility] 06/10/21 at 1815, Routine Vital Signs Vital Name Observation Time Observation Value Comments Source Systolic blood 2021-11-10 01:53:00 120 mm[Hg] Univer sity of pressure [facility] Diastolic blood 2021-11-10 01:53:00 60 mm[Hg] Unive rsity of [facility] Heart rate 2021-11-10 01:53:00 60 /min [facility] Respiratory rate 2021-11-10 01:53:00 16 /min [facility] Oxygen saturation in 2021-11-10 01:53:00 96 /min [facility] Arterial blood by [facility] Pulse oximetry Branch Body temperature 2021-11-10 00:03:51 36.5 Becky [facility] Body height 2021-11-09 23:59:00 182.9 cm [facility] Body weight 2021-11-09 23:59:00 81.194 kg [facility] BMI 2021-11-09 23:59:00 24.28 kg/m2 [facility] Body temperature 2021-06-14 22:56:00 36 Becky [facility] Respiratory rate 2021-06-14 22:56:00 18 /min [facility] Oxygen saturation in 2021-06-14 22:56:00 94 /min [facility] Arterial blood by [facility] Pulse oximetry Branch Systolic blood 2021-06-14 22:56:00 126 mm[Hg] Univer sity of pressure [facility] Diastolic blood 2021-06-14 22:56:00 57 mm[Hg] [facility] Heart rate 2021-06-14 22:56:00 62 /min [facility] Body weight 2021-06-14 10:08:00 87.907 kg [facility] BMI 2021-06-14 10:08:00 26.28 kg/m2 [facility] Body height 2021-06-11 14:20:00 182.9 cm [facility] Procedures Procedure Date / Time Performing Clinician Source Performed NOTICE OF PRIVACY 2021-11-09 23:50:19 Doctor Unassigned, [facility] PRACTICES [place] Medical [place] CONSENT/REFUSAL FOR 2021-11-09 23:49:42 Doctor Unassigned, [facility] DIAGNOSIS AND TREATMENT [place] Medical Branch [id number] 2021-09-04 00:00:00 RASSA [facility] Clear [facility] BASIC METABOLIC PANEL 2021-06-14 11:48:00 Edwar Gomez [facility] (NA, K, CL, CO2, GLUCOSE, Medica l Branch BUN, CREATININE, CA) CBC WITH DIFF 2021-06-14 11:48:[address] [facility] N-TERMINAL PRO-BNP 2021-06-14 11:48:00 Edwar Gomez [facility] XR CHEST 1 VW 2021-06-13 12:21:00 Long Otto [facility] MAGNESIUM 2021-06-13 10:31:00 [facility] HEPATIC FUNCTION PANEL 2021-06-13 10:31:00 Long Otto [facility] ([id number]) (ALB,T.PRO,BILI Medical Branch T,BU/BC,ALT,AST,ALK PHOS) BASIC METABOLIC PANEL 2021-06-13 10:31:00 Edwar Gomez [facility] (NA, K, CL, CO2, GLUCOSE, Medica l Branch BUN, CREATININE, CA) CBC WITH DIFF 2021-06-13 10:31:00 Edwar Gomez [facility] N-TERMINAL PRO-BNP 2021-06-13 10:31:00 Edwar Gomez [facility] HB ECG ROUTINE & RHYTHM 2021-06-12 11:27:19 Marlen Fisher [facility] TROPONIN I 2021-06-12 10:06:00 Marlen Fisher [facility] BASIC METABOLIC PANEL 2021-06-12 10:06:00 Ely Casas [facility] (NA, K, CL, CO2, GLUCOSE, Medica l Branch BUN, CREATININE, CA) CBC WITH DIFF 2021-06-12 10:06:00 Ely Casas [facility] N-TERMINAL PRO-BNP 2021-06-12 10:06:00 Ely Casas [facility] DUPLEX VENOUS LEGS 2021-06-11 18:44:00 Marlen FisherHFigueroa [facility] BILATERAL - BY VASCULAR [facility] LAB TRANSTHORACIC ECHO (TTE) 2021-06-11 15:07:00 [facility] MAGNESIUM 2021-06-11 14:14:00 [facility] TROPONIN I 2021-06-11 14:14:00 Marcus [facility] BASIC METABOLIC PANEL 2021-06-11 14:14:00 [facility] (NA, K, CL, CO2, GLUCOSE, Medica l Branch BUN, CREATININE, CA) CBC WITH DIFF 2021-06-11 08:38:00 Marcus [facility] TROPONIN I 2021-06-11 08:37:00 [facility] BASIC METABOLIC PANEL 2021-06-11 08:37:00 [facility] (NA, K, CL, CO2, GLUCOSE, Medica l Branch BUN, CREATININE, CA) XR CHEST 1 VW 2021-06-10 22:17:46 Tosha Sosa [facility] HB ECG ROUTINE & RHYTHM 2021-06-10 22:07:12 [facility] MAGNESIUM 2021-06-10 22:05:00 Tosha Sosa [facility] TROPONIN I 2021-06-10 22:05:00 Tosha Sosa [facility] COMP. METABOLIC PANEL 2021-06-10 22:05:00 Tosha Sosa [facility] ([id number]) [facility] CBC WITH DIFF 2021-06-10 22:05:00 Tosha Sosa [facility] N-TERMINAL PRO-BNP 2021-06-10 22:05:00 Tosha Sosa [facility] COVID-19 (ID NOW RAPID 2021-06-10 22:05:00 Tosha Sosa Un [facility] TESTING) Medical [place] LAB ONLY COVID 2021-06-10 22:05:00 Tosha Sosa [facility] INTERPRETATION [facility] NOTICE OF PRIVACY 2021-06-10 21:33:24 Doctor Fernando, [facility] PRACTICES [place] [facility] CONSENT/REFUSAL FOR 2021-06-10 21:33:00 Doctor Fernando, [facility] DIAGNOSIS AND TREATMENT [place] [facility] HOSPITAL ADMISSION MISC - 2021-06-10 06:01:00 Doctor Fernando, [facility] MEDICARE PATIENTS RIGHTS [place] [facility] IMPORTANT MESSAGE Encounters Start End Encounter Admission Attending Care Care Encounter Source Date/Time Date/Time Type Type Clinicians Facility Department ID 2021-11-09 2021-11-09 Emergency X SINGER TNGERALDINE ERT [id number] Univers 19:05:00 20:57:00 CATRINA mcnally [facility] 2021-11-09 2021-11-09 Emergency JOYCE Newman [id number] Univers 19:05:00 20:57:00 Catrina STARK 350.1.13.10 i ty [facility] 4.2.7.2.686 [facility] [id number] [place] [address] Branch 2021-11-09 2021-11-09 Orders Doctor GRECIA [id number] Univers 00:00:00 00:00:00 Only Unassigned, KAREN 350.1.13.10 ity of [place] [facility] 4.2.7.2.686 Aditya as [id number] [facility] 009 Branch 2021-09-04 2021-09-04 Inpatient CLEMENCIA Mejia, HCACL INTE.02 [id number] [facility] 11:17:00 15:54:00 Jayesh 21 [facility] 2021-09-04 2021-09-04 Inpatient CLEMENCIA Mejia, HCACL INTE.02 [id number] [facility] 11:17:00 15:54:00 Jayesh [id number] [facility] 2021-08-29 2021-08-29 Outpatient CLEMENCIA Mejia, PAPOCL 3DAY [id number] [facility] 08:00:00 23:00:00 Jayesh 59 [facility] 2021-08-28 2021-08-28 Outpatient CLEMENCIA Mejia, PAPOCL HCACL [id number] [facility] 10:09:00 10:09:00 Jayesh [id number] [facility] 2021-08-28 2021-08-28 Outpatient CLEMENCIA Mejia, PAPOCL OUTD [id number] [facility] 10:09:00 10:09:00 Jayesh 09 [facility] 2021-06-17 2021-06-17 Transition ARIANNE Nix [id number] Univers 00:00:00 00:00:00 of Care Rivas LAURA 350.1.13.10 ity of [place] 4[place]2.7.2.686 [place] [id number] [facility] 403 Branch 2021-06-10 2021-06-14 Hospital Tosha Sosa [facility] [id number] [id number] Univers 15:40:00 18:20:00 Encounter Barry Perdomo 350.1.13.10 ity of [place] Soto 4.2.7.2.686 [facility] [id number] [facility] 081 Branch 2021-06-10 2021-06-14 Inpatient Nikhil SOTO TNGERALDINE JOCELNI [id number] Univers 15:40:00 18:20:00 KIARA mcnally [facility] Results Test Description Test Time Test Comments Results Result Comments Source ACT-ISTAT 2021-09-04 10:18:00 Test Item Value Reference Range Interpretation Comme nts ACT-ISTAT (test code = ACTI) 249 SEC 74-137 H Performed by certified pony cylinder press operator at [facility] COVID 19 Asymptomatic IH [id number] 08:21:00 Test Item Value Reference Range Interpretation Comments COVID 19 Asymptomatic Negative Negative A nega tive result is IH AG (test code = presumpti ve and should COVNONPUIAG) be confirmedwit h an FDA authorized mole cular assay, if necgatito march forpatient shellie gement.A positive result does not [...] waivedcomplexit y tests. - XR CHEST 1 [id number] 00:00:00 [facility] 1935 Sex: M FAX: Jayesh Adam MD [phone] [place]: St: ADM Name: MARLENY CARLTON [facility] : 1935 Age/S: 85/M [address] [place] [address] Blvd Unit #: [id number] Loc: [place] [address] Phys: Jayesh Mejia MD Acct: [id number] Dis Date: Status: ADM IN PHONE #: [phone] Exam Date: 09/04/2021 1129 FAX #: [phone] Reason: WATCHMAN EXAMS: CPT CODE: [id number] XR CHEST 1 V 66286 PROCEDURE INFORMATION: Exam: XR Chest Exam date and time: 09/04/2021 10:30 AM Age: 85 years old Clinical indication: Screening exam; Other screening; Additional info: Watchman TECHNIQUE: Imaging protocol: XR of the chest. Views: 1 view. COMPARISON: CR XR CHEST 1V 08/28/2021 9:38 AM FINDINGS: Lungs: Patchy reticular opacity about both lung bases with prominence of the interstitium about the remainder of the lungs similar [place] ullinr study. Small bilateral pleural effusions similar to prior study. No pneumothorax bilaterally. Pleural spaces: See "Lungs" finding. Heart/Mediastinum: Cardiac and [...] Rojas M.D. CC: Jayesh Mejia MD Technologist: RT Kamila(R) Trnscrd Date/Time/By: 09/04/2021(1146) : By: [email or web address] Orig Print D/T: S: 09/04/2021 (7849) PAGE 1 Signed [id number] 14:41:00 Test Item Value Reference Range Interpretation Comments ACT-ISTAT (test code 273 SEC 74-137 H Perform ed by certified = ACTI) pony cylinder press operator at [facility] [id number] 14:41:00 Test Item Value Reference Range Interpretation Comments ACT-ISTAT (test code 285 SEC 74-137 H Perform ed by certified = ACTI) pony cylinder press operator at [facility] [id number] 14:41:00 Test Item Value Reference Range Interpretation Comments ACT-ISTAT (test code 279 SEC 74-137 H Perform ed by certified = ACTI) pony cylinder press operator at [facility] BASIC METABOLIC [id number] 09:53:00 Test Item Value Reference Range Interpretation [...] = 8.8 mg/dL 8.0-10.5 N CA) PROTHROMBIN [id number] 09:50:00 Test Item Value Reference Range Interpretation [...] (to prevent recurrent infar ct). CBC W/AUTO [id number] 09:34:00 Test Item Value Reference Range Interpretation [...] NO = MDIFF) - XR CHEST 1 [id number] 00:00:00 [facility] : 1935 Sex: M FAX: Jayesh Adam MD [phone] [place]: HERIBERTO St: REG Name: MARLENY CARLTON [facility] : 1935 Age/S: 85/M [address] [place] [address] Unit #: [id number] Loc: [place] [address] Phys: JackieKitty Acct: [id number] Dis Date: Status: REG SD PHONE #: [phone] Exam Date: 08/28/2021 0940 FAX #: [phone] Reason: PRE PROCEDURE EXAMS: CPT CODE: [id number] XR CHEST 1 V [id number] PROCEDURE INFORMATION: Exam: XR Chest Exam date [...] edema or atypical pneumonitis. 2. There are opac ities in the left upper lung. This is [...] (test code = 134 mmol/L 135-145 L 8429106010) K (test code = 3.5 mmol/L 3.5-5.0 0976272736) CL (test code = 95 mmol/L 98-108 L 4182276147) CO2 TOTAL (test code = 37 mmol/L 23-31 H 5023103888) AGAP (test code = 2-16 5300448260) BUN (test code = 14 mg/dL 7-23 5871724242) GLUCOSE (test code = 106 mg/dL 70-110 4734887062) CREATININE (test code = 1.10 mg/dL 0.60-1.25 9301204498) CALCIUM (test code = 8.6 mg/dL 8.6-10.6 9596348388) eGFR (test code = mL/min/1.73m2 8147374897) JAYE (test code = JAYE) Association of [...] tests). Lab Interpretation Abnormal (test code = 18050-2) [facility] [id number] 13:03:52 Test Item Value Reference Range Interpretation Comments NT-proBNP (test code 3200 pg/mL See_Comment H [Autom ated = 5531557677) message] The system which generated this result transmitted reference range : <=450. The reference range was not used to interpret this result as normal/abnormal . JAYE (test code = JAYE) Biotin has been reported to cause a negative bias, interpret results relative to patient's use of biotin. Lab Interpretation Abnormal (test code = 08323-6) [facility] WITH [id number] 12:09:26 Test Item Value Reference Range Interpretation [...] RDW-SD (test code = 48.3 fL 38.5-51.6 53604-0) RDW-CV (test code = 13.5 % 12.1-15.4 788-0) PLT (test code = See_Comment [Automated 777-3) message] The sy stem which generated this result transmitted reference range : 150 - 328 10*3/ ?L. The reference r loretta was not used to interpret this result as normal/abnormal . MPV (test code = 10.1 fL 9.8-13.0 36568-6) NRBC/100 WBC (test See_Comment [Automat ed code = 5914165644) message] The system which generated this result transmitted reference range : 0.0 - 10.0 /100 WBCs. The refer ence range was not u sed to interpret th is result as normal/abnormal . NRBC x10^3 (test code <0.01 See_Comment [Auto mated = 7003422525) message] The s ystem which generated this result transmitted reference range : 10*3/?L. The reference range was not used to interpret this result as normal/abnormal . GRAN MAT (NEUT) % 62.1 % (test code = 770-8) IMM GRAN % (test code 0.60 % = 8143918778) LYMPH % (test code = 20.9 % 736-9) MONO % (test code = 12.1 % 5905-5) EOS % (test code = 3.9 % 713-8) BASO % (test code = 0.4 % 706-2) GRAN MAT x10^3(ANC) 3.39 10*3/uL 1.99-6.95 (test code = 1562366934) IMM GRAN x10^3 (test 0.03 10*3/uL 0.00-0.06 code = 1296712147) LYMPH x10^3 (test code 1.14 10*3/uL 1.09-3.23 = 731-0) MONO x10^3 (test code 0.66 10*3/uL 0.36-1.02 = 742-7) EOS x10^3 (test code = 0.21 10*3/uL 0.06-0.53 711-2) BASO x10^3 (test code <0.03 0.01-0.09 = 704-7) Lab Interpretation Abnormal (test code = 31827-4) [facility] ([address] (ALB,T.PRO,BILI T,BU/BC,ALT,AST,ALK PHOS)2021-06-13 12:48:00 Test Item Value Reference Range Interpretation Comments TOTAL BILI (test code = 8462343597) 1.5 mg/dL 0.1-1.1 H BILI UNCON (test code = 3403608708) 0.7 mg/dL 0.1-1.1 BILI CONJ (test code = 3835670606) 0.0 mg/dL 0.0-0.3 T PROTEIN (test code = 9931746533) 5.8 g/dL 6.3-8.2 L ALBUMIN (test code = 8088871680) 3.1 g/dL 3.5-5.0 L ALK PHOS (test code = 4463510884) 108 U/L 34-122 ALTv (test code = 1742-6) 20 U/L 5-50 AST(SGOT) (test code = 7159360948) 35 U/L 13-40 Lab Interpretation (test code = Abnormal 78933-2) [facility] [facility] 12:47:40 Test Item Value Reference Range Interpretation Comments MAGNESIUM (test code = 8674781714) 1.9 mg/dL 1.7-2.4 Lab Interpretation (test code = Normal 65918-9) [facility] [id number] 11:14:43 Test Item Value Reference Range Interpretation Comments NT-proBNP (test code 3140 pg/mL See_Comment H [Autom ated = 0505912344) message] The system which generated this result transmitted reference range : <=450. The reference range was not used to interpret this result as normal/abnormal . JAYE (test code = JAYE) Biotin has been reported to cause a negative bias, interpret results relative to patient's use of biotin. Lab Interpretation Abnormal (test code = 61683-7) [facility] (NA, K, CL, CO2, GLUCOSE, BUN, CREATININE, CA)2021-06-13 11:13:22 Test Item Value Reference Range Interpretation Comments NA (test code = 135 mmol/L 135-145 6332313521) K (test code = 3.4 mmol/L 3.5-5.0 L 0456376015) CL (test code = 100 mmol/L 98-108 7809636718) CO2 TOTAL (test code = 35 mmol/L 23-31 H 6924775395) AGAP (test code = <1 2-16 L 7865088443) BUN (test code = 15 mg/dL 7-23 0368226044) GLUCOSE (test code = 96 mg/dL 70-110 6694745153) CREATININE (test code = 1.09 mg/dL 0.60-1.25 8778011257) CALCIUM (test code = 8.7 mg/dL 8.6-10.6 5736019304) eGFR (test code = mL/min/1.73m2 5647061845) JAYE (test code = JAYE) Association of [...] tests). Lab Interpretation Abnormal (test code = 10494-2) [facility] WITH [id number] 10:55:57 Test Item Value Reference Range Interpretation Comments WBC (test code = See_Comment [Automated 7528-2) message] The sy stem which generated this result transmitted reference range : 4.20 - 10.70 10*3/?L. The reference range was not used to interpret this result as normal/abnormal . RBC (test code = See_Comment L [Automated 934-4) message] The sy stem which generated this [...] RDW-SD (test code = 48.9 fL 38.5-51.6 10441-3) RDW-CV (test code = 13.6 % 12.1-15.4 788-0) PLT (test code = See_Comment [Automated 777-3) message] The sy stem which generated this result transmitted reference range : 150 - 328 10*3/ ?L. The reference r loretta was not used to interpret this result as normal/abnormal . MPV (test code = 10.5 fL 9.8-13.0 21459-5) NRBC/100 WBC (test See_Comment [Automat ed code = 3123332493) message] The system which generated this result transmitted reference range : 0.0 - 10.0 /100 WBCs. The refer ence range was not u sed to interpret th is result as normal/abnormal . NRBC x10^3 (test code <0.01 See_Comment [Auto mated = 8753175663) message] The s ystem which generated this result transmitted reference range : 10*3/?L. The reference range was not used to interpret this result as normal/abnormal . GRAN MAT (NEUT) % 59.7 % (test code = 770-8) IMM GRAN % (test code 0.40 % = 2047713762) LYMPH % (test code = 23.0 % 736-9) MONO % (test code = 10.8 % 5905-5) EOS % (test code = 5.3 % 713-8) BASO % (test code = 0.8 % 706-2) GRAN MAT x10^3(ANC) 3.14 10*3/uL 1.99-6.95 (test code = 5561984407) IMM GRAN x10^3 (test <0.03 0.00-0.06 code = 9294663860) LYMPH x10^3 (test code 1.21 10*3/uL 1.09-3.23 = 731-0) MONO x10^3 (test code 0.57 10*3/uL 0.36-1.02 = 742-7) EOS x10^3 (test code = 0.28 10*3/uL 0.06-0.53 711-2) BASO x10^3 (test code 0.04 10*3/uL 0.01-0.09 = 704-7) Lab Interpretation Abnormal (test code = 73911-6) [facility] [id number] 16:03:20 Test Item Value Reference Interpretation Comments Range TROPONIN I (test 0.040 ng/mL See_Comment H [Automated code = 4146410840) message] The system which generated this result [...] biotin. Lab Interpretation Abnormal (test code = 12071-0) [facility] [id number] 11:35:29 Test Item Value Reference Range Interpretation Comments NT-proBNP (test code 3700 pg/mL See_Comment H [Autom ated = 7767367695) message] The system which generated this result transmitted reference range : <=450. The reference range was not used to interpret this result as normal/abnormal . JAYE (test code = JAYE) Biotin has been reported to cause a negative bias, interpret results relative to patient's use of biotin. Lab Interpretation Abnormal (test code = 50259-3) [facility] METABOLIC PANEL (NA, K, CL, CO2, GLUCOSE, BUN, CREATININE, CA)2021-06-12 11:27:44 Test Item Value Reference Range Interpretation Comments NA (test code = 134 mmol/L 135-145 L 7592551404) K (test code = 3.2 mmol/L 3.5-5.0 L 4206531953) CL (test code = 98 mmol/L 98-108 1077179927) CO2 TOTAL (test code = 35 mmol/L 23-31 H 1415637778) AGAP (test code = 2-16 L 8334656636) BUN (test code = 16 mg/dL 7-23 9919115085) GLUCOSE (test code = 102 mg/dL 70-110 4416197517) CREATININE (test code = 1.10 mg/dL 0.60-1.25 4746110803) CALCIUM (test code = 8.4 mg/dL 8.6-10.6 L 5960557759) eGFR (test code = mL/min/1.73m2 7210170678) JAYE (test code = JAYE) Association of [...] tests). Lab Interpretation Abnormal (test code = 60991-3) [facility] WITH [id number] 11:13:43 Test Item Value Reference Range Interpretation [...] RDW-SD (test code = 49.6 fL 38.5-51.6 76335-1) RDW-CV (test code = 13.9 % 12.1-15.4 788-0) PLT (test code = See_Comment [Automated 777-3) message] The sy stem which generated this result transmitted reference range : 150 - 328 10*3/ ?L. The reference r loretta was not used to interpret this result as normal/abnormal . MPV (test code = 10.8 fL 9.8-13.0 28888-9) NRBC/100 WBC (test See_Comment [Automat ed code = 2576525535) message] The system which generated this result transmitted reference range : 0.0 - 10.0 /100 WBCs. The refer ence range was not u sed to interpret th is result as normal/abnormal . NRBC x10^3 (test code <0.01 See_Comment [Auto mated = 4575417647) message] The s ystem which generated this result transmitted reference range : 10*3/?L. The reference range was not used to interpret this result as normal/abnormal . GRAN MAT (NEUT) % 63.4 % (test code = 770-8) IMM GRAN % (test code 0.50 % = 5107707273) LYMPH % (test code = 19.7 % 736-9) MONO % (test code = 11.5 % 5905-5) EOS % (test code = 4.4 % 713-8) BASO % (test code = 0.5 % 706-2) GRAN MAT x10^3(ANC) 3.47 10*3/uL 1.99-6.95 (test code = 5288991572) IMM GRAN x10^3 (test 0.03 10*3/uL 0.00-0.06 code = 3952742683) LYMPH x10^3 (test code 1.08 10*3/uL 1.09-3.23 L = 731-0) MONO x10^3 (test code 0.63 10*3/uL 0.36-1.02 = 742-7) EOS x10^3 (test code = 0.24 10*3/uL 0.06-0.53 711-2) BASO x10^3 (test code 0.03 10*3/uL 0.01-0.09 = 704-7) Lab Interpretation Abnormal (test code = 16019-6) [facility]2021-06-11 19:02:50 Test Item Value Reference Range Interpretation Comments LVOT diameter (test code 2.15 cm = 3088546928) IVS (test code = 1.35 cm 2554517252) Interventricular Septum 1.35 cm Diastolic Thickness by 2D (test code = 6933649) LVIDD (test code = 4.80 cm 8609510296) LVPWD (test code = 1.35 cm 3508967432) PW (test code = 1.35 cm 0.6-1.9 0976462904) EF(Teich) (test code = 63.90 % 0897692399) LVIDS (test code = 3.10 cm 7742783495) FS (test code = 35 % 1421915764) EF - 2D (test code = 63.90 % 80299282) LA size (test code = 4.7 cm 5029016800) Ao root annulus (test 3.3 cm code = 8296612707) Ao root diam (test code = 3.30 cm 8311274389) Aortic root (test code = 3.3 cm 5168773217) TR Peak Jose (test code = 385.0 cm/s 9062895131) Triscuspid Valve mmHg Regurgitation Peak Gradient (test code = 1540750110) LAV(MOD-sp4) (test code = 62.30 mL 4372318509) E wave decelartion time 0.20 s (test code = 6407395089) MV stenosis pressure 1/2 58.0 ms time (test code = 5709023603) MV Peak E Jose (test code 137.9 cm/s = 2809463545) MV Peak A Jose (test code 47.9 cm/s = 0471131612) E/A ratio (test code = ratio 5400873977) MR max PG (test code = 104.70 mm[Hg] 6104106436) MR max jose (test code = 511.50 cm/s 8082302526) Mr max jose (test code = 511.5 m/s 4871911863) MV Prop V (test code = 57.60 cm/s 3142942701) MV E/e' septal (test code 14.2 cm/s = 9748177259) Tapse (test code = 2.07 cm 1896854181) LVOT stroke volume (test 84.20 cm3 code = 0918440819) LVOT peak jose (test code 98.6 cm/s = 5601010198) LVOT mn grad (test code = mmHg 4763139524) AV LVOT peak gradient mmHg (test code = 5091490004) LVOT peak VTI (test code 23.1 cm = 0201435525) LV V1 mean (test code = 69.30 cm/s 6929854766) Aortic valve mean 221.4 cm/s velocity (test code = 4146371977) Ao peak jose (test code = 308.2 cm/s 2213946598) Ao VTI (test code = 66.9 cm 6454749926) AV area by cont VTI (test 1.3 cm2 code = 1171460699) AV area peak jose (test 1.2 cm2 code = 9752220523) Ao max PG (test code = 38.00 mm[Hg] 9772353754) AV peak gradient (test mmHg code = 3920962478) AV valve area (test code 1.26 cm2 = 5944027661) AV mean gradient (test mmHg code = 7450288344) AV regurgitation pressure 527.4 ms 1/2 time (test code = 2142406423) AI dec slope (test code = 221.40 cm/s2 3944719332) AI max jose (test code = 398.70 cm/s 9696922010) AI max PG (test code = 63.60 mm[Hg] 1148698837) LA Volume Index (BP) 43.3 mL/m2 (test code = 4433924954) LA volume (BP) (test code 91.7 mL = 1411326165) LAV(MOD-sp2) (test code = 120.20 mL 2229281147) Radiology Study observation (narrative) (test code = 36971-1) JAYE (test code = JAYE) ?Left?Ventricle: Normal [...] (89.4 kg) 2.13 sq meters 132/57 64 [facility] 15:39:04 Test Item Value Reference Range Interpretation Comments MAGNESIUM (test code = 0602283638) 2.1 mg/dL 1.7-2.4 Lab Interpretation (test code = Normal 28748-1) [facility] METABOLIC PANEL (NA, K, CL, CO2, GLUCOSE, BUN, CREATININE, CA)2021-06-11 15:38:03 Test Item Value Reference Range Interpretation Comments NA (test code = 136 mmol/L 135-145 0865498508) K (test code = 3.8 mmol/L 3.5-5.0 1622352581) CL (test code = 100 mmol/L 98-108 4905736355) CO2 TOTAL (test code = 32 mmol/L 23-31 H 0696778652) AGAP (test code = 2-16 2356723412) BUN (test code = 18 mg/dL 7-23 3853784784) GLUCOSE (test code = 118 mg/dL 70-110 H 1971344733) CREATININE (test code = 1.06 mg/dL 0.60-1.25 7204867109) CALCIUM (test code = 8.4 mg/dL 8.6-10.6 L 1980677598) eGFR (test code = mL/min/1.73m2 9730784272) JAYE (test code = JAYE) Association of [...] tests). Lab Interpretation Abnormal (test code = 04891-4) [facility]NICHOLAS [id number] 15:27:03 Test Item Value Reference Interpretation Comments Range TROPONIN I (test 0.071 ng/mL See_Comment H [Automated code = 4300453914) message] The system which generated this result [...] biotin. Lab Interpretation Abnormal (test code = 31909-0) [facility] [id number] 09:25:15 Test Item Value Reference Interpretation Comments Range TROPONIN I (test 0.079 ng/mL See_Comment H [Automated code = 0295351770) message] The system which generated this result [...] biotin. Lab Interpretation Abnormal (test code = 32852-3) [facility] Metabolic Panel (NA, K, CL, CO2, GLUCOSE, BUN, CREATININE, CA)2021-06-11 09:15:32 Test Item Value Reference Range Interpretation Comments NA (test code = 134 mmol/L 135-145 L 5696536343) K (test code = 2.9 mmol/L 3.5-5.0 LL 5754708251) CL (test code = 98 mmol/L 98-108 4498282858) CO2 TOTAL (test code = 34 mmol/L 23-31 H 1783563227) AGAP (test code = 2-16 1713207319) BUN (test code = 19 mg/dL 7-23 9955584936) GLUCOSE (test code = 106 mg/dL 70-110 4559949374) CREATININE (test code = 1.10 mg/dL 0.60-1.25 8570870861) CALCIUM (test code = 8.3 mg/dL 8.6-10.6 L 8106689814) eGFR (test code = mL/min/1.73m2 2262233275) JAYE (test code = JAYE) Association of [...] tests). Lab Interpretation Abnormal (test code = 74625-8) [facility] with [id number] 08:47:50 Test Item Value Reference Range Interpretation [...] RDW-SD (test code = 49.8 fL 38.5-51.6 39308-8) RDW-CV (test code = 14.0 % 12.1-15.4 788-0) PLT (test code = See_Comment [Automated 777-3) message] The sy stem which generated this result transmitted reference range : 150 - 328 10*3/ ?L. The reference r loretta was not used to interpret this result as normal/abnormal . MPV (test code = 10.5 fL 9.8-13.0 98128-8) NRBC/100 WBC (test See_Comment [Automat ed code = 5510719871) message] The system which generated this result transmitted reference range : 0.0 - 10.0 /100 WBCs. The refer ence range was not u sed to interpret th is result as normal/abnormal . NRBC x10^3 (test code <0.01 See_Comment [Auto mated = 8946175137) message] The s ystem which generated this result transmitted reference range : 10*3/?L. The reference range was not used to interpret this result as normal/abnormal . GRAN MAT (NEUT) % 57.8 % (test code = 770-8) IMM GRAN % (test code 0.20 % = 9264739658) LYMPH % (test code = 25.0 % 736-9) MONO % (test code = 12.5 % 5905-5) EOS % (test code = 3.9 % 713-8) BASO % (test code = 0.6 % 706-2) GRAN MAT x10^3(ANC) 3.15 10*3/uL 1.99-6.95 (test code = 7919520013) IMM GRAN x10^3 (test <0.03 0.00-0.06 code = 0606693312) LYMPH x10^3 (test code 1.36 10*3/uL 1.09-3.23 = 731-0) MONO x10^3 (test code 0.68 10*3/uL 0.36-1.02 = 742-7) EOS x10^3 (test code = 0.21 10*3/uL 0.06-0.53 711-2) BASO x10^3 (test code 0.03 10*3/uL 0.01-0.09 = 704-7) Lab Interpretation Abnormal (test code = 33056-8) [facility] [id number] 22:54:32 Test Item Value Reference Interpretation Comments Range TROPONIN I (test 0.101 ng/mL See_Comment H [Automated code = 4434064868) message] The system which generated this result [...] biotin. Lab Interpretation Abnormal (test code = 54464-2) [facility] [id number] 22:51:31 Test Item Value Reference Range Interpretation Comments NT-proBNP (test code 4460 pg/mL See_Comment H [Autom ated = 6141173091) message] The system which generated this result transmitted reference range : <=450. The reference range was not used to interpret this result as normal/abnormal . JAYE (test code = JAYE) Biotin has been reported to cause a negative bias, interpret results relative to patient's use of biotin. Lab Interpretation Abnormal (test code = 47992-0) [facility]2022-[facility]-14 22:43:31 Test Item Value Reference Range Interpretation Comments MAGNESIUM (test code = 7275632200) 1.6 mg/dL 1.7-2.4 L Lab Interpretation (test code = Abnormal 09194-6) [facility]OL[facility] PAN[facility] (06000)2021-06-10 22:43:31 Test Item Value Reference Range Interpretation Comments NA (test code = 135 mmol/L 135-145 9233737657) K (test code = 3.0 mmol/L 3.5-5.0 L 8759321698) CL (test code = 96 mmol/L 98-108 L 7420814693) CO2 TOTAL (test code = 33 mmol/L 23-31 H 6685033486) AGAP (test code = 2-16 8720958666) BUN (test code = 20 mg/dL 7-23 2317812605) GLUCOSE (test code = 154 mg/dL 70-110 H 8177922067) CREATININE (test code = 1.14 mg/dL 0.60-1.25 7644020298) TOTAL BILI (test code = 3.7 mg/dL 0.1-1.1 H 0009268730) CALCIUM (test code = 8.7 mg/dL 8.6-10.6 1750962827) T PROTEIN (test code = 7.1 g/dL 6.3-8.2 4864416848) ALBUMIN (test code = 3.9 g/dL 3.5-5.0 9189836082) ALK PHOS (test code = 160 U/L 34-122 H 4269268735) ALTv (test code = 31 U/L 5-50 1742-6) AST(SGOT) (test code = 35 U/L 13-40 0904236361) eGFR (test code = mL/min/1.73m2 5628828873) JAYE (test code = JAYE) Association of [...] tests). Lab Interpretation Abnormal (test code = 04692-5) [facility] WITH [id number] 22:29:29 Test Item Value Reference Range Interpretation Comments WBC (test code = See_Comment [Automated 9315-2) message] The sy stem which generated this result transmitted reference range : 4.20 - 10.70 10*3/?L. The reference range was not used to interpret this result as normal/abnormal . RBC (test code = See_Comment L [Automated 149-8) message] The sy stem which generated this [...] RDW-SD (test code = 49.0 fL 38.5-51.6 58490-6) RDW-CV (test code = 13.9 % 12.1-15.4 788-0) PLT (test code = See_Comment [Automated 777-3) message] The sy stem which generated this result transmitted reference range : 150 - 328 10*3/ ?L. The reference r loretta was not used to interpret this result as normal/abnormal . MPV (test code = 10.5 fL 9.8-13.0 74485-2) NRBC/100 WBC (test See_Comment [Automat ed code = 5007961044) message] The system which generated this result transmitted reference range : 0.0 - 10.0 /100 WBCs. The refer ence range was not u sed to interpret th is result as normal/abnormal . NRBC x10^3 (test code <0.01 See_Comment [Auto mated = 5911061930) message] The s ystem which generated this result transmitted reference range : 10*3/?L. The reference range was not used to interpret this result as normal/abnormal . GRAN MAT (NEUT) % 63.2 % (test code = 770-8) IMM GRAN % (test code 0.30 % = 0716600308) LYMPH % (test code = 24.2 % 736-9) MONO % (test code = 9.8 % 5905-5) EOS % (test code = 1.9 % 713-8) BASO % (test code = 0.6 % 706-2) GRAN MAT x10^3(ANC) 3.94 10*3/uL 1.99-6.95 (test code = 4203806645) IMM GRAN x10^3 (test <0.03 0.00-0.06 code = 2748132504) LYMPH x10^3 (test code 1.51 10*3/uL 1.09-3.23 = 731-0) MONO x10^3 (test code 0.61 10*3/uL 0.36-1.02 = 742-7) EOS x10^3 (test code = 0.12 10*3/uL 0.06-0.53 711-2) BASO x10^3 (test code 0.04 10*3/uL 0.01-0.09 = 704-7) Lab Interpretation Abnormal (test code = 64847-1) [facility]
--- NOTE | 2022-03-09 14:16 | RAD REPORT ---
EXAM DESCRIPTION: RAD - Wrist Right 3 View - 03/09/2022 2:05 pm CLINICAL HISTORY: PAIN COMPARISON: None FINDINGS/IMPRESSION: No acute fracture. Radiocarpal joint space narrowing. 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 Peripheral vascular calcifications. Distal radioulnar joint degener ative changes. Degenerative changes are present the base of the thumb. Proximal migration of the capi pittman. .
--- NOTE | 2022-03-09 14:30 | EDPHYS ---
Physician Documentation [facility] Name: Cy Bill Age: 86 yrs Sex: Male : 1935 Arrival Date: 03/09/2022 Time: 13:45 Bed External Waiting Private MD: ED Physician Wilton Dong HPI: 03/09 14:27 This 86 yrs old Male presents to ER via EMS with complaints of Wrist Injury. jl9 Patient reports tripping over his walker and hitting his right wrist. . 14:27 The patient or guardian reports pain, skin tear. The complaints affect the right wrist jl9 diffusely. Context: resulted from a fall. Onset: The symptoms/episode began/occurred just prior to arrival. Modifying factors: the symptoms are aggravated by movement. Associated signs and symptoms: The patient has no apparent associated signs or symptoms. Historical: - Allergies: 14:12 No Known Allergies; bp - Home Meds: 14:12 albuterol sulfate 90 mcg/actuation Inhl HFAA twice a day [Active]; apixaban 5 mg Oral bp tab [Active]; Aspirin Oral [Active]; finasteride 5 mg Oral tab 1 tab once daily [Active]; furosemide 40 mg Oral tab [Active]; tamsulosin 0.4 mg Oral cap 1 cap once daily [Active]; Vitamin D Oral [Active]; potassium chloride 10 mEq Oral cpER 1 cap once daily [Active]; mirtazapine 15 mg Oral tab 1 tab once daily [Active]; magnesium oxide 420 mg Oral tab [Active]; Melatonin Oral [Active]; hydrochlorothiazide 25 mg Oral tab 1 tab once daily [Active]; - PMHx: 14:12 Atrial fibrillation; BPH; bp - Immunization history:: Adult Immunizations up to date. - Social history:: Smoking status: Patient denies any tobacco usage or history of. ROS: 14:28 Constitutional: Negative for fever, chills, and weight loss, Eyes: Negative for injury, jl9 pain, redness, and discharge, ENT: Negative for injury, pain, and discharge, Neck: Negative for injury, pain, and swelling, Cardiovascular: Negative for chest pain, palpitations, and edema, Respiratory: Negative for shortness of breath, cough, wheezing, and pleuritic chest pain, Abdomen/GI: Negative for abdominal pain, nausea, vomiting, diarrhea, and constipation, Back: Negative for injury and pain, : Negative for injury, bleeding, discharge, and swelling. 14:28 Neuro: Negative for headache, weakness, numbness, tingling, and seizure, Psych: Negative for depression, anxiety, suicide ideation, homicidal ideation, and hallucinations, Allergy/Immunology: Negative for hives, rash, and allergies, Endocrine: Negative for neck swelling, polydipsia, polyuria, polyphagia, and marked weight changes, Hematologic/Lymphatic: Negative for swollen nodes, abnormal bleeding, and unusual bruising. 14:28 MS/extremity: Positive for pain, of the right hand, R wrist. 14:28 Skin: Positive for skin tear . Exam: 14:28 Hand exam: Exam is positive for pain, ROM: limited active range of motion due to pain, jl9 Circulation is intact in all extremities. sensation intact. 14:28 Constitutional: This is a well developed, well nourished patient who is awake, alert, and in no acute distress. Head/Face: Normocephalic, atraumatic. Eyes: Pupils equal round and reactive to light, extra-ocular motions intact. Lids and lashes normal. Conjunctiva and sclera are non-icteric and not injected. Cornea within normal limits. Periorbital areas with no swelling, redness, or edema. ENT: Mucous membranes moist. Neck: Trachea midline, no thyromegaly or masses palpated, and no cervical lymphadenopathy. Supple, full range of motion without nuchal rigidity, or vertebral point tenderness. No Meningismus. Chest/axilla: Normal chest wall appearance and motion. Nontender with no deformity. No lesions are appreciated. Cardiovascular: Regular rate and rhythm with a normal S1 and S2. No gallops, murmurs, or rubs. Normal PMI, no JVD. No pulse deficits. Respiratory: Lungs have equal breath sounds bilaterally, clear to auscultation and percussion. No rales, rhonchi or wheezes noted. No increased work of breathing, no retractions or nasal flaring. Abdomen/GI: Soft, non-tender, with normal bowel sounds. No distension or tympany. No guarding or rebound. No evidence of tenderness throughout. Back: No spinal tenderness. No costovertebral tenderness. Full range of motion. 14:28 MS/ Extremity: Pulses equal, no cyanosis. Neurovascular intact. Full, normal range of motion. Neuro: Awake and alert, GCS 15, oriented to person, place, time, and situation. Cranial nerves II-XII grossly intact. Motor strength 5/5 in all extremities. Sensory grossly intact. Cerebellar exam normal. Normal gait. Psych: Awake, alert, with orientation to person, place and time. Behavior, mood, and affect are within normal limits. 14:28 Skin: skin tear. Vital Signs: 13:45 BP 116 / 48; Pulse 90; Resp 17; Temp 98; Pulse Ox 91% on 2 lpm NC; bp 15:08 BP 103 / 43; Pulse 96; Resp 16; Pulse Ox 96% ; bp 16:39 BP 107 / 39; Pulse 70; Resp 16; Pulse Ox 97% ; ss 17:30 BP 108 / 46; Pulse 82; Resp 16; Pulse Ox 100% ; bp 18:30 BP 103 / 42; Pulse 84; Resp 16; Pulse Ox 98% ; bp MDM: 13:47 Patient medically screened. jl9 14:29 Differential diagnosis: dislocation, open fracture, closed fracture, contusion. Data jl9 reviewed: vital signs, nurses notes. Counseling: I had a detailed discussion with the patient and/or guardian regarding: the historical points, exam findings, and any diagnostic results supporting the discharge/admit diagnosis, radiology results, the need for outpatient follow up, to return to the emergency department if symptoms worsen or persist or if there are any questions or concerns that arise at home. 16:56 Counseling: I had a detailed discussion with the patient and/or guardian regarding: the jl9 need for further work-up and treatment in the hospital. Physician consultation: Discussed with YEMI Zepeda in the ED. Will see patient and admit to Dr. Cortés. . 22:21 ED course: Called by Dr Roa and asked to place order for Dopamine titrate to MAP ms3 greater than 60. He is unable to access Induction Manager. Order placed in Induction Manager. 03/09 15:08 Order name: Basic Metabolic Panel; Complete Time: 16:49 9 03/09 15:08 Order name: CBC with Diff; Complete Time: 15:50 9 03/09 15:08 Order name: Troponin HS; Complete Time: 16:49 9 03/09 15:08 Order name: BNP; Complete Time: 16:49 jl9 03/09 15:08 Order name: COVID-19/FLU A+B/RSV (Document "Date of Onset" if Symptomatic); Complete jl9 Time: 16:49 03/09 22:48 Order name: Urine Dipstick-Ancillary EDKY 03/09 13:47 Order name: XRAY Wrist RIGHT 3 view; Complete Time: 14:25 9 03/09 15:08 Order name: XRAY Chest (1 view); Complete Time: 15:50 9 03/09 15:08 Order name: EKG; Complete Time: 15:09 9 03/09 23:21 Order name: Troponin High Sensitivity EDMS 03/10 07:06 Order name: CBC with Automated Diff EDMS 03/10 08:56 Order name: Comprehensive Metabolic Panel EDMS 03/10 09:12 Order name: Thyroid Stimulating Hormone EDMS 03/09 14:32 Order name: Wound dressing; Complete Time: 15:20 9 03/09 15:08 Order name: Cardiac monitoring; Complete Time: 15:40 9 03/09 15:08 Order name: EKG - Nurse/Tech; Complete Time: 15:40 9 03/09 15:08 Order name: IV Saline Lock; Complete Time: 15:40 9 03/09 15:08 Order name: Labs collected and sent; Complete Time: 15:40 9 03/09 15:08 Order name: Urine Dipstick-Ancillary (obtain specimen); Complete Time: 23:37 9 03/09 17:53 Order name: Heart Healthy EDMS Administered Medications: 17:15 Drug: Lasix (furosemide) 40 mg Route: IVP; Site: right forearm; bp Disposition Summary: 03/09/22 16:57 Hospitalization Ordered Hospitalization Status: Inpatient Admission jl9 Condition: Fair(03/09/22 16:57) jl9 Problem: new jl9 Symptoms: have worsened jl9 Bed/Room Type: Standard jl9 Provider: Otto Roa(03/09/22 17:41) jl9 Location: [facility] ER HOLD(03/09/22 18:45) cg Room Assignment: ERHOLD-(03/09/22 18:45) cg Diagnosis - Acute on chronic diastolic (congestive) heart failure jl9 Forms: - Medication Reconciliation Form jl9 - SBAR form jl9 Addendum: 03/13/2022 09:40 Co-signature as Attending Physician, Wilton Dong MD I agree with the assessment and c sellers plan of care. Signatures: Dispatcher [employer] Wilton Rangel MD MD cha Garcia, Cindy, RN RN Farooq Hayes RN RN Javier Zelaya, DO ms3 Vargas, Al jl9 Corrections: (The following items were deleted from the chart) 03/09 15:07 14:30 Home 9 9 15: 14:30 Stable [facility] 15: 14:30 Pain in right wrist 9 jl9 17:41 16:57 MilanaNnamdi hood [facility] 18:45 16:57 Telemetry/MedSurg (Inpatient) [facility] 18:45 16:57 [facility]
--- NOTE | 2022-03-09 14:30 | ER ---
Nurse's Notes [facility] Name: Cy Bill Age: 86 yrs Sex: Male : 1935 Arrival Date: 03/09/2022 Time: 13:45 Bed External Waiting [facility] MD: Diagnosis: Acute on chronic diastolic (congestive) heart failure Presentation: 03/09 13:45 Chief complaint: EMS states: FALL OVER WALKER AT HOME WITH R WRIST SKIN TEAR. bp Coronavirus screen: At this time, the client does not indicate any symptoms associated with coronavirus-19. Ebola Screen: No symptoms or risks identified at this time. Initial Sepsis Screen: Does the patient meet any 2 criteria? No. Patient's initial sepsis screen is negative. Does the patient have a suspected source of infection? No. Patient's initial sepsis screen is negative. Risk Assessment: Do you want to hurt yourself or someone else? Patient reports no desire to harm self or others. Onset of symptoms is unknown. 13:45 Method Of Arrival: EMS: [facility] bp 13:45 Acuity: AMALIA 3 bp Triage Assessment: 14:14 General: Appears in no apparent distress. Behavior is drowsy. Pain: Denies pain. EENT: bp No deficits noted. Neuro: No deficits noted. Cardiovascular: No deficits noted. Respiratory: No deficits noted. GI: No signs and/or symptoms were reported involving the gastrointestinal system. : No signs and/or symptoms were reported regarding the genitourinary system. Derm: No deficits noted. Musculoskeletal: No deficits noted. Injury Description: R WRIST SKIN TEAR. Historical: - Allergies: 14:12 No Known Allergies; bp - Home Meds: 14:12 albuterol sulfate 90 mcg/actuation Inhl HFAA twice a day [Active]; apixaban 5 mg Oral bp tab [Active]; Aspirin Oral [Active]; finasteride 5 mg Oral tab 1 tab once daily [Active]; furosemide 40 mg Oral tab [Active]; tamsulosin 0.4 mg Oral cap 1 cap once daily [Active]; Vitamin D Oral [Active]; potassium chloride 10 mEq Oral cpER 1 cap once daily [Active]; mirtazapine 15 mg Oral tab 1 tab once daily [Active]; magnesium oxide 420 mg Oral tab [Active]; Melatonin Oral [Active]; hydrochlorothiazide 25 mg Oral tab 1 tab once daily [Active]; - PMHx: 14:12 Atrial fibrillation; BPH; bp - Immunization history:: Adult Immunizations up to date. - Social history:: Smoking status: Patient denies any tobacco usage or history of. Screenin:15 Abuse screen: Denies threats or abuse. Denies injuries from another. Nutritional bp screening: No deficits noted. Tuberculosis screening: No symptoms or risk factors identified. Fall Risk Fall in past 12 months (25 points). No secondary diagnosis (0 pts). No IV (0 pts). Ambulatory Aid- Crutches/Cane/Walker (15 pts). Gait- Weak (10 pts.). Mental Status- Oriented to own ability (0 pts). Total Streeter Fall Scale indicates Low Risk Score (25-44 pts). Fall prevention measures have been instituted. Side Rails Up X 2 Placed close to Nursing Station Frequent Obs/Assesments occuring As available Patient and Family Educated on Fall Prevention Program and strategies. Assessment: 14:15 General: SEE TRIAGE NOTE. bp 15:08 Reassessment: FAMILY DECLINING DISCHARGE, REQUESTING MORE EXTENSIVE MEDICAL EVAL. bp PROVIDER AT B/S. Vital Signs: 13:45 BP 116 / 48; Pulse 90; Resp 17; Temp 98; Pulse Ox 91% on 2 lpm NC; bp 15:08 BP 103 / 43; Pulse 96; Resp 16; Pulse Ox 96% ; bp 16:39 BP 107 / 39; Pulse 70; Resp 16; Pulse Ox 97% ; ss 17:30 BP 108 / 46; Pulse 82; Resp 16; Pulse Ox 100% ; bp 18:30 BP 103 / 42; Pulse 84; Resp 16; Pulse Ox 98% ; bp ED Course: 13:45 Patient arrived in ED. bp 13:47 Al Vargas is PHCP. jl9 13:47 Wilton Dong MD is Attending Physician. jl9 13:47 Triage completed. bp 14:07 XRAY Wrist RIGHT 3 view In Process Unspecified. EDMS 14:12 Farooq Tran, RN is Primary Nurse. bp 14:14 Arm band placed on. bp 14:15 Patient has correct armband on for positive identification. Bed in low position. Call bp light in reach. Side rails up X2. 15:09 Wound care: to SKIN TEAR located on right hand. bp 15:37 XRAY Chest (1 view) In Process Unspecified. EDMS 16:57 Nnamdi Cortés MD is Hospitalizing Provider. jl9 17:40 Hospitalizing Provider role handed off by Nnamdi Cortés MD jl9 17:40 Otto Roa MD is Hospitalizing Provider. jl9 03/10 16:37 No provider procedures requiring assistance completed. Patient admitted, IV remains in db place. Administered Medications: 03/09 17:15 Drug: Lasix (furosemide) 40 mg Route: IVP; Site: right forearm; bp Medication: 14:15 VIS not applicable for this client. bp Outcome: 14:30 Discharge ordered by . jl9 16:57 Decision to Hospitalize by Provider. jl9 03/10 11:27 Admitted to ICU db Condition: stable Instructed on the need for admit. 20:08 Patient left the ED. ld1 Signatures: Dispatcher [employer] EDMS Imani Lopez RN RN Farooq Tran RN RN Codi Ramírez RN RN ld1 Al Vargas jl9 Ashley Zurita, AIRAM ALEGRIA db
[2022-03-09 15:43] LABS: Absolute Lymphocytes (CBC) 0.1 K/uL (0.7-4.9); Hematocrit 26.9 % (39.6-49.0); Lymphocytes % 1.3 % (15.3-44.8); MCV 93.5 fL (80-100); MPV 8.7 fL (7.6-11.3); RBC Red Blood Cell Count 2.88 M/uL (4.33-5.43)
--- NOTE | 2022-03-09 15:45 | RAD REPORT ---
EXAM DESCRIPTION: RAD - Chest Single View - 03/09/2022 3:36 pm CLINICAL HISTORY: MALAISE COMPARISON: Abdomen 1 View (KUB) dated 12/10/2021; Chest Single View dated 12/10/2021; Chest Single Vi ew dated 12/05/2021; Chest Single View dated 11/30/2021 FINDINGS: Lines: None. Lungs: Coarsening of the pulmonary interstitium. Pleural: Small pleural effusions. Cardiac: Cardiomegaly. Mediastinum: Within normal limits. Bones: No acute fractures. Other: None IMPRESSION: Small effusions and coarsened pulmonary interstitium most likely reflecting interstitial edema. Pneumonia difficult to entirely exclude. .
[2022-03-09 16:42] LABS: SARS-COV-2 RT PCR NEGATIVE (NEGATIVE)
[2022-03-09 16:45] LABS: Potassium 4.2 mmol/L (3.5-5.1)
[2022-03-09 16:47] LABS: Troponin High Sensitivity 527.5 pg/mL (<58.9)
[2022-03-09] MEDS ORDERED: FUROSEMIDE 20 MG/ 2ML VIAL ONE (18:00)
--- NOTE | 2022-03-09 20:59 | P.HP ---
Certification for Inpatient Patient admitted to: Inpatient With expected LOS: >2 Midnights Patient will require the following post-hospital care: None Practitioner: I am a practitioner with admitting privileges, knowledge of patient current condition, hospital course, and medical plan of care. Services: Services provided to patient in accordance with Admission requirements found in Title 42 Section 412.3 of the Code of Federal Regulations Patient History Date of Service: 03/09/22 Primary Care Provider: Crispin Reason for admission: acute on chronic diastolic chf History of Present Illness: Patient is an office patient of [facility]. He has a history of diastolic chf, afib and bph. He fell today and hurt his wrist. Was brought to the ER. He was found to have an elevated bnp and troponin. As well as an elevated creatine. He has no previous history of kidney disease. He has pedal edema which may have contributed to his falls. The patient states that he has been feeling poorly for the past few days. Will admit him to the hospital Allergies No Known Allergies Allergy (Verified 04/22/17 01:26) Home Medications: Mirtazapine [Remeron*] 15 mg PO BEDTIME 03/09/21 Aspirin [Aspirin EC 81 MG] 81 mg PO DAILY #90 tablet.dr 03/10/21 Finasteride 5 mg PO DAILY #30 03/10/21 Tamsulosin [Flomax*] 0.4 mg PO BEDTIME #30 cap 03/10/21 Cholecalciferol (Vitamin D3) [Vitamin D 1000 Iu Tab*] 1,000 unit PO BID 08/20/21 Magnesium Oxide 1 tab PO DAILY 08/20/21 Melatonin 1 cap PO BEDTIME 08/20/21 Albuterol Neb [Proventil 0.083% Neb Soln] 2.5 mg NEB [id number] PRN amp 08/22/21 Meropenem [Merrem*] 1 gm IV Q8H 7 Days #21 ml 12/09/21 - Past Medical/Surgical History Diabetic: No -: BPH -: Hypertension -: Atrial fibrillation -: Hypertension -: Diastolic CHF -: GERD -: Cardiac cath with 2 stents Psychosocial/ Personal History: Patient is a . - Social History Alcohol use: No CD- Drugs: No Caffeine use: Yes Review of Systems General: Malaise Cardiovascular: Edema (2+) Physical Examination - Physical Exam General: Alert, In no apparent distress HEENT: Atraumatic, PERRLA, Mucous membr. moist/pink, EOMI, Sclerae nonicteric Neck: Supple, 2+ carotid pulse no bruit, No LAD, Without JVD or thyroid abnormality Respiratory: Clear to auscultation bilaterally, Normal air movement Cardiovascular: Regular rate/rhythm, Normal S1 S2, Edema (2+) Gastrointestinal: Normal bowel sounds, No tenderness Musculoskeletal: No tenderness Integumentary: No rashes Neurological: Normal gait, Normal speech, Normal strength at 5/5 x4 extr, Normal tone, Normal affect Lymphatics: No axilla or inguinal lymphadenopathy - Studies Laboratory Data (last 24 hrs) 03/09/22 15:35: WBC 9.20, Hgb 9.0 L, Hct 26.9 L, Plt Count 132 L 03/09/22 15:35: Sodium 131 L, Potassium 4.2, BUN 36 H, Creatinine 1.88 H, Glucose 108 H Assessment and Plan - Problems (Diagnosis) (1) Congestive heart failure Current Visit: No Status: Chronic Plan: Start the patient on lasix. Consult to Dr. Franklin. Will check a tsh. He had an echocardiogram within the last 6 months. Showing diastolic dysfunction Qualifiers: Heart failure type: diastolic Heart failure chronicity: acute Qualified Code(s): I50.31 - Acute diastolic (congestive) heart failure (2) Atrial fibrillation Current Visit: No Status: Chronic Plan: Currently rate controlled. Not on a betablocker. Will hold those as he is in acute renal failure. Qualifiers: Atrial fibrillation type: paroxysmal Qualified Code(s): I48.0 - Paroxysmal atrial fibrillation (3) OLIVIER (acute kidney injury) Current Visit: No Status: Acute Plan: Will continue lasix. Start a chavez as this may be obstructive. If no improvement we may need to consult nephrology (4) BPH loc w urin obs/LUTS Current Visit: Yes Status: Chronic Plan: Will restart his home medications for bph Discharge Plan: Home Plan to discharge in: 48 Hours - Advance Directives Does patient have a Living Will: No Does patient have a Durable POA for Healthcare: Yes - Code Status/Comfort Care Code Status Assessed: Yes Code Status: Full Code Physician Review: Patient Assessed, Agree with Above Assessment and Plan Critical Care: No Time Spent Managing Pts Care (In Minutes): 50
[2022-03-09] MEDS ORDERED: ACETAMINOPHEN 500 MG TAB ONE (22:02)
[2022-03-09] MEDS: ACETAMINOPHEN 500 MG TAB PO PRN (22:04)
[2022-03-09] MEDS ORDERED: DOPAMINE/D5W 400 MG/250 ML BAG IV SCH (22:30)
[2022-03-09] MEDS ORDERED: VITAMIN D 1000 UNIT TAB ONE (22:42)
[2022-03-09] MEDS ORDERED: TAMSULOSIN 0.4 MG SR CAP ONE (22:42)
[2022-03-09] MEDS: TAMSULOSIN 0.4 MG SR CAP PO SCH (22:45)
[2022-03-09] MEDS: VITAMIN D 1000 UNIT TAB PO SCH (22:45)
[2022-03-09 22:48] LABS: Urine Blood 3+ (Negative); Urine Glucose Negative (Negative); Urine Protein 1+ (Negative)
[2022-03-09] MEDS ORDERED: MIRTAZAPINE 15 MG TAB ONE (23:13)
[2022-03-09] MEDS: MIRTAZAPINE 15 MG TAB PO SCH (23:30)
[2022-03-09 23:47] VITALS: BMI 22.1
[2022-03-10] MEDS ORDERED: DOPAMINE/D5W 400 MG/250 ML BAG IV ONE (00:56)
[2022-03-10 07:04] LABS: Absolute Lymphocytes (CBC) 0.1 K/uL (0.7-4.9); Hematocrit 27.3 % (39.6-49.0); MCV 93.5 fL (80-100); MPV 8.8 fL (7.6-11.3); RBC Red Blood Cell Count 2.92 M/uL (4.33-5.43)
--- NOTE | 2022-03-10 07:59 | P.PN ---
Subjective Date of Service: 03/10/22 Primary Care Provider: Crispin Chief Complaint: acute on chronic diastolic chf Subjective: New changes (started on Dopamine for hypotension) Review of Systems 10-point ROS is otherwise unremarkable General: Chills Physical Examination - Vital Signs Temperature: 98.7 F Blood Pressure: 120/50 Pulse: 85 Respirations: 22 Pulse Ox (%): 100 - Physical Exam General: Alert, In no apparent distress HEENT: Atraumatic, PERRLA, EOMI Neck: Supple, JVD not distended Respiratory: Clear to auscultation bilaterally, Normal air movement Cardiovascular: Regular rate/rhythm, Normal S1 S2, Edema (1+ much improved from yesterday ) Gastrointestinal: Normal bowel sounds, No tenderness Musculoskeletal: No tenderness Integumentary: No rashes Neurological: Normal speech, Normal tone, Normal affect Lymphatics: No axilla or inguinal lymphadenopathy - Studies Laboratory Data (last 24 hrs) 03/09/22 15:35: WBC 9.20, Hgb 9.0 L, Hct 26.9 L, Plt Count 132 L 03/09/22 15:35: Sodium 131 L, Potassium 4.2, BUN 36 H, Creatinine 1.88 H, Glucose 108 H Assessment And Plan - Current Problems (Diagnosis) (1) Congestive heart failure Current Visit: No Status: Chronic Plan: Start the patient on lasix. Consult to Dr. Franklin. Will check a tsh. He had an echocardiogram within the last 6 months. Showing diastolic dysfunction 03/10 I started the patient on dopamine yesterday. He states he is cold. will see if we can wean him off the dopamine. Will have cardiology take a look at him set a goal map off 55 Qualifiers: Heart failure type: diastolic Heart failure chronicity: acute Qualified Code(s): I50.31 - Acute diastolic (congestive) heart failure (2) Atrial fibrillation Current Visit: No Status: Chronic Plan: Currently rate controlled. Not on a betablocker. Will hold those as he is in a cute renal failure. Qualifiers: Atrial fibrillation type: paroxysmal Qualified Code(s): I48.0 - Paroxysmal atrial fibrillation (3) OLIVIER (acute kidney injury) Current Visit: No Status: Acute Plan: Will continue lasix. Start a chavez as this may be obstructive. If no improvement we may need to consult nephrology (4) BPH loc w urin obs/LUTS Current Visit: Yes Status: Chronic Plan: Will restart his home medications for bph Discharge Plan: Home Plan to discharge in: Greater than 2 days - Code Status/Comfort Care Code Status Assessed: No Physician Review: Patient Assessed, Agree with Above Assessment and Plan Critical Care: Yes Time Spent Managing PTS Care (In Minutes): 25
[2022-03-10 08:55] LABS: Potassium 3.8 mmol/L (3.5-5.1)
[2022-03-10] MEDS: FINASTERIDE 5 MG TAB PO SCH (09:00)
[2022-03-10] MEDS: ASPIRIN EC 81 MG TAB PO SCH (09:00)
[2022-03-10] MEDS: VITAMIN D 1000 UNIT TAB PO SCH ×2 (09:00→20:37)
[2022-03-10] MEDS: FUROSEMIDE 40 MG/4 ML VIAL IV SCH (09:00)
[2022-03-10 09:11] LABS: Albumin 2.7 g/dL (3.4-5.0); Bilirubin Total 1.8 mg/dL (0.2-1.0)
[2022-03-10 09:12] LABS: Thyroid Stimulating Hormone 0.435 uIU/mL (0.360-3.740)
[2022-03-10] MEDS: APIXABAN 5 MG TABLET PO SCH ×2 (10:00→20:37)
[2022-03-10] MEDS ORDERED: ASPIRIN EC 81 MG TAB PO ONE (10:18)
[2022-03-10] MEDS ORDERED: VITAMIN D 1000 UNIT TAB ONE (10:18)
[2022-03-10] MEDS ORDERED: APIXABAN 5 MG TABLET ONE (10:18)
[2022-03-10] MEDS ORDERED: FUROSEMIDE 40 MG/4 ML VIAL ONE (10:19)
[2022-03-10] MEDS ORDERED: ACETAMINOPHEN 500 MG TAB ONE (11:47)
[2022-03-10] MEDS: ACETAMINOPHEN 500 MG TAB PO PRN (11:49)
--- NOTE | 2022-03-10 15:07 | EKG ---
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
[2022-03-10] MEDS ORDERED: ENOXAPARIN 30 MG/0.3 ML SQ SCH (17:00)
[2022-03-10] MEDS: TAMSULOSIN 0.4 MG SR CAP PO SCH (20:36)
[2022-03-10] MEDS: MELATONIN 5 MG TABLET PO SCH (20:37)
[2022-03-10] MEDS: MIRTAZAPINE 15 MG TAB PO SCH (20:37)
[2022-03-11] MEDS: ACETAMINOPHEN 500 MG TAB PO PRN ×2 (05:53→06:10)
[2022-03-11 06:25] LABS: Hematocrit 26.5 % (39.6-49.0); Lymphocytes % 0.7 % (15.3-44.8); MCV 92.7 fL (80-100); MPV 9.5 fL (7.6-11.3); RBC Red Blood Cell Count 2.86 M/uL (4.33-5.43)
[2022-03-11 06:49] LABS: Albumin 2.4 g/dL (3.4-5.0); Bilirubin Total 2.4 mg/dL (0.2-1.0); Potassium 4.1 mmol/L (3.5-5.1); Protein, Total 6.4 g/dL (6.4-8.2)
[2022-03-11 08:15] LABS: Blood Morphology Comment NOTED (NOT SEEN); Dohle Bodies PRESENT; Platelet Estimate DECR; Toxic Granulation 2+
[2022-03-11 08:16] LABS: Burr Cells 3+
[2022-03-11 08:17] LABS: ACANTHOCYTE 1+
[2022-03-11] MEDS: FUROSEMIDE 40 MG/4 ML VIAL IV SCH (08:46)
[2022-03-11] MEDS: APIXABAN 5 MG TABLET PO SCH ×3 (08:47→22:39)
[2022-03-11] MEDS: FINASTERIDE 5 MG TAB PO SCH (08:47)
[2022-03-11] MEDS: VITAMIN D 1000 UNIT TAB PO SCH ×3 (08:47→22:39)
[2022-03-11] MEDS: ASPIRIN EC 81 MG TAB PO SCH (08:47)
[2022-03-11] MEDS ORDERED: ACETYLCYST 20% 4 ML VIAL IH ONE (12:20)
--- NOTE | 2022-03-11 12:21 | P.PN ---
Subjective Date of Service: 03/11/22 Primary Care Provider: Crispin Chief Complaint: acute on chronic diastolic chf Subjective: Worsening (creatine) Review of Systems General: Weakness Physical Examination - Vital Signs Temperature: 99.0 F Blood Pressure: 107/58 Pulse: 97 Respirations: 18 Pulse Ox (%): 88 - Physical Exam General: Alert, In no apparent distress HEENT: Atraumatic, PERRLA, EOMI Neck: Supple, JVD not distended Respiratory: Clear to auscultation bilaterally, Normal air movement Cardiovascular: Regular rate/rhythm, Normal S1 S2 Gastrointestinal: Normal bowel sounds, No tenderness Musculoskeletal: No tenderness Integumentary: No rashes Neurological: Normal speech, Normal tone, Normal affect Lymphatics: No axilla or inguinal lymphadenopathy Assessment And Plan - Current Problems (Diagnosis) (1) Congestive heart failure Current Visit: No Status: Chronic Plan: Start the patient on lasix. Consult to Dr. Franklin. Will check a tsh. He had an echocardiogram within the last 6 months. Showing diastolic dysfunction 03/11 his pedal edema has improved. Will decrease his lasix Qualifiers: Heart failure type: diastolic Heart failure chronicity: acute Qualified Code(s): I50.31 - Acute diastolic (congestive) heart failure (2) Atrial fibrillation Current Visit: No Status: Chronic Plan: Currently rate controlled. Not on a betablocker. Will hold those as he is in acute renal failure. Qualifiers: Atrial fibrillation type: paroxysmal Qualified Code(s): I48.0 - Paroxysmal atrial fibrillation (3) OLIVIER (acute kidney injury) Current Visit: No Status: Acute Plan: Will continue lasix. Start a chavez as this may be obstructive. If no improvement we may need to consult nephrology 03/11 place a chavez and will consult Dr. Natarajan (4) BPH loc w urin obs/LUTS Current Visit: Yes Status: Chronic Plan: Will restart his home medications for bph (5) End of life care Current Visit: Yes Status: Acute Plan: patient has been expressing wishing to be done with life. Have discussed with his son. He did expressing wanting to be a DNR. Will change him to a DNR Discharge Plan: Home - Code Status/Comfort Care Code Status Assessed: Yes Code Status: Do Not Attempt Resuscitat Physician Review: Patient Assessed, Agree with Above Assessment and Plan Critical Care: No Time Spent Managing PTS Care (In Minutes): 40
[2022-03-11] MEDS: DEXTROSE 10%-WATER 125 ML IV PRN ×2 (15:54→21:40)
[2022-03-11] MEDS ORDERED: THIAMINE 200 MG/2 ML INJ IVP SCH (18:04)
[2022-03-11] MEDS ORDERED: NA CHLORIDE 0.9% 1,000 ML IV SCH (19:00)
--- NOTE | 2022-03-11 19:03 | RAD REPORT ---
EXAM DESCRIPTION: US - Renal Ultrasound-Complete - 03/11/2022 6:46 pm CLINICAL HISTORY: tej COMPARISON: No comparisons FINDINGS: The right kidney measures 10.1 x 4.3 x 3.4 cm. The left kidney measures 10.0 x 4.8 x 3.8 cm. Renal cortical thickness and echogenicity are normal. No hydronephrosis or suspicious renal mass. Urinary bladder is tightly contracted and appears to be contracted around a Salvador catheter. IMPRESSION: No hydronephrosis or suspicious renal mass. Renal cortical thickness and echogenicity within range of normal.
[2022-03-11 19:49] LABS: Blood Gas Oxyhemoglobin 36.7 % (94-97); Blood O2 Saturation 37.7 % (92-98.5)
[2022-03-11] MEDS ORDERED: CEFTRIAXONE 1,000 MG in NA CHLORIDE 0.9% 50 ML IVPB SCH (20:00)
[2022-03-11 20:48] LABS: Magnesium 2.4 mg/dL (1.8-2.4)
[2022-03-11] MEDS: TAMSULOSIN 0.4 MG SR CAP PO SCH ×2 (21:00→22:39)
[2022-03-11] MEDS: MIRTAZAPINE 15 MG TAB PO SCH ×2 (21:00→22:39)
[2022-03-11] MEDS: MELATONIN 5 MG TABLET PO SCH ×2 (21:00→22:39)
--- NOTE | 2022-03-11 22:54 | RAD REPORT ---
EXAM DESCRIPTION: CT - Thorax Wo Con - 03/11/2022 9:18 pm CLINICAL HISTORY: plural effusion , pneumonia COMPARISON: Chest Abd Pelvis Wo Con dated 03/09/2021 TECHNIQUE: Axial 5 mm thick images of the chest were obtained without IV contrast. All CT scans are performed using dose optimization technique as appropriate and may include automated exposure control or mA/KV adjustment according to patient size. FINDINGS: There is significant respiratory motion degradation. Moderate size bilateral pleural effus ions are present. Mineralization within the lower lung parenchyma pleura is displaced by the pleural effusion and atelectasis. Atelectasis changes in the lingula are present along the fissure. Infrahila r nodularity is seen on the right. Air bronchograms are present. This could be infiltrate or atelecta sis. Right lower lobe mass lesion is possible. No new or enlarging pleural based mass. No pneumothora x. No abnormal mediastinal or hilar masses or lymphadenopathy seen. No gross aortic or pulmonary artery finding suspected. Assessment is limited in the absence of IV contrast. Coronary artery calcificatio ns are present. Minimal pericardial thickening or effusion. No chest wall mass or abnormal axillary lymphadenopathy. IMPRESSION: Moderate bilateral pleural effusions with partial atelectasis of each lower lobe and min imal atelectasis in the lingula. There is a focal 3 centimeter masslike density in the infrahilar right lower lobe. This could be atel ectasis, infiltrate or a combination. A lung mass lesion cannot be excluded in this can be monitored on subsequent imaging once the pleural effusion has resolved or significantly improved.
--- NOTE | 2022-03-11 22:57 | RAD REPORT ---
EXAM DESCRIPTION: CT - Stone Protocol - 03/11/2022 9:21 pm CLINICAL HISTORY: tej COMPARISON: Abdomen Pelvis Wo Contrast dated 11/30/2021 TECHNIQUE: Axial 3 mm thick images were obtained without oral or IV contrast. The [id number] span s the entirety of the system including uppermost abdomen and lung bases. All CT scans are performed using dose optimization technique as appropriate and may include automated exposure control or mA/KV adjustment according to patient size. FINDINGS: No hydronephrosis is present and no obstructing ureteral calculi. No suspicious renal mass es. Isodense masses and pyelonephritis are not excluded on a stone protocol CT scan. No significant a drenal finding. Urinary bladder is fully contracted around a Salvador catheter. Imaged portions of the liver, spleen and pancreas show no suspicious findings on non-contrast imaging . Gallbladder is distended. Gallstones can be occult. No abnormal biliary tree dilatation. No suspicious bowel findings. Diverticulosis is present in the colon without diverticulitis. No hernia, mass or bulky lymphadenopathy noted. No free air, free fluid or inflammatory stranding. Disc and bone degenerative changes are present. No acute or pathologic bone process seen. Lung base findings are separately detailed on the CT chest report. IMPRESSION: No hydronephrosis, obstructing calculus or acute finding identifiable. Isodense masses and pyelonephritis are not excluded on stone protocol technique. Distended gallbladder with no biliary tree dilatation. No acute bowel finding. Patient has diverticulosis without diverticulitis.
[2022-03-11 23:10] VITALS: BP 87/46; TEMP 97.9
--- NOTE | 2022-03-11 23:24 | CON ---
Date of Consultation: 03/11/2022 Chief Complaint: Acute kidney injury. History Of Present Illness: Patient has multiple medical problems and he was admitted to the hospital because of generalized weakness. Today he was found to have borderline hypotension and urinary retention. Salvador catheter was placed. Patient has history of diastolic congestive heart failure, atrial fibrillation, BPH. He is bedbound and he has history of failure to thrive. Prior to this admission, he fell and was admitted to the hospital on March 09, 2022. He was brought to the emergency room and was found to have elevated BNP and troponin. Creatinine level was elevated as well and renal function has declined over last 3 days. Patient has history of lower extremity edema, lymphedema, and chronic dermatitis in both legs. The patient was complaining of generalized weakness, fatigue, and difficulty with ambulation and decreased p.o. intake. Review of Systems: General: Denies fever or chills. Eyes: Denies vision changes. Ears, Nose, Mouth And Throat: Denies sore throat or earache. Respiratory: Denies wheezing or hemoptysis. Has shortness of breath with mild activities. GI: Denies nausea or vomiting. He is complaining of lack of appetite. : Denies hematuria or dysuria. Denies kidney colic. All other systems reviewed and all are negative. Past Medical History: Hypertension, BPH, atrial fibrillation, diastolic congestive heart failure, history of acute kidney injury and did not require dialysis as renal function stabilized, GERD, and coronary artery disease status post cardiac catheterization and 2 stents. Social History: Denies tobacco, alcohol, or illicit drugs. Physical Examination: General: Patient is alert, not in acute distress. HEENT: Atraumatic, normocephalic. EOMI. Anicteric sclerae. Neck: Supple. No bruits. No JVD. Respiratory: Clear to auscultation bilaterally. Normal air movement. No wheezing. No rhonchi. Cardiovascular: S1, S2. Abdomen: Soft, nontender. Normal bowel sounds. Extremities: Chronic dermatitis and edema present in both legs. Neurologic: Moving extremities. Cranial nerves intact. Psychiatric: Patient is somewhat lethargic although he follows commands. Laboratory Data: Sodium 131, potassium 4.2, BUN 36, creatinine 1.88, glucose 108 on March 09. Blood work today showed chemistries with sodium 131, potassium 4.1, chloride 96, CO2 24, BUN 62, creatinine 2.6, glucose 71, total bilirubin 2.4. Troponin on March 09 was 1524, I. Albumin 2.4, total protein is 6.4. TSH 0.45. Urinalysis showed 1+ protein, blood 3+, leukocyte esterase negative, nitrite negative. Assessment And Plan: Acute kidney injury, accelerated. Urinalysis showed proteinuria as well as positive blood. Plan is to check urinalysis with microscopic panel and to rule out hematuria, likely patient has rhabdomyolysis as well as he has prerenal azotemia and nonoliguric acute tubular necrosis due to hypotension. I recommend to monitor urine output and Salvador catheter was placed. Plan is to check renal ultrasound and monitor the electrolytes. Check phosphorus level and magnesium level. The patient was found to have elevated bilirubin, which may go along with liver disease and cholangitis as well as ischemic hepatitis. Hyponatremia, sodium level is 131 and has been relatively stable over last 48 hours. Continue normal saline. The patient is undergoing workup for congestive heart failure. Recommend mild hydration due to decreased p.o. intake and electrolyte abnormalities. EB/MODL Voice ID: [id number] Report ID: [id number] LAKESHA
[2022-03-12 00:35] VITALS: O2SAT 87
--- NOTE | 2022-03-12 08:06 | P.DS ---
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 He has a history of diastolic chf, afib and bph. He fell today and hurt his wrist. Was brought to the ER. He was found to have an elevated bnp and troponin. As well as an elevated creatine. He has no previous history of kidney disease. He has pedal edema which may have contributed to his falls. The patient states that he has been feeling poorly for the past few days. Will admit him to the hospital Hospital Course: after midnight Thursday morning. patient became bradycardic, hypoxic was a dnr and . Thank you for allowing me to take part in his care. Vital Signs/Physical Exam: Temp Pulse Resp BP Pulse Ox 97.9 F 102 H 24 H 87/46 L 93 03/11/22 20:00 03/11/22 20:00 03/11/22 20:00 03/11/22 20:00 03/11/22 20:00 Laboratory Data at Discharge: WBC Cancelled 03/12/22 06:00 Hgb Cancelled 03/12/22 06:00 Hct Cancelled 03/12/22 06:00 Plt Count Cancelled 03/12/22 06:00 Sodium Cancelled 03/12/22 06:00 Potassium Cancelled 03/12/22 06:00 BUN Cancelled 03/12/22 06:00 Creatinine Cancelled 03/12/22 06:00 Glucose Cancelled 03/12/22 06:00 Uric Acid 10.9 mg/dL (3.5-7.2) H 03/11/22 18:59 Phosphorus 5.0 mg/dL (2.5-4.9) H 03/11/22 18:59 Magnesium 2.4 mg/dL (1.8-2.4) 03/11/22 18:59 Total Bilirubin Cancelled 03/12/22 06:00 AST Cancelled 03/12/22 06:00 ALT Cancelled 03/12/22 06:00 Alkaline Phosphatase Cancelled 03/12/22 06:00 Home Medications: Mirtazapine [Remeron*] 15 mg PO BEDTIME 03/09/21 Aspirin [Aspirin EC 81 MG] 81 mg PO DAILY #90 tablet. 03/10/21 Finasteride 5 mg PO DAILY #30 03/10/21 Tamsulosin [Flomax*] 0.4 mg PO BEDTIME #30 cap 03/10/21 Cholecalciferol (Vitamin D3) [Vitamin D 1000 Iu Tab*] 1,000 unit PO BID 08/20/21 Magnesium Oxide 1 tab PO DAILY 08/20/21 Melatonin 1 cap PO BEDTIME 08/20/21 Albuterol Neb [Proventil 0.083% Neb Soln] 2.5 mg NEB [id number] PRN amp 08/22/21 Meropenem [Merrem*] 1 gm IV Q8H 7 Days #21 ml 12/09/21 Furosemide [Lasix] 40 mg PO DAILY 03/10/22 Potassium Chloride [Micro-K] 10 meq PO DAILY 03/10/22 Followup: NONE,NONE [Primary Care Provider] - Time spent managing pt's care (in minutes): 15
[2022-03-12] MEDS ORDERED: PIPER TAZO 3.375 GM in NA CHLORIDE 0.9% 100 ML IV SCH (09:00)
[2022-03-12] MEDS ORDERED: MIDODRINE HCL 5 MG TABLET PO SCH (09:00)
--- NOTE | 2022-03-13 14:47 | CON ---
Date of Consultation: 03/10/2022 History Of Present Illness: Mr. Bill is 86 years old, do not resuscitate. Has a history of grinder tender heraclio diastolic congestive heart failure, atrial fibrillation, and benign prostatic hypertrophy as well as COPD and hypertension. Came in with a fall, injury and weakness, was found to have congestive he art failure on x-ray, anemia with a hemoglobin of 8.9, creatinine is 2.6. He was very hypoxic with a pO2 of 30, pCO2 of 55 and pH of 7.29. The patient denied any chest pain. Denied any syncope or claudy sea or vomiting. Denied any palpitation. Past Medical History: As stated above. Positive for DNR. Review of Systems: Negative. Social History: Negative. Family History: Negative. Medications: Include Eliquis, inhalers, Lasix, finasteride, tamsulosin, hydrochlorothiazide. Allergies: NONE. Physical Examination: General: He appeared his stated age. He was in sinus rhythm, afebrile. Chest: Reveals rales both bases as well as expiratory wheezing. Cardiac: Revealed a regular rhythm and rate with aortic sclerosis murmur. No gallops or rubs. Abdomen: Benign. Extremities: Revealed no clubbing, cyanosis. He had trace edema. Diagnostic Data: As stated earlier. Impression And Plan: 1.Acute on chronic diastolic congestive heart failure. 2.Renal insufficiency. 3.Anemia. 4.Hypoxia. 5.Chronic obstructive pulmonary disease. 6.BPH. 7.Atrial fibrillation. 8.History of fall. I agree with his present regimen right now including the Eliquis, inhalers, Lasi x, and hydrochlorothiazide. We will continue to diurese him gently while watching his renal failure. Nephrology is involved in his care. We will continue to follow. JOSLYN/ALANA Voice ID: [id number] Report ID: [id number]
[2022-03-15 14:04] LABS: HBsAG Nonreactive (Nonreactive)
== END 2022-03-12 00:09 | disposition expired | DRG 291 ==
LOC: ER 13:24 → ERHOLD 17:34 → 2ND 03-10 17:57
PROVIDERS: ADMIT Internal Medicine; ATTEND Internal Medicine
DX: I11.0 Hypertensive heart disease with heart failure (principal); I50.31 Acute diastolic (congestive) heart failure; N17.0 Acute kidney failure with tubular necrosis; K72.00 Acute and subacute hepatic failure without coma; N13.8 Other obstructive and reflux uropathy; K83.09 Other cholangitis; E87.1 Hypo-osmolality and hyponatremia; N40.1 Benign prostatic hyperplasia with lower urinary tract symptoms; D64.9 Anemia, unspecified; J44.9 Chronic obstructive pulmonary disease, unspecified; I48.0 Paroxysmal atrial fibrillation; K21.9 Gastro-esophageal reflux disease without esophagitis; K76.9 Liver disease, unspecified; S69.91XA Unspecified injury of right wrist, hand and finger(s), initial encounter; R09.02 Hypoxemia; R77.8 Other specified abnormalities of plasma proteins; Z66 Do not resuscitate; Z51.5 Encounter for palliative care; Z95.5 Presence of coronary angioplasty implant and graft; Z74.01 Bed confinement status; Z79.82 Long term (current) use of aspirin; Z79.899 Other long term (current) drug therapy; Z20.822 Contact with and (suspected) exposure to COVID-19; W01.0XXA Fall on same level from slipping, tripping and stumbling without subsequent striking against object, initial encounter; Y93.9 Activity, unspecified; Y92.9 Unspecified place or not applicable
CPT/HCPCS: 0241U; 36415; 71045; 71250; 74176; 76377; 76770; 80048; 80053; 80074; 81003; 82550; 82805; 82947; 83735; 83880; 84100; 84443; 84484; 84550; 85025; 86021; 86334; 87040; 93005; 96374; 99285; G0103; J1265; J1940